=== PATIENT | female | born 1985 | race Caucasian/White ===

== ENCOUNTER 2020-04-28 09:06 | Outpatient (REF) | payer OTHER, SELFPAY | END 2020-04-28 09:07 | disposition home or self-care (01) | LOC: HO.LAB 09:06 | PROVIDERS: PCP Physician Assistant; Visit Provider Obstetrics & Gynecology | DX: N92.1 Excessive and frequent menstruation with irregular cycle (principal); N84.1 Polyp of cervix uteri; R31.29 Other microscopic hematuria | CPT/HCPCS: 36415; 80053; 81001; 81025; 84443; 84702; 85025; 85652; 86140; 86160; 86225; 87491; 87591; 99213 ==

== ENCOUNTER 2020-04-30 12:07 | Outpatient (REF) | payer OTHER, SELFPAY ==
--- NOTE | 2020-04-30 13:02 | XR_ITS ---
EXAMINATION: XR SACRUM AND COCCYX CLINICAL INFORMATION: Dorsalis jet. COMPARISON: None TECHNIQUE: 2 views of the sacrum and 2 views of the coccyx were obtained. FINDINGS: There is normal symmetry of bilateral SI joints with smooth cortical symmetrical defects along the medial ileum adjacent to inferior SI joints. These could be from exiting nerve roots or iliac vessels. The sacrum is unremarkable. The soft tissues are normal. XR/XR sacrum coccyx min 2V IMPRESSION: Unremarkable sacrum and/or coccyx.
[2020-04-30 13:19] LABS: MANUAL DIFF FLAG NO
[2020-04-30 13:23] LABS: Basophils Percent Auto 0.4 % (0-2); Eosinophils Absolute Auto 0.2 X10*3/uL (0.0-0.4); Eosinophils Percent Auto 2.9 % (0-4); Hematocrit 38.6 % (37-47); Hemoglobin 12.4 g/dl (12.0-16.0); Imm Gran Abs Auto 0.01 X10*3/uL (0.00-0.03); Imm Gran Pct Auto 0.2 % (0.0-0.4); Lymphocytes Absolute Auto 0.7 X10*3/uL (1.2-4.9); Lymphocytes Percent Auto 13.6 % (20-40); Mean Corpuscular HGB Conc 32.1 g/dl (31.0-35.0); Mean Corpuscular Hemoglobin 27.9 pg (27.0-33.0); Mean Corpuscular Volume 86.9 fL (80-98); Mean Platelet Volume 10.5 fL (9.4-12.3); Monocytes Absolute Auto 0.5 X10*3/uL (0.1-1.2); Monocytes Percent Auto 8.8 % (2-11); Neutrophils Absolute Auto 3.9 X10*3/uL (2.0-8.3); Neutrophils Percent Auto 74.1 % (45-73); Platelet Count 303 X10*3/uL (160-400); Red Blood Count 4.44 X10*6/uL (4.20-5.50); Red Cell Distribution Width 13.1 % (11.0-16.0); White Blood Count 5.2 X10*3/uL (4.8-10.8)
[2020-04-30 14:15] LABS: Alanine Aminotransferase 32 U/L (0-31); Alkaline Phosphatase 55 U/L (39-117); Anion Gap 11 (12-20); Aspartate Amino Transferase 24 U/L (5-31); Bilirubin Total 0.3 mg/dL (0.0-1.0); Blood Urea Nitrogen 6 mg/dL (9-16); C Reactive Protein 0.55 mg/dL (< or = 0.50); Calcium 8.3 mg/dL (8.4-10.2); Carbon Dioxide 25 mmol/L (22-29); Chloride 105 mmol/L (96-108); Estimated Glomerular Filt Rate > 60; Glucose Random 98 mg/dL (60-115); Potassium 4.2 mmol/l (3.3-5.1); Sodium 137 mmol/L (135-145); Total Protein 7.1 g/dL (6.5-8.0)
[2020-04-30 14:24] LABS: Glucose Urine UA NEG (NEG); Leukocyte Esterase Urine NEG (NEG); Nitrite Urine NEG (NEG); PH 5.5 (5.0-8.0); Specific Gravity - Urine >= 1.030 (1.005-1.025); Urine Blood NEG (NEG); Urine Ketones NEG (NEG); Urine Protein NEG (NEG-TRACE)
[2020-04-30 14:37] LABS: Mucus Urine 1+ /LPF; RBC Urine 0-2 /HPF (0); Squamous Epithelial Cell Urine 1+ /LPF
[2020-04-30 14:54] LABS: Appearance Urine CLEAR; Color Urine YELLOW
[2020-04-30 15:46] LABS: CT PCR NOT DETECTED (Not Detect.); NG PCR NOT DETECTED (Not Detect.)
== END 2020-04-30 12:08 | disposition home or self-care (01) ==
LOC: HO.LAB 12:07
PROVIDERS: Absent Provider Student in an Organized Health Care Education/Training Program; PCP Physician Assistant; Visit Provider Obstetrics & Gynecology
DX: R31.29 Other microscopic hematuria (principal); M35.00 Sjogren syndrome, unspecified; M45.9 Ankylosing spondylitis of unspecified sites in spine
CPT/HCPCS: 36415; 72220; 80053; 81001; 85025; 86140; 87086; 87491; 87591

== ENCOUNTER → 2020-05-14 13:08 | Outpatient (BNVA) | payer OTHER, SELFPAY | PROVIDERS: Visit Provider Obstetrics & Gynecology | DX: Z01.818 Encounter for other preprocedural examination (principal); N84.1 Polyp of cervix uteri; N92.1 Excessive and frequent menstruation with irregular cycle | CPT/HCPCS: 99212 ==

== ENCOUNTER 2020-05-16 06:16 | Day surgery (SDC) | payer OTHER, SELFPAY ==
--- NOTE | 2020-05-14 14:35 | HO.ANESPROP2 ---
Documented by User: Jade Grijalva 05/14/20 14:37 HPI - Anesthesia Eval Consult details Narrative: 35yo F for D&C Diagnostic Hysteroscopy, Poss Polypectomy, Poss Myomectomy s/p tubal PMFSH Past Medical History Medical History Anxiety GERD (gastroesophageal reflux disease) Sjogrens syndrome Family History Family History Father Hypertension Mother No problems noted. Maternal Grandmother Stroke Cancer Paternal Grandfather Stroke Surgical History Surgical History H/O LEEP History of bilateral tubal ligation Social History Social History Alcohol intake: never Smoking Status: Former smoker Years Smoked: 10 Second Hand Smoke Exposure: No Use of substances other than those prescribed or required for medical reasons: No Advance Directives: No Advance Directives Information Provided: No Advance Directives on File: No Sexual orientation: Straight/Heterosexual Gender identity: female Meds Allergies Allergy/AdvReac Type Severity Reaction Status Date / Time Iodinated Contrast Media Allergy Intermediate RASH Verified 05/14/20 13:38 [IV CONTRAST] Penicillins Allergy Intermediate RASH Verified 05/14/20 13:38 amoxicillin Allergy Unknown unknown Verified 05/14/20 13:38 Exam Exam Date and Time: May 14, 2020 1435 Pertinent Lab Results Pertinent Lab Results: Laboratory Tests 04/30/20 04/30/20 12:50 12:50 WBC 5.2 Hgb 12.4 Hct 38.6 Plt Count 303 Sodium 137 Potassium 4.2 Chloride 105 Carbon Dioxide 25 BUN 6 L Creatinine 0.68 Assessment and Plan Assessment Anesthesia Assessment: Chart Reviewed Documented by User: Jania Christine 05/16/20 07:33 PMFSH Past Medical History Medical History Anxiety GERD (gastroesophageal reflux disease) Sjogrens syndrome Family History Family History Father Hypertension Mother No problems noted. Maternal Grandmother Stroke Cancer Paternal Grandfather Stroke Surgical History Surgical History H/O LEEP History of bilateral tubal ligation Social History Social History Alcohol intake: never Smoking Status: Former smoker Years Smoked: 10 Second Hand Smoke Exposure: No Use of substances other than those prescribed or required for medical reasons: No Advance Directives: No Advance Directives Information Provided: No Advance Directives on File: No Sexual orientation: Straight/Heterosexual Gender identity: female Meds Allergies Allergy/AdvReac Type Severity Reaction Status Date / Time Iodinated Contrast Media Allergy Intermediate RASH Verified 05/14/20 13:38 [IV CONTRAST] Penicillins Allergy Intermediate RASH Verified 05/14/20 13:38 amoxicillin Allergy Unknown unknown Verified 05/14/20 13:38 Exam Airway Mallampati Class: I TM Dist: >3cm Neck ROM: Full Loose/Missing/Broken Teeth: No Heart: RRR Lungs: CTA Assessment and Plan Assessment Anesthesia Assessment: Anesthesia Plan Discussed and Chart Reviewed Final Anesthetic Review NPO: Yes ASA Class: II Final Preanesthetic Review: Meds/Allgs Chart Reviewed, Consent Obtained/Reviewed and Anes Risks/Benef Reviewed Patient Risk: Intermediate Procedure Risk: Low Anesthetic Plan Anesthetic Plan: GA Disposition: Standard PACU
[2020-05-15 08:47] VITALS: BMI 36.1
[2020-05-16 06:24] VITALS: BP 138/71; PULSE 74; RESP 20; TEMP 37.1; O2SAT 94; BMI 35.7
[2020-05-16] MEDS: Lactated Ringers 1,000 ML 100 ML IVCONT (06:46)
--- NOTE | 2020-05-16 07:34 | MHC.SHP ---
Pre-Procedural Eval Section A The patient is an INPATIENT: No Changes since office visit: No Cold of Flu in the past 2 weeks, No New Medical Problems, No Changes in Medication and No Patient answered all questions The History & Physical has been completed within 30 days and I have reviewed it.: Yes Section B Chief Complaint: Endocervical Polyp, Metrorrhagia Allergies: Allergies Allergy/AdvReac Type Severity Reaction Status Date / Time Iodinated Contrast Media Allergy Intermediate RASH Verified 05/14/20 13:38 [IV CONTRAST] Penicillins Allergy Intermediate RASH Verified 05/14/20 13:38 amoxicillin Allergy Unknown unknown Verified 05/14/20 13:38 Plan Diagnosis/Plan: Unchanged Patient has been examined and remains a candidate for the planned procedure
--- NOTE | 2020-05-16 07:58 | PM.OP ---
Brief Operative Note Date of Service: 05/16/20 Pre-op diagnosis: Menometrorrhagia , endocervical polyp Post-op diagnosis: other (normal endometrial and enodcervical cavity no evidence of pathology) Procedure: Hysteroscopy D&C Surgeon: Clifton Singer MD Anesthesia: MAC Estimated blood loss (mL): 0 Pathology: other (Endometrial Scrapping. ) Condition: stable Disposition: PACU
--- NOTE | 2020-05-16 08:04 | P.OP_ITS ---
Operative Note Operative Note Date of Service: 05/16/20 Narrative: Preop Diagnosis: Menometrorrhagia, endocervical polyp Operation: Diagnostic Hysteroscopy, Dilataion & Curettage Post Op Diagnosis: normal endometrial and endocervical cavity no evidence of pathology QBL: Minimal Anesthesia: MAC Surgeon: Clifton Singer MD Heating And Ventilation Engineer: None Complication: None Pathology: Endometrial Scrapings Procedure: The patient was put in the dorsal lithotomy position, scrubbed, and draped in the usual manner. A sterile speculum was inserted in the patient's vagina. The anterior lip of the cervix was grasped with a single tooth tenaculum. The cervix was dilated up t o 5 mm, then the scope was inserted in the patient's uterus. Inspection revealed normal endocervical & endometrial cavity with no evidence of pathology. The scope was taken out of the uterine cavity , then sharp curetting was carried on with no complications. At the end of the procedure, all instruments were taken out of the patient uterine and vaginal cavity. The single tooth tenaculum was removed and homeostasis was assured using pressure. The patient tolerated the procedure well and was transferred to the PACU in a stable condition.
[2020-05-16 08:06] VITALS: BP 139/86; PULSE 90; RESP 14; TEMP 36.4; O2SAT 98
[2020-05-16 08:11] VITALS: BP 122/79; PULSE 73; RESP 16; O2SAT 98
[2020-05-16 08:16] VITALS: BP 142/88; PULSE 79; RESP 16; O2SAT 99
[2020-05-16 08:21] VITALS: BP 138/83; PULSE 72; RESP 18; O2SAT 97
[2020-05-16] MEDS: oxyCODONE HCl Immed Release 5 MG TABLET PO (08:22)
[2020-05-16 08:36] VITALS: BP 148/90; PULSE 65; RESP 18; O2SAT 100
== END 2020-05-16 09:20 | disposition home or self-care (01) ==
PROVIDERS: PCP Physician Assistant; Visit Provider Obstetrics & Gynecology
PROC: 0UDB8ZX Extraction of Endometrium, Via Natural or Artificial Opening Endoscopic, Diagnostic (ICD-10-PCS; CPT 58558; principal; 2020-05-16 07:30)
DX: N84.1 Polyp of cervix uteri (principal); N92.1 Excessive and frequent menstruation with irregular cycle; K21.9 Gastro-esophageal reflux disease without esophagitis; M35.00 Sjogren syndrome, unspecified; F41.9 Anxiety disorder, unspecified; Z98.51 Tubal ligation status; Z88.0 Allergy status to penicillin; Z79.899 Other long term (current) drug therapy; Z91.041 Radiographic dye allergy status; Z87.891 Personal history of nicotine dependence
CPT/HCPCS: 58558; 88305; J1100; J1885; J2250; J2405; J3010

== ENCOUNTER → 2020-05-19 14:51 | Outpatient (BNVA) | payer OTHER, SELFPAY | PROVIDERS: PCP Physician Assistant; Visit Provider Obstetrics & Gynecology | DX: M79.603 Pain in arm, unspecified (principal); M06.9 Rheumatoid arthritis, unspecified | CPT/HCPCS: 99212 ==

== ENCOUNTER → 2020-06-03 16:07 | Outpatient (BNVA) | payer OTHER, SELFPAY | PROVIDERS: Visit Provider Obstetrics & Gynecology | DX: Z76.89 Persons encountering health services in other specified circumstances (principal) ==

== ENCOUNTER → 2020-06-17 08:20 | Outpatient (BNVA) | payer OTHER, SELFPAY | PROVIDERS: PCP Internal Medicine; Referring Provider Internal Medicine; Visit Provider Student in an Organized Health Care Education/Training Program | DX: Z76.89 Persons encountering health services in other specified circumstances (principal) ==

== ENCOUNTER 2020-07-01 14:02 | Outpatient (REF) | payer OTHER, SELFPAY ==
--- NOTE | 2020-07-01 15:16 | XR_ITS ---
EXAMINATION: XR KNEE, RIGHT CLINICAL INFORMATION: Pain COMPARISON: None TECHNIQUE: Two views of the right knee. FINDINGS: Bones and soft tissues are normal. No fracture or joint effusion. Alignment is anatomic. Joint spaces are well maintained. No abnormal soft tissue calcification. XR/XR knee RT 2V IMPRESSION: Normal right knee.
[2020-07-01 15:47] LABS: Basophils Percent Auto 0.7 % (0-2); Eosinophils Absolute Auto 0.3 X10*3/uL (0.0-0.4); Hematocrit 41.9 % (37-47); Hemoglobin 13.1 g/dl (12.0-16.0); Imm Gran Abs Auto 0.01 X10*3/uL (0.00-0.03); Imm Gran Pct Auto 0.2 % (0.0-0.4); Lymphocytes Absolute Auto 0.8 X10*3/uL (1.2-4.9); Lymphocytes Percent Auto 13.8 % (20-40); MANUAL DIFF FLAG NO; Mean Corpuscular HGB Conc 31.3 g/dl (31.0-35.0); Mean Corpuscular Hemoglobin 27.4 pg (27.0-33.0); Mean Corpuscular Volume 87.7 fL (80-98); Mean Platelet Volume 10.3 fL (9.4-12.3); Monocytes Absolute Auto 0.6 X10*3/uL (0.1-1.2); Neutrophils Absolute Auto 3.9 X10*3/uL (2.0-8.3); Neutrophils Percent Auto 70.3 % (45-73); Platelet Count 338 X10*3/uL (160-400); Red Blood Count 4.78 X10*6/uL (4.20-5.50); Red Cell Distribution Width 12.4 % (11.0-16.0); White Blood Count 5.6 X10*3/uL (4.8-10.8)
[2020-07-01 15:49] LABS: Glucose Urine UA NEG (NEG); Leukocyte Esterase Urine NEG (NEG); Nitrite Urine NEG (NEG); PH 5.5 (5.0-8.0); Specific Gravity - Urine 1.015 (1.005-1.025); Urine Blood 2+ (NEG); Urine Ketones NEG (NEG); Urine Protein NEG (NEG-TRACE)
[2020-07-01 15:54] LABS: Appearance Urine CLEAR; Color Urine YELLOW
[2020-07-01 16:00] LABS: Bacteria Urine 1+ /LPF; RBC Urine 0-2 /HPF (0); Squamous Epithelial Cell Urine 1+ /LPF; WBC Urine 0 /HPF (0-4)
[2020-07-01 16:12] LABS: Alanine Aminotransferase 26 U/L (0-31); Albumin Level 4.2 g/dL (3.5-5.0); Alkaline Phosphatase 70 U/L (39-117); Anion Gap 10 (12-20); Aspartate Amino Transferase 22 U/L (5-31); Bilirubin Total 0.3 mg/dL (0.0-1.0); Blood Urea Nitrogen 5 mg/dL (9-16); C Reactive Protein 0.72 mg/dL (< or = 0.50); Carbon Dioxide 29 mmol/L (22-29); Chloride 106 mmol/L (96-108); Estimated Glomerular Filt Rate > 60; Glucose Random 94 mg/dL (60-115); Potassium 3.9 mmol/l (3.3-5.1); Sodium 141 mmol/L (135-145); Total Protein 7.7 g/dL (6.5-8.0)
[2020-07-01 16:32] LABS: Erythrocyte Sedimentation Rate 38 MM/HR (0-20)
--- NOTE | 2020-07-01 17:31 | PFT_ITS ---
INDICATION: Asthma. SPIROMETRY: The FEV1 to FVC of 81% with an FEV1 of 2.53 L, which is 92% predicted and an FVC of 3.14 L, which is 96% predicted. No significant response to bronchodilators noted. To note, the patient has a slight amount of small airways disease, likely consistent with asthma. LUNG VOLUMES: Total lung capacity 92% predicted. DIFFUSION CAPACITY: 118% predicted. COMPARISONS: None. INTERPRETATION: No obstructive nor restrictive ventilatory defects identified. No significant response to bronchodilators noted. Mild small airways disease, which may be due to underlying history of asthma. Normal maximum voluntary ventilation. Lung volumes are normal limits, although expiratory reserve volume is decreased likely secondary to an elevated BMI. Diffusion capacity is high-normal. Therefore, exogenous exposure to carbon monoxide need to be considered, especially the secondhand smoking in general. If asthma is in the differential, methacholine challenge may be helpful in assessing for hyper-reactive airways, otherwise clinical correlation warranted. MD SURYA Hawley/MODL / [id number]
[2020-07-02 14:42] LABS: Complement C3 153 mg/dL (83-193)
[2020-07-03 11:17] LABS: Anti DNA DS Antibody <1 IU/mL
== END 2020-07-01 14:03 | disposition home or self-care (01) ==
LOC: HO.RESP 14:02
PROVIDERS: Absent Provider Student in an Organized Health Care Education/Training Program; PCP Physician Assistant; Visit Provider Physician Assistant
DX: J45.909 Unspecified asthma, uncomplicated (principal); M25.561 Pain in right knee; M35.00 Sjogren syndrome, unspecified
CPT/HCPCS: 36415; 73560; 80053; 81001; 85025; 85652; 86140; 86160; 86225; 94060; 94727; 94729

== ENCOUNTER 2020-07-24 09:47 | Outpatient (REF) | payer OTHER, SELFPAY ==
--- NOTE | 2020-07-24 14:29 | XR_ITS ---
EXAMINATION: XR KNEE, RIGHT CLINICAL INFORMATION: Right knee pain. COMPARISON: Right knee radiographs dated 07/01/2020. TECHNIQUE: [place] view of the right knee. FINDINGS: Normal patellofemoral alignment. No joint space narrowing or marginal osteophytes. No osseous erosion. No abnormal soft tissue calcification. XR/XR knee RT 2V IMPRESSION: Normal patellofemoral alignment.
== END 2020-07-24 09:48 | disposition home or self-care (01) ==
LOC: HO.HOSX 09:47
PROVIDERS: Visit Provider Physician Assistant
DX: M22.2X1 Patellofemoral disorders, right knee (principal)
CPT/HCPCS: 73560; 99202

== ENCOUNTER 2020-09-19 15:00 | Outpatient (RCR) | payer OTHER, SELFPAY ==
--- NOTE | 2020-10-21 09:14 | MHC.PT.DC ---
[facility] [place] [facility] [place] Office [place] Office [address] Marialuisa Mcgrath [address] [phone] F: [phone] F: [phone] F: [phone] F: [phone] Physical Therapy Discharge Report Diagnosis: This is a 35 yo female presenting to skilled PT with a script for R knee pain. Date of Surgery: Date of Evaluation: 08/06/20 Date of Discharge: 10/21/20 Treatments to Date: 3 Cancellations to Date: 2 No Shows to Date: 2 Discharge Status: Improved Function Visit Non-compliance Discharge Summary: Pt WAS RESPONDING WELL TO PT TO ADDRESS PAIN, FLEXIBILITY, PELVIC SYMMETRY, AND DEV A HEP FOR STRENGTHENING. Pt DID NOT SHOW FOR HER LAST FEW SCHED APPTS DESPITE PHONE CALL REMINDERS AND IS D/C AT THIS TIME PER DEPT POLICY. Electronically signed by: Angela Mathew, PT Please sign and return to therapist. Thank you for your referral.
== END 2020-10-21 09:17 | disposition other institution (70) ==
LOC: HO.PTCHIC 15:00
PROVIDERS: PCP Physician Assistant; Visit Provider Physician Assistant
DX: M22.2X9 Patellofemoral disorders, unspecified knee (principal)
CPT/HCPCS: 97110; 97140; 97161

== ENCOUNTER 2020-11-03 08:55 | Outpatient (REF) | payer OTHER, SELFPAY ==
[2020-11-03 15:25] LABS: CT PCR NOT DETECTED (Not Detect.); NG PCR NOT DETECTED (Not Detect.)
[2020-11-04 12:34] LABS: BV Int Neg Control Negative (Negative); BV Int Pos Control Positive (Positive)
== END 2020-11-03 08:56 | disposition home or self-care (01) ==
LOC: HO.LAB 08:55
PROVIDERS: PCP Internal Medicine; Visit Provider Advanced Practice Midwife
DX: N89.8 Other specified noninflammatory disorders of vagina (principal); N76.0 Acute vaginitis; D21.9 Benign neoplasm of connective and other soft tissue, unspecified; Z20.2 Contact with and (suspected) exposure to infections with a predominantly sexual mode of transmission
CPT/HCPCS: 81003; 87480; 87491; 87510; 87591; 87660; 99212

== ENCOUNTER 2020-11-07 14:58 | Outpatient (REF) | payer OTHER, SELFPAY ==
[2020-11-07 17:15] LABS: Hematocrit 40.5 % (37-47); Hemoglobin 12.8 g/dl (12.0-16.0)
[2020-11-07 17:33] LABS: Alanine Aminotransferase 21 U/L (0-31); Alkaline Phosphatase 60 U/L (39-117); Anion Gap 15 (12-20); Aspartate Amino Transferase 18 U/L (5-31); Bilirubin Total 0.5 mg/dL (0.0-1.0); Blood Urea Nitrogen 7 mg/dL (9-16); Calcium 9.1 mg/dL (8.4-10.2); Carbon Dioxide 25 mmol/L (22-29); Estimated Glomerular Filt Rate > 60; Glucose Random 110 mg/dL (60-115); Total Protein 7.7 g/dL (6.5-8.0)
[2020-11-07 17:47] LABS: Glucose Urine UA NEG (NEG); Leukocyte Esterase Urine NEG (NEG); Nitrite Urine NEG (NEG); Urine Blood TRACE (NEG); Urine Ketones NEG (NEG); Urine Protein NEG (NEG-TRACE)
[2020-11-07 17:48] LABS: Appearance Urine CLEAR; Color Urine YELLOW
[2020-11-07 17:54] LABS: Ferritin 54 ng/mL (10-122)
[2020-11-07 17:55] LABS: Bacteria Urine TRACE /LPF; RBC Urine 0-2 /HPF (0); Squamous Epithelial Cell Urine TRACE /LPF; WBC Urine 0 /HPF (0-4)
[2020-11-07 18:42] LABS: Albumin Level 4.3 g/dL (3.5-5.0); Chloride 104 mmol/L (96-108); Potassium 4.6 mmol/L (3.3-5.1); Sodium 139 mmol/L (135-145)
== END 2020-11-07 14:59 | disposition home or self-care (01) ==
LOC: HO.HMGCLDS 14:58
PROVIDERS: Student in an Organized Health Care Education/Training Program; PCP Internal Medicine; Visit Provider Internal Medicine
DX: R10.2 Pelvic and perineal pain (principal); K21.9 Gastro-esophageal reflux disease without esophagitis; J45.909 Unspecified asthma, uncomplicated; E66.09 Other obesity due to excess calories; Z68.36 Body mass index [BMI] 36.0-36.9, adult; I10 Essential (primary) hypertension
CPT/HCPCS: 36415; 80053; 81001; 82728; 84443; 85014; 85018

== ENCOUNTER 2021-02-27 11:01 | Outpatient (REF) | payer OTHER, SELFPAY ==
[2021-02-27 11:57] LABS: MANUAL DIFF FLAG NO
[2021-02-27 12:03] LABS: Basophils Percent Auto 0.3 % (0-2); Eosinophils Absolute Auto 0.2 X10*3/uL (0.0-0.4); Eosinophils Percent Auto 2.4 % (0-4); Hematocrit 39.7 % (37-47); Imm Gran Abs Auto 0.02 X10*3/uL (0.00-0.03); Imm Gran Pct Auto 0.3 % (0.0-0.4); Lymphocytes Absolute Auto 1.1 X10*3/uL (1.2-4.9); Lymphocytes Percent Auto 15.4 % (20-40); Mean Corpuscular HGB Conc 32.7 g/dl (31.0-35.0); Mean Corpuscular Volume 85.4 fL (80-98); Mean Platelet Volume 10.6 fL (9.4-12.3); Monocytes Absolute Auto 0.9 X10*3/uL (0.1-1.2); Monocytes Percent Auto 12.8 % (2-11); Neutrophils Absolute Auto 4.8 X10*3/uL (2.0-8.3); Neutrophils Percent Auto 68.8 % (45-73); Platelet Count 360 X10*3/uL (160-400); Red Blood Count 4.65 X10*6/uL (4.20-5.50)
[2021-02-27 12:33] LABS: Alanine Aminotransferase 29 U/L (0-31); Albumin Level 4.1 g/dL (3.5-5.0); Alkaline Phosphatase 63 U/L (39-117); Anion Gap 10 (12-20); Aspartate Amino Transferase 21 U/L (5-31); Bilirubin Total 0.5 mg/dL (0.0-1.0); Blood Urea Nitrogen 5 mg/dL (9-16); C Reactive Protein 1.42 mg/dL (< or = 0.50); Calcium 9.1 mg/dL (8.4-10.2); Carbon Dioxide 24 mmol/L (22-29); Chloride 108 mmol/L (96-108); Estimated Glomerular Filt Rate > 60; Glucose Random 83 mg/dL (60-115); Potassium 4.1 mmol/L (3.3-5.1); Sodium 138 mmol/L (135-145); Total Protein 7.4 g/dL (6.5-8.0)
[2021-02-27 13:09] LABS: Erythrocyte Sedimentation Rate 34 MM/HR (0-20)
[2021-02-27 13:25] LABS: Appearance Urine CLEAR; Color Urine STRAW; Glucose Urine UA NEG (NEG); Leukocyte Esterase Urine TRACE (NEG); Nitrite Urine NEG (NEG); Specific Gravity - Urine <= 1.005 (1.005-1.025); Urine Blood NEG (NEG); Urine Ketones NEG (NEG); Urine Protein NEG (NEG-TRACE)
[2021-02-27 13:39] LABS: Bacteria Urine TRACE /LPF; RBC Urine 0 /HPF (0); Squamous Epithelial Cell Urine 1+ /LPF; WBC Urine 0-2 /HPF (0-4)
[2021-03-02 12:51] LABS: Anti DNA DS Antibody <1 IU/mL; SM/Ribonucleoprotein Ab <1.0 NEG AI (<1.0 NEG); Smith Protein <1.0 NEG AI (<1.0 NEG)
[2021-03-02 13:12] LABS: Complement C3 169 mg/dL (83-193)
== END 2021-02-27 11:02 | disposition home or self-care (01) ==
LOC: HO.LAB 11:01
PROVIDERS: PCP Internal Medicine; Visit Provider Student in an Organized Health Care Education/Training Program
DX: M35.00 Sjogren syndrome, unspecified (principal); R76.8 Other specified abnormal immunological findings in serum; M79.7 Fibromyalgia
CPT/HCPCS: 36415; 80053; 81001; 85025; 85652; 86140; 86160; 86225; 86235; 99212

== ENCOUNTER → 2021-03-11 12:55 | Outpatient (BNVA) | payer OTHER, SELFPAY | PROVIDERS: PCP Internal Medicine; Visit Provider Student in an Organized Health Care Education/Training Program ==

== ENCOUNTER 2021-04-29 09:55 | Outpatient (REF) | payer OTHER, SELFPAY ==
[2021-04-29 11:57] LABS: C Reactive Protein 0.97 mg/dL (< or = 0.50); Iron 49 mcg/dL (30-160); Percent Iron Saturation 11 % (15-50); Thyroid Stimulating Hormone 1.27 uIU/mL (0.32-4.0); Total Iron Binding Capacity 432 mcg/dL (228-428); Unsaturated Iron Binding 383 ug/dL
[2021-04-29 12:07] LABS: Erythrocyte Sedimentation Rate 38 MM/HR (0-20)
[2021-04-29 12:51] LABS: Rheumatoid Factor < 15.0 IU/mL (<15.0)
[2021-04-29 13:14] LABS: T4 Thyroxine 7.5 ug/dL (4.5-12.0)
[2021-05-04 10:25] LABS: ANA Pattern 2 Nuclear, Speckled; Anti Nuclear Antibody Pattern Nuclear, Homogeneous; Anti Nuclear Antibody Screen POSITIVE (NEGATIVE)
== END 2021-04-29 09:56 | disposition home or self-care (01) ==
LOC: HO.LAB 09:55
PROVIDERS: PCP Internal Medicine; Visit Provider Psychiatry & Neurology Neurology
DX: M79.7 Fibromyalgia (principal)
CPT/HCPCS: 36415; 82550; 83540; 84436; 84443; 85652; 86038; 86039; 86140; 86431

== ENCOUNTER 2021-08-03 12:44 | Outpatient (REF) | payer OTHER, SELFPAY ==
[2021-08-03 17:39] LABS: CDiff Gene PCR NEGATIVE (Negative)
[2021-08-03 17:41] LABS: Leukocytes Stool Qualitative MOD: 3-9/OIF (NEGATIVE)
== END 2021-08-03 12:45 | disposition home or self-care (01) ==
LOC: HO.HMGCLNP 12:44
PROVIDERS: Visit Provider Internal Medicine
DX: R19.7 Diarrhea, unspecified (principal)
CPT/HCPCS: 87015; 87046; 87207; 87493; 89055

== ENCOUNTER → 2021-08-04 13:29 | Outpatient (BNVA) | payer OTHER, SELFPAY | PROVIDERS: PCP Internal Medicine; Visit Provider Physician Assistant | DX: R19.7 Diarrhea, unspecified (principal) | CPT/HCPCS: 99202 ==

== ENCOUNTER → 2021-09-08 13:36 | Outpatient (BNVA) | payer OTHER, SELFPAY | PROVIDERS: PCP Internal Medicine; Referring Provider Internal Medicine; Visit Provider Physician Assistant | DX: R19.5 Other fecal abnormalities (principal); K21.9 Gastro-esophageal reflux disease without esophagitis; M35.00 Sjogren syndrome, unspecified; F41.9 Anxiety disorder, unspecified; U07.0 Vaping-related disorder; Z87.891 Personal history of nicotine dependence; Z88.0 Allergy status to penicillin; Z88.6 Allergy status to analgesic agent; Z91.041 Radiographic dye allergy status; Z79.899 Other long term (current) drug therapy | CPT/HCPCS: 99212 ==

== ENCOUNTER 2021-12-01 12:16 | Day surgery (SDC) | payer OTHER, SELFPAY ==
[2021-11-25 15:03] VITALS: BMI 38.5
--- NOTE | 2021-11-27 13:21 | HO.ANESPROP2 ---
Documented by User: Jade Grijalva NP 11/27/21 13:22 HPI - Anesthesia Eval Consult details Narrative: 36yo F for Upper Endoscopy and Colonoscopy PMF Active Problems Active Problems: All Active Problems (Updated 10/05/21 @ 15:49 by Romaine Ortiz MD) Upper respiratory tract infection (Acute) IBS (irritable colon syndrome) (Acute) Diarrhea (Acute) Major depressive disorder, severe (Acute) Fibromyalgia (Acute) Chronic GERD (Acute) Asthma, moderate (Acute) Suprapubic discomfort (Acute) Endocervical polyp (Acute) Vaginal irritation (Acute) Cellulitis (Acute) Patella-femoral syndrome (Acute) Smoker (Acute) Chronic abdominal pain (Acute) Obese (Acute) Right knee pain (Acute) HTN (hypertension) (Acute) Annual physical exam (Acute) Asthma (Acute) JORGE A positive (Acute) Rheumatoid factor positive (Acute) Body aches (Acute) Microscopic hematuria (Acute) Metrorrhagia (Acute) Sjogrens syndrome (Acute) Past Medical History Medical History JORGE A positive Anxiety Endocervical polyp GERD (gastroesophageal reflux disease) IBS (irritable colon syndrome) Rheumatoid factor positive Sjogrens syndrome Family History Family History Father Hypertension Mother No problems noted. Maternal Grandmother Stroke Cancer Paternal Grandfather Stroke Other Mental health disorder Substance use disorder Surgical History Surgical History H/O colonoscopy H/O esophagogastroduodenoscopy H/O LEEP History of bilateral tubal ligation Social History Social History Housing: Apartment Alcohol intake: never Patient Tobacco Use Status: Current everyday Tobacco user Tobacco use type: Cigarette Years Smoked: 10 e-Cigarette/Vaping Use: Currently Using Second Hand Smoke Exposure: No Current occupational status: unemployed Sexual orientation: Straight/Heterosexual Gender identity: Female Meds Allergies Allergy/AdvReac Type Severity Reaction Status Date / Time Iodinated Contrast Media Allergy Intermediate RASH Verified 10/05/21 15:48 [IV CONTRAST] Penicillins Allergy Intermediate RASH Verified 10/05/21 15:48 amoxicillin Allergy Unknown unknown Verified 10/05/21 15:48 Home Medications Medication Instructions Recorded Confirmed Last Taken Type ibuprofen 800 mg tablet 800 mg PO Q8H 05/19/20 10/05/21 Unknown History Exam Exam Date and Time: November 27, 2021 1321 Height,Weight and Vital Signs: Height 5 ft Weight 89.358 kg Assessment and Plan Assessment Anesthesia Assessment: Chart Reviewed Documented by User: Mayur Alvarez MD 12/01/21 16:04 HPI - Anesthesia Eval Consult details Narrative: 36yo F for Upper Endoscopy and Colonoscopy [facility] Past Medical History Medical History JORGE A positive Anxiety Endocervical polyp GERD (gastroesophageal reflux disease) IBS (irritable colon syndrome) Rheumatoid factor positive Sjogrens syndrome Functional capacity: independent ambulation Family History Family History Father Hypertension Mother No problems noted. Maternal Grandmother Stroke Cancer Paternal Grandfather Stroke Other Mental health disorder Substance use disorder Family history of problems with anesthesia: No Surgical History Surgical History H/O colonoscopy H/O esophagogastroduodenoscopy H/O LEEP History of bilateral tubal ligation History of Problems with Anesthesia: No Social History Social History Housing: Apartment Alcohol intake: never Patient Tobacco Use Status: Current everyday Tobacco user Tobacco use type: Cigarette Years Smoked: 10 e-Cigarette/Vaping Use: Currently Using Second Hand Smoke Exposure: No Current occupational status: unemployed Sexual orientation: Straight/Heterosexual Gender identity: Female Meds Allergies Allergy/AdvReac Type Severity Reaction Status Date / Time Iodinated Contrast Media Allergy Intermediate RASH Verified 10/05/21 15:48 [IV CONTRAST] Penicillins Allergy Intermediate RASH Verified 10/05/21 15:48 amoxicillin Allergy Unknown unknown Verified 10/05/21 15:48 Home Medications Medication Instructions Recorded Confirmed Last Taken Type ibuprofen 800 mg tablet 800 mg PO Q8H 05/19/20 10/05/21 Unknown History Exam Airway Mallampati Class: III TM Dist: >3cm Neck ROM: Full Loose/Missing/Broken Teeth: Yes Heart: S1,S2 Lungs: b/l breath sounds Assessment and Plan Assessment Anesthesia Assessment: Anesthesia Plan Discussed Final Anesthetic Review Family History of Problems with Anesthesia: No History of Problems with Anesthesia: No NPO: Yes ASA Class: II Final Preanesthetic Review: Meds/Allgs Chart Reviewed, Consent Obtained/Reviewed and Anes Risks/Benef Reviewed Patient Risk: Intermediate Procedure Risk: Intermediate Anesthetic Plan Anesthetic Plan: MAC: Disposition: Standard PACU
[2021-12-01 12:39] VITALS: BMI 38.3
[2021-12-01 12:48] VITALS: BP 146/82; PULSE 93; RESP 16; TEMP 36.5; O2SAT 99
[2021-12-01] MEDS: Lactated Ringers 1,000 ML 100 ML IVCONT (12:57)
--- NOTE | 2021-12-01 13:00 | PC.NURSE ---
called for a resp treatment
[2021-12-01] MEDS: Albuterol Sulfate (0.083%) 2.5 MG/3 ML VIAL.NEB INHALE (13:05)
--- NOTE | 2021-12-01 13:05 | MHC.SHP ---
Pre-Procedural Eval Section A Date of Service: 12/01/21 Section B Chief Complaint: diarrhea,reflux Relevant Family History (Specify if Yes): No Relevant Social History: None Present Medications: see Short Stay Collaborative assessment Medical History: Significant History (JORGE A positive Anxiety Endocervical polyp GERD (gastroesophageal reflux disease) IBS (irritable colon syndrome) Rheumatoid factor positive Sjogrens syndrome) History of Previous Operations: Relevant previous surgery/procedure and date(s) (H/O colonoscopy H/O esophagogastroduodenoscopy H/O LEEP History of bilateral tubal ligation) Allergies: Allergies Allergy/AdvReac Type Severity Reaction Status Date / Time Iodinated Contrast Media Allergy Intermediate RASH Verified 10/05/21 15:48 [IV CONTRAST] Penicillins Allergy Intermediate RASH Verified 10/05/21 15:48 amoxicillin Allergy Unknown unknown Verified 10/05/21 15:48 Review of Systems Sugical H&P ROS: Negative: Constitution, Cardiovascular, Respiratory, Neurological, Psychiatric, Hem-Onc, Allergic/Immunologic, Gastrointestinal, Genitourinary, Musculoskeletal, Integumentary, Endocrine and Eyes/Ears/Nose/Throat Exam Surgical H&P Exam: Normal: HEENT, Normal: Heart, Normal: Lungs, Normal: Extremities, Normal: Abdomen, Normal: Skin and Normal: Neurological Plan Diagnosis/Plan: Unchanged I have reviewed the history and physical and performed a pertinent physical examination on my patient. No changes have occurred unless specified.
[2021-12-01 13:07] VITALS: PULSE 77; RESP 18; O2SAT 97
--- NOTE | 2021-12-01 13:11 | PC.NURSE ---
RECEIVING RESP TREATMENT
--- NOTE | 2021-12-01 13:35 | P.BOP_ITS ---
Brief Operative Note Date of Service: 12/01/21 Pre-op diagnosis: diarrhea Post-op diagnosis: same Procedure: see op note Surgeon: Walker Lewis MD Anesthesia: MAC Was an Professor Of Biological Sciences used for this Procedure?: No Estimated blood loss (mL): 0 Condition: stable Disposition: PACU
--- NOTE | 2021-12-01 13:36 | W.PM.OPN ---
Operative Note Operative Note Date of Service: 12/01/21 Narrative: Operative Information Procedure Description: EGD, Colonoscopy Indication: [] Anesthesia: MAC FLEXIBLE TRANSORAL UPPER GASTROINTESTINAL ENDOSCOPY AND COLONOSCOPY PROCEDURE NOTE UPPER ENDOSCOPY Consent: Indications for the procedure and potential complications of bleeding, perforation, reaction to medications and missed diagnosis were discussed with the patient and informed consent was obtained. Instrument: Olympus GIF H 190 J mid size upper endoscope Monitoring: Vital signs and clinical assessment, continuous EKG monitoring, Pulse oximetry, Carbon Dioxide monitoring and blood pressure monitoring were done throughout the procedure. Procedure: The patient was placed in the left lateral decubitis position and pre-procedure medications were administered and a bite block was placed. The endoscope was inserted into the mouth and advanced under direct vision to the third part of duodenum. A careful inspection was made as the upper endoscope was withdrawn including a retroflexed examination of the proximal stomach; Findings and interventions are described below. Findings: Larynx:normal Esophagus: GE junction at 38 cm, diaphragm hiatus at 38 cm, normal mucosa Stomach: Patchy erythema. Biopsies were obtained. Grade 3 flap valve on retroflexed examination of the cardia. Duodenum: Normal bulb and descending duodenum, bx taken Intervention: Biopsies as noted above COLONOSCOPY Instrument: Olympus variable stiffness adult scope 190L Colonoscopy Monitoring: Vital signs and clinical assessment, continuous EKG monitoring, Pulse oximetry, Carbon Dioxide monitoring and blood pressure monitoring were done throughout the procedure. Colon withdrawal time was 7 minutes. Procedure: The patient was placed in the left lateral decubitis position and pre-procedure medications were administered. After a digital rectal examination of the ano-rectum, the video colonoscope was inserted into the rectum and advanced through the colon to the cecum/TI. The colonoscope was slowly withdrawn in a retrograde panoramic fashion and the colon mucosa was carefully examined including a retroflexed view of the rectum. Findings and interventions are described below. Procedure easyDifficulty: Findings: Terminal Ileum-normal, bx taken Random colon bx taken incl for mast cells and amyloid Cecum:normal Ascending Colon: normal Transverse Colon -normal Descending Colon:normal Sigmoid Colon: normal Rectum: Retroflexion with small internal hemorrhoids, grade I Anorectum - normal Colon preparation: [place] Bowel Preparation Scale Right colon; 2 Transverse colon: 3 Left colon; 2 (0 = Unprepared colon segment with mucosa not seen due to solid stool that cannot be cleared. 1 = Portion of mucosa of the colon segment seen, but other areas of the colon segment not well seen due to staining, residual stool and/or opaque liquid. 2 = Minor amount of residual staining, small fragments of stool and/or opaque liquid, but mucosa of colon segment seen well. 3 = Entire mucosa of colon segment seen well with no residual staining, small fragments of stool or opaque liquid) Impression and Post Procedure Diagnosis: Endoscopy Findings: gastritis lax LES Colonoscopy Findings: internal hemorrhoids Plan: Await Pathology results Repeat Colonoscopy aged 45 yrs of age or earlier if clinically indicated High fiber diet leaflet avoid straining at stool, epsom salts and sitz bath, anusol supps or cream if diarrhea ongoing and bx neg can consider trials of rifaximin, welchol, FODMAP diet REFLUX precautions Above findings were reviewed with the patient and relevant handouts were provided if indicated.
[2021-12-01 14:10] VITALS: BP 113/77; PULSE 126; RESP 16; TEMP 36.8; O2SAT 100
[2021-12-01 14:24] VITALS: BP 136/83; PULSE 120; RESP 16; O2SAT 99
[2021-12-01 14:36] VITALS: BP 133/73; PULSE 96; RESP 16; TEMP 37.2; O2SAT 100
[2021-12-01 14:48] VITALS: BP 136/72; PULSE 98; RESP 16; O2SAT 100
== END 2021-12-01 15:47 | disposition home or self-care (01) ==
PROVIDERS: PCP Internal Medicine; Visit Provider Internal Medicine Gastroenterology
PROC: (CPT 45380; principal; 2021-12-01 14:30)
DX: R19.7 Diarrhea, unspecified (principal); K64.0 First degree hemorrhoids; K21.9 Gastro-esophageal reflux disease without esophagitis; K29.50 Unspecified chronic gastritis without bleeding; K22.89 Other specified disease of esophagus; K29.80 Duodenitis without bleeding; K20.80 Other esophagitis without bleeding; K44.9 Diaphragmatic hernia without obstruction or gangrene; R76.0 Raised antibody titer; M35.00 Sjogren syndrome, unspecified; F41.1 Generalized anxiety disorder; Z79.899 Other long term (current) drug therapy; Z88.0 Allergy status to penicillin; Z91.040 Latex allergy status; Z87.891 Personal history of nicotine dependence
CPT/HCPCS: 45380; 43239; 88305; 88313; 88341; 88342; 94640; J2250; J2405; J2550

== ENCOUNTER → 2021-12-07 11:21 | Outpatient (BNVA) | payer OTHER, SELFPAY | PROVIDERS: PCP Internal Medicine; Visit Provider Internal Medicine Gastroenterology | DX: Z13.89 Encounter for screening for other disorder (principal) ==

== ENCOUNTER 2022-06-30 13:34 | Outpatient (REF) | payer OTHER, SELFPAY ==
[2022-06-30 15:05] LABS: MANUAL DIFF FLAG NO
[2022-06-30 15:53] LABS: Appearance Urine Cloudy; Color Urine Dark Yellow; Glucose Urine UA Negative (Negative); Leukocyte Esterase Urine Trace (Negative); Nitrite Urine Negative (Negative); Specific Gravity - Urine >= 1.030 (1.005-1.025); UMIC TRIGGER UA YES; Urine Blood Negative (Negative); Urine Ketones Trace mg/dL (Negative); Urine Protein 30 (1+) mg/dL (Neg-Trace)
[2022-06-30 16:01] LABS: Basophils Percent Auto 0.4 % (0-2); Eosinophils Absolute Auto 0.2 X10*3/uL (0.0-0.4); Eosinophils Percent Auto 2.6 % (0-4); Hematocrit 32.2 % (37.0-47.0); Hemoglobin 9.4 g/dl (12.0-16.0); Imm Gran Abs Auto 0.03 X10*3/uL (0.00-0.03); Imm Gran Pct Auto 0.4 % (0.0-0.4); Lymphocytes Absolute Auto 1.3 X10*3/uL (1.2-4.9); Lymphocytes Percent Auto 15.5 % (20-40); Mean Corpuscular HGB Conc 29.2 g/dl (31.0-35.0); Mean Corpuscular Hemoglobin 20.3 pg (27.0-33.0); Mean Corpuscular Volume 69.4 fL (80.0-98.0); Monocytes Absolute Auto 0.6 X10*3/uL (0.1-1.2); Monocytes Percent Auto 6.9 % (2-11); Neutrophils Absolute Auto 6.4 x10*3/uL (2.0-8.3); Neutrophils Percent Auto 74.2 % (45-73); Platelet Count 491 X10*3/uL (160-400); Red Blood Count 4.64 X10*6/uL (4.20-5.50); Red Cell Distribution Width 18.7 % (11.0-16.0); White Blood Count 8.5 X10*3/uL (4.8-10.8)
[2022-06-30 16:05] LABS: Bacteria Urine None Seen (None Seen); Hyaline Casts Urine 0-2 /LPF (0-2); WBC Urine 0-5 /HPF (0-5)
[2022-06-30 16:37] LABS: Creatinine Urine 345.66 mg/dL; Protein/Creatinine Ratio, Ur 0.07 (<0.2); Total Protein Urine Random 25 mg/dL (<12)
[2022-06-30 16:41] LABS: Erythrocyte Sedimentation Rate 37 MM/HR (0-20)
[2022-06-30 16:42] LABS: Alanine Aminotransferase 18 U/L (0-31); Albumin Level 4.1 g/dL (3.5-5.0); Alkaline Phosphatase 68 U/L (39-117); Anion Gap 11 (12-20); Aspartate Amino Transferase 16 U/L (5-31); Bilirubin Total 0.2 mg/dL (0.0-1.0); Blood Urea Nitrogen 9 mg/dL (9-16); C Reactive Protein 0.72 mg/dL (< or = 0.50); Calcium 9.3 mg/dL (8.4-10.2); Carbon Dioxide 25 mmol/L (22-29); Chloride 105 mmol/L (96-108); Estimated Glomerular Filt Rate > 60; Glucose Random 111 mg/dL (60-115); Potassium 4.2 mmol/L (3.3-5.1); Rheumatoid Factor < 13.0 IU/mL (<15.0); Sodium 137 mmol/L (135-145); Total Protein 7.6 g/dL (6.5-8.0)
[2022-07-01 15:33] LABS: Complement C3 160 mg/dL (83-193)
[2022-07-03 13:13] LABS: IgA 309 mg/dL (47-310); IgG 1632 mg/dL (600-1640); IgM 103 mg/dL (50-300)
[2022-07-05 13:54] LABS: Anti DNA DS Antibody <1 IU/mL
[2022-07-06 15:18] LABS: Prot Elec - Albumin 3.7 g/dL (3.8-4.8); Prot Elec - Alpha1 0.4 g/dL (0.2-0.3); Prot Elec - Alpha2 0.9 g/dL (0.5-0.9); Prot Elec - Beta 1 0.7 g/dL (0.4-0.6); Prot Elec - Beta 2 0.4 g/dL (0.2-0.5); Prot Elec - Gamma 1.4 g/dL (0.8-1.7); Prot Elec - Total Protein 7.5 g/dL (6.1-8.1)
[2022-07-09 17:35] LABS: Cryoglobulin, Qual NONE DETECTED ((NDT))
== END 2022-06-30 13:35 | disposition home or self-care (01) ==
LOC: HO.LAB 13:34
PROVIDERS: PCP Internal Medicine; Visit Provider Student in an Organized Health Care Education/Training Program
DX: M35.00 Sjogren syndrome, unspecified (principal); M32.9 Systemic lupus erythematosus, unspecified
CPT/HCPCS: 36415; 80053; 81001; 82550; 82595; 82784; 84156; 84165; 85025; 85652; 86140; 86160; 86225; 86334; 86431; 99212

== ENCOUNTER → 2022-08-25 08:00 | Outpatient (BNVA) | payer OTHER, SELFPAY | PROVIDERS: PCP Internal Medicine; Visit Provider Student in an Organized Health Care Education/Training Program | DX: M32.9 Systemic lupus erythematosus, unspecified (principal); Z79.899 Other long term (current) drug therapy | CPT/HCPCS: 99212 ==

== ENCOUNTER 2022-11-19 12:25 | Outpatient (REF) | payer OTHER, SELFPAY ==
[2022-11-19 13:57] LABS: MANUAL DIFF FLAG NO
[2022-11-19 14:03] LABS: Appearance Urine Cloudy; Color Urine Dark Yellow; Glucose Urine UA Negative (Negative); Leukocyte Esterase Urine Negative (Negative); Nitrite Urine Negative (Negative); Specific Gravity - Urine >= 1.030 (1.005-1.025); UMIC TRIGGER UA YES; Urine Blood Negative (Negative); Urine Ketones Trace mg/dL (Negative); Urine Protein 30 (1+) mg/dL (Neg-Trace)
[2022-11-19 14:04] LABS: Basophils Percent Auto 0.5 % (0-2); Eosinophils Absolute Auto 0.1 X10*3/uL (0.0-0.4); Eosinophils Percent Auto 1.3 % (0-4); Hematocrit 37.8 % (37.0-47.0); Hemoglobin 11.6 g/dl (12.0-16.0); Imm Gran Abs Auto 0.01 X10*3/uL (0.00-0.03); Imm Gran Pct Auto 0.2 % (0.0-0.4); Lymphocytes Absolute Auto 1.1 X10*3/uL (1.2-4.9); Lymphocytes Percent Auto 19.1 % (20-40); Mean Corpuscular HGB Conc 30.7 g/dl (31.0-35.0); Mean Corpuscular Hemoglobin 24.3 pg (27.0-33.0); Mean Corpuscular Volume 79.1 fL (80.0-98.0); Mean Platelet Volume 11.1 fL (9.4-12.3); Monocytes Absolute Auto 0.5 X10*3/uL (0.1-1.2); Monocytes Percent Auto 8.2 % (2-11); Neutrophils Absolute Auto 4.2 x10*3/uL (2.0-8.3); Neutrophils Percent Auto 70.7 % (45-73); Platelet Count 382 X10*3/uL (160-400); Red Blood Count 4.78 X10*6/uL (4.20-5.50); Red Cell Distribution Width 17.4 % (11.0-16.0)
[2022-11-19 14:06] LABS: Bacteria Urine 4+ (None Seen); Hyaline Casts Urine 0-2 /LPF (0-2); WBC Urine 0-5 /HPF (0-5)
[2022-11-19 14:27] LABS: Protein/Creatinine Ratio, Ur 0.06 (<0.2); Total Protein Urine Random 18 mg/dL (<12)
[2022-11-19 14:33] LABS: Alanine Aminotransferase 24 U/L (0-31); Albumin Level 4.2 g/dL (3.5-5.0); Alkaline Phosphatase 62 U/L (39-117); Anion Gap 11 (12-20); Aspartate Amino Transferase 22 U/L (5-31); Bilirubin Total 0.4 mg/dL (0.0-1.0); Blood Urea Nitrogen 7 mg/dL (9-16); C Reactive Protein 0.44 mg/dL (< or = 0.50); Calcium 9.4 mg/dL (8.4-10.2); Carbon Dioxide 26 mmol/L (22-29); Chloride 106 mmol/L (96-108); Estimated Glomerular Filt Rate > 60; Glucose Random 101 mg/dL (60-115); Iron 82 mcg/dL (30-160); Percent Iron Saturation 22 % (15-50); Potassium 4.1 mmol/L (3.3-5.1); Sodium 139 mmol/L (135-145); Total Iron Binding Capacity 376 mcg/dL (228-428); Total Protein 7.4 g/dL (6.5-8.0); Unsaturated Iron Binding 294 ug/dL
[2022-11-19 14:49] LABS: Ferritin 10 ng/mL (10-122)
[2022-11-19 14:51] LABS: Erythrocyte Sedimentation Rate 19 MM/HR (0-20)
[2022-11-22 14:38] LABS: Anti DNA DS Antibody <1 IU/mL
[2022-11-22 20:24] LABS: Transferrin 340 mg/dL (188-341)
[2022-11-23 07:43] LABS: Complement C3 153 mg/dL (83-193)
[2022-11-30 12:53] LABS: TPMT Activity 13
== END 2022-11-19 12:26 | disposition home or self-care (01) ==
LOC: HO.HMGCLDS 12:25
PROVIDERS: Absent Provider Student in an Organized Health Care Education/Training Program; PCP Internal Medicine; Visit Provider Internal Medicine
DX: D50.9 Iron deficiency anemia, unspecified (principal); K21.9 Gastro-esophageal reflux disease without esophagitis; N93.8 Other specified abnormal uterine and vaginal bleeding; M32.9 Systemic lupus erythematosus, unspecified; Z79.624 Long term (current) use of inhibitors of nucleotide synthesis
CPT/HCPCS: 36415; 80053; 81001; 82657; 82728; 83540; 84156; 84466; 85025; 85652; 86140; 86160; 86225

== ENCOUNTER → 2022-11-25 12:46 | Outpatient (BNVA) | payer OTHER, SELFPAY | PROVIDERS: PCP Internal Medicine; Visit Provider Student in an Organized Health Care Education/Training Program | DX: M32.9 Systemic lupus erythematosus, unspecified (principal); Z79.1 Long term (current) use of non-steroidal anti-inflammatories (NSAID) | CPT/HCPCS: 99212 ==

== ENCOUNTER 2023-03-19 11:41 | Outpatient (AMB) | payer OTHER, SELFPAY ==
[2023-03-19 11:58] VITALS: BP 126/76; PULSE 80; TEMP 36.6; O2SAT 98; BMI 38.8
--- NOTE | 2023-03-19 11:58 | AM.OFFWIN_ITS ---
Intake Vital Signs 03/19/23 11:58 Height 4 ft 11 in Weight 192 lb BMI 38.8 BP 126/76 Blood Pressure Location Rt brachial Position Sitting Pulse 80 Pulse Source Pulse Oximeter Temp 97.9 F Temp Source Temporal Artery Scan Pulse Oximetry (%) 98 Intake Visit Reasons: EP Wheezing Intake Note: pt is here for c/o wheezing Patient Tobacco Use Status: Former Tobacco user Allergies Iodinated Contrast Media [IV CONTRAST] Allergy (Intermediate, Verified 03/19/23 11:59) RASH Penicillins Allergy (Intermediate, Verified 03/19/23 11:59) RASH amoxicillin Allergy (Unknown, Verified 03/19/23 11:59) unknown Do you need a note to return to daycare/school/sports/work: Yes HPI HPI Comments History of Present Illness Details This is a 38-year-old female who presents to the office today for sick visit. Patient complaining of cough and wheezing x1 day. Patient states she has a history of asthma and started to have week wheezing and a sometimes dry sometimes productive cough yesterday. She denies any fevers or chills. She denies any significant shortness of breath. She has been using her rescue albuterol inhaler at home without much relief. Patient reports mild nasal congestion and rhinorrhea but no other significant URI symptoms. [facility] Medical History Anxiety Endocervical polyp GERD (gastroesophageal reflux disease) IBS (irritable colon syndrome) Rheumatoid factor positive Surgical History H/O colonoscopy H/O esophagogastroduodenoscopy H/O LEEP History of bilateral tubal ligation Family History Father Hypertension Mother No problems noted. Maternal Grandmother Stroke Cancer Paternal Grandfather Stroke Other Mental health disorder Substance use disorder Social History Household Members: Children Housing: Apartment Alcohol intake: never Patient Tobacco Use Status: Former Tobacco user Years Smoked: 10 e-Cigarette/Vaping Use: Currently Using Second Hand Smoke Exposure: No service: No Current occupational status: unemployed Sexual orientation: Straight/Heterosexual Gender identity: Female Cognitive needs: No Hearing needs: No Vision needs: No Female Reproductive History Menstrual Age of Menarche: 8 Review of Systems Const All systems reviewed & are unremarkable except as noted in HPI and below Reports no additional complaints Eyes Reports no additional complaints ENT Reports no additional complaints Card Reports no additional complaints Resp Reports no additional complaints GI Reports no additional complaints Reports no additional complaints Musc Reports no additional complaints Skin/Breast Reports system reviewed and no additional complaints, except as documented Neuro Reports no additional complaints Psych Reports no additional complaints Endo Reports no additional complaints Cash/Lymph Reports no additional complaints Aller/Immun Reports no additional complaints Physical Exam Vital Signs: Last Vital Signs Temp 97.9 F 03/19/23 11:58 Pulse 80 03/19/23 11:58 BP 126/76 03/19/23 11:58 Pulse Ox 98 03/19/23 11:58 BMI result Body Mass Index 38.8 Const General: cooperative, healthy appearing, no acute distress and well developed Orientation/consciousness: patient oriented x3 HEENT Head: Yes normal to inspection Ears: hearing grossly normal bilaterally General nose exam: Normal external nose present Face and sinus: Yes normal facial exam Mouth: Normal oral and palatal mucosa present Eyes General: appearance normal, both eyes and all related structures Pupils: Equal, round and reactive pupils present EOM: EOMs intact bilaterally Resp Effort & Inspection: normal respiratory effort and no respiratory distress Auscultation: no crackles, no rales, no rhonchi and wheezes expiratory wheezes and inspiratory wheezes Cardio Rate: regular rate Rhythm: regular rhythm Heart sounds: no gallops, no murmurs and no rubs Peripheral pulses: Peripheral pulses 2+ throughout GI Inspection: No distended Palpation (GI): Soft to palpation and nontender Auscultation: normal bowel sounds Skin General skin exam: no rashes or lesions noted Neuro General: patient oriented x3 Cranial nerves: Yes CN's II-XII intact bilaterally and Yes Equal, round and reactive pupils present Gait exam (Neuro): Normal gait present Motor exam (neuro): 5/5 motor strength present throughout Extrem General: Yes normal to inspection, Yes full ROM and Yes no clubbing, cyanosis or edema Psych Appearance: grossly normal Mental Status: mental status grossly normal Assessment & Plan Assessment & Plan (1) Acute asthma exacerbation: Code(s): J45.901 - Unspecified asthma with (acute) exacerbation Plan: This is a 38-year-old female with history of asthma who presents to the office complaining of wheezing and a dry cough. On physical examination, patient has diffuse inspiratory and expiratory wheezing but no respiratory distress. Her vital signs are stable and she is maintaining oxygen saturations on room air. Her physical examination is otherwise benign and she is overall nontoxic appearing. Her history and physical are most consistent with an acute asthmatic bronchitis/exacerbation. Patient was given an albuterol nebulizer in the office with improvement in her symptoms and improvement in her wheezing. She was sent home on p.o. azithromycin 500 mg today followed by 250 mg daily x4 days, p.o. prednisone 40 mg daily x5 days, and PO benzonatate 100 mg 3 times daily as needed for cough. She was also given a refill of her albuterol inhaler as well as her albuterol nebulizer solutions. Patient was offered a chest x-ray but she declined at this time as it likely would not change treatment. Patient was instructed to follow-up here or proceed directly to the emergency room if she were to develop worsening shortness of breath, fever/chills, or grossly purulent sputum production. Patient verbalizes her understanding and she is in agreement with the plan. Orders: Orders AMB Nebulizer Treatment Today J45.901 - Unspecified asthma with (acute) exacerbation Medications: New albuterol sulfate 2.5 mg (3 mL) continuous nebulization ONCE 3 mL 0RF J45.901 - Unspecified asthma with (acute) exacerbation albuterol sulfate 0.63 mg (3 mL) inhalation QID PRN 75 mL 0RF shortness of breath or wheezing azithromycin For 250 mg dose pack: take 500 mg today (day 1), then 250 mg for 4 days (days 2-5) PO 6 tabs 0RF prednisone 40 mg (2 x 20 mg) PO DAILY 10 tabs 0RF benzonatate 100 mg PO TID PRN 14 caps 0RF cough Refilled albuterol sulfate 90 mcg/actuation 2 puffs inhalation Q4-6H PRN 8.5 grams 0RF for wheezing 30 days J45.20 - Mild intermittent asthma, uncomplicated Coding Level of Care Code Est Pt Level 3 (45627) Diagnoses Acute asthma exacerbation J45.901
== END 2023-03-19 13:03 | disposition home or self-care (01) ==
PROVIDERS: PCP Internal Medicine; Visit Provider Physician Assistant Medical
DX: J45.901 Unspecified asthma with (acute) exacerbation (principal)
CPT/HCPCS: 99051; 99213

== ENCOUNTER 2023-06-03 14:55 | Outpatient (AMB) | payer OTHER, SELFPAY ==
--- NOTE | 2023-06-03 14:56 | A.OFFPC_ITS ---
Vital Signs 06/03/23 14:57 Height 4 ft 11 in Weight 136 lb 6 oz BMI 27.5 BP 136/76 Blood Pressure Location Rt brachial Position Sitting Pulse 81 Pulse Source Pulse Oximeter Pulse Oximetry (%) 97 Oxygen Delivery Method Room Air Intake Visit Reasons: elevated bp Allergies Iodinated Contrast Media [IV CONTRAST] Allergy (Intermediate, Verified 06/03/23 14:57) RASH Penicillins Allergy (Intermediate, Verified 06/03/23 14:57) RASH amoxicillin Allergy (Unknown, Verified 06/03/23 14:57) unknown Medication List - Last Reconciled 06/03/23 by Luis Loomis MD albuterol sulfate 0.63 mg (3 mL) inhalation Q6H albuterol sulfate 0.63 mg (3 mL) inhalation QID PRN albuterol sulfate 90 mcg/actuation 2 puffs inhalation Q4-6H PRN 30 days clobetasol 0.05% 1 appl topical BID 2 weeks duloxetine (Cymbalta) 30 mg PO ONCE 90 days duloxetine 90 mg (3 x 30 mg) PO DAILY ferrous sulfate 324 mg PO BID 90 days fluticasone propionate 220 mcg/actuation (Flovent HFA) 1 puff PO BID 30 days hydroxychloroquine 200 mg PO BID ibuprofen 800 mg PO Q8H linaclotide (Linzess) 72 mcg PO QAM omeprazole 40 mg PO ONCE 90 days sennosides-docusate sodium 8.6-50 mg (Senna Plus) 2 tab-caps (2 x 8.6-50 mg) PO BEDTIME PRN 90 days Symbicort 160-4.5 mcg/actuation (budesonide-formoterol) 2 puffs inhalation BID 30 days NS Tobacco use date assessed: 06/03/23 Dental Screening Dental Screen Date: 06/03/23 Did you have a dental visit in the last 12 months?: Yes Did you have a dental problem in the last 6 months where you did not have access to dental care?: No Was dental information given to patient?: Patient has dentist HPI elevated bp HPI Patient came in today to talk about her Bp she went to dentist and was told her Bp is very high today its 136/76 she brought her own monitor along and the reading is 156 systolic going over her previous readings i see that her Bp has been running fine I checked the blood pressure again myself and it is 135 x 80 Letter provided for dental procedure patient is cleared [facility] Medical History IBS (irritable colon syndrome) Rheumatoid factor positive Anxiety GERD (gastroesophageal reflux disease) Endocervical polyp Surgical History H/O colonoscopy H/O esophagogastroduodenoscopy H/O LEEP History of bilateral tubal ligation Family History Father Hypertension Mother No problems noted. Maternal Grandmother Stroke Cancer Paternal Grandfather Stroke Other Mental health disorder Substance use disorder Social History Household Members: Children Housing: Apartment Alcohol intake: never Patient Tobacco Use Status: Former Tobacco user Years Smoked: 10 e-Cigarette/Vaping Use: Currently Using Second Hand Smoke Exposure: No service: No Current occupational status: unemployed Sexual orientation: Straight/Heterosexual Gender identity: Female Cognitive needs: No Hearing needs: No Vision needs: No Female Reproductive History Menstrual Age of Menarche: 8 Questionnaire Thrive Questionnaire Date Thrive assessed: 02/10/22 AUDIT C Alcohol Use Questionnaire (AUDIT-C) 1. How often do you have a drink containing alcohol?: Monthly or less 2. How many drinks containing alcohol do you have on a typical day when you are drinking?: 1 or 2 3. How often do you have six or more drinks on one occasion?: Never Total Score: 1 Score Reviewed/Action Taken: Yes ERICK-7 AMB Questionnaire ERICK-7 Date ERICK - 7 assessed: 02/10/22 Source: Developed by Drs. Thad Hampton, Mine Bravo, Tra Duval and colleagues, with an educational yoli from [employer]. Review of Systems Const Denies chills and Denies fever(s) ENT Denies epistaxis and Denies nasal discharge Card Denies chest pain Resp Denies chest congestion, Denies cough and Denies hemoptysis GI Denies diarrhea and Denies nausea Skin/Breast Denies rash Neuro Reports no additional complaints Psych Reports no additional complaints Endo Reports no additional complaints Physical exam (Primary Care) Vital Signs: Last Vital Signs Pulse 81 06/03/23 14:57 BP 136/76 06/03/23 14:57 Pulse Ox 97 06/03/23 14:57 Oxygen Delivery Method Room Air 06/03/23 14:57 BMI result Body Mass Index 27.5 Tobacco/Smoking Status: Tobacco use Status Tobacco use date assessed 06/03/23 06/03/23 15:02 Patient Tobacco Use Status Former Tobacco user 06/03/23 15:02 Tobacco use type 06/03/23 12:33 e-Cigarette/Vaping Use Currently Using 06/03/23 15:02 Thrive Assessment: Date of Thrive Assessment Date Thrive assessed 02/10/22 06/03/23 15:02 Const General: cooperative, comfortable and no acute distress Orientation/consciousness: patient oriented x3 HENMT Head: Yes normocephalic Eyes General: appearance normal, both eyes and all related structures Neck Neck: Yes supple Resp Effort & Inspection: normal respiratory effort, no cough and no stridor Cardio Rhythm: regular rhythm Heart sounds: S1 normal heart sound present and S2 normal heart sound present Skin General skin exam: turgor normal Neuro General: patient oriented x3, tone normal and moves all extremities Extrem Right lower extremity: no edema Left lower extremity: no edema Assessment and Plan Assessment & Plan (1) Pre-hypertension: Code(s): R03.0 - Elevated blood-pressure reading, without diagnosis of hypertension Plan Patient came in today to talk about her Bp she went to dentist and was told her Bp is very high today its 136/76 she brought her own monitor along and the reading is 156 systolic going over her previous readings i see that her Bp has been running fine I checked the blood pressure again myself and it is 135 x 80 Letter provided for dental procedure patient is cleared Coding Level of Care Code Est Pt Level 3 (50507) Diagnoses Pre-hypertension R03.0
[2023-06-03 14:57] VITALS: BP 136/76; PULSE 81; O2SAT 97; BMI 27.5
== END 2023-06-03 15:44 | disposition home or self-care (01) ==
PROVIDERS: PCP Internal Medicine; Visit Provider Internal Medicine
DX: R03.0 Elevated blood-pressure reading, without diagnosis of hypertension (principal)
CPT/HCPCS: 99213

== ENCOUNTER 2023-08-15 14:35 | Outpatient (AMB) | payer OTHER, SELFPAY ==
[2023-08-15 14:35] VITALS: BP 130/88; PULSE 95; TEMP 36.6; O2SAT 97; BMI 32.3
--- NOTE | 2023-08-15 14:35 | AM.OFFWIN_ITS ---
Intake Vital Signs 08/15/23 14:35 Height 4 ft 11 in Weight 160 lb BMI 32.3 BP 130/88 Blood Pressure Location Lt brachial Position Sitting Pulse 95 Pulse Source Pulse Oximeter Temp 98 F Temp Source Oral Pulse Oximetry (%) 97 Oxygen Delivery Method Room Air Intake Visit Reasons: EST/ trouble breathing(lobby) Intake Note: Pt is here today for difficulty breathing. Pt states daughter has mono. Pt symptoms are nausea and sore throat. Patient Tobacco Use Status: Former Tobacco user Allergies Iodinated Contrast Media [IV CONTRAST] Allergy (Intermediate, Verified 08/15/23 15:23) RASH Penicillins Allergy (Intermediate, Verified 08/15/23 15:23) RASH amoxicillin Allergy (Unknown, Verified 08/15/23 15:23) unknown Medication List - Last Reconciled 08/15/23 by Romaine Ortiz MD albuterol sulfate 0.63 mg (3 mL) inhalation Q6H albuterol sulfate 0.63 mg (3 mL) inhalation QID PRN albuterol sulfate 90 mcg/actuation 2 puffs inhalation Q4-6H PRN 30 days azithromycin take 500 mg today (day 1), then 250 mg for 4 days (days 2-5) PO clobetasol 0.05% 1 appl topical BID 2 weeks duloxetine 90 mg (3 x 30 mg) PO DAILY ferrous sulfate 324 mg PO BID 90 days fluticasone propionate 220 mcg/actuation (Flovent HFA) 1 puff PO BID 30 days hydroxychloroquine 200 mg PO BID ibuprofen 800 mg PO Q8H omeprazole 40 mg PO ONCE 90 days prednisone 60 mg (3 x 20 mg) PO DAILY sennosides-docusate sodium 8.6-50 mg (Senna Plus) 2 tab-caps (2 x 8.6-50 mg) PO BEDTIME PRN 90 days Symbicort 160-4.5 mcg/actuation (budesonide-formoterol) 2 puffs inhalation BID 30 days NS Do you need a note to return to daycare/school/sports/work: No HPI EST/ trouble breathing(lobby) HPI Details Patient presents for a sick visit. Reporting symptoms of sinus congestion, sore throat and difficulty swallowing. Low-grade fever. No family member is sick. No recent travel. Patient reports symptoms of malaise and f atigue. [facility] Medical History IBS (irritable colon syndrome) Rheumatoid factor positive Anxiety GERD (gastroesophageal reflux disease) Endocervical polyp Surgical History H/O colonoscopy H/O esophagogastroduodenoscopy H/O LEEP History of bilateral tubal ligation Family History Father Hypertension Mother No problems noted. Maternal Grandmother Stroke Cancer Paternal Grandfather Stroke Other Mental health disorder Substance use disorder Social History Household Members: Children Housing: Apartment Alcohol intake: never Patient Tobacco Use Status: Former Tobacco user Years Smoked: 10 e-Cigarette/Vaping Use: Currently Using Second Hand Smoke Exposure: No service: No Current occupational status: unemployed Sexual orientation: Straight/Heterosexual Gender identity: Female Cognitive needs: No Hearing needs: No Vision needs: No Female Reproductive History Menstrual Age of Menarche: 8 Physical Exam Vital Signs: Last Vital Signs Temp 98 F 08/15/23 14:35 Pulse 95 08/15/23 14:35 BP 130/88 08/15/23 14:35 Pulse Ox 97 08/15/23 14:35 Oxygen Delivery Method Room Air 08/15/23 14:35 BMI result Body Mass Index 32.3 Const General: cooperative and healthy appearing Nutritional Appearance: well nourished Orientation/consciousness: patient oriented x3 Limitations: no limitations HEENT Head: Yes normal to inspection Eyes General: appearance normal, both eyes and all related structures Neck Neck: Yes normal visual inspection Chest Chest palpation & inspection: normal palpation of entire chest wall Resp Effort & Inspection: normal respiratory effort Neuro General: patient oriented x3 Results AMB [facility] [place] AMB [facility] [place] Negative Last Edit by Bruce Paredes CMA on 08/15/23 15: 05 AMB Rapid Strep AMB Rapid Strep Negative Last Edit by Bruce Paredes CMA on 08/15/23 15 :06 Results Reviewed Results Reviewed: Laboratory Last Values [facility] (Clinic) Negative 08/15/23 15:04 Strep Scn [facility] Negative 08/15/23 15:04 Assessment & Plan Assessment & Plan (1) Upper respiratory tract infection: Code(s): J06.9 - Acute upper respiratory infection, unspecified Plan: Antibiotics ordered. Increase fluid intake. Tylenol for aches and pains. If symptoms worsen, follow-up here for a recheck. Will call with the results of the viral swab. Orders: Orders AMB [place] Screen Today Z13.9 - Encounter for screening, unspecified AMB Rapid Strep Screen Today Z13.9 - Encounter for screening, unspecified SARS-CoV2/FLU/RSV Today R43.9 - Unspecified disturbances of smell and taste Medications: New azithromycin take 500 mg today (day 1), then 250 mg for 4 days (days 2-5) PO 6 tabs 0RF prednisone 60 mg (3 x 20 mg) PO DAILY 9 tabs 0RF Refilled albuterol sulfate 90 mcg/actuation 2 puffs inhalation Q4-6H PRN 8.5 grams 0RF for wheezing 30 days J45.20 - Mild intermittent asthma, uncomplicated Coding Level of Care Code Est Pt Level 3 (64317) Diagnoses Upper respiratory tract infection J06.9
== END 2023-08-15 15:30 | disposition home or self-care (01) ==
PROVIDERS: PCP Internal Medicine; Visit Provider Internal Medicine
DX: J06.9 Acute upper respiratory infection, unspecified (principal); J02.9 Acute pharyngitis, unspecified
CPT/HCPCS: 87880; 99213

== ENCOUNTER 2023-08-15 16:41 | Outpatient (REF) | payer OTHER, SELFPAY ==
[2023-08-16 12:35] LABS: Influenza A PCR POSITIVE (Negative); Influenza B PCR NEGATIVE (Negative); Resp Syncy Virus RNA Qual PCR NEGATIVE (Negative); SARS COV2 PCR INHOUSE NEGATIVE (Negative)
== END 2023-08-15 16:42 | disposition home or self-care (01) ==
LOC: HO.LAB 16:41
PROVIDERS: Visit Provider Internal Medicine
DX: R43.9 Unspecified disturbances of smell and taste (principal)
CPT/HCPCS: 0241U

== ENCOUNTER 2023-08-16 22:44 | Emergency (ER) | payer OTHER, SELFPAY ==
--- NOTE | 2023-08-16 | ECG_ITS ---
Test Reason : CHEST PAIN Blood Pressure : / mmHG Vent. Rate : 075 BPM Atrial Rate : 075 BPM P-R Int : 134 ms QRS Dur : 072 ms QT Int : 382 ms P-R-T Axes : 060 039 044 degrees QTc Int : 426 ms Normal sinus rhythm Normal ECG When compared to the previous EKG of No significant changes seen Referred By: Generic ED Physician Electronically Signed By:Juwan Mallory
--- NOTE | ~2023-08-16 | XR_ITS ---
EXAMINATION: XR CHEST CLINICAL INFORMATION: Cough. Chest pain. COMPARISON: 06/25/2019. TECHNIQUE: Frontal view of the chest was obtained. FINDINGS: No significant abnormality is noted involving the heart, lungs, mediastinum, bony thorax or soft tissues. XR/XR chest 1V IMPRESSION: No active cardiopulmonary disease.
[2023-08-16 22:50] VITALS: BP 98/68; PULSE 82; RESP 18; TEMP 36.8; O2SAT 98; BMI 32.3
[2023-08-16 23:20] LABS: MANUAL DIFF FLAG NO
[2023-08-16 23:21] LABS: Basophils Percent Auto 0.1 % (0-2); Eosinophils Percent Auto 0.3 % (0-4); Hematocrit 39.2 % (37.0-47.0); Hemoglobin 12.9 g/dl (12.0-16.0); Imm Gran Abs Auto 0.02 X10*3/uL (0.00-0.03); Imm Gran Pct Auto 0.2 % (0.0-0.4); Lymphocytes Absolute Auto 0.9 X10*3/uL (1.2-4.9); Lymphocytes Percent Auto 9.9 % (20-40); Mean Corpuscular HGB Conc 32.9 g/dl (31.0-35.0); Monocytes Absolute Auto 1.1 X10*3/uL (0.1-1.2); Monocytes Percent Auto 11.3 % (2-11); Neutrophils Absolute Auto 7.2 x10*3/uL (2.0-8.3); Neutrophils Percent Auto 78.2 % (45-73); Platelet Count 315 X10*3/uL (160-400); Red Blood Count 4.61 X10*6/uL (4.20-5.50); Red Cell Distribution Width 13.8 % (11.0-16.0); White Blood Count 9.3 X10*3/uL (4.8-10.8)
[2023-08-16 23:22] LABS: Appearance Urine Clear; Color Urine Yellow; Glucose Urine UA Negative (Negative); Leukocyte Esterase Urine Negative (Negative); Nitrite Urine Negative (Negative); PH 6.5 (5.0-9.0); Specific Gravity - Urine <= 1.005 (1.005-1.025); Urine Blood Negative (Negative); Urine Ketones Negative (Negative); Urine Protein Negative (Neg-Trace)
[2023-08-16 23:24] LABS: UPreg QC Valid YES; Urine Pregnancy NEGATIVE (NEGATIVE)
[2023-08-16 23:27] LABS: Bacteria Urine None Seen (None Seen); Hyaline Casts Urine 0-2 /LPF (0-2); RBC Urine 0-2 /HPF (0-2); Squamous Epithelial Cell Urine 0-2 /HPF (0-2); WBC Urine 0-5 /HPF (0-5)
[2023-08-16 23:44] LABS: Troponin-I High Sensitivity < 2.7 ng/L (<3.5-17.0)
[2023-08-16 23:50] VITALS: BP 153/92; PULSE 76; RESP 16; TEMP 36.9; O2SAT 97
[2023-08-17 01:05] LABS: Alanine Aminotransferase 22 U/L (0-31); Albumin Level 3.8 g/dL (3.5-5.0); Alkaline Phosphatase 53 U/L (39-117); Anion Gap 13 (12-20); Aspartate Amino Transferase 22 U/L (5-31); Bilirubin Total 0.2 mg/dL (0.0-1.0); Blood Urea Nitrogen 7 mg/dL (9-16); Calcium 8.9 mg/dL (8.4-10.2); Carbon Dioxide 19 mmol/L (22-29); Chloride 109 mmol/L (96-108); Creatinine Clr Calc Pharmacy 88.5; Estimated Glomerular Filt Rate > 60; Glucose Random 112 mg/dL (60-115); Potassium 3.3 mmol/L (3.3-5.1); Sodium 138 mmol/L (135-145); Total Protein 7.6 g/dL (6.5-8.0)
[2023-08-17 01:42] VITALS: BP 140/56; PULSE 77; RESP 16; TEMP 36.7; O2SAT 98
--- NOTE | 2023-08-17 01:48 | ED.GENADULT ---
HPI - General Adult General Chief complaint: General Medical Stated complaint: difficulty breathing Time Seen by Provider: 08/17/23 01:13 Source: patient Mode of arrival: ambulatory History of Present Illness HPI narrative: 38-year-old female who presents with a history of asthma and states that she has been feeling unwell and went to urgent care a couple of days ago and states she does not know what the swab results were that time but states that despite being on a Z-Dilip and steroids she continues to have a cough, chest congestion, chest pain associated with cough Related Data Home Medications Medication Instructions Recorded Confirmed ibuprofen 800 mg tablet 800 mg PO Q8H 05/19/20 06/03/23 Previous Rx's Medication Instructions Recorded fluticasone propionate 220 1 puff PO BID 30 days #12 grams 12/30/21 mcg/actuation HFA aerosol inhaler (Flovent HFA) albuterol sulfate 0.63 mg/3 mL 0.63 mg (3 mL) inhalation Q6H #75 02/03/22 solution for nebulization mL Symbicort 160 mcg-4.5 2 puff inhalation BID 30 days 04/30/22 mcg/actuation HFA aerosol inhaler #10.2 grams (budesonide-formoterol) clobetasol 0.05 % topical cream 1 appl topical BID 2 weeks #60 11/19/22 grams hydroxychloroquine 200 mg tablet 200 mg PO BID #180 tabs 11/26/22 albuterol sulfate 0.63 mg/3 mL 0.63 mg (3 mL) inhalation QID PRN 03/19/23 solution for nebulization shortness of breath or wheezing #75 mL ferrous sulfate 324 mg (65 mg 324 mg PO BID 90 days #180 tabs 06/06/23 iron) tablet,delayed release omeprazole 40 mg capsule,delayed 40 mg PO ONCE 90 days #90 caps 06/06/23 release duloxetine 30 mg capsule,delayed 90 mg (3 x 30 mg) PO DAILY #270 07/18/23 release caps sennosides 8.6 mg-docusate sodium 2 tab-cap (2 x 8.6-50 mg) PO 07/22/23 50 mg capsule (Senna Plus) BEDTIME PRN constipation 90 days #180 caps albuterol sulfate 90 mcg/actuation 2 puff inhalation Q4-6H PRN for 08/15/23 aerosol inhaler wheezing 30 days #8.5 grams azithromycin 250 mg tablet See Rx Instructions PO .COMPLEX #6 08/15/23 tabs prednisone 20 mg tablet 60 mg (3 x 20 mg) PO DAILY #9 tabs 08/15/23 Allergies Allergy/AdvReac Type Severity Reaction Status Date / Time Iodinated Contrast Media Allergy Intermediate RASH Verified 08/16/23 22:55 [IV CONTRAST] Penicillins Allergy Intermediate RASH Verified 08/16/23 22:55 amoxicillin Allergy Unknown unknown Verified 08/16/23 22:55 Review of Systems Review of Systems: Pertinent positives and negatives as stated in [facility] [place] Past Medical History Source: nursing notes reviewed Medical History IBS (irritable colon syndrome) Rheumatoid factor positive Anxiety GERD (gastroesophageal reflux disease) Endocervical polyp Surgical History H/O colonoscopy H/O esophagogastroduodenoscopy H/O LEEP History of bilateral tubal ligation Family History Family History Father Hypertension Mother No problems noted. Maternal Grandmother Stroke Cancer Paternal Grandfather Stroke Other Mental health disorder Substance use disorder Social History Social History Household Members: Children Housing: Apartment Alcohol intake: never Patient Tobacco Use Status: Former Tobacco user Years Smoked: 10 e-Cigarette/Vaping Use: Currently Using Second Hand Smoke Exposure: No Advance Directives: No Advance Directives Information Provided: Yes service: No Current occupational status: unemployed Sexual orientation: Straight/Heterosexual Gender identity: Female Cognitive needs: No Hearing needs: No Vision needs: No Physical Exam ED Vital Signs: Vital Signs - 24 hr 08/16/23 22:50 08/16/23 23:50 08/17/23 01:42 Temperature 98.2 F 98.5 F 98.0 F Pulse Rate 82 76 77 Respiratory Rate 18 16 16 Blood Pressure 98/68 153/92 H 140/56 H Pulse Oximetry 98 97 98 Oxygen Delivery Method Room Air Room Air Room Air 08/17/23 01:59 Temperature Pulse Rate 79 Respiratory Rate 16 Blood Pressure Pulse Oximetry Oxygen Delivery Method BMI result Body Mass Index 32.3 VITAL SIGNS: Reviewed. GENERAL: Well developed, well nourished, in no acute distress. HEAD: Normocephalic/atraumatic EYES: PERRLA, EOMI EARS: Ext canals without abnormality, TMs non-bulging and non-erythematous NOSE: Nares patent bilateral OROPHARYNX: no oral lesions noted, posterior pharynx clear and non-erythematous without noted tonsillar enlargement/erythema/exudates NECK: Supple, no adenopathy LUNGS: Good inspiratory effort, mildly decreased but no expiratory wheeze noted and no tachypnea. SpO2<98> CARDIOVASCULAR: Regular rate and rhythm without noted murmurs ABDOMEN: Soft, non-tender, non-distended with bowel sounds. MUSCULOSKELETAL: No tenderness, deformities, or effusions noted on gross inspection. EXTREMITIES: No cyanosis, clubbing or edema. SKIN: Inspection of the skin reveals no rashes NEUROLOGIC: Alert and oriented x 4. Strength and sensation to light touch were grossly intact x 4. Medications Administered Discontinued Medications Generic Name Dose Route Start Last Admin Trade Name Freq PRN Reason Stop Dose Admin Albuterol Sulfate 10 mg 08/17/23 01:38 08/17/23 01:55 Albuterol Sulfate (0.083%) 2.5 Mg/3 Ml Vial.Neb INHALE 08/17/23 01:39 10 mg ONCE ONE Administration Medical Decision Making Medical Decision Making MDM Narrative: 38-year-old female with history and clinical presentation consistent with mild asthma exacerbation and likely a component of viral infection, nursing did approach me afterwards and states that the patient was able to locate her influenza results on the patient portal and demonstrates positive influenza a. Patient received 10 mg albuterol treatment she is otherwise already on a course of steroids. I reviewed all investigations and hematologic indices are negative for leukocytosis/anemia/thrombocytopenia. Chemistry indices do not demonstrate ANIYA or electrolyte/liver enzyme derangements, high sensitivity troponin is undetectable. Urinalysis negative for UTI and urine is negative. Viral testing positive for influenza A. Chest x-ray not significant for infiltrative venous congestion. Patient received 10 mg albuterol treatment with some improvement overall patient was strongly encouraged to continue with treatment regimen that she has been placed on and reassured that symptoms will gradually improve. There is no evidence of hypoxia and patient otherwise appears well and is discharged My interpretation is patient has influenza a infection with concomitant viral syndrome and underlying asthma. Differential Diagnosis Differential Diagnoses: The differential diagnosis associated with the presentation includes Please see the discussion Admission/Observation Consideration of admission/observation: Escalation of care including admission/observation considered Please see the discussion above Lab Data MDM Lab Attestation statement: I reviewed the patient's lab results. Please see the discussion 08/16/23 23:13 08/16/23 23:13 Labs: Lab Results 08/16/23 08/16/23 08/17/23 Range/Units 23:13 23:14 01:46 WBC 9.3 (4.8-10.8) X10*3/uL RBC 4.61 (4.20-5.50) X10*6/uL Hgb 12.9 (12.0-16.0) g/dl Hct 39.2 (37.0-47.0) % MCV 85.0 (80.0-98.0) fL MCH 28.0 (27.0-33.0) pg MCHC 32.9 (31.0-35.0) g/dl RDW 13.8 (11.0-16.0) % Plt Count 315 (160-400) X10*3/uL MPV 10.0 (9.4-12.3) fL Immature Gran % (Auto) 0.2 (0.0-0.4) % Neut % (Auto) 78.2 H (45-73) % Lymph % (Auto) 9.9 L (20-40) % [place] % (Auto) 11.3 H (2-11) % Eos % (Auto) 0.3 (0-4) % Baso % (Auto) 0.1 (0-2) % Lymph # (Auto) 0.9 L (1.2-4.9) X10*3/uL [place] # (Auto) 1.1 (0.1-1.2) X10*3/uL Eos # (Auto) 0.0 (0.0-0.4) X10*3/uL Baso # (Auto) 0.0 (0.0-0.2) X10*3/uL Abs Immat Gran (auto) 0.02 (0.00-0.03) X10*3/uL Absolute Neuts (auto) 7.2 (2.0-8.3) x10*3/uL Absolute Nucleated RBC 0.000 (0.0-0.012) X10*3/uL Nucleated RBC % (auto) 0.0 (0.0-0.2) /100WBC Sodium 138 (135-145) mmol/L Potassium 3.3 (3.3-5.1) mmol/L Chloride 109 H (96-108) mmol/L Carbon Dioxide 19 L (22-29) mmol/L Anion Gap 13 (12-20) BUN 7 L (9-16) mg/dL Creatinine 0.74 (0.5-1.4) mg/dL Estim Creat Clear Calc 88.5 Estimated GFR > 60 Random Glucose 112 (60-115) mg/dL Calcium 8.9 (8.4-10.2) mg/dL Total Bilirubin 0.2 (0.0-1.0) mg/dL AST 22 (5-31) U/L ALT 22 (0-31) U/L Alkaline Phosphatase 53 (39-117) U/L Troponin I High Sens < 2.7 (<3.5-17.0) ng/L Total Protein 7.6 (6.5-8.0) g/dL Albumin 3.8 (3.5-5.0) g/dL Urine Color Yellow Urine Appearance Clear Urine pH 6.5 (5.0-9.0) Ur Specific [place] <= 1.005 (1.005-1.025) Urine Protein Negative (Neg-Trace) mg/dL Urine Glucose (UA) Negative (Negative) mg/dL Urine Ketones Negative (Negative) mg/dL Urine Blood Negative (Negative) Urine Nitrite Negative (Negative) Ur Leukocyte Esterase Negative (Negative) Urine RBC 0-2 (0-2) /HPF Urine WBC 0-5 (0-5) /HPF Ur Squamous Epith Cells 0-2 (0-2) /HPF Urine Bacteria None Seen (None Seen) Hyaline Casts 0-2 (0-2) /LPF Urine Test NEGATIVE (NEGATIVE) COVID-19 (UDAY) Negative (Negative) COVID-19 Clin Com See Note Radiology Impression Discussion of test interpretation with radiology: I have reviewed the radiologist's reading. Radiologist Impression: Please see the discussion above External Record Review External record reviewed: Outpatient record, Prior outpatient labs and Prior outpatient radiology Chronic Conditions Patient?s care impacted by: Hypertension Critical Care Time Critical Care Time Critical Care Time: Yes Total Critical Care Time: 30 Attestation: I personally attest to this time spent taking care of the patient. Discharge Plan Discharge Clinical Impression: Viral syndrome, Asthma, Influenza A Patient Disposition: Home, Self-Care Instructions: Asthma (ED), Influenza (ED), Viral Syndrome (ED) Additional Instructions: 1. Resume all home medications as prescribed. 2. Follow-up with primary care doctor in the next 1-2 days. Return to the ER for any worsening symptoms. Prescriptions: No Action fluticasone propionate [Flovent HFA] 220 mcg/actuation HFA aerosol inhaler 1 puff PO BID 30 Days Qty: 12 3RF albuterol sulfate 0.63 mg/3 mL solution for nebulization 0.63 mg inhalation Q6H Qty: 75 0RF budesonide-formoterol [Symbicort] 160-4.5 mcg/actuation HFA aerosol inhaler 2 puff inhalation BID 30 Days Qty: 10.2 3RF hydroxychloroquine 200 mg tablet 200 mg PO BID Qty: 180 1RF omeprazole 40 mg capsule,delayed release(DR/EC) 40 mg PO ONCE 90 Days Qty: 90 0RF ferrous sulfate 324 mg (65 mg iron) tablet,delayed release (DR/EC) 324 mg PO BID 90 Days Qty: 180 1RF duloxetine 30 mg capsule,delayed release(DR/EC) 90 mg PO DAILY Qty: 270 1RF Senna Plus 8.6-50 mg capsule 2 tab-cap PO BEDTIME PRN (Reason: constipation) 90 Days Qty: 180 0RF clobetasol 0.05 % cream 1 appl topical BID 14 Days Qty: 60 0RF azithromycin 250 mg tablet See Rx Instructions PO .COMPLEX Qty: 6 0RF Rx Instructions: take 500 mg today (day 1), then 250 mg for 4 days (days 2-5) PO prednisone 20 mg tablet 60 mg PO DAILY Qty: 9 0RF albuterol sulfate 90 mcg/actuation HFA aerosol inhaler 2 puff inhalation Q4-6H PRN (Reason: for wheezing) 30 Days Qty: 8.5 0RF albuterol sulfate 2.5 mg /3 mL (0.083 %) solution for nebulization 2.5 mg continuous nebulization ONCE Qty: 3 0RF albuterol sulfate 0.63 mg/3 mL solution for nebulization 0.63 mg inhalation QID PRN (Reason: shortness of breath or wheezing) Qty: 75 0RF ibuprofen 800 mg tablet 800 mg PO Q8H Referrals: Luis Loomis MD [Primary Care Provider] -
[2023-08-17] MEDS: Albuterol Sulfate (0.083%) 2.5 MG/3 ML VIAL.NEB 10 MG INHALE (01:55)
[2023-08-17 01:59] VITALS: PULSE 79; RESP 16; O2SAT 100
[2023-08-17 02:04] LABS: COVID-19 Test Negative (Negative); IDNOW Serial# 152EDE1D
--- NOTE | 2023-08-17 02:48 | PC.NURSE ---
Pt completed respiratory treatment, pt reports feeling better. up and ambulating with no respiratory distress.
--- NOTE | 2023-08-17 03:02 | PC.NURSE ---
Attempted to reviewed discharge instructions with pt. pt left before receiving discharge paperwork.
== END 2023-08-17 03:03 | disposition home or self-care (01) ==
PROVIDERS: Emergency Provider Student in an Organized Health Care Education/Training Program; PCP Internal Medicine
DX: J10.1 Influenza due to other identified influenza virus with other respiratory manifestations (principal); B34.9 Viral infection, unspecified; J45.909 Unspecified asthma, uncomplicated; Z79.899 Other long term (current) drug therapy; Z11.52 Encounter for screening for COVID-19; I10 Essential (primary) hypertension; F17.200 Nicotine dependence, unspecified, uncomplicated
CPT/HCPCS: 36415; 71045; 80053; 81001; 81025; 84484; 85025; 87635; 93005; 94640; 99284; 99285

== ENCOUNTER → 2023-08-16 23:00 | Outpatient (BNV) | payer OTHER, SELFPAY | PROVIDERS: Emergency Provider Student in an Organized Health Care Education/Training Program; PCP Internal Medicine; Visit Provider Internal Medicine Cardiovascular Disease | DX: R07.9 Chest pain, unspecified (principal) | CPT/HCPCS: 93010 ==

== ENCOUNTER 2023-08-18 08:48 | Outpatient (AMB) | payer OTHER, SELFPAY ==
--- NOTE | 2023-08-18 08:57 | A.OFFPC_ITS ---
Intake Visit Reasons: ER F/u ~ Allergies Iodinated Contrast Media [IV CONTRAST] Allergy (Intermediate, Verified 08/18/23 08:59) RASH Penicillins Allergy (Intermediate, Verified 08/18/23 08:59) RASH amoxicillin Allergy (Unknown, Verified 08/18/23 08:59) unknown Medication List - Last Reconciled 08/18/23 by Luis Loomis MD albuterol sulfate 0.63 mg (3 mL) inhalation Q6H albuterol sulfate 0.63 mg (3 mL) inhalation QID PRN albuterol sulfate 90 mcg/actuation 2 puffs inhalation Q4-6H PRN 30 days azithromycin take 500 mg today (day 1), then 250 mg for 4 days (days 2-5) PO clobetasol 0.05% 1 appl topical BID 2 weeks duloxetine 90 mg (3 x 30 mg) PO DAILY ferrous sulfate 324 mg PO BID 90 days fluticasone propionate 220 mcg/actuation (Flovent HFA) 1 puff PO BID 30 days hydroxychloroquine 200 mg PO BID ibuprofen 800 mg PO Q8H omeprazole 40 mg PO ONCE 90 days prednisone 60 mg (3 x 20 mg) PO DAILY sennosides-docusate sodium 8.6-50 mg (Senna Plus) 2 tab-caps (2 x 8.6-50 mg) PO BEDTIME PRN 90 days Symbicort 160-4.5 mcg/actuation (budesonide-formoterol) 2 puffs inhalation BID 30 days NS Tobacco use date assessed: 08/18/23 Dental Screening Dental Screen Date: 08/18/23 Did you have a dental visit in the last 12 months?: Yes Did you have a dental problem in the last 6 months where you did not have access to dental care?: No Was dental information given to patient?: Patient has dentist HPI ER F/u ~ HPI Details Patient is 38-year-old female this is a telemedicine video conference Patient was seen in walk-in clinic August 15 with respiratory symptoms, COVID, flu, RSV test was taken She was discharged home with prednisone and azithromycin. She ended up in emergency room 2 days later with worsening of symptoms at this point patient checked her patient portal and saw that she was influenza A positive. In emergency room she was treated symptom medically and was discharged home as patient was already on prednisone He did post emergency room visit, patient is feeling shortness of breath she has taken her last dose of prednisone I see that Tamiflu was not sent, I sent that, patient was instructed to start medication as soon as possible I have also prescribed Medrol Dosepak She is complaining of feeling bloated, she is already on omeprazole 40 mg I have added famotidine 40 mg as well. We will do a follow-up visit again in 7 days. [facility] Medical History IBS (irritable colon syndrome) Rheumatoid factor positive Anxiety GERD (gastroesophageal reflux disease) Endocervical polyp Surgical History H/O colonoscopy H/O esophagogastroduodenoscopy H/O LEEP History of bilateral tubal ligation Family History Father Hypertension Mother No problems noted. Maternal Grandmother Stroke Cancer Paternal Grandfather Stroke Other Mental health disorder Substance use disorder Social History Household Members: Children Housing: Apartment Alcohol intake: never Patient Tobacco Use Status: Former Tobacco user Years Smoked: 10 e-Cigarette/Vaping Use: Currently Using Second Hand Smoke Exposure: No service: No Current occupational status: unemployed Sexual orientation: Straight/Heterosexual Gender identity: Female Cognitive needs: No Hearing needs: No Vision needs: No Female Reproductive History Menstrual Age of Menarche: 8 Questionnaire Thrive Questionnaire Date Thrive assessed: 02/10/22 ERICK-7 AMB Questionnaire ERICK-7 Date ERICK - 7 assessed: 02/10/22 Source: Developed by Drs. Thad Hampton, Mine Bravo, Tra Duval and colleagues, with an educational yoli from [email or web address]. Review of Systems Const Denies fever(s) ENT Denies epistaxis and Denies nasal discharge Card Denies chest pain Resp Denies hemoptysis GI Denies diarrhea and Denies nausea Skin/Breast Denies rash Neuro Reports no additional complaints Psych Reports no additional complaints Endo Reports no additional complaints Physical exam (Primary Care) Tobacco/Smoking Status: Tobacco use Status Tobacco use date assessed 08/18/23 08/18/23 09:00 Patient Tobacco Use Status Former Tobacco user 08/18/23 09:00 Tobacco use type 06/03/23 12:33 e-Cigarette/Vaping Use Currently Using 08/18/23 09:00 Thrive Assessment: Date of Thrive Assessment Date Thrive assessed 02/10/22 08/18/23 09:00 Telehealth Telehealth Location of provider rendering services: practice address Location of patient: address on file Patient Identification confirmed using: Name, : Yes Telehealth method: video Patient verbally consented to treatment: Yes Patient verbally consented to billing insurance company: Yes Patient informed of any privacy concerns related to visit: Yes Assessment and Plan Assessment & Plan (1) Influenza A H1N1 infection: Code(s): J10.1 - Influenza due to other identified influenza virus with other respiratory manifestations (2) Cough: Code(s): R05.9 - Cough, unspecified Qualifiers: Cough type: acute Qualified Code(s): R05.1 - Acute cough (3) Shortness of breath: Code(s): R06.02 - Shortness of breath Plan Patient is 38-year-old female this is a telemedicine video conference Patient was seen in walk-in clinic August 15 with respiratory symptoms, COVID, flu, RSV test was taken She was discharged home with prednisone and azithromycin. She ended up in emergency room 2 days later with worsening of symptoms at this point patient checked her patient portal and saw that she was influenza A positive. In emergency room she was treated symptom medically and was discharged home as patient was already on prednisone He did post emergency room visit, patient is feeling shortness of breath she has taken her last dose of prednisone I see that Tamiflu was not sent, I sent that, patient was instructed to start medication as soon as possible I have also prescribed Medrol Dosepak She is complaining of feeling bloated, she is already on omeprazole 40 mg I have added famotidine 40 mg as well. We will do a follow-up visit again in 7 days. Medications: New oseltamivir (Tamiflu) 75 mg PO BID 5 days 10 caps 0RF methylprednisolone (Medrol (Dilip)) PO PER PKG DIR 21 ea 0RF 6 days famotidine 40 mg PO BEDTIME 30 tabs 0RF oseltamivir (Tamiflu) 75 mg PO BID 10 caps 0RF 5 days Coding Level of Care Code Tele Est Pt Level 4 (50257) Diagnoses Influenza A H1N1 infection J10.1 Acute cough R05.1 Cough type: acute Shortness of breath R06.02 Comment 5 min pre, 15 with patient, 5 charting, 5 meds
== END 2023-08-18 11:40 | disposition home or self-care (01) ==
LOC: HO.HMGC 08:48
PROVIDERS: PCP Internal Medicine; Visit Provider Internal Medicine
DX: J10.1 Influenza due to other identified influenza virus with other respiratory manifestations (principal); R05.1 Acute cough; R06.02 Shortness of breath
CPT/HCPCS: 99214

== ENCOUNTER 2023-08-25 11:44 | Outpatient (REF) | payer OTHER, SELFPAY ==
[2023-08-25 13:17] LABS: MANUAL DIFF FLAG NO
[2023-08-25 13:21] LABS: Basophils Percent Auto 0.2 % (0-2); Eosinophils Absolute Auto 0.2 X10*3/uL (0.0-0.4); Eosinophils Percent Auto 2.3 % (0-4); Hematocrit 38.7 % (37.0-47.0); Hemoglobin 12.6 g/dl (12.0-16.0); Imm Gran Abs Auto 0.04 X10*3/uL (0.00-0.03); Imm Gran Pct Auto 0.4 % (0.0-0.4); Lymphocytes Absolute Auto 1.1 X10*3/uL (1.2-4.9); Lymphocytes Percent Auto 10.8 % (20-40); Mean Corpuscular HGB Conc 32.6 g/dl (31.0-35.0); Mean Corpuscular Hemoglobin 27.7 pg (27.0-33.0); Mean Corpuscular Volume 85.1 fL (80.0-98.0); Mean Platelet Volume 10.3 fL (9.4-12.3); Monocytes Absolute Auto 0.9 X10*3/uL (0.1-1.2); Monocytes Percent Auto 8.5 % (2-11); Neutrophils Percent Auto 77.8 % (45-73); Platelet Count 423 X10*3/uL (160-400); Red Blood Count 4.55 X10*6/uL (4.20-5.50); White Blood Count 10.3 X10*3/uL (4.8-10.8)
[2023-08-25 13:34] LABS: Alanine Aminotransferase 12 U/L (0-31); Albumin Level 3.7 g/dL (3.5-5.0); Alkaline Phosphatase 60 U/L (39-117); Anion Gap 11 (12-20); Aspartate Amino Transferase 14 U/L (5-31); Bilirubin Total 0.2 mg/dL (0.0-1.0); Blood Urea Nitrogen 7 mg/dL (9-16); C Reactive Protein 1.92 mg/dL (< or = 0.50); Calcium 9.1 mg/dL (8.4-10.2); Carbon Dioxide 23 mmol/L (22-29); Chloride 109 mmol/L (96-108); Estimated Glomerular Filt Rate > 60; Glucose Random 101 mg/dL (60-115); Potassium 3.4 mmol/L (3.3-5.1); Sodium 140 mmol/L (135-145); Total Protein 7.5 g/dL (6.5-8.0)
[2023-08-25 13:38] LABS: Appearance Urine Clear; Color Urine Yellow; Glucose Urine UA Negative (Negative); Leukocyte Esterase Urine Negative (Negative); Nitrite Urine Negative (Negative); PH 6.5 (5.0-9.0); Specific Gravity - Urine 1.015 (1.005-1.025); Urine Blood Negative (Negative); Urine Ketones Negative (Negative); Urine Protein Trace mg/dL (Neg-Trace)
[2023-08-25 13:55] LABS: Creatinine Urine 104.29 mg/dL; Protein/Creatinine Ratio, Ur 0.09 (<0.2); Total Protein Urine Random 9 mg/dL (<12)
[2023-08-25 13:57] LABS: Bacteria Urine None Seen (None Seen); Hyaline Casts Urine 0-2 /LPF (0-2); RBC Urine 0-2 /HPF (0-2); Squamous Epithelial Cell Urine 0-2 /HPF (0-2); WBC Urine 0-5 /HPF (0-5)
[2023-08-25 14:16] LABS: Erythrocyte Sedimentation Rate 44 MM/HR (0-20)
[2023-08-26 13:49] LABS: Anti DNA DS Antibody <1 IU/mL
[2023-08-26 18:13] LABS: Complement C3 155 mg/dL (83-193)
[2023-08-30 15:19] LABS: DNAds, Crithidia Antibody Negative (Negative)
== END 2023-08-25 11:45 | disposition home or self-care (01) ==
LOC: HO.HMGCLDS 11:44
PROVIDERS: PCP Internal Medicine; Visit Provider Student in an Organized Health Care Education/Training Program
DX: M32.9 Systemic lupus erythematosus, unspecified (principal)
CPT/HCPCS: 36415; 80053; 81001; 82570; 84156; 85025; 85652; 86140; 86160; 86225; 86255

== ENCOUNTER 2023-08-30 14:41 | Outpatient (AMB) | payer OTHER, SELFPAY ==
[2023-08-30 14:49] VITALS: BP 128/86; PULSE 99; O2SAT 97; BMI 32.1
--- NOTE | 2023-08-30 14:49 | MHC.PC.OV ---
Vital Signs 08/30/23 14:49 Height 4 ft 11 in Weight 159 lb 2 oz BMI 32.1 BP 128/86 Blood Pressure Location Lt brachial Position Sitting Pulse 99 Pulse Source Pulse Oximeter Pulse Oximetry (%) 97 Oxygen Delivery Method Room Air Intake Visit Reasons: Follow Up~ Allergies Iodinated Contrast Media [IV CONTRAST] Allergy (Intermediate, Verified 08/30/23 14:51) RASH Penicillins Allergy (Intermediate, Verified 08/30/23 14:51) RASH amoxicillin Allergy (Unknown, Verified 08/30/23 14:51) unknown Medication List - Last Reconciled 08/30/23 by Luis Loomis MD albuterol sulfate 0.63 mg (3 mL) inhalation Q6H albuterol sulfate 90 mcg/actuation 2 puffs inhalation Q4-6H PRN 30 days albuterol sulfate 0.63 mg (3 mL) inhalation QID PRN clobetasol 0.05% 1 appl topical BID 2 weeks duloxetine 90 mg (3 x 30 mg) PO DAILY famotidine 40 mg PO BEDTIME ferrous sulfate 324 mg PO BID 90 days fluticasone propionate 220 mcg/actuation (Flovent HFA) 1 puff PO BID 30 days hydroxychloroquine 200 mg PO BID ibuprofen 800 mg PO Q8H methylprednisolone (Medrol (Dilip)) PO PER PKG DIR 6 days omeprazole 40 mg PO ONCE 90 days oseltamivir (Tamiflu) 75 mg PO BID 5 days prednisone 60 mg (3 x 20 mg) PO DAILY sennosides-docusate sodium 8.6-50 mg (Senna Plus) 2 tab-caps (2 x 8.6-50 mg) PO BEDTIME PRN 90 days Symbicort 160-4.5 mcg/actuation (budesonide-formoterol) 2 puffs inhalation BID 30 days NS Tobacco use date assessed: 08/30/23 Dental Screening Dental Screen Date: 08/30/23 Did you have a dental visit in the last 12 months?: Yes Did you have a dental problem in the last 6 months where you did not have access to dental care?: No Was dental information given to patient?: Patient has dentist HPI Follow Up~ HPI Details Patient is a 38-year-old female with a history of lupus Ended up having influenza bronchitis Patient is currently taking Symbicort but only once a day Continued to feel short of breath and is taking albuterol inhaler frequently I have told her to start taking Symbicort 2 puffs in the morning and 2 at night She is getting better gradually, her phlegm is clear now and clear postnasal drip Still have coughing Her lungs are clear on auscultation today No nausea vomiting PFSH Medical History IBS (irritable colon syndrome) Rheumatoid factor positive Anxiety GERD (gastroesophageal reflux disease) Endocervical polyp Surgical History H/O colonoscopy H/O esophagogastroduodenoscopy H/O LEEP History of bilateral tubal ligation Family History Father Hypertension Mother No problems noted. Maternal Grandmother Stroke Cancer Paternal Grandfather Stroke Other Mental health disorder Substance use disorder Social History Household Members: Children Housing: Apartment Alcohol intake: never Patient Tobacco Use Status: Former Tobacco user Years Smoked: 10 e-Cigarette/Vaping Use: Currently Using Second Hand Smoke Exposure: No service: No Current occupational status: unemployed Sexual orientation: Straight/Heterosexual Gender identity: Female Cognitive needs: No Hearing needs: No Vision needs: No Female Reproductive History Menstrual Age of Menarche: 8 Questionnaire Thrive Questionnaire Date Thrive assessed: 02/10/22 AUDIT C Alcohol Use Questionnaire (AUDIT-C) 1. How often do you have a drink containing alcohol?: Monthly or less 2. How many drinks containing alcohol do you have on a typical day when you are drinking?: 1 or 2 3. How often do you have six or more drinks on one occasion?: Never Total Score: 1 Score Reviewed/Action Taken: Yes ERICK-7 AMB Questionnaire ERICK-7 Date ERICK - 7 assessed: 02/10/22 Source: Developed by Drs. Thad Hampton, Mine Bravo, Tra Duval and colleagues, with an educational yoli from [employer]. Review of Systems Const Denies chills and Denies fever(s) ENT Denies epistaxis and Denies nasal discharge Card Denies chest pain Resp Denies hemoptysis GI Denies diarrhea and Denies nausea Skin/Breast Denies rash Neuro Reports no additional complaints Psych Reports no additional complaints Endo Reports no additional complaints Physical exam (Primary Care) Vital Signs: Last Vital Signs Pulse 99 08/30/23 14:49 BP 128/86 08/30/23 14:49 Pulse Ox 97 08/30/23 14:49 Oxygen Delivery Method Room Air 08/30/23 14:49 BMI result Body Mass Index 32.1 Tobacco/Smoking Status: Tobacco use Status Tobacco use date assessed 08/30/23 08/30/23 14:53 Patient Tobacco Use Status Former Tobacco user 08/30/23 14:53 Tobacco use type 06/03/23 12:33 e-Cigarette/Vaping Use Currently Using 08/30/23 14:53 Thrive Assessment: Date of Thrive Assessment Date Thrive assessed 02/10/22 08/30/23 14:53 Const General: cooperative, comfortable and no acute distress Orientation/consciousness: patient oriented x3 HENMT Head: Yes normocephalic Eyes General: appearance normal, both eyes and all related structures Neck Neck: Yes supple Resp Effort & Inspection: normal respiratory effort, no cough and no stridor Cardio Rhythm: regular rhythm Heart sounds: S1 normal heart sound present and S2 normal heart sound present Skin General skin exam: turgor normal Neuro General: patient oriented x3, tone normal and moves all extremities Extrem Right lower extremity: no edema Left lower extremity: no edema Assessment and Plan Assessment & Plan (1) Influenza A H1N1 infection: Code(s): J10.1 - Influenza due to other identified influenza virus with other respiratory manifestations (2) Cough: Code(s): R05.9 - Cough, unspecified Qualifiers: Cough type: acute Qualified Code(s): R05.1 - Acute cough (3) Shortness of breath: Code(s): R06.02 - Shortness of breath Plan Patient is a 38-year-old female with a history of lupus Ended up having influenza bronchitis Patient is currently taking Symbicort but only once a day Continued to feel short of breath and is taking albuterol inhaler frequently I have told her to start taking Symbicort 2 puffs in the morning and 2 at night She is getting better gradually, her phlegm is clear now and clear postnasal drip Still have coughing Her lungs are clear on auscultation today No nausea vomiting Medications: Refilled Symbicort 160-4.5 mcg/actuation (budesonide-formoterol) 2 puffs inhalation BID 30 days 10.2 grams 3RF NS J45.909 - Unspecified asthma, uncomplicated Discontinued fluticasone propionate 220 mcg/actuation (Flovent HFA) Discontinued Reason: Doctor's Order 1 puff PO BID 30 days 12 grams 3RF J45.909 - Unspecified asthma, uncomplicated albuterol sulfate Discontinued Reason: Doctor's Order 0.63 mg (3 mL) inhalation Q6H 75 mL 0RF albuterol sulfate Discontinued Reason: Doctor's Order 0.63 mg (3 mL) inhalation QID PRN 75 mL 0RF shortness of breath or wheezing Coding Level of Care Code Est Pt Level 3 (01471) Diagnoses Influenza A H1N1 infection J10.1 Acute cough R05.1 Cough type: acute Shortness of breath R06.02
== END 2023-08-30 16:11 | disposition home or self-care (01) ==
PROVIDERS: PCP Internal Medicine; Visit Provider Internal Medicine
DX: J10.1 Influenza due to other identified influenza virus with other respiratory manifestations (principal); R05.1 Acute cough; R06.02 Shortness of breath
CPT/HCPCS: 99213

== ENCOUNTER 2024-03-13 09:53 | Outpatient (REF) | payer OTHER, SELFPAY ==
[2024-03-13 10:57] LABS: MANUAL DIFF FLAG NO
[2024-03-13 11:25] LABS: Basophils Percent Auto 0.8 % (0-2); Eosinophils Absolute Auto 0.5 X10*3/uL (0.0-0.4); Eosinophils Percent Auto 9.8 % (0-4); Hematocrit 42.5 % (37.0-47.0); Hemoglobin 13.9 g/dl (12.0-16.0); Imm Gran Abs Auto 0.02 X10*3/uL (0.00-0.03); Imm Gran Pct Auto 0.4 % (0.0-0.4); Lymphocytes Absolute Auto 0.9 X10*3/uL (1.2-4.9); Lymphocytes Percent Auto 18.1 % (20-40); Mean Corpuscular HGB Conc 32.7 g/dl (31.0-35.0); Mean Corpuscular Hemoglobin 28.4 pg (27.0-33.0); Mean Corpuscular Volume 86.9 fL (80.0-98.0); Mean Platelet Volume 10.3 fL (9.4-12.3); Monocytes Absolute Auto 0.4 X10*3/uL (0.1-1.2); Monocytes Percent Auto 8.6 % (2-11); Neutrophils Absolute Auto 3.2 x10*3/uL (2.0-8.3); Neutrophils Percent Auto 62.3 % (45-73); Platelet Count 333 X10*3/uL (160-400); Red Blood Count 4.89 X10*6/uL (4.20-5.50); Red Cell Distribution Width 12.6 % (11.0-16.0); White Blood Count 5.1 X10*3/uL (4.8-10.8)
[2024-03-13 12:07] LABS: HBS Num1 0.57 mIU/mL (0-7.99); HBc Num1 0.11 S/CO (0.00-0.79); HBsAGNum1 0.28 S/CO (0.00-0.99); Hepatitis A Antibody IgM 0.18 Index (0-0.79); Hepatitis B Core Antibody Nonreactive (Nonreactive); Hepatitis B Surface Antigen Negative (Negative); ~HepC Num1 0.15 S/CO (0.00-0.79); ~Hepatitis A Antibody IgM Nonreactive (Nonreactive); ~Hepatitis B Surface Antibody NONREACTIVE (Nonreactive); ~Hepatitis C Antibody Nonreactive (Nonreactive)
[2024-03-13 12:10] LABS: Erythrocyte Sedimentation Rate 14 MM/HR (0-20)
[2024-03-13 12:33] LABS: Alanine Aminotransferase 13 U/L (0-31); Albumin Level 4.2 g/dL (3.5-5.0); Alkaline Phosphatase 47 U/L (39-117); Anion Gap 9 (12-20); Aspartate Amino Transferase 15 U/L (5-31); Bilirubin Total 0.3 mg/dL (0.0-1.0); Blood Urea Nitrogen 8 mg/dL (9-16); C Reactive Protein < 0.10 mg/dL (< or = 0.50); Calcium 9.3 mg/dL (8.4-10.2); Carbon Dioxide 24 mmol/L (22-29); Chloride 107 mmol/L (96-108); Estimated Glomerular Filt Rate > 60; Glucose Random 97 mg/dL (60-115); Potassium 4.1 mmol/L (3.3-5.1); Sodium 136 mmol/L (135-145); Total Protein 7.9 g/dL (6.5-8.0)
[2024-03-13 12:36] LABS: Appearance Urine Cloudy; Color Urine Yellow; Glucose Urine UA Negative (Negative); Leukocyte Esterase Urine Small (1+) (Negative); Nitrite Urine Negative (Negative); PH 7.5 (5.0-9.0); UMIC TRIGGER UA YES; Urine Blood Negative (Negative); Urine Ketones Negative (Negative); Urine Protein Negative (Neg-Trace)
[2024-03-13 12:50] LABS: Bacteria Urine 2+ (None Seen); Hyaline Casts Urine 0-2 /LPF (0-2); RBC Urine 0-2 /HPF (0-2); WBC Urine 0-5 /HPF (0-5)
[2024-03-13 13:55] LABS: Creatinine Urine 66.57 mg/dL; Total Protein Urine Random < 7 mg/dL (<12)
[2024-03-14 21:03] LABS: Anti DNA DS Antibody <1 IU/mL
[2024-03-14 23:19] LABS: Complement C3 93 mg/dL (83-193)
[2024-03-16 11:08] LABS: TS Negative Control Passed; TS Panel A 0; TS Panel B 0; TS Positive Control Passed; TSpotTB Negative (Negative)
[2024-03-19 06:23] LABS: DNAds, Crithidia Antibody Negative (Negative)
[2024-03-22 19:54] LABS: TPMT Activity 13
== END 2024-03-13 09:54 | disposition home or self-care (01) ==
LOC: HO.LAB 09:53
PROVIDERS: PCP Internal Medicine; Visit Provider Student in an Organized Health Care Education/Training Program
DX: M32.9 Systemic lupus erythematosus, unspecified (principal); Z11.7 Encounter for testing for latent tuberculosis infection; Z11.59 Encounter for screening for other viral diseases; Z51.81 Encounter for therapeutic drug level monitoring; Z79.624 Long term (current) use of inhibitors of nucleotide synthesis; Z79.899 Other long term (current) drug therapy; M79.7 Fibromyalgia
CPT/HCPCS: 36415; 80053; 81001; 82570; 84156; 84433; 85025; 85652; 86140; 86160; 86225; 86255; 86481; 86704; 86706; 86709; 86803; 87340; 99212

== ENCOUNTER 2024-03-13 09:53 | Outpatient (AMB) | payer OTHER, SELFPAY ==
--- NOTE | 2024-03-13 09:53 | A.OFFVIS_ITS ---
Vital Signs 03/13/24 09:59 Height 4 ft 11 in Weight 168 lb 6.931 oz BMI 34.0 BP 126/82 Blood Pressure Location Rt brachial Position Sitting Respiration 16 Pulse 83 Pulse Source Pulse Oximeter Pulse Oximetry (%) 98 Oxygen Delivery Method Room Air Intake Visit Reasons: RA Intake Note: Patient presents for RA. Allergies Iodinated Contrast Media [IV CONTRAST] Allergy (Intermediate, Verified 03/13/24 09:56) RASH Penicillins Allergy (Intermediate, Verified 03/13/24 09:56) RASH amoxicillin Allergy (Unknown, Verified 03/13/24 09:56) unknown Medication List - Last Reconciled 03/13/24 by Lorraine Wang MD albuterol sulfate 90 mcg/actuation 2 puffs inhalation Q4-6H PRN 30 days clobetasol 0.05% 1 appl topical BID 2 weeks duloxetine 90 mg (3 x 30 mg) PO DAILY famotidine 40 mg PO BEDTIME ferrous sulfate 324 mg PO BID 90 days hydroxychloroquine 200 mg PO BID ibuprofen 800 mg PO Q8H omeprazole 40 mg PO ONCE 90 days oseltamivir (Tamiflu) 75 mg PO BID 5 days sennosides-docusate sodium 8.6-50 mg (Senna Plus) 2 tab-caps (2 x 8.6-50 mg) PO BEDTIME PRN 90 days Symbicort 160-4.5 mcg/actuation (budesonide-formoterol) 2 puffs inhalation BID 30 days NS HPI Comments Details: 39-year-old female with SLE returns for follow-up. She was last seen 11/2022. Patient stated that her children were sick and had multiple doctors visits. She has not been able to follow-up with me. She states that continues to have generalized fatigue, generalized body aches, brain fog. Initial history from Dr. Lauri Luevano Patient continues to report diffuse arthralgia that is worse her back and in her hands. Has swelling and stiffness in her hands when she 1st wakes up that improves throughout the morning. Her pain is generally worse with activity better with rest. She was given prednisone for pulmonary issues and states that her joint pain completely resolved while she was taking the prednisone and returned once she was off the prednisone. No rash, no photosensitivity, oral ulcers, painful, she has dry eyes and dry mouth. No seizures, no miscarriages, no serositis, no blood clots. She took plaquenil for about 6 months and it did not help and she stopped it because she could not have eye exam , as she gets anxious. She uses vape, she stopped smoking cigarettes in 2009, she used to smoke 1/2 ppd since 10 years. Aunt has lupus. Radiographs: Normal radiographs of the cervical, thoracic, and lumbosacral spine with no evidence of acute fracture or subluxation. Grossly no evidence of canal or neuroforaminal encroachment. No evidence of spondylolysis. Hands us: no synovitis. PFSH Medical History IBS (irritable colon syndrome) Rheumatoid factor positive Anxiety GERD (gastroesophageal reflux disease) Endocervical polyp Surgical History H/O colonoscopy H/O esophagogastroduodenoscopy H/O LEEP History of bilateral tubal ligation Family History Father Hypertension Mother No problems noted. Maternal Grandmother Stroke Cancer Paternal Grandfather Stroke Son Mast cell activation syndrome Dysautonomia Other Mental health disorder Substance use disorder Social History Household Members: Children Housing: Apartment Alcohol intake: never Patient Tobacco Use Status: Former Tobacco user Years Smoked: 10 e-Cigarette/Vaping Use: Currently Using Second Hand Smoke Exposure: No service: No Current occupational status: unemployed Sexual orientation: Straight/Heterosexual Gender identity: Female Cognitive needs: No Hearing needs: No Vision needs: No Female Reproductive History Menstrual Age of Menarche: 8 Review of Systems Const Reports fatigue and Reports weakness Resp Reports no additional complaints Musc Reports back pain, Reports myalgias and Reports arthralgias Skin/Breast Reports pruritus Neuro Reports weakness Endo Reports fatigue Physical Exam Vital Signs: Last Vital Signs Pulse 83 03/13/24 09:59 Resp 16 03/13/24 09:59 BP 126/82 03/13/24 09:59 Pulse Ox 98 03/13/24 09:59 Oxygen Delivery Method Room Air 03/13/24 09:59 BMI result Body Mass Index 34.0 Const General: cooperative, healthy appearing, comfortable and no acute distress Orientation/consciousness: patient oriented x3 HEENT Head: Yes normal to inspection Mouth: Normal oral and palatal mucosa present Back/Spine/Pelvis Thoracic/Lumbar Spine: lumbar spinal tenderness Neuro General: patient oriented x3 Extrem Other: No synovitis on exam. Intact medical management specialist strength bilaterally. Normal nailfold capillaroscopy General: Yes no pedal edema Psych Speech and movement: Clear speech present Attitude: cooperative Assessment & Plan Assessment & Plan (1) SLE (systemic lupus erythematosus): Comment: (+++SSA+++SSb, intermittently positive rheumatoid factor, fatigue, arthralgias, rash on face and chest, nasal ulcers) Code(s): M32.9 - Systemic lupus erythematosus, unspecified Category: Medical Qualifiers: Systemic lupus erythematosus type: unspecified Systemic lupus erythematosus organ involvement: unspecified Qualified Code(s): M32.9 - Systemic lupus erythematosus, unspecified Plan: 39-year-old female with SLE presents for follow-up (+++SSA+++SSb, intermittently positive rheumatoid factor, fatigue, arthralgias, rash on face and chest, nasal ulcers) She is on hydroxychloroquine 200 mg Twice daily. She continues to have mild symptoms of fatigue, brain fog, body aches. Symptoms may be SLE related versus fibromyalgia related Check SLE activity labs. If CBC with no significant leukopenia, plan to start azathioprine 50 mg daily, check CBC in 2 weeks, if no significant leukopenia, we will increase to 100 mg daily Continue hydroxychloroquine 200 mg Twice daily Labs before next visit in 2 months (2) Long-term use of hydroxychloroquine: Code(s): Z79.899 - Other penitentiary (current) drug therapy Category: Medical Plan: Advised patient to follow-up regularly with personal banking advisor (3) Encounter for monitoring azathioprine therapy: Code(s): Z51.81 - Encounter for therapeutic drug level monitoring; Z79.624 - nursing home (current) use of inhibitors of nucleotide synthesis Category: Medical Plan: Monitor safety labs (4) Fibromyalgia, primary: Code(s): M79.7 - Fibromyalgia Category: Medical Plan: Has been helpful. Continue duloxetine 90 mg daily. Patient gets symptomatic with tingling sensation without it Plan I spent 45 minutes reviewing patient's chart, evaluating patient, ordering diagnostic workup, counseling patient and documenting in the chart Orders: Orders Anti DNA DS Antibody Today M32.9 - Systemic lupus erythematosus, unspecified Complement C3 Today M32.9 - Systemic lupus erythematosus, unspecified C Reactive Protein Today M32.9 - Systemic lupus erythematosus, unspecified DNA Double Stranded-Crithidia Today M32.9 - Systemic lupus erythematosus, unspecified UA w Microscopic Today M32.9 - Systemic lupus erythematosus, unspecified Comprehensive Met. Panel Today M32.9 - Systemic lupus erythematosus, unspecified Hepatitis A,B,C Profile Today Z11.59 - Encounter for screening for other viral diseases Complete Blood Count Auto Diff 1 Month M32.9 - Systemic lupus erythematosus, unspecified Comprehensive Met. Panel 1 Month M32.9 - Systemic lupus erythematosus, unspecified Complete Blood Count Auto Diff 2 Months M32.9 - Systemic lupus erythematosus, unspecified Complement C4 Today M32.9 - Systemic lupus erythematosus, unspecified Erythrocyte Sedimentation Rate Today M32.9 - Systemic lupus erythematosus, unspecified Protein Creatinine Ratio, Ur Today M32.9 - Systemic lupus erythematosus, unspecified Complete Blood Count Auto Diff Today M32.9 - Systemic lupus erythematosus, unspecified T Spot TB Today Z11.7 - Encounter for testing for latent tuberculosis infection Thiopurine Methyltransferase Today Z51.81 - Encounter for therapeutic drug level monitoring, Z79.624 - terminal press operator (current) use of inhibitors of nucleotide synthesis Comprehensive Met. Panel 2 Months M32.9 - Systemic lupus erythematosus, unspecified C Reactive Protein 2 Months M32.9 - Systemic lupus erythematosus, unspecified Erythrocyte Sedimentation Rate 2 Months M32.9 - Systemic lupus erythematosus, unspecified Medications: Refilled hydroxychloroquine 200 mg PO BID 180 tabs 1RF Discontinued prednisone Discontinued Reason: Doctor's Order 60 mg (3 x 20 mg) PO DAILY 9 tabs 0RF methylprednisolone (Medrol (Dilip)) Discontinued Reason: Patient Completed Course PO PER PKG DIR 6 days 21 ea 0RF prednisone Discontinued Reason: Patient Completed Course Take 4 tabs daily for 1 week, 3 tabs daily for 1 week, 2 tabs daily for 1 week, 1 tab daily for 1 week then stop 70 tabs 0RF Coding Level of Care Code Est Pt Level 5 (72457) Complex EM visit Add On G2211 Diagnoses Systemic lupus erythematosus, unspecified SLE type, unspecified organ involvement status M32.9 Systemic lupus erythematosus type: unspecified Systemic lupus erythematosus organ involvement: unspecified Long-term use of hydroxychloroquine Z79.899 Encounter for monitoring azathioprine therapy Z51.81; Z79.624 Fibromyalgia, primary M79.7
[2024-03-13 09:59] VITALS: BP 126/82; PULSE 83; RESP 16; O2SAT 98; BMI 34.0
== END 2024-03-13 10:20 | disposition home or self-care (01) ==
LOC: HO.RHE 09:53
PROVIDERS: PCP Internal Medicine; Visit Provider Student in an Organized Health Care Education/Training Program
DX: M32.9 Systemic lupus erythematosus, unspecified (principal); Z79.899 Other long term (current) drug therapy; Z51.81 Encounter for therapeutic drug level monitoring; Z79.624 Long term (current) use of inhibitors of nucleotide synthesis; M79.7 Fibromyalgia
CPT/HCPCS: 99215; G2211

== ENCOUNTER 2024-07-18 10:11 | Outpatient (AMB) | payer OTHER, SELFPAY ==
[2024-07-18 10:13] VITALS: BP 130/82; PULSE 84; O2SAT 96; BMI 34.9
--- NOTE | 2024-07-18 10:13 | MHC.PC.OV ---
Vital Signs 07/18/24 10:13 Height 4 ft 11 in Weight 173 lb BMI 34.9 BP 130/82 Blood Pressure Location Rt brachial Position Sitting Pulse 84 Pulse Source Pulse Oximeter Pulse Oximetry (%) 96 Oxygen Delivery Method Room Air Intake Visit Reasons: [facility] Concerns Allergies Iodinated Contrast Media [IV CONTRAST] Allergy (Intermediate, Verified 07/18/24 10:14) RASH Penicillins Allergy (Intermediate, Verified 07/18/24 10:14) RASH amoxicillin Allergy (Unknown, Verified 07/18/24 10:14) unknown Medication List - Last Reconciled 07/18/24 by Luis Loomis MD albuterol sulfate 90 mcg/actuation 2 puffs inhalation Q4-6H PRN 30 days duloxetine 90 mg (3 x 30 mg) PO DAILY famotidine 40 mg PO BEDTIME ferrous sulfate 324 mg PO BID 90 days fexofenadine 180 mg PO DAILY hydroxychloroquine 200 mg PO BID ibuprofen 800 mg PO Q8H montelukast 10 mg PO BEDTIME omeprazole 40 mg PO ONCE 90 days propranolol 20 mg PO TID Symbicort 160-4.5 mcg/actuation (budesonide-formoterol) 2 puffs inhalation BID 30 days NS Tobacco use date assessed: 07/18/24 Dental Screening Dental Screen Date: 07/18/24 Did you have a dental visit in the last 12 months?: Yes Did you have a dental problem in the last 6 months where you did not have access to dental care?: No Was dental information given to patient?: Patient has dentist HPI [facility] Concerns HPI Details History - bulleted - The patient is a 39-year-old female presenting with management of Mast Cell Activation Syndrome. 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 - Symptoms began a few months ago following a COVID-19 infection, exacerbating leg muscle weakness and other dysautonomia-associated symptoms. - Extensive blood work and 24-hour urine tests were conducted, revealing high levels of mast cell mediators. - Currently prescribed fexofenadine, propranolol, montelukast, cromolyn sodium; experiencing difficulty obtaining cromolyn sodium due to availability issues, impacting symptom management. - Reports new symptom development of muscle weakness in legs and fluctuating blood pressure; associated worry due to family history of early onset neurological decline. - Appointments with the current specialist have experienced delays, leading to concerns regarding the progression of symptoms, especially in the context of POTS and dysautonomia. Problem List - Mast Cell Activation Syndrome - Postural Orthostatic Tachycardia Syndrome (POTS) - Dysautonomia - Possible Anxiety related to family history of neurological symptoms Patient Instructions - Continue current medications, including fexofenadine, propranolol, montelukast, and attempt to acquire cromolyn sodium nasal spray over the counter. - Seek cromolyn sodium solution for oral use from various pharmacies; inquire about different [facility] locations. - Start prednisone as prescribed for acute symptom management. - Reach out to specialist regarding medication adjustments and discuss symptoms with urgency. - Monitor symptoms and report any significant changes, such as new or worsening muscle weakness or abnormal heart symptoms. - Consider reading up on biologic treatment options such as Xolair and discuss this with the specialist at the next appointment. Review of Systems - Cardiovascular: Reports fluctuating blood pressure, heart irregularities. - Neurological: Reports muscle weakness in legs, especially the left leg. - Respiratory: Reports nasal congestion. - Integumentary: Reports generalized bruising and skin mottling. - Psychological: Reports anxiety about familial pattern of neurological decline. - Constitutional: Reports hot flashes. - Gastrointestinal: Denies any new or worsening symptoms. - Genitourinary: Denies any new or worsening symptoms. - General: No fever no chills Physical Exam General: No acute distress HEENT: No acute findings Neck: Supple Respiratory system: Able to talk in full sentences, no audible wheeze cardiovascular: S1-S2 regular in rate and rhythm Gastrointestinal: No pain Extremities: New symptoms in legs, muscles feel weak, left leg feels heavy and sometimes gives out CORPORATE ATTORNEY: Alert awake oriented x3 motor sensory intact Skin: Normal turgor [facility] Medical History IBS (irritable colon syndrome) Rheumatoid factor positive Anxiety GERD (gastroesophageal reflux disease) Endocervical polyp Surgical History H/O colonoscopy H/O esophagogastroduodenoscopy H/O LEEP History of bilateral tubal ligation Family History Father Hypertension Mother No problems noted. Maternal Grandmother Stroke Cancer Paternal Grandfather Stroke Son Mast cell activation syndrome Dysautonomia Other Mental health disorder Substance use disorder Social History Household Members: Children Housing: Apartment Alcohol intake: never Patient Tobacco Use Status: Former Tobacco user Years Smoked: 10 e-Cigarette/Vaping Use: Currently Using Second Hand Smoke Exposure: No service: No Current occupational status: unemployed Sexual orientation: Straight/Heterosexual Gender identity: Female Cognitive needs: No Hearing needs: No Vision needs: No Female Reproductive History Menstrual Age of Menarche: 8 Questionnaire PHQ-9 Over the last 2 weeks, how often have you been bothered by any of the following problems? 1. Little interest or pleasure in doing things: several days 2. Feeling down, depressed, or hopeless: several days 3. Trouble falling or staying asleep, or sleeping too much: several days 4. Feeling tired or having little energy: several days 5. Poor appetite or overeating: several days 6. Feeling bad about yourself - or that you are a failure or have let yourself or your family down: several days 7. Trouble concentrating on things, such as reading the newspaper or watching television: several days 8. Moving or speaking so slowly that other people could have noticed. Or the opposite - being so fidgety or restless that you have been moving around a lot more than usual: several days 9. Thoughts that you would be better off or of hurting yourself in some way: not at all Total score: 8 Depression Screening Interpretation: Negative Depression Screening Done: Yes 33699 - PHQ-9 Billing: Yes Source: Developed by Drs. Thad Hampton, Mine Bravo, Tra Duval and colleagues, with an educational yoli from [employer]. Thrive Questionnaire Date Thrive assessed: 07/18/24 I am a: Patient What is your living situation today?: I have a steady place to live Within the past 12 months, did the food you bought not last and you didn't have the money to get more?: Sometimes True Within the past 12 months, did you worry whether your food would run out before you got money to buy more?: Sometimes True Do you have trouble paying for medicines?: Yes Do you have trouble getting transportation to medical appointments?: No Do you have trouble paying your heating and electricity bill?: Yes Do you have trouble taking care of your child, family member or friend?: No Do you have trouble with day-to-day activities such as bathing, preparing meals, shopping, managing finances, etc.?: Yes Are you currently unemployed and looking for a job?: No Are you interested in more education?: No Please select the resources that you would like help with: None Currently or been in a relationship where the following occur: No concerns reported THRIVE Score: 3 AUDIT C Alcohol Use Questionnaire (AUDIT-C) 1. How often do you have a drink containing alcohol?: Never 3. How often do you have six or more drinks on one occasion?: Never Total Score: 0 Score Reviewed/Action Taken: Yes ERICK-7 AMB Questionnaire ERICK-7 Date ERICK - 7 assessed: 07/18/24 Feeling nervous, anxious, or on edge: 1 = Several days Not being able to stop or control worryin = Several days Worrying too much about different things: 1 = Several days Trouble relaxin = Several days Being so restless that it is hard to sit still: 1 = Several days Becoming easily annoyed or irritable: 1 = Several days Feeling afraid as if something awful might happen: 1 = Several days Total ERICK-7 score (0-4 normal; 5-9 mild; 10-14 moderate; 15-21 severe): 7 Source: Developed by Drs. Thad Hampton, Mien Bravo, Tra Duval and colleagues, with an educational yoli from [employer]. ERICK-7 Assessment Billing ERICK-7 Assessment Tool: ERICK-7 Assessment 42653 Physical exam (Primary Care) Vital Signs: Last Vital Signs Pulse 84 07/18/24 10:13 BP 130/82 07/18/24 10:13 Pulse Ox 96 07/18/24 10:13 Oxygen Delivery Method Room Air 07/18/24 10:13 BMI result Body Mass Index 34.9 Tobacco/Smoking Status: Tobacco use Status Tobacco use date assessed 07/18/24 07/18/24 10:21 Patient Tobacco Use Status Former Tobacco user 07/18/24 10:21 Tobacco use type 03/13/24 10:22 e-Cigarette/Vaping Use Currently Using 07/18/24 10:21 PHQ-9: PHQ-9 Score PHQ-9: Total score 8 07/18/24 10:55 Depression Screening Interpretation: Negative Thrive Assessment: Date of Thrive Assessment Date Thrive assessed 07/18/24 07/18/24 10:21 Currently or been in a relationship where the following occur: No concerns reported Coding Level of Care Code Est Pt Level 4 (68590) Diagnoses Mast cell activation syndrome D89.40 Additional Codes ERICK-7 Assessment Billing - ERICK-7 Assessment Tool: ERICK-7 Assessment 95787 ([id number]) PHQ-9 - 47490 - PHQ-9 Billing: Yes ([id number]) Assessment & Plan Assessment & Plan (1) Mast cell activation syndrome: Code(s): D89.40 - Mast cell activation, unspecified Category: Medical Plan History - bulleted - The patient is a 39-year-old female presenting with management of Mast Cell Activation Syndrome. 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 - Symptoms began a few months ago following a COVID-19 infection, exacerbating leg muscle weakness and other dysautonomia-associated symptoms. - Extensive blood work and 24-hour urine tests were conducted, revealing high levels of mast cell mediators. - Currently prescribed fexofenadine, propranolol, montelukast, cromolyn sodium; experiencing difficulty obtaining cromolyn sodium due to availability issues, impacting symptom management. - Reports new symptom development of muscle weakness in legs and fluctuating blood pressure; associated worry due to family history of early onset neurological decline. - Appointments with the current specialist have experienced delays, leading to concerns regarding the progression of symptoms, especially in the context of POTS and dysautonomia. Problem List - Mast Cell Activation Syndrome - Postural Orthostatic Tachycardia Syndrome (POTS) - Dysautonomia - Possible Anxiety related to family history of neurological symptoms Patient Instructions - Continue current medications, including fexofenadine, propranolol, montelukast, and attempt to acquire cromolyn sodium nasal spray over the counter. - Seek cromolyn sodium solution for oral use from various pharmacies; inquire [facility]. - Start prednisone as prescribed for acute symptom management. - Reach out to specialist regarding medication adjustments and discuss symptoms with urgency. - Monitor symptoms and report any significant changes, such as new or worsening muscle weakness or abnormal heart symptoms. - Consider reading up on biologic treatment options such as Xolair and discuss this with the specialist at the next appointment. Medications: New cromolyn 200 mg (10 mL) PO QID 480 mL 0RF prednisone 10 mg PO DAILY 7 days 7 tabs 0RF prednisone 10 mg PO DAILY 7 days 7 tabs 0RF
--- OUTSIDE RECORDS SUMMARY | 2024-07-18 11:25 | XMS_ITS ---
Author Name [facility] Organization Unknown History of Medication Use Medication Directions Dispensed Refills Start Date End Date Stat cromolyn (GASTROCROM) 100 mg/5 mL oral solution TAKE 5ML BY MOUTH TWICE DAILY FOR A WEEK, THEN 5ML THREE TIMES DAILY FOR A WEEK, AND FINALLY 5ML FOUR TIMES DAILY THEREAFTER. TAKE THE FIRST THREE DOSES 30MINS BEFORE MEALS. 06/22/2024 9 active cromolyn (GASTROCROM) 100 mg/5 mL oral solution Take 5 mLs (100 mg) by mouth 4 (four) times daily Take 5ml by mouth twice daily for a week, then 5ml three times daily for a week, and finally 5ml four times daily thereafter. Take the first three doses 30mins before meals. 06/21/2024 9 active montelukast (SINGULAIR) 10 mg tablet Take 1 tablet (10 mg) by mouth nightly 06/21/2024 9 active ibuprofen (MOTRIN) 400 MG tablet TAKE 1 TO 2 TABLETS BY MOUTH EVERY 6 TO 8 HOURS NEEDED FOR PAIN 06/21/2024 9 active ferrous sulfate 324 mg (65 mg iron) Tablet, Delayed Release (E.C.) Take 1 tablet by mouth 2 (two) times daily 06/21/2024 9 active SYMBICORT 160-4.5 mcg/actuation inhaler 2 PUFF INHALED 2 TIMES A DAY FOR 30 DAYS 06/21/2024 9 active DULoxetine (CYMBALTA) 30 MG delayed release capsule 90mg 06/21/2024 9 active fexofenadine (GINGER) 180 MG tablet Take 1 tablet (180 mg) by mouth daily 06/21/2024 9 active propranoloL (INDERAL) 20 MG tablet Take 1 tablet (20 mg) by mouth 3 (three) times daily 06/21/2024 9 active VENTOLIN HFA 90 mcg/actuation inhaler INHALE 1 PUFF INTO THE LUNGS 3 TIMES PER DAY 06/21/2024 9 active hydroxychloroquine sulfate (PLAQUENIL) 200 mg tablet Take 200 mg by mouth 2 (two) times daily 06/21/2024 9 active famotidine (PEPCID) 20 MG tablet Take 1 tablet (20 mg) by mouth 2 (two) times daily 06/21/2024 9 active ergocalciferol (VITAMIN D2) 1,250 mcg (50,000 unit) capsule Take 1 capsule (50,000 Units) by mouth once a week 06/21/2024 9 active Problems Problem Status Onset Date Problem Type Date of Resoluti on Source Mast cell activation syndrome active EncounterDiagnosisAct CT_CCM
== END 2024-07-18 11:08 | disposition home or self-care (01) ==
PROVIDERS: PCP Internal Medicine; Visit Provider Internal Medicine
DX: D89.40 Mast cell activation, unspecified (principal)

== ENCOUNTER → 2024-07-18 10:11 | Outpatient (BNVA) | payer OTHER, SELFPAY | PROVIDERS: PCP Internal Medicine; Visit Provider Internal Medicine | DX: D89.40 Mast cell activation, unspecified (principal) | CPT/HCPCS: 96127; 99212 ==

== ENCOUNTER 2024-08-03 10:14 | Emergency (ER) | payer OTHER, SELFPAY ==
--- NOTE | ~2024-08-03 | XR_ITS ---
EXAMINATION: XR CHEST 2 VIEWS HISTORY: Pain COMPARISON: Comparison is made with the prior examination dated 08/16/2023. FINDINGS: PA and lateral views of the chest are submitted. The lungs are expanded and clear. There is no pleural effusion, pneumothorax, or pulmonary vascular congestion. The heart is normal in size. The bones are intact. XR/XR chest 2V IMPRESSION: No acute cardiopulmonary abnormality. Electronically signed by: Thad Elias MD 08/03/2024 12:07 PM LOLA
--- NOTE | 2024-08-03 10:18 | ECG_ITS ---
Test Reason : chest pain Blood Pressure : */* mmHG Vent. Rate : 68 BPM Atrial Rate : 68 BPM P-R Int : 168 ms QRS Dur : 72 ms QT Int : 390 ms P-R-T Axes : 68 37 48 degrees QTcB Int : 414 ms Normal sinus rhythm Normal ECG When compared with ECG of 16-Aug-2023 23:00, No significant change was found Referred By: Generic ED Physician Electronically Signed By: CARLA CAVAZOS
[2024-08-03 11:17] VITALS: BP 153/95; PULSE 74; RESP 18; TEMP 36.8; O2SAT 99; BMI 31.3
--- NOTE | 2024-08-03 11:25 | ED_ITS ---
HPI - General Adult General Chief complaint: General Medical Stated complaint: Chest pain SOB Time Seen by Provider: 08/03/24 13:35 Source: patient and family Mode of arrival: ambulatory Limitations: no limitations History of Present Illness ED Provider: OSEAS Babin HPI narrative: This is a 39-year-old female history of mast cell activation syndrome, pots, dysautonomia, IBS, fibromyalgia, obesity, hypertension, rheumatoid factor positive presenting to the emergency department with fatigue, malaise, myalgia she states I feel like my arteries or being choked . She reports diffuse body aches and pains and slight cough. She reports she started feeling this way on Tuesday. She took a COVID test on Tuesday, 2 days ago which was positive for COVID. Multiple people at home sick with similar symptoms. She was experiencing some chest discomfort in the substernal region which has subsided it did not radiate. She denies shortness of breath, nausea, vomiting, diarrhea, abdominal pain, headache, vision changes, dizziness and weakness. Related Data Home Medications ?Medication ?Instructions ?Recorded ?Confirmed ibuprofen 800 mg tablet 800 mg PO Q8H 05/19/20 07/18/24 fexofenadine 180 mg tablet 180 mg PO DAILY 07/18/24 07/18/24 montelukast 10 mg tablet 10 mg PO BEDTIME 07/18/24 07/18/24 propranolol 20 mg tablet 20 mg PO TID 07/18/24 07/18/24 Previous Rx's ?Medication ?Instructions ?Recorded albuterol sulfate 90 mcg/actuation 2 puff inhalation Q4-6H PRN for 08/15/23 aerosol inhaler wheezing 30 days #8.5 grams famotidine 40 mg tablet 40 mg PO BEDTIME #30 tabs 08/18/23 Symbicort 160 mcg-4.5 2 puff inhalation BID 30 days 08/30/23 mcg/actuation HFA aerosol inhaler #10.2 grams (budesonide-formoterol) omeprazole 40 mg capsule,delayed 40 mg PO ONCE 90 days #90 caps 12/07/23 release hydroxychloroquine 200 mg tablet 200 mg PO BID #180 tabs 03/13/24 duloxetine 30 mg capsule,delayed 90 mg (3 x 30 mg) PO DAILY #270 06/07/24 release caps ferrous sulfate 324 mg (65 mg 324 mg PO BID 90 days #180 tabs 06/15/24 iron) tablet,delayed release cromolyn 100 mg/5 mL oral 200 mg (10 mL) PO QID #480 mL 07/18/24 concentrate prednisone 10 mg tablet 10 mg PO DAILY 7 days #7 tabs 07/18/24 ketorolac 10 mg tablet 10 mg PO TID PRN pain 5 days #15 08/03/24 tabs prednisone 20 mg tablet 40 mg (2 x 20 mg) PO DAILY 5 days 08/03/24 #10 tabs Allergies Allergy/AdvReac Type Severity Reaction Status Date / Time Iodinated Contrast Media Allergy Intermediate RASH Verified 08/03/24 11:17 [IV CONTRAST] Penicillins Allergy Intermediate RASH Verified 08/03/24 11:17 amoxicillin Allergy Unknown unknown Verified 08/03/24 11:17 Review of Systems 2 Review of Systems: Yes all other systems are reviewed and are negative [facility] Past Medical History Attestation statement: The following information was validated with the patient. Source: old records reviewed and nursing notes reviewed Medical History IBS (irritable colon syndrome) Rheumatoid factor positive Anxiety GERD (gastroesophageal reflux disease) Endocervical polyp Surgical History H/O colonoscopy H/O esophagogastroduodenoscopy H/O LEEP History of bilateral tubal ligation Family History Family History Father Hypertension Mother No problems noted. Maternal Grandmother Stroke Cancer Paternal Grandfather Stroke Son Mast cell activation syndrome Dysautonomia Other Mental health disorder Substance use disorder Social History Social History Household Members: Children Housing: Apartment Alcohol intake: never Patient Tobacco Use Status: Former Tobacco user Years Smoked: 10 e-Cigarette/Vaping Use: Currently Using Second Hand Smoke Exposure: No Advance Directives: No Advance Directives Information Provided: Yes service: No Current occupational status: unemployed Sexual orientation: Straight/Heterosexual Gender identity: Female Cognitive needs: No Hearing needs: No Vision needs: No Physical Exam ED Vital Signs: Vital Signs - 24 hr 08/03/24 11:17 08/03/24 13:51 08/03/24 13:57 Temperature 98.3 F 97.4 F 97.4 F Pulse Rate 74 73 73 Respiratory Rate 18 18 18 Blood Pressure 153/95 H 141/82 H 141/82 H Pulse Oximetry 99 97 97 Oxygen Delivery Method Room Air Room Air BMI result Body Mass Index 31.3 vss Appearance: Alert.? Oriented X3.? No acute distress.? Head: Normocephalic, atraumatic, no step-offs or deformities Eyes: Pupils equal, round and reactive to light.? ENT: Pharynx normal.? Neck: Normal inspection.? Neck supple.? CVS: Normal heart rate and rhythm.? Pulses normal.? Respiratory: No respiratory distress.? Breath sounds normal.? Abdomen: Soft and nontender.? Skin: Skin warm and dry.? Normal skin color.? Normal skin turgor.? Extremities: No lower extremity edema.? No calf ttp. 5/5 strength to bilateral upper and lower extremities Neuro: Oriented X 3.? No motor deficit.? No sensory deficit. CN 2-12 intact Course Course Course Narrative: Patient complains of chest pain worsening over past 2 days with now feeling the discomfort with exertion, also complains of some diffuse abdominal pain over past several days Labs EKG and chest x-ray ordered This is rapid medical exam done in triage pending full exam evaluation and disposition by ER provider Reevaluation(s) Reevaluation #1: CBC unremarkable. Chemistry no acute findings needing intervention. Beta hCG negative. UA no infection. Patient positive for COVID-19. Troponin negative with nonischemic EKG. Chest x-ray no acute cardiopulmonary abnormalities. Plan at this time patient to be discharged home with prednisone, Toradol for body aches and pains. Educated patient on diagnosis and treatment plan, answered all question, patient verbalizes understanding. At this time patient will be discharged home, advised to return with new or worsening symptoms. Educated on worrisome signs and symptoms and when to return. At this time I feel comfortable discharge home. Time: 15:03 Medications Administered Discontinued Medications Generic Name Dose Route Start Last Admin Trade Name Freq PRN Reason Stop Dose Admin Ketorolac Tromethamine 30 mg 08/03/24 13:38 08/03/24 13:44 Ketorolac Tromethamine 15 Mg/Ml Vial IM 08/03/24 13:39 30 mg ONCE ONE Administration Medical Decision Making Medical Decision Making [facility] Narrative: 39-year-old female presents with viral symptoms. Ongoing for the past 2 days. Multiple sick contacts. Tested COVID positive at home. Physical exam benign History and physical exam concerning for viral illness. Unlikely ACS, PE, dissection, acute respiratory distress, pneumonia. Plan labs, imaging, EKG, cardiac enzymes Differential Diagnosis Differential Diagnoses: The differential diagnosis associated with the presentation includes (History and physical exam concerning for viral illness. Unlikely ACS, PE, dissection, acute respiratory distress, pneumonia.) Admission/Observation Consideration of admission/observation: Escalation of care including admission/observation considered Lab Data [facility] Lab Attestation statement: I reviewed the patient's lab results. 08/03/24 11:48 08/03/24 11:48 Labs: Lab Results 08/03/24 08/03/24 Range/Units 11:48 12:47 WBC 5.0 (4.8-10.8) X10*3/uL RBC 4.66 (4.20-5.50) X10*6/uL Hgb 13.5 (12.0-16.0) g/dl Hct 41.4 (37.0-47.0) % MCV 88.8 (80.0-98.0) fL MCH 29.0 (27.0-33.0) pg MCHC 32.6 (31.0-35.0) g/dl RDW 12.9 (11.0-16.0) % Plt Count 305 (160-400) X10*3/uL MPV 9.9 (9.4-12.3) fL Immature Gran % (Auto) 0.2 (0.0-0.4) % Neut % (Auto) 59.3 (45-73) % Lymph % (Auto) 12.5 L (20-40) % Bonner % (Auto) 11.5 H (2-11) % Eos % (Auto) 15.9 H (0-4) % Baso % (Auto) 0.6 (0-2) % Lymph # (Auto) 0.6 L (1.2-4.9) X10*3/uL Bonner # (Auto) 0.6 (0.1-1.2) X10*3/uL Eos # (Auto) 0.8 H (0.0-0.4) X10*3/uL Baso # (Auto) 0.0 (0.0-0.2) X10*3/uL Abs Immat Gran (auto) 0.01 (0.00-0.03) X10*3/uL Absolute Neuts (auto) 3.0 (2.0-8.3) x10*3/uL Absolute Nucleated RBC 0.000 (0.0-0.012) X10*3/uL Nucleated RBC % (auto) 0.0 (0.0-0.2) /100WBC Sodium 140 (135-145) mmol/L Potassium 4.1 (3.3-5.1) mmol/L Chloride 108 (96-108) mmol/L Carbon Dioxide 27 (22-29) mmol/L Anion Gap 9 L (12-20) BUN 6 L (9-16) mg/dL Creatinine 0.70 (0.5-1.4) mg/dL Estim Creat Clear Calc 91.0 Estimated GFR > 60 Random Glucose 81 (60-115) mg/dL Calcium 9.2 (8.4-10.2) mg/dL Total Bilirubin 0.3 (0.0-1.0) mg/dL Direct Bilirubin 0.1 (0.0-0.5) mg/dL AST 23 (5-31) U/L ALT 24 (0-31) U/L Alkaline Phosphatase 51 (39-117) U/L Troponin I High Sens < 2.7 (<3.5-17.0) ng/L Total Protein 7.7 (6.5-8.0) g/dL Albumin 3.9 (3.5-5.0) g/dL Lipase 32 (8-78) U/L Beta HCG, Quant < 2 mIU/mL Urine Color Yellow Urine Appearance Clear Urine pH 6.5 (5.0-9.0) Ur Specific Brewster 1.010 (1.005-1.025) Urine Protein Negative (Neg-Trace) mg/dL Urine Glucose (UA) Negative (Negative) mg/dL Urine Ketones Negative (Negative) mg/dL Urine Blood Negative (Negative) Urine Nitrite Negative (Negative) Ur Leukocyte Esterase Negative (Negative) Urine Test NEGATIVE (NEGATIVE) Influenza Type A (PCR) NEGATIVE (Negative) Influenza Type B (PCR) NEGATIVE (Negative) RSV RNA Qual (PCR) NEGATIVE (Negative) SARS-CoV-2 RNA (RT-PCR) POSITIVE A (Negative) Independent Interpretation I performed an independent interpretation of an: Plain X-Ray ( XR/XR chest 2V IMPRESSION: No acute cardiopulmonary abnormality.) Radiology Impression Discussion of test interpretation with radiology: I have reviewed the radiologist's reading. Independent Historian Clinical information obtained from an independent historian. History obtained from or confirmed by: Other (child ) External Record Review External record reviewed: Inpatient record, Office record, Outpatient record, Prior outpatient labs, Prior outpatient radiology, Primary care record and Outside ED record Chronic Conditions Patient?s care impacted by: Other (see hpi ) Discharge Plan Discharge Clinical Impression: Body aches, COVID-19 Patient Disposition: Home, Self-Care Instructions: COVID-19 (Coronavirus Disease 2019) (ED) Additional Instructions: Take your medications as prescribed. If you were prescribed antibiotics today, it is important that you take your medication to their entirety, do not skip any doses, do not finish them early. Follow-up with your primary care provider this week. Return to the emergency department with new or worsening symptoms. Such as fevers, chills, chest pain, shortness of breath, nausea, vomiting, dizziness, headache, vision changes, lethargy In case of emergency call 911 Follow-up with the [facility] Prescriptions: New prednisone 20 mg tablet 40 mg PO DAILY 5 Days Qty: 10 0RF ketorolac 10 mg tablet 10 mg PO TID PRN (Reason: pain) 5 Days Qty: 15 0RF Rx Instructions: Tolerated IM or IV in department No Action omeprazole 40 mg capsule,delayed release(DR/EC) 40 mg PO ONCE 90 Days Qty: 90 0RF duloxetine 30 mg capsule,delayed release(DR/EC) 90 mg PO DAILY Qty: 270 1RF ferrous sulfate 324 mg (65 mg iron) tablet,delayed release (DR/EC) 324 mg PO BID 90 Days Qty: 180 1RF albuterol sulfate 90 mcg/actuation HFA aerosol inhaler 2 puff inhalation Q4-6H PRN (Reason: for wheezing) 30 Days Qty: 8.5 0RF famotidine 40 mg tablet 40 mg PO BEDTIME Qty: 30 0RF albuterol sulfate 2.5 mg /3 mL (0.083 %) solution for nebulization 2.5 mg continuous nebulization ONCE Qty: 3 0RF budesonide-formoterol [Symbicort] 160-4.5 mcg/actuation HFA aerosol inhaler 2 puff inhalation BID 30 Days Qty: 10.2 3RF ibuprofen 800 mg tablet 800 mg PO Q8H hydroxychloroquine 200 mg tablet 200 mg PO BID Qty: 180 1RF fexofenadine 180 mg tablet 180 mg PO DAILY montelukast 10 mg tablet 10 mg PO BEDTIME propranolol 20 mg tablet 20 mg PO TID cromolyn 100 mg/5 mL concentrate 200 mg PO QID Qty: 480 0RF prednisone 10 mg tablet 10 mg PO DAILY 7 Days Qty: 7 0RF Stand Alone Forms: Work/School Release Interventions: ED Discharge Assessment Last Done: 08/03/24 13:57 Discharge Date/Time: 08/03/24 14:04 Print Language: Mauritian
[2024-08-03 11:56] LABS: MANUAL DIFF FLAG NO
[2024-08-03 11:59] LABS: Appearance Urine Clear; Color Urine Yellow; Glucose Urine UA Negative (Negative); Leukocyte Esterase Urine Negative (Negative); Nitrite Urine Negative (Negative); PH 6.5 (5.0-9.0); Urine Blood Negative (Negative); Urine Ketones Negative (Negative); Urine Protein Negative (Neg-Trace)
[2024-08-03 12:00] LABS: Basophils Percent Auto 0.6 % (0-2); Eosinophils Absolute Auto 0.8 X10*3/uL (0.0-0.4); Eosinophils Percent Auto 15.9 % (0-4); Hematocrit 41.4 % (37.0-47.0); Hemoglobin 13.5 g/dl (12.0-16.0); Imm Gran Abs Auto 0.01 X10*3/uL (0.00-0.03); Imm Gran Pct Auto 0.2 % (0.0-0.4); Lymphocytes Absolute Auto 0.6 X10*3/uL (1.2-4.9); Lymphocytes Percent Auto 12.5 % (20-40); Mean Corpuscular HGB Conc 32.6 g/dl (31.0-35.0); Mean Corpuscular Volume 88.8 fL (80.0-98.0); Mean Platelet Volume 9.9 fL (9.4-12.3); Monocytes Absolute Auto 0.6 X10*3/uL (0.1-1.2); Monocytes Percent Auto 11.5 % (2-11); Neutrophils Percent Auto 59.3 % (45-73); Platelet Count 305 X10*3/uL (160-400); Red Blood Count 4.66 X10*6/uL (4.20-5.50); Red Cell Distribution Width 12.9 % (11.0-16.0)
[2024-08-03 12:03] LABS: UPreg QC Valid YES; Urine Pregnancy NEGATIVE (NEGATIVE)
[2024-08-03 12:28] LABS: Alanine Aminotransferase 24 U/L (0-31); Albumin Level 3.9 g/dL (3.5-5.0); Alkaline Phosphatase 51 U/L (39-117); Anion Gap 9 (12-20); Aspartate Amino Transferase 23 U/L (5-31); Bilirubin Direct 0.1 mg/dL (0.0-0.5); Bilirubin Total 0.3 mg/dL (0.0-1.0); Blood Urea Nitrogen 6 mg/dL (9-16); Calcium 9.2 mg/dL (8.4-10.2); Carbon Dioxide 27 mmol/L (22-29); Chloride 108 mmol/L (96-108); Estimated Glomerular Filt Rate > 60; Glucose Random 81 mg/dL (60-115); Lipase 32 U/L (8-78); Potassium 4.1 mmol/L (3.3-5.1); Sodium 140 mmol/L (135-145); Total Protein 7.7 g/dL (6.5-8.0)
[2024-08-03 12:35] LABS: HCG Quantitative < 2 mIU/mL; Troponin-I High Sensitivity < 2.7 ng/L (<3.5-17.0)
[2024-08-03 13:39] LABS: Influenza A PCR NEGATIVE (Negative); Influenza B PCR NEGATIVE (Negative); Resp Syncy Virus RNA Qual PCR NEGATIVE (Negative); SARS COV2 PCR INHOUSE POSITIVE (Negative)
[2024-08-03] MEDS: Ketorolac Tromethamine 15 MG/ML VIAL 30 MG IM (13:44)
--- OUTSIDE RECORDS SUMMARY | 2024-08-03 13:50 | XMS_ITS | Referral Summary ---
Author Organization [facility] Address [address] [place] [id number] Care Team Providers Care Passenger Train Braker Name Role Phone Luis Loomis MD Primary Care Provider [phone] Source Comments Please note that some or all of the patient's information could have additional privacy protections. State laws allow health care providers to render certain types of treatment to minors without parental consent. Please do not assume that this information can be shared solely by obtaining just the consent of the patient's parent/guardian. Please determine if all or part of the patient's care was rendered without parent/guardian involvement. 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 Refill [facility] Department of Cardiology [address] [place] [phone] Jonathan Cardenas MD POTS (postural orthostatic tachycardia syndrome) 06/15/2024 2:28 PM EST - 06/15/2024 11:59 PM EST Hospital Encounter [facility] Department of Cardiology [address] [place] [phone] Jonathan Cardenas MD Discharge Disposition: Home or Self Care 06/15/2024 1:30 PM EST Office Visit [facility] Department of Cardiology [address] [facility] [address] [place] [address] Jonathan Cardenas MD Mast cell activation syndrome (Primary Dx); POTS (postural orthostatic tachycardia syndrome); Hypermobility syndrome; Chronic pain syndrome; Chronic nonintractable headache, unspecified headache type; Palpitations; Orthostatic hypotension; Benign essential hypertension from Last 3 Months Allergies Active Allergy Reactions Criticality Noted Date Comments Amoxicillin Hives 06/15/2024 Other Hives 06/15/2024 Penicillin Hives 06/15/2024 Medications VENTOLIN HFA 90 mcg/actuation inhaler INHALE 1 PUFF INTO THE LUNGS 3 TIMES PER DAY 03/27/2024 Active SYMBICORT 160-4.5 mcg/actuation inhaler 2 PUFF INHALED 2 TIMES A DAY FOR 30 DAYS 06/06/2024 Active ferrous sulfate 324 mg (65 mg iron) Tablet, Delayed Release (E.C.) Take 1 tablet by mouth 2 (two) times daily 02/24/2024 Active ibuprofen (MOTRIN) 400 MG tablet TAKE 1 TO 2 TABLETS BY MOUTH EVERY 6 TO 8 HOURS NEEDED FOR PAIN 03/14/2024 Active hydroxychloroqui ne sulfate (PLAQUENIL) 200 mg tablet Take 200 mg by mouth 2 (two) times daily 06/08/2024 Active DULoxetine (CYMBALTA) 30 MG delayed release capsule 90mg 06/07/2024 Active propranoloL (INDERAL) 20 MG tabletIndication s:POTS (postural orthostatic tachycardia syndrome) Take 1 tablet (20 mg) by mouth 3 (three) times daily 90 tablet 6 06/17/2024 06/17/20 25 Active fexofenadine (GINGER) 180 MG tabletIndication s:Mast cell activation syndrome Take 1 tablet (180 mg) by mouth daily 30 tablet 11 06/17/2024 06/17/20 25 Active famotidine (PEPCID) 20 MG tabletIndication s:Mast cell activation syndrome Take 1 tablet (20 mg) by mouth 2 (two) times daily 60 tablet 11 06/17/2024 06/17/20 25 Active montelukast (SINGULAIR) 10 mg tabletIndication s:Mast cell activation syndrome Take 1 tablet (10 mg) by mouth nightly 30 tablet 5 06/17/2024 06/17/20 25 Active ergocalciferol (VITAMIN D2) 1,250 mcg (50,000 unit) capsuleIndicatio ns:POTS (postural orthostatic tachycardia syndrome) TAKE 1 CAPSULE BY MOUTH ONCE A WEEK 12 capsule 06/20/2024 Active cromolyn (GASTROCROM) 100 mg/5 mL oral solutionIndicati ons:Mast cell activation syndrome TAKE 5ML BY MOUTH TWICE DAILY FOR A WEEK, THEN 5ML THREE TIMES DAILY FOR A WEEK, AND FINALLY 5ML FOUR TIMES DAILY THEREAFTER. TAKE THE FIRST THREE DOSES 30MINS BEFORE MEALS. 600 mL 11 06/20/2024 Active cromolyn (GASTROCROM) 100 mg/5 mL oral solutionIndicati ons:Mast cell activation syndrome Take 5 mLs (100 mg) by mouth 4 (four) times daily Take 5ml by mouth twice daily for a week, then 5ml three times daily for a week, and finally 5ml four times daily thereafter. Take the first three doses 30mins before meals. 600 mL 11 06/20/2024 06/20/20 25 Active Active Problems No known active problems Social History Tobacco Use Types Packs/Day Years Used Date Smoking Tobacco: Never Tobacco Cessation:Counseling Given: Not Answered Comments Unknown Sex and Gender Information Value Date Recorded Sex Assigned at Not on file Legal Sex Female 10:39 AM EDT Gender Identity Not on file Sexual Orientation Not on file Last Filed Vital Signs Vital Sign Reading Time Taken Comments Blood Pressure 149/89 06/15/2024 1:42 PM EST Pulse 84 06/15/2024 1:42 PM EST Temperature - - Respiratory Rate - - Oxygen Saturation 97% 06/15/2024 1:42 PM EST Inhaled Oxygen Concentration - - Weight 77.9 kg (171 lb 11.8 oz) 06/15/2024 1:42 PM EST Height 149.9 cm (4' 11 ) 06/15/2024 1:42 PM EST Body Mass Index 34.69 06/15/2024 1:42 PM EST Plan of Treatment Upcoming Encounters Date Type Department Care Team (Late st Contact Info) Description 11/09/2024 3:00 PM EDT Appointment [facility] Department of Cardiology [address] [place] [phone] 11/09/2024 4:00 PM EDT Office Visit [facility] Department of Cardiology [address] [place] [phone] Jonathan Cardenas MD [address] [place] [address] Procedures Procedure Name Priority Date/Time Associated Diagnosis Comments PROSTAGLANDINS D2, URINE, 24 HOUR Routine 06/20/2024 9:16 AM EST POTS (postural orthostatic tachycardia syndrome) HISTAMINE, URINE, 24 HOUR Routine 06/19/2024 10:00 AM EST POTS (postural orthostatic tachycardia syndrome) ANTINUCLEAR ANTIBODIES TITER AND PATTERN (REFLEX) Routine 06/19/2024 9:31 AM EST VITAMIN B6 Routine 06/19/2024 9:31 AM EST POTS (postural orthostatic tachycardia syndrome) VITAMIN B12 & FOLATE Routine 06/19/2024 9:31 AM EST POTS (postural orthostatic tachycardia syndrome) TSH AND FREE T4 Routine 06/19/2024 9:31 AM EST POTS (postural orthostatic tachycardia syndrome) TRYPTASE Routine 06/19/2024 9:31 AM EST POTS (postural orthostatic tachycardia syndrome) TRANSFERRIN Routine 06/19/2024 9:31 AM EST POTS (postural orthostatic tachycardia syndrome) IRON, TOTAL, TIBC AND IRON SATURATION Routine 06/19/2024 9:31 AM EST POTS (postural orthostatic tachycardia syndrome) TISSUE TRANSGLUTAMINASE, IGA Routine 06/19/2024 9:31 AM EST POTS (postural orthostatic tachycardia syndrome) THYROID PEROXIDASE AND THYROGLOBULIN ANTIBODIES Routine 06/19/2024 9:31 AM EST POTS (postural orthostatic tachycardia syndrome) T3, TOTAL Routine 06/19/2024 9:31 AM EST POTS (postural orthostatic tachycardia syndrome) SJOGREN'S (SS-A, SS-B) ANTIBODIES Routine 06/19/2024 9:31 AM EST POTS (postural orthostatic tachycardia syndrome) RHEUMATOID FACTOR Routine 06/19/2024 9:3 1 AM EST POTS (postural orthostatic tachycardia syndrome) HISTAMINE Routine 06/19/2024 9:31 AM EST POTS (postural orthostatic tachycardia syndrome) HEMOGLOBIN A1C Routine 06/19/2024 9:31 AM EST POTS (postural orthostatic tachycardia syndrome) FERRITIN Routine 06/19/2024 9:31 AM EST POTS (postural orthostatic tachycardia syndrome) COMPREHENSIVE METABOLIC PANEL Routine 06/19/2024 9:31 AM EST POTS (postural orthostatic tachycardia syndrome) CBC Routine 06/19/2024 9:31 AM EST POTS (postural orthostatic tachycardia syndrome) CATECHOLAMINES, FRACTIONATED, PLASMA Routine 06/19/2024 9:31 AM EST POTS (postural orthostatic tachycardia syndrome) LUPUS ANTICOAGULANT SCREEN W/REFLEX Routine 06/19/2024 9:31 AM EST POTS (postural orthostatic tachycardia syndrome) CARDIOLIPIN ANTIBODY, IGM Routine 06/19/2024 9:31 AM EST POTS (postural orthostatic tachycardia syndrome) CARDIOLIPIN ANTIBODY, IGG Routine 06/19/2024 9:31 AM EST POTS (postural orthostatic tachycardia syndrome) CARDIOLIPIN ANTIBODY, IGA Routine 06/19/2024 9:31 AM EST POTS (postural orthostatic tachycardia syndrome) JORGE A SCREEN, IFA, W/REFL TITER/PATTERN Routine 06/19/2024 9:31 AM EST POTS (postural orthostatic tachycardia syndrome) ALDOSTERONE/PLASMA RENIN ACTIVITY RATIO Routine 06/19/2024 9:31 AM EST POTS (postural orthostatic tachycardia syndrome) ACTH Routine 06/19/2024 9:31 AM EST POTS (postural orthostatic tachycardia syndrome) CARDIAC MEDIUM TERM MONITOR OFFICE 3-7 DAYS Routine 06/15/2024 3:05 PM EST POTS (postural orthostatic tachycardia syndrome) EKG 12-LEAD Routine 06/15/2024 1:47 PM EST POTS (postural orthostatic tachycardia syndrome) from Last 3 Months Results * (ABNORMAL) Prostaglandins D2, Urine, 24 hour (06/20/2024 9:16 AM EST) Specimen Type/Container URINE/CU P [facility] Prostaglandin D2 (PG D2), Urine 314(H) <175 ng/g Creatinine [facility] Comment: This test was developed and its performance characteristics determined by [employer]. Values obtained with different methods, laboratories, or kits cannot be used interchangeably with the results on this report. The results cannot be interpreted as absolute evidence of the presence or absence of malignant disease. Urine 06/20/2024 9:16 AM EST 06/20/2024 9:17 AM EST Narrative [facility] - 06/28/2024 8:57 AM EST SPLIT 06/19/2024 FROM [id number] COLLECTION KIT GIVEN TO PATIENT. PATIENT ADVISED TO RETURN. URINE VOLUME: 1000 Resulting Agency Comment Performing Organization Information: ?Site ID: INS ?Name: [facility] ?Address: [address] [place] [phone] ?Director: Mario Gonsales MD,PhD us Jonathan Cardenas MD LAB BLOOD ORDERABLES Final Resul t [place] [address] [place] [address], [facility] * Histamine, Urine, 24 Hour (06/19/2024 10:00 AM EST) Total Volume 550 mL [facility], HISTAMINE, URINE, 24 HOUR 0.007 0.006 - 0.131 mg/24 h [facility], Comment: This test was performed using a kit that has not been cleared or approved by the FDA. The analytical performance characteristics of this test have been determined by [facility]. This test should not be used for diagnosis without confirmation by other medically established means. Urine 06/19/2024 10:0 0 AM EST 06/20/2024 9:20 AM EST Narrative [facility] - 06[facility]26/2024 4:34 PM EST SPLIT 06/20/2024 FROM [id number] URINE VOLUME: 550/24 Resulting Agency Comment Performing Organization Information: ?Site ID: [id number] ?Name: [facility], ?Address: [address] [place] [phone] ?Director: Mayra Martin MD,PhD,YURI Jonathan Cardenas MD LAB BLOOD ORDERABLES Final Resul t [facility] [address] [phone] [facility], [address] [place] [phone] * (ABNORMAL) JORGE A Screen, IFA, Rflx Titer/Pattern (06/19/2024 9:31 AM EST) JORGE A SCREEN, IFA POSITIVE( A) NEGATIVE [facility] Comment: JORGE A IFA is a first line screen for detecting the presence of up to approximately 150 autoantibodies in various autoimmune diseases. A positive JORGE A IFA result is suggestive of autoimmune disease and reflexes to titer and pattern. Further laboratory testing may be considered if clinically indicated. For additional information, please refer to http://education.[employer]/faq/KOR641 (This link is being provided for informational/ educational purposes only.) ?? 06/19/2024 9:31 AM EST 06/19/2024 9:33 AM EST Narrative [facility] - 06/27/2024 6:07 PM EST FASTING:YES COLLECTION KIT GIVEN TO PATIENT. PATIENT ADVISED TO RETURN. FASTING: YES Resulting Agency Comment Performing Organization Information: ?Site ID: [id number] ?Name: [facility] ?Address: [address] [place] [phone] ?Director: Fernie Hitchcock M.D. Jonathan Cardenas MD LAB BLOOD ORDERABLES Final Resul t [facility] [address] [place] [address] [place] [address] [facility] [address] [place] [address] * (ABNORMAL) Antinuclear Antibodies Titer and Pattern (06/19/2024 9:31 AM EST) JORGE A Titer 1:1280(H) titer [facility] Comment: ?Reference Range ?<1:40 ?Negative ?1:40-1:80 ?Low Antibody Level ?>1:80 ?Elevated Antibody Level JORGE A Pattern Nuclear, Speckled( A) [facility] Comment: Speckled pattern is associated with mixed connective tissue disease (MCTD), systemic lupus erythematosus (SLE), Sjogren's syndrome, dermatomyositis, and systemic sclerosis/polymyositis overlap. AC-2,4,5,29: Speckled International Consensus on JORGE A Patterns (https://doi.org/10.1515/kodv-8859-5696) JORGE A Titer 1:160(H) titer [facility] Comment: ?Reference Range ?<1:40 ?Negative ?1:40-1:80 ?Low Antibody Level ?>1:80 ?Elevated Antibody Level JORGE A Patter NuclearKayla(A) [facility] Comment: Homogeneous pattern is associated with systemic lupus erythematosus (SLE), drug-induced lupus and juvenile idiopathic arthritis. AC-1: [employer] International Consensus on JORGE A Patterns (https://doi.org/10.1515/vtjg-8102-8183) 06/19/2024 9:31 AM EST 06/19/2024 9:33 AM EST Narrative [facility] - 06/27/2024 6:07 PM EST FASTING:YES COLLECTION KIT GIVEN TO PATIENT. PATIENT ADVISED TO RETURN. FASTING: YES Resulting Agency Comment Performing Organization Information: ?Site ID: [id number] ?Name: [facility] ?Address: [address] [place] [phone] ?Director: Fernie Hithccock M.D. us Jonathan Cardenas MD LAB BLOOD ORDERABLES Final Resul t [facility] [address] [place] [address] [place] [address] [facility] [address] [place] [address] * THYROID PEROXIDASE AND THYROGLOBULIN ANTIBODIES (06/19/2024 9:31 AM EST) Thyroglobulin Ab <1 < or = 1 IU/mL [facility] Thyroid Peroxidase Ab <1 <9 IU/mL [facility] Blood 06/19/2024 9:31 AM EST 06/19/2024 9:33 AM EST Narrative [facility] - 06/27/2024 6:07 PM EST FASTING:YES COLLECTION KIT GIVEN TO PATIENT. PATIENT ADVISED TO RETURN. FASTING: YES Resulting Agency Comment Performing Organization Information: ?Site ID: [id number] ?Name: [facility] ?Address: [address] [place] [phone] ?Director: Fernie Hitchcock M.D. us Jonathan Cardenas MD LAB BLOOD ORDERABLES Final Resul t [facility] [address] [place] [address] [facility] [address] [place] [address] * TSH and Free T4 (06/19/2024 9:31 AM EST) TSH 0.96 mIU/L [employer] [facility] Comment: ?Reference Range ?> or = 20 Years ??0.40-4.50 ? Ranges ?First trimester ?0.26-2.66 ?Second trimester ?? 0.55-2.73 ?Third trimester ?0.43-2.91 Free T4 1.1 0.8 - 1.8 ng/dL [facility] Blood 06/19/2024 9:31 AM EST 06/19/2024 9:33 AM EST Narrative [facility] - 06/27/2024 6:07 PM EST FASTING:YES COLLECTION KIT GIVEN TO PATIENT. PATIENT ADVISED TO RETURN. FASTING: YES Resulting Agency Comment Performing Organization Information: ?Site ID: [id number] ?Name: [facility] ?Address: [address] [place] [phone] ?Director: Fernie Hitchcock M.D. Jonathan Cardenas MD LAB BLOOD ORDERABLES Final Resul t Performing Organization Address [facility] Co de Phone Number [facility] [address] [place] [phone] [facility] [address] [place] [phone] * (ABNORMAL) Iron, Total, TIBC and Saturation (06/19/2024 9:31 AM EST) [facility] Iron 57 40 - 190 mcg/dL [facility] TIBC 406 250 - 450 mcg/dL (calc) [facility] Iron Saturation 14(L) 16 - 45 % (calc) [facility] Blood 06/19/2024 9:31 AM EST 06/19/2024 9:33 AM EST Narrative [facility] - 06/27/2024 6:07 PM EST FASTING:YES COLLECTION KIT GIVEN TO PATIENT. PATIENT ADVISED TO RETURN. FASTING: YES Resulting Agency Comment Performing Organization Information: ?Site ID: [id number] ?Name: [facility] ?Address: [address] [place] [phone] ?Director: Fernie Hitchcock M.D. Jonathan Cardenas MD LAB BLOOD ORDERABLES Final Resul t Performing Organization Address [facility] Co de Phone Number [facility] [address] [place] [phone] [facility] [address] [place] [phone] * (ABNORMAL) Sjogren's (SS-A, SS-B) Antibodies (06/19/2024 9:31 AM EST) [facility] SJOGREN'S ANTIBODY (SS-A) >8.0 POS(A) <1.0 NEG AI [facility] Sjogren's Antibody (SS-B) >8.0 POS(A) <1.0 NEG [facility] 06/19/2024 9:31 AM EST 06/19/2024 9:33 AM EST [facility] - 06/27/2024 6:07 PM EST FASTING:YES COLLECTION KIT GIVEN TO PATIENT. PATIENT ADVISED TO RETURN. FASTING: YES Resulting Agency Comment Performing Organization Information: ?Site ID: [id number] ?Name: [facility] ?Address: [address] [place] [phone] ?Director: Fernie Hitchcock M.D. Jonathan Cardenas MD LAB BLOOD ORDERABLES Final Resul t [facility] [address] [place] [address] [facility] [address] [place] [address] * Vitamin B12 & Folate (06/19/2024 9:31 AM EST) Pathologist [facility] Vitamin B-12 299 200 - 1,100 pg/mL [facility] Comment: Please Note: Although the reference range for vitamin B12 is 200-1100 pg/mL, it has been reported that between 5 and 10% of patients with values between 200 and 400 pg/mL may experience neuropsychiatric and hematologic abnormalities due to occult B12 deficiency; less than 1% of patients with values above 400 pg/mL will have symptoms. Folate >24.0 ng/mL [facility] Comment: ? Reference Range ? Low: ? <3.4 ? Borderline: ?3.4-5.4 ? Normal: ?>5.4 Blood 06/19/2024 9:31 AM EST 06/19/2024 9:33 AM EST Narrative [facility] - 06/27/2024 6:07 PM EST FASTING:YES COLLECTION KIT GIVEN TO PATIENT. PATIENT ADVISED TO RETURN. FASTING: YES Resulting Agency Comment Performing Organization Information: ?Site ID: [id number] ?Name: [facility] [facility] ?Address: [address] [place] [phone] ?Director: Fernie Hitchcock M.D. us Jonathan Cardenas MD LAB BLOOD ORDERABLES Final Resul t [facility] [address] [place] [address] [place] [address] [employer] [address] [place] [address] * Aldosterone/Plasma Renin Activity Ratio (06/19/2024 9:31 AM EST) Aldosterone 8 see note ng/dL [facility] [place] Comment: Unable to flag abnormal result(s), please refer ?to reference range(s) below: Adult Reference Ranges for Aldosterone, LC/MS/MS: ?Upright ??8:00 - 10:00 am ?< or = 28 ng/dL ?Upright ??4:00 - ??6:00 pm ?< or = 21 ng/dL ?Supine ?? 8:00 - 10:00 am ? 3 - 16 ng/dL Renin 1.93 0.25 - 5.82 ng/mL/h [facility] [facility] [place] ALDOSTERONE/PLAS [place] RENIN ACTIVITY RATIO 4.1 0.9 - 28.9 Ratio [facility] Comment: This test was developed and its analytical performance characteristics have been determined by [facility] [place]. It has not been cleared or approved by the U.S. Food and Drug Administration. This assay has been validated pursuant to the CLIA regulations and is used for clinical purposes. 06/19/2024 9:31 AM EST 06/19/2024 9:33 AM EST Narrative [facility] - 06/27/2024 6:07 PM EST FASTING:YES COLLECTION KIT GIVEN TO PATIENT. PATIENT ADVISED TO RETURN. FASTING: YES Resulting Agency Comment Performing Organization Information: ?Site ID: [facility] ?Name: [facility] ?Address: [address] [place] [address] [place], [place] ?Director: Wilson Shetty M.D.,PhD Jonathan Cardenas MD LAB BLOOD ORDERABLES Final Resul t [facility] [address] [place], [place] * Catecholamines, fractionated, plasma (06/19/2024 9:31 AM EST) Epinephrine 56 pg/mL [facility], Comment: Reference Range: SUPINE: <58 UPRIGHT: <82 Norepinephrine 382 pg/mL [facility], Comment: Reference Range: SUPINE: 149-564 UPRIGHT: 199-937 Dopamine 15 pg/mL [facility], Comment: Reference Range: SUPINE: <16 UPRIGHT: <27 Total Catecholamines (Nor+Epi) 453 pg/mL [facility], Comment: Reference Range: SUPINE: <632 UPRIGHT: <1046 Due to stress, plasma catecholamine levels are generally unreliable in infants and small children. Urinary catecholamine assays are more reliable. This test was developed and its analytical performance characteristics have been determined by [facility]. It has not been cleared or approved by FDA. This assay has been validated pursuant to the CLIA regulations and is used for clinical purposes. Blood 06/19/2024 9:31 AM EST 06/19/2024 9:33 AM EST Narrative [employer] [facility] - 06/27/2024 6:07 PM EST FASTING:YES COLLECTION KIT GIVEN TO PATIENT. PATIENT ADVISED TO RETURN. FASTING: YES Resulting Agency Comment Performing Organization Information: ?Site ID: EZ ?Name: [facility], ?Address: [address] [place] [phone] ?Director: Mayra Maritn MD,PhD,YURI Jonathan Cardenas MD LAB BLOOD ORDERABLES Final Resul t [employer] [facility] [address] [place] [phone] [facility], [address] [place] [phone] * Tryptase (06/19/2024 9:31 AM EST) TRYPTASE 5.4 <11.0 mcg/L [facility] Comment: The Tryptase test, fluorescent enzyme immunoassay (FEIA), measures both the Alpha and Beta forms of Tryptase. Measuring both forms of Tryptase increases sensitivity for the diagnosis of mastocytosis, and mast cell degranulation as a cause of anaphylaxis. Blood 06/19/2024 9:31 AM EST 06/19/2024 9:33 AM EST Narrative [employer] [facility] - 06/27/2024 6:07 PM EST FASTING:YES COLLECTION KIT GIVEN TO PATIENT. PATIENT ADVISED TO RETURN. FASTING: YES Resulting Agency Comment Performing Organization Information: ?Site ID: [id number] ?Name: [facility] ?Address: [address] [place] [phone] ?Director: Fernie Hitchcock M.D. Jonathan Cardenas MD LAB BLOOD ORDERABLES Final Resul t Performing Organization Address [facility] Co de Phone Number [employer] [facility] [facility] [address] [place] [phone] [employer] [address] [place] [phone] * Tissue transglutaminase, IgA (06/19/2024 9:31 AM EST) Transglutaminase IgA 9.9 U/mL [facility] Comment: Value ?Interpretation ----- ? <15.0 ?Antibody not detected > or = 15.0 ?Antibody detected Blood 06/19/2024 9:31 AM EST 06/19/2024 9:33 AM EST Narrative [facility] - 06/27/2024 6:07 PM EST FASTING:YES COLLECTION KIT GIVEN TO PATIENT. PATIENT ADVISED TO RETURN. FASTING: YES Resulting Agency Comment Performing Organization Information: ?Site ID: [id number] ?Name: [facility] ?Address: [address] [place] [phone] ?Director: Fernie Hitchcock M.D. Jonathan Cardenas MD LAB BLOOD ORDERABLES Final Resul t Performing Organization Address [facility]/ZIP Co de Phone Number [facility] [address] [place] [phone] [employer] [address] [place] [phone] * Cardiolipin antibody, IgM (06/19/2024 9:31 AM EST) Anticardiolipin IgM <2.0 MPL-U/mL [facility] Comment: Value ?Interpretation ----- ? < 20.0 ? Antibody not detected > or = 20.0 ?Antibody detected The antiphospholipid antibody syndrome (APS) is a clinical-pathologic correlation that includes a clinical event (e.g. arterial or venous thrombosis, morbidity) and persistent positive antiphospholipid antibodies (IgM, IgG Cardiolipin or b2GPI antibodies greater than the 99th percentile; or a lupus anticoagulant). International consensus guidelines for APS suggest waiting at least 12 weeks before retesting to confirm antibody persistence. The [facility] immunological classification criteria for systemic lupus erythematosus (SLE) include testing for isotype IgA, which has yet to be incorporated into APS criteria. Low level antiphospholipid antibodies may sometimes be detected in the setting of infection, drug therapy or aging. For additional information, please refer to http://education.Language Systems/faq/BLS619 (This link is being provided for informational/ educational purposes only.) Blood 06/19/2024 9:31 AM EST 06/19/2024 9:33 AM EST Narrative [facility] - 06/27/2024 6:07 PM EST FASTING:YES COLLECTION KIT GIVEN TO PATIENT. PATIENT ADVISED TO RETURN. FASTING: YES Resulting Agency Comment Performing Organization Information: ?Site ID: [id number] ?Name: [facility] ?Address: [address] [place] [phone] ?Director: Fernie Hitchcock M.D. us Jonathan Cardenas MD LAB BLOOD ORDERABLES Final Resul t [facility] [address] [place] [address] [place] [address] [facility] [address] [place] [address] * Cardiolipin antibody, IgG (06/19/2024 9:31 AM EST) Anticardiolipin IgG <2.0 GPL-U/mL [employer] Comment: Value ?Interpretation ----- ? < 20.0 ? Antibody not detected > or = 20.0 ?Antibody detected The antiphospholipid antibody syndrome (APS) is a clinical-pathologic correlation that includes a clinical event (e.g. arterial or venous thrombosis, morbidity) and persistent positive antiphospholipid antibodies (IgM, IgG Cardiolipin or b2GPI antibodies greater than the 99th percentile; or a lupus anticoagulant). International consensus guidelines for APS suggest waiting at least 12 weeks before retesting to confirm antibody persistence. The [facility] immunological classification criteria for systemic lupus erythematosus (SLE) include testing for isotype IgA, which has yet to be incorporated into APS criteria. Low level antiphospholipid antibodies may sometimes be detected in the setting of infection, drug therapy or aging. For additional information, please refer to http://education.Language Systems/faq/HGV665 (This link is being provided for informational/ educational purposes only.) Blood 06/19/2024 9:31 AM EST 06/19/2024 9:33 AM EST Narrative [employer] - 06/27/2024 6:07 PM EST FASTING:YES COLLECTION KIT GIVEN TO PATIENT. PATIENT ADVISED TO RETURN. FASTING: YES Resulting Agency Comment Performing Organization Information: ?Site ID: [id number] ?Name: [facility] ?Address: [address] [place] [phone] ?Director: Fernie Hitchcock M.D. Jonathan Cardenas MD LAB BLOOD ORDERABLES Final Resul t [facility] [address] [place] [address] [place] [address] [facility] [address] [place] [address] * Cardiolipin antibody, IgA (06/19/2024 9:31 AM EST) Anticardiolipin IgA <2.0 APL-U/mL [facility] Comment: Value ?Interpretation ----- ? < 20.0 ? Antibody not detected > or = 20.0 ?Antibody detected The antiphospholipid antibody syndrome (APS) is a clinical-pathologic correlation that includes a clinical event (e.g. arterial or venous thrombosis, morbidity) and persistent positive antiphospholipid antibodies (IgM, IgG Cardiolipin or b2GPI antibodies greater than the 99th percentile; or a lupus anticoagulant). International consensus guidelines for APS suggest waiting at least 12 weeks before retesting to confirm antibody persistence. The [facility] immunological classification criteria for systemic lupus erythematosus (SLE) include testing for isotype IgA, which has yet to be incorporated into APS criteria. Low level antiphospholipid antibodies may sometimes be detected in the setting of infection, drug therapy or aging. For additional information, please refer to http://education.Language Systems/faq/PZG092 (This link is being provided for informational/ educational purposes only.) Blood 06/19/2024 9:31 AM EST 06/19/2024 9:33 AM EST Narrative [employer] - 06/27/2024 6:07 PM EST FASTING:YES COLLECTION KIT GIVEN TO PATIENT. PATIENT ADVISED TO RETURN. FASTING: YES Resulting Agency Comment Performing Organization Information: ?Site ID: [id number] ?Name: [facility] ?Address: [address] [place] [phone] ?Director: Fernie Hitchcock M.D. us Jonathan Cardenas MD LAB BLOOD ORDERABLES Final Resul t [facility] [address] [place] [address] [place] [address] [facility] [address] [place] [address] * HISTAMINE (06/19/2024 9:31 AM EST) Pathologist [facility] Histamine, Plasma <1.5 < OR = 1.8 ng/mL [facility], Comment: This test was performed using a kit that has not been cleared or approved by the FDA. The analytical performance characteristics of this test have been determined by [facility]. This test should not be used for diagnosis without confirmation by other medically established means. Blood 06/19/2024 9:31 AM EST 06/19/2024 9:33 AM EST Narrative [employer] - 06/27/2024 6:07 PM EST FASTING:YES COLLECTION KIT GIVEN TO PATIENT. PATIENT ADVISED TO RETURN. FASTING: YES Resulting Agency Comment Performing Organization Information: ?Site ID: ?Name: [facility], ?Address: [address] [place], [place] [phone] ?Director: Mayra Martin MD,PhD,YURI Jonathan Cardenas MD LAB BLOOD ORDERABLES Final Resul t [facility] [address] [address] [facility], [address] [place] [phone] * ACTH (06/19/2024 9:31 AM EST) [facility] ACTH 13 6 - 50 pg/mL [facility]/Teresa [facility] Comment: Reference range applies only to specimens collected between 7am-10am. ? Blood 06/19/2024 9:31 AM EST 06/19/2024 9:33 AM EST Narrative [facility] - 06/27/2024 6:07 PM EST FASTING:YES COLLECTION KIT GIVEN TO PATIENT. PATIENT ADVISED TO RETURN. FASTING: YES Resulting Agency Comment Performing Organization Information: ?Site ID: AMD ?Name: [facility] ?Address: [address] [place] [address] Dr [place] ?Director: Wilson Shetty M.D.,PhD Jonathan Cardenas MD LAB BLOOD ORDERABLES Final Resul t [facility] [employer] [address] [place], [place] [facility] [address] [place], [place] * Lupus anticoagulant (06/19/2024 9:31 AM EST) [facility] LUPUS ANTICOAGULANT EVAL. see note [facility] [employer] [facility] Comment: A Lupus Anticoagulant is not detected. Reference Range: ??Not Detected For additional information, please refer to http://education.Language Systems/faq/AJZ89r7 (This link is being provided for informational/ educational purposes only.) ? This interpretation is based on the following test results. PTT-LA Screen 38 <=40 sec [facility] [employer] [place] dRVVT Screen 39 <=45 sec [facility] [employer] [facility] Blood 06/19/2024 9:31 AM EST 06/19/2024 9:33 AM EST Narrative [facility] - 06/27/2024 6:07 PM EST FASTING:YES COLLECTION KIT GIVEN TO PATIENT. PATIENT ADVISED TO RETURN. FASTING: YES Resulting Agency Comment Performing Organization Information: ?Site ID: AMD ?Name: [facility] ?Address: [address] [place] [address] Dr [place] ?Director: Wilson Shetty M.D.,PhD Jonathan Cardenas MD LAB BLOOD ORDERABLES Final Resul t [facility] [address] [place] [address] [facility] [address] [facility] [place] [address] * CBC (06/19/2024 9:31 AM EST) Pathologist [facility] WBC 5.8 3.8 - 10.8 Thousand/u L [facility] RBC 4.83 3.80 - 5.10 Million/uL [facility] Hemoglobin 13.9 11.7 - 15.5 g/dL [facility] Hematocrit 42.5 35.0 - 45.0 % [facility] MCV 88.0 80.0 - 100.0 fL [facility] MCH 28.8 27.0 - 33.0 pg [facility] MCHC 32.7 32.0 - 36.0 g/dL [facility] Comment: For adults, a slight decrease in the calculated MCHC value (in the range of 30 to 32 g/dL) is most likely not clinically significant; however, it should be interpreted with caution in correlation with other red cell parameters and the patient's clinical condition. RDW 12.5 11.0 - 15.0 % [facility] Platelets 284 140 - 400 Thousand/u L [facility] MPV 10.8 7.5 - 12.5 fL [facility] Blood 06/19/2024 9:31 AM EST 06/19/2024 9:33 AM EST Narrative [facility] - 06/27/2024 6:07 PM EST FASTING:YES COLLECTION KIT GIVEN TO PATIENT. PATIENT ADVISED TO RETURN. FASTING: YES Resulting Agency Comment Performing Organization Information: ?Site ID: [id number] ?Name: [facility] ?Address: [address] [place] [phone] ?Director: Fernie Hitchcock M.D. Jonathan Cardenas MD LAB BLOOD ORDERABLES Final Resul t Performing Organization Address [facility] de Phone Number [facility] [address] [phone] [facility] [address] [place] [phone] * Rheumatoid factor (06/19/2024 9:31 AM EST) Rheumatoid Factor 13 <14 IU/mL [facility] Blood 06/19/2024 9:31 AM EST 06/19/2024 9:33 AM EST Narrative [facility] - 06/27/2024 6:07 PM EST FASTING:YES COLLECTION KIT GIVEN TO PATIENT. PATIENT ADVISED TO RETURN. FASTING: YES Resulting Agency Comment Performing Organization Information: ?Site ID: [id number] ?Name: [employer] ?Address: [address] [place] [address] ?Director: Fernie Hitchcock M.D. Jonathan Cardenas MD LAB BLOOD ORDERABLES Final Resul t Performing Organization Address [facility] de Phone Number [facility] [facility] [address] [place] [phone] [facility] [address] [place] [phone] * T3 (06/19/2024 9:31 AM EST) T3, Total 121 76 - 181 ng/dL [facility] Blood 06/19/2024 9:31 AM EST 06/19/2024 9:33 AM EST Narrative [facility] - 06/27/2024 6:07 PM EST FASTING:YES COLLECTION KIT GIVEN TO PATIENT. PATIENT ADVISED TO RETURN. FASTING: YES Resulting Agency Comment Performing Organization Information: ?Site ID: [id number] ?Name: [facility] ?Address: [address] [place] [phone] ?Director: Fernie Hitchcock M.D. Jonathan Cardenas MD LAB BLOOD ORDERABLES Final Resul t Performing Organization Address [facility] Co de Phone Number [facility] [address] [place] [phone] [facility] [address] [place] [phone] * Transferrin (06/19/2024 9:31 AM EST) Transferrin 322 188 - 341 mg/dL [facility] Blood 06/19/2024 9:31 AM EST 06/19/2024 9:33 AM EST Narrative [facility] - 06/27/2024 6:07 PM EST FASTING:YES COLLECTION KIT GIVEN TO PATIENT. PATIENT ADVISED TO RETURN. FASTING: YES Resulting Agency Comment Performing Organization Information: ?Site ID: [id number] ?Name: [facility] ?Address: [address] [place] [phone] ?Director: Fernie Hitchcock M.D. Jonathan Cardenas MD LAB BLOOD ORDERABLES Final Resul t Performing Organization Address [facility] de Phone Number [facility] [address] [place] [phone] [facility] [address] [place] [phone] * Vitamin B6 (06/19/2024 9:31 AM EST) Vitamin B6 3.2 2.1 - 21.7 ng/mL [facility] Comment: Vitamin supplementation within 24 hours prior to blood draw may affect the accuracy of the results. This test was developed and its analytical performance characteristics have been determined by [facility] [place], [place]. It has not been cleared or approved by the U.S. Food and Drug Administration. This assay has been validated pursuant to the CLIA regulations and is used for clinical purposes. Blood 06/19/2024 9:31 AM EST 06/19/2024 9:33 AM EST Narrative [employer] [facility] - 06/27/2024 6:07 PM EST FASTING:YES COLLECTION KIT GIVEN TO PATIENT. PATIENT ADVISED TO RETURN. FASTING: YES Resulting Agency Comment Performing Organization Information: ?Site ID: AMD ?Name: [facility] ?Address: [address] [place] [address] Dr [place], [place] ?Director: Wilson Shetty M.D.,PhD us Jonathan Cardenas MD LAB BLOOD ORDERABLES Final Resul t [employer] [address] [facility] [address] [place], [place] * Hemoglobin A1c (06/19/2024 9:31 AM EST) Hemoglobin A1C 5.5 <5.7 % of total Hgb [facility] Comment: For the purpose of screening for the presence of diabetes: <5.7% ? Consistent with the absence of diabetes 5.7-6.4% ?Consistent with increased risk for diabetes ?(prediabetes) > or =6.5% ??Consistent with diabetes This assay result is consistent with a decreased risk of diabetes. Currently, no consensus exists regarding use of hemoglobin A1c for diagnosis of diabetes in children. According to [place] Diabetes Association (ADA) guidelines, hemoglobin A1c <7.0% represents optimal control in non- diabetic patients. Different metrics may apply to specific patient populations. Standards of Medical Care in Diabetes(ADA). ?? Blood 06/19/2024 9:31 AM EST 06/19/2024 9:33 AM EST Narrative [facility] - 06/27/2024 6:07 PM EST FASTING:YES COLLECTION KIT GIVEN TO PATIENT. PATIENT ADVISED TO RETURN. FASTING: YES Resulting Agency Comment Performing Organization Information: ?Site ID: [id number] ?Name: [facility] ?Address: [address] [place] [phone] ?Director: Fernie Hitchcock M.D. Jonathan Cardenas MD LAB BLOOD ORDERABLES Final Resul t Performing Organization Address [facility] Phone Number [facility] [address] [place] [phone] [facility] [address] [place] [phone] * (ABNORMAL) Ferritin (06/19/2024 9:31 AM EST) Ferritin 8(L) 16 - 154 ng/mL [facility] Blood 06/19/2024 9:31 AM EST 06/19/2024 9:33 AM EST Narrative [facility] - 06/27/2024 6:07 PM EST FASTING:YES COLLECTION KIT GIVEN TO PATIENT. PATIENT ADVISED TO RETURN. FASTING: YES Resulting Agency Comment Performing Organization Information: ?Site ID: [id number] ?Name: [facility] ?Address: [address] [place] [phone] ?Director: Fernie Hitchcock M.D. Result [facility] Jonathan Cardenas MD LAB BLOOD ORDERABLES Final Resul t Performing Organization Address [facility] Phone Number [facility] [address] [place] [phone] [facility] [address] [place] [phone] * Comprehensive metabolic panel (CMP): Na, K, CL, Co2, Gluc, Ca, BUN, Creat, B/C, T.Prot, Alb, Glb, A/G, AST, ALT, ALKP, T.Bili (06/19/2024 9:31 AM EST) Glucose 92 65 - 99 mg/dL [facility] Comment: ? Fasting reference interval BUN 10 7 - 25 mg/dL [facility] Creatinine 0.72 0.50 - 0.99 mg/dL [facility] EGFR 108 > OR = 60 mL/min/1. 73m2 [facility] BUN/Creatinine Ratio SEE NOTE: 6 - 22 (calc) [facility] Comment: ?? Not Reported: BUN and Creatinine are within ?? reference range. ? Sodium 137 135 - 146 mmol/L [facility] Potassium 4.1 3.5 - 5.3 mmol/L [facility] Chloride 105 98 - 110 mmol/L [facility] CO2 25 20 - 32 mmol/L [facility] Calcium 9.3 8.6 - 10.2 mg/dL [facility] Total Protein 7.2 6.1 - 8.1 g/dL [facility] Albumin 3.8 3.6 - 5.1 g/dL [facility] Globulin, Total 3.4 1.9 - 3.7 g/dL (calc) [facility] A/G Ratio 1.1 1.0 - 2.5 (calc) [facility] Total Bilirubin 0.3 0.2 - 1.2 mg/dL [facility] Alkaline Phosphatase 45 31 - 125 U/L [facility] AST 12 10 - 30 U/L [facility] ALT 12 6 - 29 U/L [facility] Blood 06/19/2024 9:31 AM EST 06/19/2024 9:33 AM EST Narrative [facility] - 06/27/2024 6:07 PM EST FASTING:YES COLLECTION KIT GIVEN TO PATIENT. PATIENT ADVISED TO RETURN. FASTING: YES Resulting Agency Comment Performing Organization Information: ?Site ID: [id number] ?Name: [facility] ?Address: [address] [place] [phone] ?Director: Fernie Hitchcock M.D. us Jonathan Cardenas MD LAB BLOOD ORDERABLES Final Resul t [facility] [address] [place] [address] [place] [address] [place] [address] [facility] [address] [place] [address] * CARDIAC MEDIUM TERM MONITOR OFFICE 3-7 DAYS (06/15/2024 3:05 PM EST) Narrative [facility] - 07/15/2024 5:26 PM EST Prescribed Time 3 days Diagnostic Time 2d 12h 34m The predominant rhythm was Sinus rhythm *The Maximum Heart Rate recorded was 126 bpm, 06/16 18:49:26, the Minimum Heart Rate recorded was 47 bpm, 06/16 05:37:14, and the Average Heart Rate was 85 bpm. *There were 81 VE beats with a burden of <1 %. *There were 20 SVE beats with a burden of <1 %. *There were 40 Patient Triggers. ?? These correlated on occasion with the presence of ventricular ectopy and ventricular couplets representing causality Jonathan Cardenas MD CV CARDIO DIAG ORDERABLES Final Result [facility] [address] [place] [address] * EKG 12 lead (06/15/2024 1:47 PM EST) 06/15/2024 1:47 PM EST Narrative [facility] - 06/17/2024 1:10 PM EST ?[facility] ?[address] [place], [place] ??[address] ? Test Date: ?2024-06-15 Pat Name: ? YUDITH AMALIA ?Department: ?? CARD HTFD ?Room: ? Gender: ? Female ? Medical Historian: ?? CC : ?1985 ? Requested By: JONATHAN CARDENAS Order Number: [id number] ? Reading MD: ?? Jonathan Cardenas ? Measurements Intervals ?Neptune ? Rate: ? 78 ? P: ?71 VA: ? 151 ?QRS: ?51 QRSD: ? 85 ? T: ?60 QT: ? 387 ? QTc: ?441 ? Interpretive Statements Normal Sinus Rhythm Normal axes, intervals, and voltages Electronically Signed On 06-17-2024 13:10:55 EST by Jonathan Cardenas us Jonathan Cardenas MD ECG ORDERABLES Final Result [facility] from Last 3 Months Insurance [facility] [address] [employer] Care Teams Passenger Train Braker Relationship Specialty Start Date End Date Luis Loomis MD [address] [place] [address] PCP - General 02/21/24
--- OUTSIDE RECORDS SUMMARY | 2024-08-03 13:50 | XMS_ITS | Clinical Summary ---
Author Organization [facility] Address [address] [place] [address] Care Team Providers Care Block Hand Name Role Phone Luis Loomis MD Primary Care Provider [phone] Surgical History Surgery Date Site/Laterality Comments CERVICAL BIOPSY W/ LOOP ELECTRODE EXCISION 2003 PROCEDURE: CERVIAL LEEP CONE BIOPSY [facility] PATHOLOGY EX Medical History Medical History Date Comments Headache disorder 06/10/2009 DX:Headache di sorder; COMMENT: hx of high pressure spinal fluids s/p swollen optic nerve, spinal tap completed Constipation DX:Constipation; COMMENT: hx narcotic abuse Family History Medical History Relation Name Comments Arthritis Maternal Grandmother Arthritis Mother ?Rheumatoid Art hritis Arthritis Mother's side 1 4 relatives; ?rheumatoid; cousin with SLE Multiple sclerosis Mother's side 2 ?unsur e which relative Breast cancer Other 1 maternal cousi n/late 30s multiple primarys Melanoma Other 2 maternal cousin /late 30s Blindness Neg Hx Cataracts Neg Hx Colon cancer Neg Hx Glaucoma Neg Hx Macular degeneration Neg Hx Ovarian cancer Neg Hx Strabismus Neg Hx Relation Name Status Comments Brother Alive overweight; HTN Daughter Alive A&W Father (Age 45) alcoholic; ?cirrhosis; CHF Maternal Grandfather Maternal Grandmother Mother Alive Rheumatoid Arth ritis, CTS Mother's side 1 Mother's side 2 Other 1 Other 2 Other 3 Paternal Grandfather Paternal Grandmother Son Alive A&W Social History Tobacco Use Types Packs/Day Years Used Date Smoking Tobacco: Former Cigarettes Q uit: 02/28/2009 Smokeless Tobacco: Never Alcohol Use Standard Drinks/Week Comments No 0 (1 standard drink = 0.6 oz pur e alcohol) Sex and Gender Information Value Date Recorded Sex Assigned at Not on file Gender Identity Not on file Sexual Orientation Not on file Obstetrics History Plan of Treatment Health Maintenance Due Date Last Done Comments Breast Cancer Screening 1984 Cervical Cancer Screening: P ap Smear 02/22/2005 Hepatitis B Vaccines (2 of 3 - 19+ 3-dose series) 09/29/2009 09/01/2009 DTaP,Tdap,and Td Vaccines (2 - Td or Tdap) 02/12/2018 02/13/2008 COVID-19 Vaccine (1 - 2023-2 5 season) 2024 Influenza Vaccine (#1) 2024 HIB Vaccines Aged Out No longer eligi ble based on patient's age to complete this topic HPV Vaccines Aged Out No longer eligi ble based on patient's age to complete this topic Hepatitis A Vaccines Aged Out No long er eligible based on patient's age to complete this topic IPV Vaccines Aged Out No longer eligi ble based on patient's age to complete this topic MMR Vaccines Aged Out No longer eligi ble based on patient's age to complete this topic Meningococcal ACWY Vaccine Aged Out N o longer eligible based on patient's age to complete this topic Pneumococcal Vaccine: Pediat rics (0 to 5 Years) and At-Risk Patients (6 to 64 Years) Aged Out No longer eligi ble based on patient's age to complete this topic RSV Immunization Patients Un tarun 20 months Aged Out No longer eligible b ased on patient's age to complete this topic Varicella Vaccines Aged Out No longer eligible based on patient's age to complete this topic Care Teams Block Hand Relationship Specialty Start Date End Date Luis Loomis MD [address] [place] [phone] PCP - General Internal Medicine 05/17/18
--- OUTSIDE RECORDS SUMMARY | 2024-08-03 13:50 | XMS_ITS | Clinical Summary ---
Author Organization [facility] 's Address [address] [place] [address] Care Team Providers Care Consulting Group Analyst Name Role Phone Luis Loomis MD Primary Care Provider [phone] Source Comments Please note that some or [...] so, obtain the minor's consent prior to disclosure.[facility]'s Allergies Active Allergy Reactions Criticality Noted Date [...] mouth nightly 30 tablet 5 06/17/2024 06/17/20 Active ergocalciferol (VITAMIN D2) 1,250 mcg (50,000 [...] before meals. 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 Refill [facility] Department of Cardiology [address] [place] [phone] Wendy Cardenas MD POTS (postural orthostatic tachycardia syndrome) 06/15/2024 2:28 PM EST - 06/15/2024 11:59 PM EST Hospital Encounter [facility] Department of Cardiology [address] [place] [phone] Wendy Cardenas MD Discharge Disposition: Home or Self Care 06/15/2024 1:30 PM EST Office Visit [facility] Department of Cardiology [address] [place] [phone] 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 (Primary Dx); POTS (postural orthostatic tachycardia syndrome); Hypermobility syndrome; Chronic pain syndrome; Chronic nonintractable headache, unspecified headache type; Palpitations; Orthostatic hypotension; Benign essential hypertension from Last 3 Months Social History Tobacco Use Types Packs/Day Years [...] Info) Description 11/09/2024 3:00 PM EDT Appointment [facility] Department of Cardiology [address] [place] [phone] 11/09/2024 4:00 PM EDT Office Visit [facility] Department of Cardiology [address] [place] [phone] Wendy Cardenas MD [address] [place] [address] Health Maintenance Due Date Last Done Comments DTaP/TDAP/TD VACCINES (1 - Tdap) 02/22/1991 ADOLESCENT HIV SCREENING 02/22/1997 COVID-19 Vaccine (2023-2 5 season) 2024 INFLUENZA (#1) 2024 NIRSEVIMAB VACCINES UNDER 8 MONTHS Aged Out No longer eligible based on patient's age to complete this topic Procedures Procedure Name Priority Date/Time Associated Diagnosis [...] 9:16 AM EST) Specimen Type/Container URINE/CU P [facility] Prostaglandin D2 (PG D2), Urine 314(H) <175 ng/g Creatinine [facility] Comment: This test was developed and its performance characteristics determined by [facility]. Values obtained with different methods, laboratories, or kits cannot be used interchangeably with the results on this report. The results cannot be interpreted as absolute evidence of the presence or absence of malignant disease. Urine 06/20/2024 9:16 AM EST 06/20/2024 9:17 AM EST Narrative [facility] - 06/28/2024 8:57 AM EST SPLIT 06/19/2024 FROM [id number] COLLECTION KIT GIVEN TO PATIENT. PATIENT ADVISED TO RETURN. URINE VOLUME: 1000 Resulting Agency Comment Performing Organization Information: ?Site ID: INS ?Name: [facility] ?Address: [address] [place] [address] ?Director: Mario Gonsales MD,PhD Wendy Cardenas MD LAB BLOOD ORDERABLES Final Resul t Performing Organization Address [facility] de Phone Number [facility] [address] [place] [address], [facility] * Histamine, Urine, 24 Hour (06/19/2024 10:00 AM EST) Total Volume 550 mL [facility], HISTAMINE, URINE, 24 HOUR 0.007 0.006 - 0.131 mg/24 h [facility], Comment: This test was performed using a kit that has not been cleared or approved by the FDA. The analytical performance characteristics of this test have been determined by [employer] [facility]. This test should not be used for diagnosis without confirmation by other medically established means. Urine 06/19/2024 10:0 0 AM EST 06/20/2024 9:20 AM EST Narrative [facility] - 06/26/2024 4:34 PM EST SPLIT 06/20/2024 FROM [id number] URINE VOLUME: 550/24 Resulting Agency Comment Performing Organization Information: ?Site ID: [id number] ?Name: [facility], ?Address: [address] [place] [phone] ?Director: Mayra Martin MD,PhD,YURI Wendy Cardenas MD LAB BLOOD ORDERABLES Final Resul t Performing Organization Address [facility] Co de Phone Number [facility] [address] [place] [phone] [facility], [address] [place] [phone] * (ABNORMAL) JORGE A Screen, IFA, Rflx Titer/Pattern (06/19/2024 9:31 AM EST) JORGE A SCREEN, IFA POSITIVE( A) NEGATIVE [facility] Comment: JORGE A IFA is a first line screen for detecting the presence of up to approximately 150 autoantibodies in various autoimmune diseases. A positive JORGE A IFA result is suggestive of autoimmune disease and reflexes to titer and pattern. Further laboratory testing may be considered if clinically indicated. For additional information, please refer to http://education.Yowza/faq/CYG064 (This link is being provided for informational/ educational purposes only.) ?? 06/19/2024 9:31 AM EST 06/19/2024 9:33 AM EST Narrative [facility] - 06/27/2024 6:07 PM EST FASTING:YES COLLECTION KIT GIVEN TO PATIENT. PATIENT ADVISED TO RETURN. FASTING: YES Resulting Agency Comment Performing Organization Information: ?Site ID: [id number] ?Name: [facility] ?Address: [address] [place] [phone] ?Director: Fernie Hitchcock M.D. Wendy Cardenas MD LAB BLOOD ORDERABLES Final Resul t [facility] [address] [place] [address] [facility] [address] [place] [address] * (ABNORMAL) Antinuclear Antibodies Titer and Pattern (06/19/2024 9:31 AM EST) JORGE A Titer 1:1280(H) titer [facility] Comment: ?Reference Range ?<1:40 ?Negative ?1:40-1:80 ?Low Antibody Level ?>1:80 ?Elevated Antibody Level JORGE A Pattern Nuclear, Speckled( A) [facility] Comment: Speckled pattern is associated with mixed connective tissue disease (MCTD), systemic lupus erythematosus (SLE), Sjogren's syndrome, dermatomyositis, and systemic sclerosis/polymyositis overlap. AC-2,4,5,29: Speckled International Consensus on JORGE A Patterns (https://doi.org/10.1515/vjtt-7847-8420) JORGE A Titer 1:160(H) titer [facility] Comment: ?Reference Range ?<1:40 ?Negative ?1:40-1:80 ?Low Antibody Level ?>1:80 ?Elevated Antibody Level JORGE A Patter Nuclear, Homogeneo us(A) [facility] Comment: Homogeneous pattern is associated with systemic lupus erythematosus (SLE), drug-induced lupus and juvenile idiopathic arthritis. AC-1: Homogeneous International Consensus on JORGE A Patterns (https://doi.org/10.1515/nfca-0424-9816) 06/19/2024 9:31 AM EST 06/19/2024 9:33 AM EST Narrative [facility] [facility] - 06/27/2024 6:07 PM EST FASTING:YES COLLECTION KIT GIVEN TO PATIENT. PATIENT ADVISED TO RETURN. FASTING: YES Resulting Agency Comment Performing Organization Information: ?Site ID: [id number] ?Name: [facility] ?Address: [address] [place] [phone] ?Director: Fernie Hitchcock M.D. us Wendy Cardenas MD LAB BLOOD ORDERABLES Final Resul t [facility] [address] [place] [address] [facility] [address] [place] [address] * THYROID PEROXIDASE AND THYROGLOBULIN ANTIBODIES (06/19/2024 9:31 AM EST) Thyroglobulin Ab <1 < or = 1 IU/mL [facility] Thyroid Peroxidase Ab <1 <9 IU/mL [facility] Blood 06/19/2024 9:31 AM EST 06/19/2024 9:33 AM EST Narrative [facility] - 06/27/2024 6:07 PM EST FASTING:YES COLLECTION KIT GIVEN TO PATIENT. PATIENT ADVISED TO RETURN. FASTING: YES Resulting Agency Comment Performing Organization Information: ?Site ID: [id number] ?Name: [facility] ?Address: [address] [place] [phone] ?Director: Fernie Hitchcock M.D. us Wendy Cardenas MD LAB BLOOD ORDERABLES Final Resul t [facility] [address] [place] [address] [facility] [address] [place] [phone] * TSH and Free T4 (06/19/2024 9:31 AM EST) TSH 0.96 mIU/L [facility] Comment: ?Reference Range ?> or = 20 Years ??0.40-4.50 ? Ranges ?First trimester ?0.26-2.66 ?Second trimester ?? 0.55-2.73 ?Third trimester ?0.43-2.91 Free T4 1.1 0.8 - 1.8 ng/dL [facility] Blood 06/19/2024 9:31 AM EST 06/19/2024 9:33 AM EST Narrative [facility] - 06/27/2024 6:07 PM EST FASTING:YES COLLECTION KIT GIVEN TO PATIENT. PATIENT ADVISED TO RETURN. FASTING: YES Resulting Agency Comment Performing Organization Information: ?Site ID: [id number] ?Name: [facility] ?Address: [address] [place] [phone] ?Director: Fernie Hitchcock M.D. Wendy Cardenas MD LAB BLOOD ORDERABLES Final Resul t Performing Organization Address [facility] de Phone Number [facility] [address] [place] [address] [place] [address] [facility] [address] [place] [phone] * (ABNORMAL) Iron, Total, TIBC and Saturation (06/19/2024 9:31 AM EST) Iron 57 40 - 190 mcg/dL [facility] TIBC 406 250 - 450 mcg/dL (calc) [facility] Iron Saturation 14(L) 16 - 45 % (calc) [facility] Blood 06/19/2024 9:31 AM EST 06/19/2024 9:33 AM EST Narrative [facility] - 06/27/2024 6:07 PM EST FASTING:YES COLLECTION KIT GIVEN TO PATIENT. PATIENT ADVISED TO RETURN. FASTING: YES Resulting Agency Comment Performing Organization Information: ?Site ID: [id number] ?Name: [facility] ?Address: [address] [place] [phone] ?Director: Fernie Hitchcock M.D. Wendy Cardenas MD LAB BLOOD ORDERABLES Final Resul t Performing Organization Address [facility] Co de Phone Number [facility] [address] [phone] [facility] [facility] [address] [phone] * (ABNORMAL) Sjogren's (SS-A, SS-B) Antibodies (06/19/2024 9:31 AM EST) SJOGREN'S ANTIBODY (SS-A) >8.0 POS(A) <1.0 NEG AI [facility] Sjogren's Antibody (SS-B) >8.0 POS(A) <1.0 NEG [facility] 06/19/2024 9:31 AM EST 06/19/2024 9:33 AM EST Narrative [facility] - 06/27/2024 6:07 PM EST FASTING:YES COLLECTION KIT GIVEN TO PATIENT. PATIENT ADVISED TO RETURN. FASTING: YES Resulting Agency Comment Performing Organization Information: ?Site ID: [id number] ?Name: [facility] ?Address: [address] [place] [phone] ?Director: Fernie Hitchcock M.D. Wendy Cardenas MD LAB BLOOD ORDERABLES Final Resul t [facility] [address] [place] [phone] [facility] [address] [place] [phone] * Vitamin B12 & Folate (06/19/2024 9:31 AM EST) Vitamin B-12 299 200 - 1,100 pg/mL [facility] Comment: Please Note: Although the reference range for vitamin B12 is 200-1100 pg/mL, it has been reported that between 5 and 10% of patients with values between 200 and 400 pg/mL may experience neuropsychiatric and hematologic abnormalities due to occult B12 deficiency; less than 1% of patients with values above 400 pg/mL will have symptoms. Folate >24.0 ng/mL [facility] Comment: ? Reference Range ? Low: ? <3.4 ? Borderline: ?3.4-5.4 ? Normal: ?>5.4 Blood 06/19/2024 9:31 AM EST 06/19/2024 9:33 AM EST Narrative [facility] - 06/27/2024 6:07 PM EST FASTING:YES COLLECTION KIT GIVEN TO PATIENT. PATIENT ADVISED TO RETURN. FASTING: YES Resulting Agency Comment Performing Organization Information: ?Site ID: [id number] ?Name: [facility] ?Address: [address] [place] [phone] ?Director: Fernie Hitchcock M.D. us Wendy Cardenas MD LAB BLOOD ORDERABLES Final Resul t [facility] [address] [place] [address] [facility] [address] [place] [address] * Aldosterone/Plasma Renin Activity Ratio (06/19/2024 9:31 AM EST) Aldosterone 8 see note ng/dL [employer]Teresa [facility]ER Comment: Unable to flag abnormal result(s), please refer ?to reference range(s) below: Adult Reference Ranges for Aldosterone, LC/MS/MS: ?Upright ??8:00 - 10:00 am ?< or = 28 ng/dL ?Upright ??4:00 - ??6:00 pm ?< or = 21 ng/dL ?Supine ?? 8:00 - 10:00 am ? 3 - 16 ng/dL Renin 1.93 0.25 - 5.82 ng/mL/h [facility] ALDOSTERONE/PLAS MA RENIN ACTIVITY RATIO 4.1 0.9 - 28.9 Ratio [facility] Comment: This test was developed and its analytical performance characteristics have been determined by [employer] [place], [place]. It has not been cleared or approved by the U.S. Food and Drug Administration. This assay has been validated pursuant to the CLIA regulations and is used for clinical purposes. 06/19/2024 9:31 AM EST 06/19/2024 9:33 AM EST Narrative [facility] [employer] [facility] - 06/27/2024 6:07 PM EST FASTING:YES COLLECTION KIT GIVEN TO PATIENT. PATIENT ADVISED TO RETURN. FASTING: YES Resulting Agency Comment Performing Organization Information: ?Site ID: AMD ?Name: [employer]/[facility] ?Address: [address] [place] [address] [place] ?Director: Wilson Shetty M.D.,PhD Wendy Cardenas MD LAB BLOOD ORDERABLES Final Resul t [employer] [address] [employer]/[address] [place], [place] * Catecholamines, fractionated, plasma (06/19/2024 9:31 AM EST) Epinephrine 56 pg/mL [employer], Comment: Reference Range: SUPINE: <58 UPRIGHT: <82 Norepinephrine 382 pg/mL [facility], Comment: Reference Range: SUPINE: 149-564 UPRIGHT: 199-937 Dopamine 15 pg/mL [employer]/[facility], Comment: Reference Range: SUPINE: <16 UPRIGHT: <27 Total Catecholamines (Nor+Epi) 453 pg/mL [facility], Comment: Reference Range: SUPINE: <632 UPRIGHT: <1046 Due to stress, plasma catecholamine levels are generally unreliable in infants and small children. Urinary catecholamine assays are more reliable. This test was developed and its analytical performance characteristics have been determined by [employer]. It has not been cleared or approved by FDA. This assay has been validated pursuant to the CLIA regulations and is used for clinical purposes. Blood 06/19/2024 9:31 AM EST 06/19/2024 9:33 AM EST Narrative [facility] - 06/27/2024 6:07 PM EST FASTING:YES COLLECTION KIT GIVEN TO PATIENT. PATIENT ADVISED TO RETURN. FASTING: YES Resulting Agency Comment Performing Organization Information: ?Site ID: [id number] ?Name: [facility], ?Address: [address] [place] [phone] ?Director: Mayra [place] MD,PhD,YURI Wendy Cardenas MD LAB BLOOD ORDERABLES Final Resul t [facility] [address] [place] [phone] [facility], [address] [place] [address] * Tryptase (06/19/2024 9:31 AM EST) TRYPTASE 5.4 <11.0 mcg/L [facility] Comment: The Tryptase test, fluorescent enzyme immunoassay (FEIA), measures both the Alpha and Beta forms of Tryptase. Measuring both forms of Tryptase increases sensitivity for the diagnosis of mastocytosis, and mast cell degranulation as a cause of anaphylaxis. Blood 06/19/2024 9:31 AM EST 06/19/2024 9:33 AM EST Narrative [employer] [facility] - 06/27/2024 6:07 PM EST FASTING:YES COLLECTION KIT GIVEN TO PATIENT. PATIENT ADVISED TO RETURN. FASTING: YES Resulting Agency Comment Performing Organization Information: ?Site ID: [id number] ?Name: [facility] ?Address: [address] [place] [phone] ?Director: Fernie Hitchcock M.D. Wendy Cardenas MD LAB BLOOD ORDERABLES Final Resul t Performing Organization Address [facility] de Phone Number [facility] [address] [place] [phone] [facility] [address] [place] [phone] * Tissue transglutaminase, IgA (06/19/2024 9:31 AM EST) Transglutaminase IgA 9.9 U/mL [facility] Comment: Value ?Interpretation ----- ? <15.0 ?Antibody not detected > or = 15.0 ?Antibody detected Blood 06/19/2024 9:31 AM EST 06/19/2024 9:33 AM EST Narrative [facility] - 06/27/2024 6:07 PM EST FASTING:YES COLLECTION KIT GIVEN TO PATIENT. PATIENT ADVISED TO RETURN. FASTING: YES Resulting Agency Comment Performing Organization Information: ?Site ID: [id number] ?Name: [facility] ?Address: [address] [place] [address] ?Director: Fernie Hitchcock M.D. Wendy Cardenas MD LAB BLOOD ORDERABLES Final Resul t Performing Organization Address [facility] de Phone Number [facility] [address] [place] [address] [place] [address] [facility] [address] [place] [address] * Cardiolipin antibody, IgM (06/19/2024 9:31 AM EST) Anticardiolipin IgM <2.0 MPL-U/mL [facility] Comment: Value ?Interpretation ----- ? < 20.0 [...] aging. For additional information, please refer to http://education.Kanshu/faq/JZB733 (This link is being provided for informational/ educational purposes only.) Blood 06/19/2024 9:31 AM EST 06/19/2024 9:33 AM EST Narrative [facility] [facility] - 06/27/2024 6:07 PM EST FASTING:YES COLLECTION KIT GIVEN TO PATIENT. PATIENT ADVISED TO RETURN. FASTING: YES Resulting Agency Comment Performing Organization Information: ?Site ID: [id number] ?Name: [facility] ?Address: [address] [place] [phone] ?Director: Fernie Hitchcock M.D. Wendy Cardenas MD LAB BLOOD ORDERABLES Final Resul t [facility] [address] [place] [address] [facility] [address] [place] [address] * Cardiolipin antibody, IgG (06/19/2024 9:31 AM EST) Anticardiolipin IgG <2.0 GPL-U/mL [facility] Comment: Value ?Interpretation ----- ? < 20.0 [...] aging. For additional information, please refer to http://education.Kanshu/faq/QQC263 (This link is being provided for informational/ educational purposes only.) Blood 06/19/2024 9:31 AM EST 06/19/2024 9:33 AM EST Narrative [facility] - 06/27/2024 6:07 PM EST FASTING:YES COLLECTION KIT GIVEN TO PATIENT. PATIENT ADVISED TO RETURN. FASTING: YES Resulting Agency Comment Performing Organization Information: ?Site ID: [id number] ?Name: [facility] ?Address: [address] [place] [phone] ?Director: Fernie Hitchcock M.D. Wendy Cardenas MD LAB BLOOD ORDERABLES Final Resul t [facility] [address] [place] [address] [facility] [address] [place] [address] * Cardiolipin antibody, IgA (06/19/2024 9:31 AM EST) Anticardiolipin IgA <2.0 APL-U/mL [facility] Comment: Value ?Interpretation ----- ? < 20.0 [...] aging. For additional information, please refer to http://education.Kanshu/faq/MPZ125 (This link is being provided for informational/ educational purposes only.) Blood 06/19/2024 9:31 AM EST 06/19/2024 9:33 AM EST Narrative [facility] - 06/27/2024 6:07 PM EST FASTING:YES COLLECTION KIT GIVEN TO PATIENT. PATIENT ADVISED TO RETURN. FASTING: YES Resulting Agency Comment Performing Organization Information: ?Site ID: [id number] ?Name: [facility] ?Address: [address] [place] [phone] ?Director: Fernie Hitchcock M.D. Wendy Cardenas MD LAB BLOOD ORDERABLES Final Resul t Performing Organization Address City/[facility]/ZIP Co de Phone Number [facility] [address] [place] [address] [facility] [address] [place] [address] * HISTAMINE (06/19/2024 9:31 AM EST) Histamine, Plasma <1.5 < OR = 1.8 ng/mL [facility], Comment: This test was performed using a kit that has not been cleared or approved by the FDA. The analytical performance characteristics of this test have been determined by [employer] [facility]. This test should not be used for diagnosis without confirmation by other medically established means. Blood 06/19/2024 9:31 AM EST 06/19/2024 9:33 AM EST Narrative [employer] - 06/27/2024 6:07 PM EST FASTING:YES COLLECTION KIT GIVEN TO PATIENT. PATIENT ADVISED TO RETURN. FASTING: YES Resulting Agency Comment Performing Organization Information: ?Site ID: EZ ?Name: [employer]/[facility], ?Address: [address] [place] [phone] ?Director: Mayra [place] MD,PhD,YURI Wendy Cardenas MD LAB BLOOD ORDERABLES Final Resul t Performing Organization Address City/[facility]/ZIP Co de Phone Number [employer] [id number] [place] [phone] [employer]/[facility], [address] [place] [phone] * ACTH (06/19/2024 9:31 AM EST) ACTH 13 6 - 50 pg/mL [facility] Comment: Reference range applies only to specimens collected between 7am-10am. ? Blood 06/19/2024 9:31 AM EST 06/19/2024 9:33 AM EST Narrative [facility] - 06/27/2024 6:07 PM EST FASTING:YES COLLECTION KIT GIVEN TO PATIENT. PATIENT ADVISED TO RETURN. FASTING: YES Resulting Agency Comment Performing Organization Information: ?Site ID: AMD ?Name: [facility] ?Address: [address] [place] [address] [place] ?Director: Wilson Shetty M.D.,PhD us Wendy Cardenas MD LAB BLOOD ORDERABLES Final Resul t [facility] [employer] [address] [place], [place] [facility]/[address] [place], [place] * Lupus anticoagulant (06/19/2024 9:31 AM EST) LUPUS ANTICOAGULANT EVAL. see note [facility] Comment: A Lupus Anticoagulant is not detected. Reference Range: ??Not Detected For additional information, please refer to http://education.Kanshu/faq/FHT48z6 (This link is being provided for informational/ educational purposes only.) ? This interpretation is based on the following test results. PTT-LA Screen 38 <=40 sec [facility] dRVVT Screen 39 <=45 sec [facility] Blood 06/19/2024 9:31 AM EST 06/19/2024 9:33 AM EST Narrative [facility] - 06/27/2024 6:07 PM EST FASTING:YES COLLECTION KIT GIVEN TO PATIENT. PATIENT ADVISED TO RETURN. FASTING: YES Resulting Agency Comment Performing Organization Information: ?Site ID: AMD ?Name: [employer] ?Address: [address] [place] [address] Dr [place], [place] ?Director: Wilson Shetty M.D.,PhD us Wendy Cardenas MD LAB BLOOD ORDERABLES Final Resul t [employer] [address] [employer] 74 [address] [place], [place] * CBC (06/19/2024 9:31 AM EST) Pathologist [facility] WBC 5.8 3.8 - 10.8 Thousand/u L [facility] RBC 4.83 3.80 - 5.10 Million/uL [facility] [facility] Hemoglobin 13.9 11.7 - 15.5 g/dL [facility] Hematocrit 42.5 35.0 - 45.0 % [facility] MCV 88.0 80.0 - 100.0 fL [facility] MCH 28.8 27.0 - 33.0 pg [facility] MCHC 32.7 32.0 - 36.0 g/dL [facility] Comment: For adults, a slight decrease in the calculated MCHC value (in the range of 30 to 32 g/dL) is most likely not clinically significant; however, it should be interpreted with caution in correlation with other red cell parameters and the patient's clinical condition. RDW 12.5 11.0 - 15.0 % [facility] Platelets 284 140 - 400 Thousand/u L [facility] MPV 10.8 7.5 - 12.5 fL [facility] Blood 06/19/2024 9:31 AM EST 06/19/2024 9:33 AM EST Narrative [facility] - 06/27/2024 6:07 PM EST FASTING:YES COLLECTION KIT GIVEN TO PATIENT. PATIENT ADVISED TO RETURN. FASTING: YES Resulting Agency Comment Performing Organization Information: ?Site ID: [id number] ?Name: [facility] ?Address: [address] [place] [phone] ?Director: Fernie Hitchcock M.D. Wendy Cardenas MD LAB BLOOD ORDERABLES Final Resul t Performing Organization Address [facility] Phone Number [facility] [address] [place] [phone] [facility] [address] [place] [phone] * Rheumatoid factor (06/19/2024 9:31 AM EST) [facility] Rheumatoid Factor 13 <14 IU/mL [facility] [facility] [facility] Blood 06/19/2024 9:31 AM EST 06/19/2024 9:33 AM EST Narrative [facility] - 06/27/2024 6:07 PM EST FASTING:YES COLLECTION KIT GIVEN TO PATIENT. PATIENT ADVISED TO RETURN. FASTING: YES Resulting Agency Comment Performing Organization Information: ?Site ID: [id number] ?Name: [facility] ?Address: [address] [place] [phone] ?Director: Fernie Hitchcock M.D. Wendy Cardenas MD LAB BLOOD ORDERABLES Final Resul t Performing Organization Address [facility] Phone Number [facility] [address] [place] [phone] [facility] [address] [place] [phone] * T3 (06/19/2024 9:31 AM EST) [facility] T3, Total 121 76 - 181 ng/dL [facility] Blood 06/19/2024 9:31 AM EST 06/19/2024 9:33 AM EST Narrative [facility] - 06/27/2024 6:07 PM EST FASTING:YES COLLECTION KIT GIVEN TO PATIENT. PATIENT ADVISED TO RETURN. FASTING: YES Resulting Agency Comment Performing Organization Information: ?Site ID: [id number] ?Name: [facility] ?Address: [address] [place] [phone] ?Director: Fernie Hitchcock M.D. Wendy Cardenas MD LAB BLOOD ORDERABLES Final Resul t Performing Organization Address [facility] Phone Number [facility] [address] [place] [phone] [facility] [address] [place] [phone] * Transferrin (06/19/2024 9:31 AM EST) Pathologist [facility] Transferrin 322 188 - 341 mg/dL [facility] Blood 06/19/2024 9:31 AM EST 06/19/2024 9:33 AM EST Narrative [facility] [facility] - 06/27/2024 6:07 PM EST FASTING:YES COLLECTION KIT GIVEN TO PATIENT. PATIENT ADVISED TO RETURN. FASTING: YES Resulting Agency Comment Performing Organization Information: ?Site ID: [id number] ?Name: [facility] ?Address: [address] [place] [phone] ?Director: Fernie Hitchcock M.D. Wendy Cardenas MD LAB BLOOD ORDERABLES Final Resul t Performing Organization Address [facility] Phone Number [facility] [address] [place] [phone] [facility] [address] [place] [phone] * Vitamin B6 (06/19/2024 9:31 AM EST) Pathologist [facility] Vitamin B6 3.2 2.1 - 21.7 ng/mL [facility] Comment: Vitamin supplementation within 24 hours prior to blood draw may affect the accuracy of the results. This test was developed and its analytical performance characteristics have been determined by [facility] [place]. It has not been cleared or approved by the U.S. Food and Drug Administration. This assay has been validated pursuant to the CLIA regulations and is used for clinical purposes. Blood 06/19/2024 9:31 AM EST 06/19/2024 9:33 AM EST Narrative [employer] [facility] - 06/27/2024 6:07 PM EST FASTING:YES COLLECTION KIT GIVEN TO PATIENT. PATIENT ADVISED TO RETURN. FASTING: YES Resulting Agency Comment Performing Organization Information: ?Site ID: [facility] ?Name: [employer] ?Address: [address] [place] [address] [place], [place] ?Director: Wilson Shetty M.D.,PhD Wendy Cardenas MD LAB BLOOD ORDERABLES Final Resul t [employer] [address] [employer] [place], [place] * Hemoglobin A1c (06/19/2024 9:31 AM EST) Hemoglobin A1C 5.5 <5.7 % of total Hgb [facility] Comment: For the purpose of screening for the presence of diabetes: <5.7% ? Consistent with the absence of diabetes 5.7-6.4% ?Consistent with increased risk for diabetes ?(prediabetes) > or =6.5% ??Consistent with diabetes This assay result is consistent with a decreased risk of diabetes. Currently, no consensus exists regarding use of hemoglobin A1c for diagnosis of diabetes in children. According to [place] Diabetes Association (ADA) guidelines, hemoglobin A1c <7.0% represents optimal control in non- diabetic patients. Different metrics may apply to specific patient populations. Standards of Medical Care in Diabetes(ADA). ?? Blood 06/19/2024 9:31 AM EST 06/19/2024 9:33 AM EST Narrative [facility] [facility] - 06/27/2024 6:07 PM EST FASTING:YES COLLECTION KIT GIVEN TO PATIENT. PATIENT ADVISED TO RETURN. FASTING: YES Resulting Agency Comment Performing Organization Information: ?Site ID: [id number] ?Name: [facility] ?Address: [address] [place] [phone] ?Director: Fernie Hitchcock M.D. Wendy Cardenas MD LAB BLOOD ORDERABLES Final Resul t Performing Organization Address [facility] de Phone Number [facility] [address] [place] [phone] [facility] [address] [place] [phone] * (ABNORMAL) Ferritin (06/19/2024 9:31 AM EST) Ferritin 8(L) 16 - 154 ng/mL [facility] Blood 06/19/2024 9:31 AM EST 06/19/2024 9:33 AM EST Narrative [facility] - 06/27/2024 6:07 PM EST FASTING:YES COLLECTION KIT GIVEN TO PATIENT. PATIENT ADVISED TO RETURN. FASTING: YES Resulting Agency Comment Performing Organization Information: ?Site ID: [id number] ?Name: [facility] ?Address: [address] [place] [phone] ?Director: Fernie Hitchcock M.D. Wendy Cardenas MD LAB BLOOD ORDERABLES Final Resul t Performing Organization Address [facility] de Phone Number [facility] [address] [place] [phone] [facility] [address] [place] [phone] * Comprehensive metabolic panel (CMP): Na, K, CL, Co2, Gluc, Ca, BUN, Creat, B/C, T.Prot, Alb, Glb, A/G, AST, ALT, ALKP, T.Bili (06/19/2024 9:31 AM EST) Glucose 92 65 - 99 mg/dL [facility] Comment: ? Fasting reference interval BUN 10 7 - 25 mg/dL [facility] Creatinine 0.72 0.50 - 0.99 mg/dL [facility] EGFR 108 > OR = 60 mL/min/1. 73m2 [facility] BUN/Creatinine Ratio SEE NOTE: (calc) [facility] Comment: ?? Not Reported: BUN and Creatinine are within ?? reference range. ? Sodium 137 135 - 146 mmol/L [facility] Potassium 4.1 3.5 - 5.3 mmol/L [facility] Chloride 105 98 - 110 mmol/L [facility] CO2 25 20 - 32 mmol/L [facility] Calcium 9.3 8.6 - 10.2 mg/dL [facility] Total Protein 7.2 6.1 - 8.1 g/dL [facility] Albumin 3.8 3.6 - 5.1 g/dL [facility] Globulin, Total 3.4 1.9 - 3.7 g/dL (calc) [facility] A/G Ratio 1.1 1.0 - 2.5 (calc) [facility] Total Bilirubin 0.3 0.2 - 1.2 mg/dL [facility] Alkaline Phosphatase 45 31 - 125 U/L [facility] AST 12 10 - 30 U/L [facility] ALT 12 6 - 29 U/L [facility] Blood 06/19/2024 9:31 AM EST 06/19/2024 9:33 AM EST Narrative [facility] [facility] - 06/27/2024 6:07 PM EST FASTING:YES COLLECTION KIT GIVEN TO PATIENT. PATIENT ADVISED TO RETURN. FASTING: YES Resulting Agency Comment Performing Organization Information: ?Site ID: [id number] ?Name: [facility] ?Address: [address] [place] [phone] ?Director: Fernie Hitchcock M.D. Wendy Cardenas MD LAB BLOOD ORDERABLES Final Resul t Performing Organization Address [facility] de Phone Number [facility] [facility] [address] [place] [phone] [facility] [address] [place] [phone] * CARDIAC MEDIUM TERM MONITOR OFFICE 3-7 DAYS (06/15/2024 3:05 PM EST) Narrative [facility] - 07/15/2024 5:26 PM EST Prescribed [...] ventricular ectopy and ventricular couplets representing causality Wendy Cardenas MD CV CARDIO DIAG ORDERABLES Final Result Performing Organization Address [facility] de Phone Number [facility] [address] [place] [address] * EKG 12 lead (06/15/2024 1:47 PM EST) 06/15/2024 1:47 PM EST Narrative [facility] - 06/17/2024 1:10 PM EST ?[facility] ?[address] [place], [place] ??[address] ? Test Date: ?2024-06-15 Pat Name: ? YUDITHKEKE HOLLAND ?Department: ?? CARD [facility] ?Room: ? Gender: ? Female ? Advertising Consultant: ?? CC : ?[id number] ? Requested By: IRFAN WARSY Order Number: [id number] ? Reading MD: ?? Irfan Warsy ? Measurements Intervals ?[place] ? Rate: ? 78 ? P: ?71 NH: ? 151 ?QRS: ?51 QRSD: ? 85 ? T: ?60 QT: ? 387 ? QTc: ?441 ? Interpretive Statements Normal Sinus Rhythm Normal axes, intervals, and voltages Electronically Signed On 06-17-2024 13:10:55 EST by Wendy Cardenas Wendy Cardenas MD ECG ORDERABLES Final Result [facility] from Last 3 Months Insurance [facility] [employer] Analyst Relationship Specialty Start Date End Date Luis Loomis MD [address] [place] [address] PCP - General 02/21/24
[2024-08-03 13:51] VITALS: BP 141/82; PULSE 73; RESP 18; TEMP 36.3; O2SAT 97
[2024-08-03 13:57] VITALS: BP 141/82; PULSE 73; RESP 18; TEMP 36.3; O2SAT 97
== END 2024-08-03 14:04 | disposition home or self-care (01) ==
PROVIDERS: Physician Assistant Medical; Emergency Provider Emergency Medicine; PCP Internal Medicine
DX: U07.1 COVID-19 (principal); R07.89 Other chest pain; R06.02 Shortness of breath; M79.10 Myalgia, unspecified site; R05.9 Cough, unspecified; Z79.899 Other long term (current) drug therapy
CPT/HCPCS: 0241U; 36415; 71046; 80048; 80076; 81003; 81025; 83690; 84484; 84702; 85025; 93005; 96372; 99284; J1885

== ENCOUNTER → 2024-08-03 10:18 | Outpatient (BNV) | payer OTHER, SELFPAY | PROVIDERS: Emergency Provider Emergency Medicine; PCP Internal Medicine; Visit Provider Internal Medicine | DX: R07.9 Chest pain, unspecified (principal) | CPT/HCPCS: 93010 ==

== ENCOUNTER → 2024-08-03 11:23 | Outpatient (BNV) | payer OTHER, SELFPAY | PROVIDERS: PCP Internal Medicine; Visit Provider Radiology Diagnostic Radiology | DX: R52 Pain, unspecified (principal) | CPT/HCPCS: 71046 ==

== ENCOUNTER → 2024-08-08 12:31 | Outpatient (BNVA) | payer OTHER, SELFPAY | PROVIDERS: PCP Internal Medicine; Visit Provider Internal Medicine Cardiovascular Disease | DX: G90.1 Familial dysautonomia [Riley-Day] (principal); R09.89 Other specified symptoms and signs involving the circulatory and respiratory systems; R06.02 Shortness of breath | CPT/HCPCS: 99202 ==

== ENCOUNTER 2024-08-16 07:54 | Outpatient (AMB) | payer OTHER, SELFPAY ==
--- OUTSIDE RECORDS SUMMARY | 2024-08-16 07:57 | XMS_ITS | Clinical Summary ---
Author Organization [facility] 's Address [address] [place] [address] Care Team Providers Care Drafter Refrigeration Name Role Phone Luis Loomis MD Primary Care Provider [phone] Source Comments Please note that some or [...] so, obtain the minor's consent prior to disclosure.[facility]'s Allergies Active Allergy Reactions Criticality Noted Date [...] Type Department Care Team Description 06/26/2024 Refill [facility] Department of Cardiology [address] [place] [phone] 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 Refill [facility] Department of Cardiology [address] [place] [phone] 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 Refill [facility] Department of Cardiology [address] [place] [phone] Wendy Cardenas MD POTS (postural orthostatic tachycardia syndrome) 06/15/2024 2:28 PM EST - 06/15/2024 11:59 PM EST Hospital Encounter [facility] Department of Cardiology [address] [place] [phone] Wendy Cardenas MD Discharge Disposition: Home or Self Care 06/15/2024 1:30 PM EST Office Visit [facility] Department of Cardiology [address] [place] [phone] 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 [...] Info) Description 11/09/2024 3:00 PM EDT Appointment [facility] Department of Cardiology [address] [place] [phone] 11/09/2024 4:00 PM EDT Office Visit [facility] Department of Cardiology [address] [place] [phone] Wendy Cardenas MD [address] [place] [address] Health Maintenance Due Date Last Done Comments [...] AM EST POTS (postural orthostatic tachycardia syndrome) OJRGE A SCREEN, IFA, W/REFL TITER/PATTERN Routine 06/19/2024 [...] 9:16 AM EST) Specimen Type/Container URINE/CU P [facility] Prostaglandin D2 (PG D2), Urine 314(H) <175 ng/g Creatinine [facility] Comment: This test was developed and its performance characteristics determined by [employer]. Values obtained with different methods, laboratories, or kits cannot be used interchangeably with the results on this report. The results cannot be interpreted as absolute evidence of the presence or absence of malignant disease. Urine 06/20/2024 9:16 AM EST 06/20/2024 9:17 AM EST Narrative [facility] - 06/28/2024 8:57 AM EST SPLIT 06/19/2024 FROM [id number] COLLECTION KIT GIVEN TO PATIENT. PATIENT ADVISED TO RETURN. URINE VOLUME: 1000 Resulting Agency Comment Performing Organization Information: ?Site ID: INS ?Name: [facility] ?Address: [address] [place] [address] ?Director: Mario Gonsales MD,PhD Wendy Cardenas MD LAB BLOOD ORDERABLES Final Resul t Performing Organization Address [facility] de Phone Number [facility] [address] [place] [address], [facility] * Histamine, Urine, 24 Hour (06/19/2024 10:00 AM EST) Total Volume 550 mL [facility], HISTAMINE, URINE, 24 HOUR 0.007 0.006 - 0.131 mg/24 h [facility], Comment: This test was performed using a kit that has not been cleared or approved by the FDA. The analytical performance characteristics of this test have been determined by [facility]. This test should not be used for diagnosis without confirmation by other medically established means. Urine 06/19/2024 10:0 0 AM EST 06/20/2024 9:20 AM EST Narrative [facility] - 06/26/2024 4:34 PM EST SPLIT 06/20/2024 FROM [id number] URINE VOLUME: 550/24 Resulting Agency Comment Performing Organization Information: ?Site ID: EZ ?Name: [facility], ?Address: [address] [place] [phone] ?Director: Mayra Martin MD,PhD,YURI Wendy Carednas MD LAB BLOOD ORDERABLES Final Resul t Performing Organization Address [facility] Co de Phone Number [facility] [id number] [place] [phone] [facility], [address] [place] [phone] * (ABNORMAL) JORGE A Screen, IFA, Rflx Titer/Pattern (06/19/2024 9:31 AM EST) JORGE A SCREEN, IFA POSITIVE( A) NEGATIVE [facility] Comment: JORGE A IFA is a first line screen for detecting the presence of up to approximately 150 autoantibodies in various autoimmune diseases. A positive JORGE A IFA result is suggestive of autoimmune disease and reflexes to titer and pattern. Further laboratory testing may be considered if clinically indicated. For additional information, please refer to http://education.Notonthehighstreet/faq/NKG952 (This link is being provided for informational/ educational purposes only.) ?? 06/19/2024 9:31 AM EST 06/19/2024 9:33 AM EST Narrative [facility] - 06/27/2024 6:07 PM EST FASTING:YES COLLECTION KIT GIVEN TO PATIENT. PATIENT ADVISED TO RETURN. FASTING: YES Resulting Agency Comment Performing Organization Information: ?Site ID: [id number] ?Name: [facility] ?Address: [address] [place] [phone] ?Director: Fernie Hitchcock M.D. Wendy Cardenas MD LAB BLOOD ORDERABLES Final Resul t [facility] [address] [place] [address] [facility] [address] [place] [address] * (ABNORMAL) Antinuclear Antibodies Titer and Pattern (06/19/2024 9:31 AM EST) JORGE A Titer 1:1280(H) titer [facility] Comment: ?Reference Range ?<1:40 ?Negative ?1:40-1:80 ?Low Antibody Level ?>1:80 ?Elevated Antibody Level JORGE A Pattern Nuclear, Speckled( A) [facility] Comment: Speckled pattern is associated with mixed connective tissue disease (MCTD), systemic lupus erythematosus (SLE), Sjogren's syndrome, dermatomyositis, and systemic sclerosis/polymyositis overlap. AC-2,4,5,29: Speckled International Consensus on JORGE A Patterns (https://doi.org/10.1515/wcvl-5288-5059) JORGE A Titer 1:160(H) titer [facility] Comment: ?Reference Range ?<1:40 ?Negative ?1:40-1:80 ?Low Antibody Level ?>1:80 ?Elevated Antibody Level JORGE A Patter Nuclear, Homogeneo us(A) [facility] Comment: Homogeneous pattern is associated with systemic lupus erythematosus (SLE), drug-induced lupus and juvenile idiopathic arthritis. AC-1: Homogeneous International Consensus on JORGE A Patterns (https://doi.org/10.1515/nhmo-6062-7645) 06/19/2024 9:31 AM EST 06/19/2024 9:33 AM EST Narrative [facility] - 06/27/2024 6:07 PM EST FASTING:YES COLLECTION KIT GIVEN TO PATIENT. PATIENT ADVISED TO RETURN. FASTING: YES Resulting Agency Comment Performing Organization Information: ?Site ID: [id number] ?Name: [facility] ?Address: [address] [place] [phone] ?Director: Fernie Hitchcock M.D. us Wendy Cardenas MD LAB BLOOD ORDERABLES Final Resul t [facility] [address] [place] [address] [facility] [address] [place] [address] * THYROID PEROXIDASE AND THYROGLOBULIN ANTIBODIES (06/19/2024 9:31 AM EST) Thyroglobulin Ab <1 < or = 1 IU/mL [facility] Thyroid Peroxidase Ab <1 <9 IU/mL [facility] Blood 06/19/2024 9:31 AM EST 06/19/2024 9:33 AM EST [facility] - 06/27/2024 6:07 PM EST FASTING:YES COLLECTION KIT GIVEN TO PATIENT. PATIENT ADVISED TO RETURN. FASTING: YES Resulting Agency Comment Performing Organization Information: ?Site ID: [id number] ?Name: [facility] ?Address: [address] [place] [phone] ?Director: Fernie Hitchcock M.D. us Wendy Cardenas MD LAB BLOOD ORDERABLES Final Resul t [facility] [address] [place] [address] [facility] [address] [place] [phone] * TSH and Free T4 (06/19/2024 9:31 AM EST) TSH 0.96 mIU/L [facility] Comment: ?Reference Range ?> or = 20 Years ??0.40-4.50 ? Ranges ?First trimester ?0.26-2.66 ?Second trimester ?? 0.55-2.73 ?Third trimester ?0.43-2.91 Free T4 1.1 0.8 - 1.8 ng/dL [facility] Blood 06/19/2024 9:31 AM EST 06/19/2024 9:33 AM EST Narrative [facility] - 06/27/2024 6:07 PM EST FASTING:YES COLLECTION KIT GIVEN TO PATIENT. PATIENT ADVISED TO RETURN. FASTING: YES Resulting Agency Comment Performing Organization Information: ?Site ID: [id number] ?Name: [facility] ?Address: [address] [place] [phone] ?Director: Fernie Hitchcock M.D. Wendy Cardenas MD LAB BLOOD ORDERABLES Final Resul t Performing Organization Address [facility] de Phone Number [facility] [address] [place] [address] [place] [address] [facility] [address] [place] [phone] * (ABNORMAL) Iron, Total, TIBC and Saturation (06/19/2024 9:31 AM EST) Iron 57 40 - 190 mcg/dL [facility] TIBC 406 250 - 450 mcg/dL (calc) [facility] Iron Saturation 14(L) 16 - 45 % (calc) [facility] Blood 06/19/2024 9:31 AM EST 06/19/2024 9:33 AM EST Narrative [facility] - 06/27/2024 6:07 PM EST FASTING:YES COLLECTION KIT GIVEN TO PATIENT. PATIENT ADVISED TO RETURN. FASTING: YES Resulting Agency Comment Performing Organization Information: ?Site ID: [id number] ?Name: [facility] ?Address: [address] [place] [phone] ?Director: Fernie Hitchcock M.D. Wendy Cardenas MD LAB BLOOD ORDERABLES Final Resul t Performing Organization Address [facility] Co de Phone Number [facility] [address] [phone] [facility] [address] [phone] * (ABNORMAL) Sjogren's (SS-A, SS-B) Antibodies (06/19/2024 9:31 AM EST) SJOGREN'S ANTIBODY (SS-A) >8.0 POS(A) <1.0 NEG AI [facility] Sjogren's Antibody (SS-B) >8.0 POS(A) <1.0 NEG [facility] 06/19/2024 9:31 AM EST 06/19/2024 9:33 AM EST [facility] - 06/27/2024 6:07 PM EST FASTING:YES COLLECTION KIT GIVEN TO PATIENT. PATIENT ADVISED TO RETURN. FASTING: YES Resulting Agency Comment Performing Organization Information: ?Site ID: [id number] ?Name: [facility] ?Address: [address] [place] [phone] ?Director: Fernie Hitchcock M.D. Wendy Cardenas MD LAB BLOOD ORDERABLES Final Resul t [facility] [address] [place] [phone] [facility] [address] [place] [phone] * Vitamin B12 & Folate (06/19/2024 9:31 AM EST) Vitamin B-12 299 200 - 1,100 pg/mL [facility] Comment: Please Note: Although the reference range for vitamin B12 is 200-1100 pg/mL, it has been reported that between 5 and 10% of patients with values between 200 and 400 pg/mL may experience neuropsychiatric and hematologic abnormalities due to occult B12 deficiency; less than 1% of patients with values above 400 pg/mL will have symptoms. Folate >24.0 ng/mL [facility] Comment: ? Reference Range ? Low: ? <3.4 ? Borderline: ?3.4-5.4 ? Normal: ?>5.4 Blood 06/19/2024 9:31 AM EST 06/19/2024 9:33 AM EST [facility] - 06/27/2024 6:07 PM EST FASTING:YES COLLECTION KIT GIVEN TO PATIENT. PATIENT ADVISED TO RETURN. FASTING: YES Resulting Agency Comment Performing Organization Information: ?Site ID: [id number] ?Name: [facility] ?Address: [address] [place] [phone] ?Director: Fernie Hitchcock M.D. us Wendy Cardenas MD LAB BLOOD ORDERABLES Final Resul t [facility] [address] [place] [address] [facility] [address] [place] [address] * Aldosterone/Plasma Renin Activity Ratio (06/19/2024 9:31 AM EST) Aldosterone 8 see note ng/dL [facility]/Teresa [facility]ASER Comment: Unable to flag abnormal result(s), please refer ?to reference range(s) below: Adult Reference Ranges for Aldosterone, LC/MS/MS: ?Upright ??8:00 - 10:00 am ?< or = 28 ng/dL ?Upright ??4:00 - ??6:00 pm ?< or = 21 ng/dL ?Supine ?? 8:00 - 10:00 am ? 3 - 16 ng/dL Renin 1.93 0.25 - 5.82 ng/mL/h [facility] ALDOSTERONE/PLAS MA RENIN ACTIVITY RATIO 4.1 0.9 - 28.9 Ratio [facility] Comment: This test was developed and its analytical performance characteristics have been determined by [facility] [place], [place]. It has not been cleared or approved by the U.S. Food and Drug Administration. This assay has been validated pursuant to the CLIA regulations and is used for clinical purposes. 06/19/2024 9:31 AM EST 06/19/2024 9:33 AM EST Narrative [facility] - 06/27/2024 6:07 PM EST FASTING:YES COLLECTION KIT GIVEN TO PATIENT. PATIENT ADVISED TO RETURN. FASTING: YES Resulting Agency Comment Performing Organization Information: ?Site ID: AMD ?Name: [facility] ?Address: [address] [place] [address] Dr [place] ?Director: Wilson Shetty M.D.,PhD Wendy Cardenas MD LAB BLOOD ORDERABLES Final Resul t [facility] [address] [facility]/[address] [place], [place] * Catecholamines, fractionated, plasma (06/19/2024 9:31 AM EST) Epinephrine 56 pg/mL [facility]/ [facility], Comment: Reference Range: SUPINE: <58 UPRIGHT: <82 Norepinephrine 382 pg/mL [facility], Comment: Reference Range: SUPINE: 149-564 UPRIGHT: 199-937 Dopamine 15 pg/mL [facility], Comment: Reference Range: SUPINE: <16 UPRIGHT: <27 Total Catecholamines (Nor+Epi) 453 pg/mL [facility], Comment: Reference Range: SUPINE: <632 UPRIGHT: <1046 Due to stress, plasma catecholamine levels are generally unreliable in infants and small children. Urinary catecholamine assays are more reliable. This test was developed and its analytical performance characteristics have been determined by [facility]. It has not been cleared or approved by FDA. This assay has been validated pursuant to the CLIA regulations and is used for clinical purposes. Blood 06/19/2024 9:31 AM EST 06/19/2024 9:33 AM EST Narrative [facility] - 06/27/2024 6:07 PM EST FASTING:YES COLLECTION KIT GIVEN TO PATIENT. PATIENT ADVISED TO RETURN. FASTING: YES Resulting Agency Comment Performing Organization Information: ?Site ID: EZ ?Name: [facility], ?Address: [address] [place] [phone] ?Director: Mayra Martin MD,PhD,YURI Wendy Cardenas MD LAB BLOOD ORDERABLES Final Resul t [facility] [address] [place] [phone] [facility], [address] [place] [address] * Tryptase (06/19/2024 9:31 AM EST) TRYPTASE 5.4 <11.0 mcg/L [facility] Comment: The Tryptase test, fluorescent enzyme immunoassay (FEIA), measures both the Alpha and Beta forms of Tryptase. Measuring both forms of Tryptase increases sensitivity for the diagnosis of mastocytosis, and mast cell degranulation as a cause of anaphylaxis. Blood 06/19/2024 9:31 AM EST 06/19/2024 9:33 AM EST Narrative [facility] - 06/27/2024 6:07 PM EST FASTING:YES COLLECTION KIT GIVEN TO PATIENT. PATIENT ADVISED TO RETURN. FASTING: YES Resulting Agency Comment Performing Organization Information: ?Site ID: [id number] ?Name: [facility] ?Address: [address] [place] [phone] ?Director: Fernie Hitchcock M.D. Wendy Cardenas MD LAB BLOOD ORDERABLES Final Resul t Performing Organization Address [facility] de Phone Number [facility] [address] [place] [phone] [facility] [address] [place] [phone] * Tissue transglutaminase, IgA (06/19/2024 9:31 AM EST) Transglutaminase IgA 9.9 U/mL [facility] Comment: Value ?Interpretation ----- ? <15.0 ?Antibody not detected > or = 15.0 ?Antibody detected Blood 06/19/2024 9:31 AM EST 06/19/2024 9:33 AM EST [facility] - 06/27/2024 6:07 PM EST FASTING:YES COLLECTION KIT GIVEN TO PATIENT. PATIENT ADVISED TO RETURN. FASTING: YES Resulting Agency Comment Performing Organization Information: ?Site ID: [id number] ?Name: [facility] ?Address: [address] [place] [address] ?Director: Fernie Hitchcock M.D. Wendy Cardenas MD LAB BLOOD ORDERABLES Final Resul t Performing Organization Address [facility] de Phone Number [facility] [address] [place] [address] [place] [address] [facility] [address] [place] [address] * Cardiolipin antibody, IgM (06/19/2024 9:31 AM EST) Anticardiolipin IgM <2.0 MPL-U/mL [facility] Comment: Value ?Interpretation ----- ? < 20.0 [...] aging. For additional information, please refer to http://education.KongZhong/faq/LYA907 (This link is being provided for informational/ educational purposes only.) Blood 06/19/2024 9:31 AM EST 06/19/2024 9:33 AM EST Narrative [facility] - 06/27/2024 6:07 PM EST FASTING:YES COLLECTION KIT GIVEN TO PATIENT. PATIENT ADVISED TO RETURN. FASTING: YES Resulting Agency Comment Performing Organization Information: ?Site ID: [id number] ?Name: [facility] ?Address: [address] [place] [phone] ?Director: Fernie Hitchcock M.D. Wendy Cardenas MD LAB BLOOD ORDERABLES Final Resul t [facility] [address] [place] [address] [facility] [address] [place] [address] * Cardiolipin antibody, IgG (06/19/2024 9:31 AM EST) Anticardiolipin IgG <2.0 GPL-U/mL [facility] Comment: Value ?Interpretation ----- ? < 20.0 [...] aging. For additional information, please refer to http://education.KongZhong/faq/NZS747 (This link is being provided for informational/ educational purposes only.) Blood 06/19/2024 9:31 AM EST 06/19/2024 9:33 AM EST [facility] - 06/27/2024 6:07 PM EST FASTING:YES COLLECTION KIT GIVEN TO PATIENT. PATIENT ADVISED TO RETURN. FASTING: YES Resulting Agency Comment Performing Organization Information: ?Site ID: [id number] ?Name: [facility] ?Address: [address] [place] [phone] ?Director: Fernie Hitchcock M.D. Wendy Cardenas MD LAB BLOOD ORDERABLES Final Resul t [facility] [address] [place] [address] [facility] [address] [place] [address] * Cardiolipin antibody, IgA (06/19/2024 9:31 AM EST) Anticardiolipin IgA <2.0 APL-U/mL [facility] Comment: Value ?Interpretation ----- ? < 20.0 [...] aging. For additional information, please refer to http://education.KongZhong/faq/YIV780 (This link is being provided for informational/ educational purposes only.) Blood 06/19/2024 9:31 AM EST 06/19/2024 9:33 AM EST [facility] - 06/27/2024 6:07 PM EST FASTING:YES COLLECTION KIT GIVEN TO PATIENT. PATIENT ADVISED TO RETURN. FASTING: YES Resulting Agency Comment Performing Organization Information: ?Site ID: [id number] ?Name: [facility] ?Address: [address] [place] [phone] ?Director: Fernie Hitchcock M.D. Wendy Cardenas MD LAB BLOOD ORDERABLES Final Resul t Performing Organization Address City/[facility]/ZIP Co de Phone Number [facility] [address] [place] [address] [facility] [address] [place] [address] * HISTAMINE (06/19/2024 9:31 AM EST) Histamine, Plasma <1.5 < OR = 1.8 ng/mL [facility], Comment: This test was performed using a kit that has not been cleared or approved by the FDA. The analytical performance characteristics of this test have been determined by [facility]. This test should not be used for diagnosis without confirmation by other medically established means. Blood 06/19/2024 9:31 AM EST 06/19/2024 9:33 AM EST Narrative [facility] - 06/27/2024 6:07 PM EST FASTING:YES COLLECTION KIT GIVEN TO PATIENT. PATIENT ADVISED TO RETURN. FASTING: YES Resulting Agency Comment Performing Organization Information: ?Site ID: EZ ?Name: [facility], ?Address: [address] [place] [phone] ?Director: Mayra Martin MD,PhD,YURI Wendy Cardenas MD LAB BLOOD ORDERABLES Final Resul t Performing Organization Address City/[facility]/ZIP Co de Phone Number [facility] [id number] [place] [phone] [facility], [address] [place] [phone] * ACTH (06/19/2024 9:31 AM EST) ACTH 13 6 - 50 pg/mL [facility] Comment: Reference range applies only to specimens collected between 7am-10am. ? Blood 06/19/2024 9:31 AM EST 06/19/2024 9:33 AM EST Narrative [facility] - 06/27/2024 6:07 PM EST FASTING:YES COLLECTION KIT GIVEN TO PATIENT. PATIENT ADVISED TO RETURN. FASTING: YES Resulting Agency Comment Performing Organization Information: ?Site ID: AMD ?Name: [facility] ?Address: [address] [place] [address] Dr [place] ?Director: Wilson Shetty M.D.,PhD us Wendy Cardenas MD LAB BLOOD ORDERABLES Final Resul t [facility] [address] [place], [place] [facility]/[address] [place], [place] * Lupus anticoagulant (06/19/2024 9:31 AM EST) LUPUS ANTICOAGULANT EVAL. see note [facility] Comment: A Lupus Anticoagulant is not detected. Reference Range: ??Not Detected For additional information, please refer to http://education.KongZhong/faq/KHO79f5 (This link is being provided for informational/ educational purposes only.) ? This interpretation is based on the following test results. PTT-LA Screen 38 <=40 sec [facility] dRVVT Screen 39 <=45 sec [facility] Blood 06/19/2024 9:31 AM EST 06/19/2024 9:33 AM EST [facility] - 06/27/2024 6:07 PM EST FASTING:YES COLLECTION KIT GIVEN TO PATIENT. PATIENT ADVISED TO RETURN. FASTING: YES Resulting Agency Comment Performing Organization Information: ?Site ID: AMD ?Name: [facility] ?Address: [address] [place] [address] Dr [place], [place] ?Director: Wilson Shetty M.D.,PhD us Wendy Cardenas MD LAB BLOOD ORDERABLES Final Resul t [employer] [address] [facility] [address] [place], [place] * CBC (06/19/2024 9:31 AM EST) Pathologist [facility] WBC 5.8 3.8 - 10.8 Thousand/u L [facility] [employer] RBC 4.83 3.80 - 5.10 Million/uL [facility] [employer] Hemoglobin 13.9 11.7 - 15.5 g/dL [facility] [facility] Hematocrit 42.5 35.0 - 45.0 % [facility] [employer] MCV 88.0 80.0 - 100.0 fL [facility] [employer] MCH 28.8 27.0 - 33.0 pg [facility] MCHC 32.7 32.0 - 36.0 g/dL [facility] [employer] Comment: For adults, a slight decrease in the calculated MCHC value (in the range of 30 to 32 g/dL) is most likely not clinically significant; however, it should be interpreted with caution in correlation with other red cell parameters and the patient's clinical condition. RDW 12.5 11.0 - 15.0 % [facility] [employer] [facility] [employer] Platelets 284 140 - 400 Thousand/u L [facility] [employer] MPV 10.8 7.5 - 12.5 fL [facility] Blood 06/19/2024 9:31 AM EST 06/19/2024 9:33 AM EST [facility] - 06/27/2024 6:07 PM EST FASTING:YES COLLECTION KIT GIVEN TO PATIENT. PATIENT ADVISED TO RETURN. FASTING: YES Resulting Agency Comment Performing Organization Information: ?Site ID: [id number] ?Name: [facility] ?Address: [address] [place] [phone] ?Director: Fernie Hitchcock M.D. Wendy Cardenas MD LAB BLOOD ORDERABLES Final Resul t Performing Organization Address [facility] Phone Number [facility] [address] [place] [phone] [facility] [address] [place] [phone] * Rheumatoid factor (06/19/2024 9:31 AM EST) [facility] Rheumatoid Factor 13 <14 IU/mL [facility] [employer] Blood 06/19/2024 9:31 AM EST 06/19/2024 9:33 AM EST [facility] - 06/27/2024 6:07 PM EST FASTING:YES COLLECTION KIT GIVEN TO PATIENT. PATIENT ADVISED TO RETURN. FASTING: YES Resulting Agency Comment Performing Organization Information: ?Site ID: [id number] ?Name: [facility] ?Address: [address] [place] [phone] ?Director: Fernie Hitchcock M.D. Wendy Cardenas MD LAB BLOOD ORDERABLES Final Resul t Performing Organization Address [facility] Phone Number [facility] [address] [place] [phone] [facility] [address] [place] [phone] * T3 (06/19/2024 9:31 AM EST) [facility] T3, Total 121 76 - 181 ng/dL [facility] Blood 06/19/2024 9:31 AM EST 06/19/2024 9:33 AM EST Narrative [facility] - 06/27/2024 6:07 PM EST FASTING:YES COLLECTION KIT GIVEN TO PATIENT. PATIENT ADVISED TO RETURN. FASTING: YES Resulting Agency Comment Performing Organization Information: ?Site ID: [id number] ?Name: [facility] ?Address: [address] [place] [phone] ?Director: Fernie Hitchcock M.D. Wendy Cardenas MD LAB BLOOD ORDERABLES Final Resul t Performing Organization Address [facility] Phone Number [facility] [address] [place] [phone] [facility] [address] [place] [phone] * Transferrin (06/19/2024 9:31 AM EST) Pathologist [facility] Transferrin 322 188 - 341 mg/dL [facility] Blood 06/19/2024 9:31 AM EST 06/19/2024 9:33 AM EST Narrative [facility] - 06/27/2024 6:07 PM EST FASTING:YES COLLECTION KIT GIVEN TO PATIENT. PATIENT ADVISED TO RETURN. FASTING: YES Resulting Agency Comment Performing Organization Information: ?Site ID: [id number] ?Name: [facility] ?Address: [address] [place] [phone] ?Director: Fernie Hitchcock M.D. Wendy Cardenas MD LAB BLOOD ORDERABLES Final Resul t Performing Organization Address [facility] Phone Number [facility] [address] [place] [phone] [facility] [address] [place] [phone] * Vitamin B6 (06/19/2024 9:31 AM EST) Pathologist [facility] Vitamin B6 3.2 2.1 - 21.7 ng/mL [facility] Comment: Vitamin supplementation within 24 hours prior to blood draw may affect the accuracy of the results. This test was developed and its analytical performance characteristics have been determined by [employer]. It has not been cleared or approved by the U.S. Food and Drug Administration. This assay has been validated pursuant to the CLIA regulations and is used for clinical purposes. Blood 06/19/2024 9:31 AM EST 06/19/2024 9:33 AM EST Narrative [facility] - 06/27/2024 6:07 PM EST FASTING:YES COLLECTION KIT GIVEN TO PATIENT. PATIENT ADVISED TO RETURN. FASTING: YES Resulting Agency Comment Performing Organization Information: ?Site ID: [id number] ?Name: [facility] ?Address: [address] [place] [address] [place] ?Director: Wilson Shetty M.D.,PhD Wendy Cardenas MD LAB BLOOD ORDERABLES Final Resul t [facility] [address] [facility] [place], [place] * Hemoglobin A1c (06/19/2024 9:31 AM EST) Hemoglobin A1C 5.5 <5.7 % of total Hgb [facility] Comment: For the purpose of screening for the presence of diabetes: <5.7% ? Consistent with the absence of diabetes 5.7-6.4% ?Consistent with increased risk for diabetes ?(prediabetes) > or =6.5% ??Consistent with diabetes This assay result is consistent with a decreased risk of diabetes. Currently, no consensus exists regarding use of hemoglobin A1c for diagnosis of diabetes in children. According to [place] Diabetes [employer] (ADA) guidelines, hemoglobin A1c <7.0% represents optimal control in non- diabetic patients. Different metrics may apply to specific patient populations. Standards of Medical Care in Diabetes(ADA). ?? Blood 06/19/2024 9:31 AM EST 06/19/2024 9:33 AM EST Narrative [facility] - 06/27/2024 6:07 PM EST FASTING:YES COLLECTION KIT GIVEN TO PATIENT. PATIENT ADVISED TO RETURN. FASTING: YES Resulting Agency Comment Performing Organization Information: ?Site ID: [id number] ?Name: [facility] ?Address: [address] [place] [phone] ?Director: Fernie Hitchcock M.D. Wendy Cardenas MD LAB BLOOD ORDERABLES Final Resul t Performing Organization Address [facility] de Phone Number [facility] [address] [place] [phone] [facility] [address] [place] [phone] * (ABNORMAL) Ferritin (06/19/2024 9:31 AM EST) Ferritin 8(L) 16 - 154 ng/mL [facility] Blood 06/19/2024 9:31 AM EST 06/19/2024 9:33 AM EST Narrative [facility] - 06/27/2024 6:07 PM EST FASTING:YES COLLECTION KIT GIVEN TO PATIENT. PATIENT ADVISED TO RETURN. FASTING: YES Resulting Agency Comment Performing Organization Information: ?Site ID: [id number] ?Name: [facility] ?Address: [address] [place] [phone] ?Director: Fernie Hitchcock M.D. Wendy Cardenas MD LAB BLOOD ORDERABLES Final Resul t Performing Organization Address [facility] de Phone Number [facility] [address] [place] [phone] [facility] [address] [place] [phone] * Comprehensive metabolic panel (CMP): Na, K, CL, Co2, Gluc, Ca, BUN, Creat, B/C, T.Prot, Alb, Glb, A/G, AST, ALT, ALKP, T.Bili (06/19/2024 9:31 AM EST) Glucose 92 65 - 99 mg/dL [facility] Comment: ? Fasting reference interval BUN 10 7 - 25 mg/dL [facility] Creatinine 0.72 0.50 - 0.99 mg/dL [facility] EGFR 108 > OR = 60 mL/min/1. 73m2 [facility] BUN/Creatinine Ratio SEE NOTE: (calc) [facility] Comment: ?? Not Reported: BUN and Creatinine are within ?? reference range. ? Sodium 137 135 - 146 mmol/L [facility] Potassium 4.1 3.5 - 5.3 mmol/L [facility] Chloride 105 98 - 110 mmol/L [facility] CO2 25 20 - 32 mmol/L [facility] Calcium 9.3 8.6 - 10.2 mg/dL [facility] Total Protein 7.2 6.1 - 8.1 g/dL [facility] Albumin 3.8 3.6 - 5.1 g/dL [facility] Globulin, Total 3.4 1.9 - 3.7 g/dL (calc) [facility] A/G Ratio 1.1 1.0 - 2.5 (calc) [facility] Total Bilirubin 0.3 0.2 - 1.2 mg/dL [facility] Alkaline Phosphatase 45 31 - 125 U/L [facility] AST 12 10 - 30 U/L [facility] ALT 12 6 - 29 U/L [facility] Blood 06/19/2024 9:31 AM EST 06/19/2024 9:33 AM EST Narrative [facility] - 06/27/2024 6:07 PM EST FASTING:YES COLLECTION KIT GIVEN TO PATIENT. PATIENT ADVISED TO RETURN. FASTING: YES Resulting Agency Comment Performing Organization Information: ?Site ID: [id number] ?Name: [facility] ?Address: [address] [place] [phone] ?Director: Fernie Hitchcock M.D. Wendy Cardenas MD LAB BLOOD ORDERABLES Final Resul t Performing Organization Address [facility] de Phone Number [facility] [address] [place] [phone] [facility] [address] [place] [phone] * CARDIAC MEDIUM TERM MONITOR OFFICE 3-7 DAYS (06/15/2024 3:05 PM EST) Narrative [facility] - 07/15/2024 5:26 PM EST Prescribed [...] DIAG ORDERABLES Final Result Performing Organization Address [facility] de Phone Number [facility] [address] [place] [address] * EKG 12 lead (06/15/2024 1:47 PM EST) 06/15/2024 1:47 PM EST Narrative [facility] - 06/17/2024 1:10 PM EST ?[facility] ?[address] [place], [place] ??[address] ? Test Date: ?2024-06-15 Pat Name: ? YUDITHKEKE HOLLAND ?Department: ?? CARD HTFD ?Room: ? Gender: ? Female ? Personal Lines Advisor: ?? CC : ?1985 ? Requested By: IRFAN WARSY Order Number: [id number] ? Reading MD: ?? Irfan Warsy ? Measurements Intervals ?[place] ? Rate: ? 78 ? P: ?71 AL: ? 151 ?QRS: ?51 QRSD: ? 85 ? T: ?60 QT: ? 387 ? QTc: ?441 ? Interpretive Statements Normal Sinus Rhythm Normal axes, intervals, and voltages Electronically Signed On 06-17-2024 13:10:55 EST by Wendy Cardenas Wendy Cardenas MD ECG ORDERABLES Final Result [facility] from Last 3 Months Insurance [facility] [employer] Care Teams Drafter [employer] Relationship Specialty Start Date End Date Luis Loomis MD [address] [place] [address] PCP - General 02/21/24
--- OUTSIDE RECORDS SUMMARY | 2024-08-16 07:57 | XMS_ITS | Clinical Summary ---
[facility] Organization [facility] Address [address] [place] [address] Care Team Providers Care Terrazzo Supervisor Name Role Phone Luis Loomis MD Primary Care Provider [phone] Surgical History Surgery Date Site/Laterality Comments CERVICAL [...] drink = 0.6 oz pur e alcohol) Comments Unknown Sex and Gender Information Value Date Recorded Sex Assigned at Not on file Legal Sex Female 10:17 AM EST Gender Identity Not on file Sexual Orientation Not on file Obstetrics History Plan of Treatment Upcoming Encounters Date Type Department Care Team (Late st Contact Info) Description 10/02/2024 1:00 PM EDT Appointment [facility] Xray [address] [place] [phone] Health Maintenance Due Date Last Done Comments Breast Cancer Screening 1985 Cervical Cancer Screening: P ap Smear 02/22/2005 Hepatitis B Vaccines (2 of 3 - 19+ 3-dose series) 09/29/2009 09/01/2009 DTaP,Tdap,and Td Vaccines (2 - Td or Tdap) 02/12/2018 02/13/2008 COVID-19 Vaccine (2023-2 5 season) 2024 Influenza Vaccine (#1) 2024 Depression Screening 08/09/2024 HIV Screening 08/09/2024 Hepatitis C Screening 08/09/2024 Social Influencers of Health Screening 08/09/2024 HIB Vaccines Aged Out No longer eligi [...] patient's age to complete this topic Meningococcal B Vacine Aged Out No lo nger eligible based on patient's age to complete this topic Pneumococcal Vaccine: Pediat rics (0 to 5 Years) and At-Risk Patients (6 to 64 Years) Aged Out No longer eligi ble based on patient's age to complete this topic RSV Immunization Patients Un traun 20 months Aged Out No longer eligible b ased on patient's age to complete this topic Varicella Vaccines Aged Out No longer eligible based on patient's age to complete this topic Insurance MEDICAID - [place] [facility] Care Teams Terrazzo Supervisor Relationship Specialty Start Date End Date Luis Loomis MD [address] [place] [phone] PCP - General Internal Medicine 05/17/18
--- OUTSIDE RECORDS SUMMARY | 2024-08-16 07:57 | XMS_ITS | Referral Summary ---
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 Refill [facility] Department of Cardiology [address] [place] [phone] Jonathan Cardenas 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 Refill [facility] Department of Cardiology [address] [place] [phone] Jonathan Cardenas MD POTS (postural orthostatic tachycardia syndrome) 06/15/2024 2:28 PM EST - 06/15/2024 11:59 PM EST Hospital Encounter [facility] Department of Cardiology [address] [place] [phone] Jonathan Cardenas MD Discharge Disposition: Home or Self Care 06/15/2024 1:30 PM EST Office Visit [facility] Department of Cardiology [address] [facility] [address] [place] [address] Jonathan Cardenas MD Mast cell [...] [facility] Department of Cardiology [address] [place] [phone] 11/09/2024 4:00 PM EDT Office Visit [facility] Department of Cardiology [address] [place] [phone] Jonathan Cardenas MD [address] [place] [address] Procedures Procedure Name Priority Date/Time Associated Diagnosis [...] 9:16 AM EST) Specimen Type/Container URINE/CU P [facility] Prostaglandin D2 (PG D2), Urine 314(H) <175 ng/g Creatinine [facility] Comment: This test was developed and its performance characteristics determined by [employer]. Values obtained with different methods, laboratories, or kits cannot be used interchangeably with the results on this report. The results cannot be interpreted as absolute evidence of the presence or absence of malignant disease. Urine 06/20/2024 9:16 AM EST 06/20/2024 9:17 AM EST Narrative [facility] - 06/28/2024 8:57 AM EST SPLIT 06/19/2024 FROM [id number] COLLECTION KIT GIVEN TO PATIENT. PATIENT ADVISED TO RETURN. URINE VOLUME: 1000 Resulting Agency Comment Performing Organization Information: ?Site ID: INS ?Name: [facility] ?Address: [address] [place] [phone] ?Director: Mario Gonsales MD,PhD us Jonathan Cardenas MD LAB BLOOD ORDERABLES Final Resul t [place] [address] [place] [address], [facility] * Histamine, Urine, 24 Hour (06/19/2024 10:00 AM EST) Total Volume 550 mL [facility], HISTAMINE, URINE, 24 HOUR 0.007 0.006 - 0.131 mg/24 h [facility], Comment: This test was performed using a kit that has not been cleared or approved by the FDA. The analytical performance characteristics of this test have been determined by [facility]. This test should not be used for diagnosis without confirmation by other medically established means. Urine 06/19/2024 10:0 0 AM EST 06/20/2024 9:20 AM EST Narrative [facility] - 06/26/2024 4:34 PM EST SPLIT 06/20/2024 FROM [id number] URINE VOLUME: 550/24 Resulting Agency Comment Performing Organization Information: ?Site ID: EZ ?Name: [facility], ?Address: [address] [place] [phone] ?Director: Mayra Martin MD,PhD,YURI Jonathan Cardenas MD LAB BLOOD ORDERABLES Final Resul t [facility]/M[facility]ER [address] [phone] [facility], [address] [place] [phone] * (ABNORMAL) JORGE A Screen, IFA, Rflx Titer/Pattern (06/19/2024 9:31 AM EST) JORGE A SCREEN, IFA POSITIVE( A) NEGATIVE [place]. com. cn-[place]. com. cn Comment: JORGE A IFA is a first line screen for detecting the presence of up to approximately 150 autoantibodies in various autoimmune diseases. A positive JORGE A IFA result is suggestive of autoimmune disease and reflexes to titer and pattern. Further laboratory testing may be considered if clinically indicated. For additional information, please refer to http://education.Jigsaw/faq/ZPZ319 (This link is being provided for informational/ educational purposes only.) ?? 06/19/2024 9:31 AM EST 06/19/2024 9:33 AM EST Narrative [facility] - 06/27/2024 6:07 PM EST FASTING:YES COLLECTION KIT GIVEN TO PATIENT. PATIENT ADVISED TO RETURN. FASTING: YES Resulting Agency Comment Performing Organization Information: ?Site ID: [id number] ?Name: [facility] [facility] ?Address: [address] [place] [phone] ?Director: Fernie Hitchcock M.D. Jonathan Cardenas MD LAB BLOOD ORDERABLES Final Resul t [facility] [address] [place] [address] [place]. com. cnTX. com. cn 200 [place] [address] * (ABNORMAL) Antinuclear Antibodies Titer and Pattern (06/19/2024 9:31 AM EST) JORGE A Titer 1:1280(H) titer [facility] Comment: ?Reference Range ?<1:40 ?Negative ?1:40-1:80 ?Low Antibody Level ?>1:80 ?Elevated Antibody Level JORGE A Pattern Nuclear, Speckled( A) [facility] Comment: Speckled pattern is associated with mixed connective tissue disease (MCTD), systemic lupus erythematosus (SLE), Sjogren's syndrome, dermatomyositis, and systemic sclerosis/polymyositis overlap. AC-2,4,5,29: Speckled International Consensus on JORGE A Patterns (https://doi.org/10.1515/ukbq-0827-9471) JORGE A Titer 1:160(H) titer [facility] Comment: ?Reference Range ?<1:40 ?Negative ?1:40-1:80 ?Low Antibody Level ?>1:80 ?Elevated Antibody Level JORGE A Patter NuclearKayla(A) [facility] Comment: Homogeneous pattern is associated with systemic lupus erythematosus (SLE), drug-induced lupus and juvenile idiopathic arthritis. AC-1: Homogeneous International Consensus on JORGE A Patterns (https://doi.org/10.1515/jsmj-6919-0967) 06/19/2024 9:31 AM EST 06/19/2024 9:33 AM EST Narrative [facility] - 06/27/2024 6:07 PM EST FASTING:YES COLLECTION KIT GIVEN TO PATIENT. PATIENT ADVISED TO RETURN. FASTING: YES Resulting Agency Comment Performing Organization Information: ?Site ID: [id number] ?Name: [employer] ?Address: [address] [place] [phone] ?Director: Fernie Hitchcock M.D. us Jonathan Cardenas MD LAB BLOOD ORDERABLES Final Resul t [facility] [address] [place] [address] [employer] [address] [place] [address] * THYROID PEROXIDASE AND THYROGLOBULIN ANTIBODIES (06/19/2024 9:31 AM EST) Thyroglobulin Ab <1 < or = 1 IU/mL [facility] Thyroid Peroxidase Ab <1 <9 IU/mL [place]. com. cn-[facility]dm Blood 06/19/2024 9:31 AM EST 06/19/2024 9:33 AM EST Narrative [facility] - 06/27/2024 6:07 PM EST FASTING:YES COLLECTION KIT GIVEN TO PATIENT. PATIENT ADVISED TO RETURN. FASTING: YES Resulting Agency Comment Performing Organization Information: ?Site ID: [id number] ?Name: [employer] ?Address: [address] [place] [phone] ?Director: Fernie Hitchcock M.D. us Jonathan Cardenas MD LAB BLOOD ORDERABLES Final Resul t [facility] [address] [place] [address] [employer] [address] [place] [address] * TSH and Free T4 (06/19/2024 9:31 AM EST) TSH 0.96 mIU/L [place]. com. cn-TX. com. cn Comment: ?Reference Range ?> or = 20 Years ??0.40-4.50 ? Ranges ?First trimester ?0.26-2.66 ?Second trimester ?? 0.55-2.73 ?Third trimester ?0.43-2.91 Free T4 1.1 0.8 - 1.8 ng/dL [facility]dm Blood 06/19/2024 9:31 AM EST 06/19/2024 9:33 AM EST Narrative [facility] - 06/27/2024 6:07 PM EST FASTING:YES COLLECTION KIT GIVEN TO PATIENT. PATIENT ADVISED TO RETURN. FASTING: YES Resulting Agency Comment Performing Organization Information: ?Site ID: [id number] ?Name: [employer] ?Address: [address] [place] [phone] ?Director: Fernie Hitchcock M.D. Jonathan Cardenas MD LAB BLOOD ORDERABLES Final Resul t Performing Organization Address [facility] Co de Phone Number [facility] [address] [place] [phone] [employer] [address] [place] [phone] * (ABNORMAL) Iron, Total, TIBC and Saturation (06/19/2024 9:31 AM EST) [facility] Iron 57 40 - 190 mcg/dL [facility] TIBC 406 250 - 450 mcg/dL (calc) [facility] Iron Saturation 14(L) 16 - 45 % (calc) [facility] [facility] Blood 06/19/2024 9:31 AM EST 06/19/2024 9:33 AM EST Narrative [facility] - 06/27/2024 6:07 PM EST FASTING:YES COLLECTION KIT GIVEN TO PATIENT. PATIENT ADVISED TO RETURN. FASTING: YES Resulting Agency Comment Performing Organization Information: ?Site ID: [id number] ?Name: [employer] ?Address: [address] [place] [phone] ?Director: Fernie Hitchcock M.D. Jonathan Cardenas MD LAB BLOOD ORDERABLES Final Resul t Performing Organization Address [facility] Co de Phone Number [facility] [address] [place] [phone] [employer] [address] [place] [phone] * (ABNORMAL) Sjogren's (SS-A, SS-B) Antibodies (06/19/2024 9:31 AM EST) [facility] SJOGREN'S ANTIBODY (SS-A) >8.0 POS(A) <1.0 NEG AI [facility] Sjogren's Antibody (SS-B) >8.0 POS(A) <1.0 NEG [facility] [facility] 06/19/2024 9:31 AM EST 06/19/2024 9:33 AM EST [facility] - 06/27/2024 6:07 PM EST FASTING:YES COLLECTION KIT GIVEN TO PATIENT. PATIENT ADVISED TO RETURN. FASTING: YES Resulting Agency Comment Performing Organization Information: ?Site ID: [id number] ?Name: [employer] ?Address: [address] [place] [phone] ?Director: Fernie Hitchcock M.D. Jonathan Cardenas MD LAB BLOOD ORDERABLES Final Resul t [facility] [address] [place] [address] [employer] [address] [place] [address] * Vitamin B12 & Folate (06/19/2024 9:31 AM EST) Pathologist [facility] Vitamin B-12 299 200 - 1,100 pg/mL [employer] Comment: Please Note: Although the reference range for vitamin B12 is 200-1100 pg/mL, it has been reported that between 5 and 10% of patients with values between 200 and 400 pg/mL may experience neuropsychiatric and hematologic abnormalities due to occult B12 deficiency; less than 1% of patients with values above 400 pg/mL will have symptoms. Folate >24.0 ng/mL [employer] Comment: ? Reference Range ? Low: ? <3.4 ? Borderline: ?3.4-5.4 ? Normal: ?>5.4 Blood 06/19/2024 9:31 AM EST 06/19/2024 9:33 AM EST Narrative [facility] - 06/27/2024 6:07 PM EST FASTING:YES COLLECTION KIT GIVEN TO PATIENT. PATIENT ADVISED TO RETURN. FASTING: YES Resulting Agency Comment Performing Organization Information: ?Site ID: [id number] ?Name: [place]. com. cn-[place]. com. cn ?Address: [address] [place] [phone] ?Director: Fernie Hitchcock M.D. us Jonathan Cardenas MD LAB BLOOD ORDERABLES Final Resul t [employer] [address] [place] [address] [place]. com. cn-[place]. com. cn 200 [place] [address] * Aldosterone/Plasma Renin Activity Ratio (06/19/2024 9:31 AM EST) Aldosterone 8 see note ng/dL [facility] [place] on Request aneudy [place] Comment: Unable to flag abnormal result(s), please refer ?to reference range(s) below: Adult Reference Ranges for Aldosterone, LC/MS/MS: ?Upright ??8:00 - 10:00 am ?< or = 28 ng/dL ?Upright ??4:00 - ??6:00 pm ?< or = 21 ng/dL ?Supine ?? 8:00 - 10:00 am ? 3 - 16 ng/dL Renin 1.93 0.25 - 5.82 ng/mL/h [facility] [employer] [place] [facility]play aneudy [place] ALDOSTERONE/PLAS [place] RENIN ACTIVITY RATIO 4.1 0.9 - 28.9 Ratio [facility] [facility] Comment: This test was developed and its analytical performance characteristics have been determined by [facility] [place]. It has not been cleared or approved by the U.S. Food and Drug Administration. This assay has been validated pursuant to the CLIA regulations and is used for clinical purposes. 06/19/2024 9:31 AM EST 06/19/2024 9:33 AM EST Narrative [facility] - 06/27/2024 6:07 PM EST FASTING:YES COLLECTION KIT GIVEN TO PATIENT. PATIENT ADVISED TO RETURN. FASTING: YES Resulting Agency Comment Performing Organization Information: ?Site ID: [facility] ?Name: [facility] [employer]/[facility] ?Address: [address] [place] [address] [place], [place] ?Director: Wilson Shetty M.D.,PhD Jonathan Cardenas MD LAB BLOOD ORDERABLES Final Resul t [facility] [employer] [address] [place], [place] * Catecholamines, fractionated, plasma (06/19/2024 9:31 AM EST) Epinephrine 56 pg/mL [facility], Comment: Reference Range: SUPINE: <58 UPRIGHT: <82 Norepinephrine 382 pg/mL [facility], Comment: Reference Range: SUPINE: 149-564 UPRIGHT: 199-937 Dopamine 15 pg/mL [facility], Comment: Reference Range: SUPINE: <16 UPRIGHT: <27 Total Catecholamines (Nor+Epi) 453 pg/mL [facility], Comment: Reference Range: SUPINE: <632 UPRIGHT: <1046 Due to stress, plasma catecholamine levels are generally unreliable in infants and small children. Urinary catecholamine assays are more reliable. This test was developed and its analytical performance characteristics have been determined by [facility]. It has not been cleared or approved by FDA. This assay has been validated pursuant to the CLIA regulations and is used for clinical purposes. Blood 06/19/2024 9:31 AM EST 06/19/2024 9:33 AM EST Narrative [facility] - 06/27/2024 6:07 PM EST FASTING:YES COLLECTION KIT GIVEN TO PATIENT. PATIENT ADVISED TO RETURN. FASTING: YES Resulting Agency Comment Performing Organization Information: ?Site ID: EZ ?Name: [facility] [facility], ?Address: [address] [place] [phone] ?Director: Mayra Martin MD,PhD,YURI Jonathan Cardenas MD LAB BLOOD ORDERABLES Final Resul t [facility] [facility] [address] [place] [phone] [facility] [employer] [facility], [address] [place] [phone] * Tryptase (06/19/2024 9:31 AM EST) TRYPTASE 5.4 <11.0 mcg/L [employer] Comment: The Tryptase test, fluorescent enzyme immunoassay (FEIA), measures both the Alpha and Beta forms of Tryptase. Measuring both forms of Tryptase increases sensitivity for the diagnosis of mastocytosis, and mast cell degranulation as a cause of anaphylaxis. Blood 06/19/2024 9:31 AM EST 06/19/2024 9:33 AM EST Narrative [facility] - 06/27/2024 6:07 PM EST FASTING:YES COLLECTION KIT GIVEN TO PATIENT. PATIENT ADVISED TO RETURN. FASTING: YES Resulting Agency Comment Performing Organization Information: ?Site ID: NL1 ?Name: [facility] ?Address: [address] [place] [phone] ?Director: Fernie Hitchcock M.D. Jonathan Cardenas MD LAB BLOOD ORDERABLES Final Resul t Performing Organization Address [facility] Co de Phone Number [facility] [address] [place] [phone] [place]. com. cn-[place]. com. cn [address] [place] [phone] * Tissue transglutaminase, IgA (06/19/2024 9:31 AM EST) Transglutaminase IgA 9.9 U/mL [employer] Comment: Value ?Interpretation ----- ? <15.0 ?Antibody not detected > or = 15.0 ?Antibody detected Blood 06/19/2024 9:31 AM EST 06/19/2024 9:33 AM EST Narrative [facility] - 06/27/2024 6:07 PM EST FASTING:YES COLLECTION KIT GIVEN TO PATIENT. PATIENT ADVISED TO RETURN. FASTING: YES Resulting Agency Comment Performing Organization Information: ?Site ID: [id number] ?Name: [employer] ?Address: [address] [place] [phone] ?Director: Fernie Hitchcock M.D. Jonathan Cardenas MD LAB BLOOD ORDERABLES Final Resul t Performing Organization Address [facility]/ZIP Co de Phone Number [employer] [address] [place] [phone] [place]. com. cn-TX. com. cn [address] [place] [phone] * Cardiolipin antibody, IgM (06/19/2024 9:31 AM EST) Anticardiolipin IgM <2.0 MPL-U/mL [facility]dm Comment: Value ?Interpretation ----- ? < 20.0 [...] aging. For additional information, please refer to http://education.Fare Motion/faq/NYN372 (This link is being provided for informational/ educational purposes only.) Blood 06/19/2024 9:31 AM EST 06/19/2024 9:33 AM EST Narrative [facility] - 06/27/2024 6:07 PM EST FASTING:YES COLLECTION KIT GIVEN TO PATIENT. PATIENT ADVISED TO RETURN. FASTING: YES Resulting Agency Comment Performing Organization Information: ?Site ID: [id number] ?Name: [employer] ?Address: [address] [place] [phone] ?Director: Fernie Hitchcock M.D. us Jonathan Cardenas MD LAB BLOOD ORDERABLES Final Resul t [employer] [address] [place] [address] [employer] [address] [place] [address] * Cardiolipin antibody, IgG (06/19/2024 9:31 AM EST) Anticardiolipin IgG <2.0 GPL-U/mL [place]. com. cn-TX. com. cn Comment: Value ?Interpretation ----- ? < 20.0 [...] aging. For additional information, please refer to http://education.Fare Motion/faq/WVW525 (This link is being provided for informational/ educational purposes only.) Blood 06/19/2024 9:31 AM EST 06/19/2024 9:33 AM EST Narrative [facility] - 06/27/2024 6:07 PM EST FASTING:YES COLLECTION KIT GIVEN TO PATIENT. PATIENT ADVISED TO RETURN. FASTING: YES Resulting Agency Comment Performing Organization Information: ?Site ID: [id number] ?Name: [employer] ?Address: [address] [place] [phone] ?Director: Fernie Hitchcock M.D. Jonathan Cardenas MD LAB BLOOD ORDERABLES Final Resul t [employer] [address] [place] [address] [employer] [address] [place] [address] * Cardiolipin antibody, IgA (06/19/2024 9:31 AM EST) Anticardiolipin IgA <2.0 APL-U/mL [employer] Comment: Value ?Interpretation ----- ? < 20.0 [...] aging. For additional information, please refer to http://education.Fare Motion/faq/MNU980 (This link is being provided for informational/ educational purposes only.) Blood 06/19/2024 9:31 AM EST 06/19/2024 9:33 AM EST Narrative [facility] - 06/27/2024 6:07 PM EST FASTING:YES COLLECTION KIT GIVEN TO PATIENT. PATIENT ADVISED TO RETURN. FASTING: YES Resulting Agency Comment Performing Organization Information: ?Site ID: [id number] ?Name: [employer] ?Address: [address] [place] [phone] ?Director: Fernie Hitchcock M.D. us Jonathan Cardenas MD LAB BLOOD ORDERABLES Final Resul t [employer] [address] [place] [address] [employer] [address] [place] [address] * HISTAMINE (06/19/2024 9:31 AM EST) Pathologist [facility] Histamine, Plasma <1.5 < OR = 1.8 ng/mL [facility], Comment: This test was performed using a kit that has not been cleared or approved by the FDA. The analytical performance characteristics of this test have been determined by [facility]. This test should not be used for diagnosis without confirmation by other medically established means. Blood 06/19/2024 9:31 AM EST 06/19/2024 9:33 AM EST Narrative [facility] - 06/27/2024 6:07 PM EST FASTING:YES COLLECTION KIT GIVEN TO PATIENT. PATIENT ADVISED TO RETURN. FASTING: YES Resulting Agency Comment Performing Organization Information: ?Site ID: ?Name: [facility], ?Address: [address] [place], [place] [phone] ?Director: Mayra Martin MD,PhD,YURI Jonathan Cardenas MD LAB BLOOD ORDERABLES Final Resul t [facility] [address] [address] [employer] [facility], [address] [place] [phone] * ACTH (06/19/2024 9:31 AM EST) [facility] ACTH 13 6 - 50 pg/mL [facility]/Teresa [facility]ER Comment: Reference range applies only to specimens collected between 7am-10am. ? Blood 06/19/2024 9:31 AM EST 06/19/2024 9:33 AM EST Narrative [facility] - 06/27/2024 6:07 PM EST FASTING:YES COLLECTION KIT GIVEN TO PATIENT. PATIENT ADVISED TO RETURN. FASTING: YES Resulting Agency Comment Performing Organization Information: ?Site ID: AMD ?Name: [facility] [facility] ?Address: [address] [place] [address] [place] ?Director: Wilson Shetty M.D.,PhD Jonathan Cardenas MD LAB BLOOD ORDERABLES Final Resul t [facility] [facility] [address] [place] [employer] [facility]/[employer] [address] [place], [place] * Lupus anticoagulant (06/19/2024 9:31 AM EST) [facility] LUPUS ANTICOAGULANT EVAL. see note [facility] [employer] [facility] Comment: A Lupus Anticoagulant is not detected. Reference Range: ??Not Detected For additional information, please refer to http://education.Fare Motion/faq/NTG02i9 (This link is being provided for informational/ educational purposes only.) ? This interpretation is based on the following test results. PTT-LA Screen 38 <=40 sec [facility] [place] dRVVT Screen 39 <=45 sec [facility] [employer] [facility] Blood 06/19/2024 9:31 AM EST 06/19/2024 9:33 AM EST Narrative [facility] - 06/27/2024 6:07 PM EST FASTING:YES COLLECTION KIT GIVEN TO PATIENT. PATIENT ADVISED TO RETURN. FASTING: YES Resulting Agency Comment Performing Organization Information: ?Site ID: AMD ?Name: [employer] [facility] [facility] ?Address: [address] [place] [address] Dr [place] ?Director: Wilson Shetty M.D.,PhD Jonathan Cardenas MD LAB BLOOD ORDERABLES Final Resul t [facility] [address] [place] [address] [facility] [employer]/[facility] [address] [facility] [place] [address] * CBC (06/19/2024 9:31 AM EST) Pathologist [facility] WBC 5.8 3.8 - 10.8 Thousand/u L [facility] RBC 4.83 3.80 - 5.10 Million/uL [facility] Hemoglobin 13.9 11.7 - 15.5 g/dL [facility] Hematocrit 42.5 35.0 - 45.0 % [facility] MCV 88.0 80.0 - 100.0 fL [facility] MCH 28.8 27.0 - 33.0 pg [facility] MCHC 32.7 32.0 - 36.0 g/dL [facility] Comment: For adults, a slight [...] Platelets 284 140 - 400 Thousand/u L [facility] MPV 10.8 7.5 - 12.5 fL [employer] [facility] Blood 06/19/2024 9:31 AM EST 06/19/2024 9:33 AM EST Narrative [facility] - 06/27/2024 6:07 PM EST FASTING:YES COLLECTION KIT GIVEN TO PATIENT. PATIENT ADVISED TO RETURN. FASTING: YES Resulting Agency Comment Performing Organization Information: ?Site ID: [id number] ?Name: [facility] ?Address: [address] [place] [phone] ?Director: Fernie Hitchcock M.D. Jonathan Cardenas MD LAB BLOOD ORDERABLES Final Resul t Performing Organization Address [facility] de Phone Number [facility] [address] [phone] [facility] [address] [place] [phone] * Rheumatoid factor (06/19/2024 9:31 AM EST) Rheumatoid Factor 13 <14 IU/mL [facility] Blood 06/19/2024 9:31 AM EST 06/19/2024 9:33 AM EST Narrative [facility] - 06/27/2024 6:07 PM EST FASTING:YES COLLECTION KIT GIVEN TO PATIENT. PATIENT ADVISED TO RETURN. FASTING: YES Resulting Agency Comment Performing Organization Information: ?Site ID: [id number] ?Name: [place] ?Address: [address] [place] [address] ?Director: Fernie Hitchcock M.D. Jonathan Cardenas MD LAB BLOOD ORDERABLES Final Resul t Performing Organization Address [facility] de Phone Number [facility] [address] [place] [phone] [place] [address] [place] [phone] * T3 (06/19/2024 9:31 AM EST) T3, Total 121 76 - 181 ng/dL [facility] Blood 06/19/2024 9:31 AM EST 06/19/2024 9:33 AM EST Narrative [facility] - 06/27/2024 6:07 PM EST FASTING:YES COLLECTION KIT GIVEN TO PATIENT. PATIENT ADVISED TO RETURN. FASTING: YES Resulting Agency Comment Performing Organization Information: ?Site ID: [id number] ?Name: [place] ?Address: [address] [place] [phone] ?Director: Fernie Hitchcock M.D. Jonathan Cardenas MD LAB BLOOD ORDERABLES Final Resul t Performing Organization Address [facility] Co de Phone Number [facility] [address] [place] [phone] [place]. [place]. [facility] [place] [address] [place] [phone] * Transferrin (06/19/2024 9:31 AM EST) Transferrin 322 188 - 341 mg/dL [facility] [facility] Blood 06/19/2024 9:31 AM EST 06/19/2024 9:33 AM EST Narrative [facility] - 06/27/2024 6:07 PM EST FASTING:YES COLLECTION KIT GIVEN TO PATIENT. PATIENT ADVISED TO RETURN. FASTING: YES Resulting Agency Comment Performing Organization Information: ?Site ID: [id number] ?Name: [employer] ?Address: [address] [place] [phone] ?Director: Fernie Hitchcock M.D. Jonathan Cardenas MD LAB BLOOD ORDERABLES Final Resul t Performing Organization Address [facility] de Phone Number [facility] [address] [place] [phone] [employer] [address] [place] [phone] * Vitamin B6 (06/19/2024 9:31 AM EST) Vitamin B6 3.2 2.1 - 21.7 ng/mL [facility] Comment: Vitamin supplementation within 24 hours prior to blood draw may affect the accuracy of the results. This test was developed and its analytical performance characteristics have been determined by [facility] [place], [place]. It has not been cleared or approved by the U.S. Food and Drug Administration. This assay has been validated pursuant to the CLIA regulations and is used for clinical purposes. Blood 06/19/2024 9:31 AM EST 06/19/2024 9:33 AM EST Narrative [facility] - 06/27/2024 6:07 PM EST FASTING:YES COLLECTION KIT GIVEN TO PATIENT. PATIENT ADVISED TO RETURN. FASTING: YES Resulting Agency Comment Performing Organization Information: ?Site ID: [id number] ?Name: [facility] ?Address: [address] [place] [address] [place], [place] ?Director: Wilson Shetty M.D.,PhD us Jonathan Cardenas MD LAB BLOOD ORDERABLES Final Resul t [facility] [address] [employer] [address] [place], [place] * Hemoglobin A1c (06/19/2024 9:31 AM EST) Hemoglobin A1C 5.5 <5.7 % of total Hgb [employer] Comment: For the purpose of screening for the presence of diabetes: <5.7% ? Consistent with the absence of diabetes 5.7-6.4% ?Consistent with increased risk for diabetes ?(prediabetes) > or =6.5% ??Consistent with diabetes This assay result is consistent with a decreased risk of diabetes. Currently, no consensus exists regarding use of hemoglobin A1c for diagnosis of diabetes in children. According to [place] Diabetes Association (ADA) guidelines, hemoglobin A1c <7.0% represents optimal control in non- diabetic patients. Different metrics may apply to specific patient populations. Standards of Medical Care in Diabetes(ADA). ?? Blood 06/19/2024 9:31 AM EST 06/19/2024 9:33 AM EST Narrative [facility] - 06/27/2024 6:07 PM EST FASTING:YES COLLECTION KIT GIVEN TO PATIENT. PATIENT ADVISED TO RETURN. FASTING: YES Resulting Agency Comment Performing Organization Information: ?Site ID: [id number] ?Name: [employer] ?Address: [address] [place] [phone] ?Director: Fernie Hitchcock M.D. Jonathan Cardenas MD LAB BLOOD ORDERABLES Final Resul t Performing Organization Address [facility] Phone Number [employer] [address] [place] [phone] [employer] [address] [place] [phone] * (ABNORMAL) Ferritin (06/19/2024 9:31 AM EST) Ferritin 8(L) 16 - 154 ng/mL [employer] Blood 06/19/2024 9:31 AM EST 06/19/2024 9:33 AM EST Narrative [facility] - 06/27/2024 6:07 PM EST FASTING:YES COLLECTION KIT GIVEN TO PATIENT. PATIENT ADVISED TO RETURN. FASTING: YES Resulting Agency Comment Performing Organization Information: ?Site ID: [id number] ?Name: [employer] ?Address: [address] [place] [phone] ?Director: Fernie Hitchcock M.D. Result [facility] Jonathan Cardenas MD LAB BLOOD ORDERABLES Final Resul t Performing Organization Address [facility] Phone Number [employer] [address] [place] [phone] [employer] [address] [place] [phone] * Comprehensive metabolic panel (CMP): Na, K, CL, Co2, Gluc, Ca, BUN, Creat, B/C, T.Prot, Alb, Glb, A/G, AST, ALT, ALKP, T.Bili (06/19/2024 9:31 AM EST) Glucose 92 65 - 99 mg/dL [employer] Comment: ? Fasting reference interval BUN 10 7 - 25 mg/dL [facility] Creatinine 0.72 0.50 - 0.99 mg/dL [facility] EGFR 108 > OR = 60 mL/min/1. 73m2 [facility] BUN/Creatinine Ratio SEE NOTE: 6 - 22 (calc) [employer] Comment: ?? Not Reported: BUN and Creatinine are within ?? reference range. ? Sodium 137 135 - 146 mmol/L [employer] Potassium 4.1 3.5 - 5.3 mmol/L [employer] Chloride 105 98 - 110 mmol/L [facility] CO2 25 20 - 32 mmol/L [facility] [facility] Calcium 9.3 8.6 - 10.2 mg/dL [facility] [facility] Total Protein 7.2 6.1 - 8.1 g/dL [facility] [facility] Albumin 3.8 3.6 - 5.1 g/dL [facility] [facility] Globulin, Total 3.4 1.9 - 3.7 g/dL (calc) [facility] A/G Ratio 1.1 1.0 - 2.5 (calc) [facility] [facility] Total Bilirubin 0.3 0.2 - 1.2 mg/dL [facility] Alkaline Phosphatase 45 31 - 125 U/L [facility] [facility] AST 12 10 - 30 U/L [facility] ALT 12 6 - 29 U/L [facility] [facility] Blood 06/19/2024 9:31 AM EST 06/19/2024 9:33 AM EST Narrative [facility] - 06/27/2024 6:07 PM EST FASTING:YES COLLECTION KIT GIVEN TO PATIENT. PATIENT ADVISED TO RETURN. FASTING: YES Resulting Agency Comment Performing Organization Information: ?Site ID: [id number] ?Name: [employer] ?Address: [address] [place] [phone] ?Director: Fernie Hitchcock M.D. us Jonathan Cardenas MD LAB BLOOD ORDERABLES Final Resul t [employer] [address] [place] [address] [place] [phone] [facility] [address] [place] [address] * CARDIAC MEDIUM TERM MONITOR OFFICE 3-7 DAYS (06/15/2024 3:05 PM EST) Narrative [facility] - 07/15/2024 5:26 PM EST Prescribed [...] MD CV CARDIO DIAG ORDERABLES Final Result [facility] [address] [place] [address] * EKG 12 lead (06/15/2024 1:47 PM EST) 06/15/2024 1:47 PM EST Narrative [facility] - 06/17/2024 1:10 PM EST ?[facility] ?[address] [place], [place] ??[address] ? Test Date: ?2024-06-15 Pat Name: ? YUDITH AMALIA ?Department: ?? CARD [facility] ?Room: ? Gender: ? Female ? Police Records Clerk: ?? CC : ?[id number] ? Requested By: JONATHAN CARDENAS Order Number: [id number] ? Reading MD: ?? Jonathan Cardenas ? Measurements Intervals ?[place] ? Rate: ? 78 ? P: ?71 UT: ? 151 ?QRS: ?51 QRSD: ? 85 ? T: ?60 QT: ? 387 ? QTc: ?441 ? Interpretive Statements Normal Sinus Rhythm Normal axes, intervals, and voltages Electronically Signed On 06-17-2024 13:10:55 EST by Jonathan Cardenas us Jonathan Cardenas MD ECG ORDERABLES Final Result [facility] from Last 3 Months Insurance [facility] [employer] Care Teams Roofer Apprentice Relationship Specialty Start Date End Date Luis Loomis MD [address] [place] [address] PCP - General 02/21/24
--- NOTE | 2024-08-16 09:11 | A.OFFPC_ITS ---
Intake Visit Reasons: General Health Allergies Iodinated Contrast Media [IV CONTRAST] Allergy (Intermediate, Verified 08/16/24 09:11) RASH Penicillins Allergy (Intermediate, Verified 08/16/24 09:11) RASH amoxicillin Allergy (Unknown, Verified 08/16/24 09:11) unknown Medication List - Last Reconciled 08/16/24 by Luis Loomis MD albuterol sulfate 90 mcg/actuation 2 puffs inhalation Q4-6H PRN 30 days diclofenac sodium 50 mg PO BID PRN duloxetine 90 mg (3 x 30 mg) PO DAILY famotidine 40 mg PO BEDTIME ferrous sulfate 324 mg PO BID 90 days fexofenadine 180 mg PO DAILY hydroxychloroquine 200 mg PO BID montelukast 10 mg PO BEDTIME omeprazole 40 mg PO ONCE 90 days propranolol 20 mg PO TID Symbicort 160-4.5 mcg/actuation (budesonide-formoterol) 2 puffs inhalation BID 30 days NS Tobacco use date assessed: 08/16/24 Dental Screening Dental Screen Date: 08/16/24 Did you have a dental visit in the last 12 months?: Yes Did you have a dental problem in the last 6 months where you did not have access to dental care?: No Was dental information given to patient?: Patient has dentist HPI General Health HPI Details History - bulleted - The patient is a 39-year-old female pr esenting with management of Mast Cell Activation Syndrome. 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 - Symptoms began a few months ago follow ing a COVID-19 infection, exacerbating leg muscle weakness and other dysautonomia-associated symptoms. - Extensive blood work and 24-hour urine tests were conducted, revealing high levels of mast cell mediators. - Currently prescribed fexofenadine, pro pranolol, montelukast, cromolyn sodium - Reports new symptom development of mus garry weakness in legs and fluctuating blood pressure; associated worry due to family history of early onset neurological decline. - already been evaluated by Cardio, work up is in progress due to balance problem and mucle weakness it will be reasonable to see Neuro as well , ref placed Problem List - Mast Cell Activation Syndrome - Postural Orthostatic Tachycardia Syndr ome (POTS) - Dysautonomia - Possible Anxiety related to family his tory of neurological symptoms - Balance problem - muscle weakness Patient Instructions - diclofenic sent, as she was given Keto lac in ER which helped her a lot ,patient is aware not to mix these meds with other Nsaids - see Neuro - Continue current medications, includin g fexofenadine, propranolol, montelukast, and cromolyn sodium nasal spray - Reach out to specialist regarding medi cation adjustments - Monitor symptoms and report any signif icant changes, such as new or worsening muscle weakness or abnormal heart symptoms. - Review of Systems - Cardiovascular: Reports fluctuating bl ood pressure, heart irregularities. - Neurological: Reports muscle weakness in legs, especially the left leg. - Respiratory: Reports nasal congestion. - Integumentary: Reports generalized bru ising and skin mottling. - Psychological: Reports anxiety about f amilial pattern of neurological decline. - Constitutional: Reports hot flashes. - Gastrointestinal: Denies any new or wo rsening symptoms. - Genitourinary: Denies any new or worse maryan symptoms. - General: No fever no chills PFSH Medical History IBS (irritable colon syndrome) Rheumatoid factor positive Anxiety GERD (gastroesophageal reflux disease) Endocervical polyp Surgical History H/O colonoscopy H/O esophagogastroduodenoscopy H/O LEEP History of bilateral tubal ligation Family History Father Hypertension CAD (coronary artery disease) Mother No problems noted. Maternal Grandmother Stroke Cancer Paternal Grandfather Stroke Son Mast cell activation syndrome Dysautonomia Other Mental health disorder Substance use disorder Social History Household Members: Children Housing: Apartment Alcohol intake: never Patient Tobacco Use Status: Former Tobacco user Years Smoked: 10 e-Cigarette/Vaping Use: Currently Using Second Hand Smoke Exposure: No service: No Current occupational status: unemployed Sexual orientation: Straight/Heterosexual Gender identity: Female Cognitive needs: No Hearing needs: No Vision needs: No Female Reproductive History Menstrual Age of Menarche: 8 Questionnaire Thrive Questionnaire Date Thrive assessed: 07/18/24 AUDIT C Alcohol Use Questionnaire (AUDIT-C) 1. How often do you have a drink containing alcohol?: Never 3. How often do you have six or more drinks on one occasion?: Never Total Score: 0 Score Reviewed/Action Taken: Yes ERICK-7 AMB Questionnaire ERICK-7 Date ERICK - 7 assessed: 07/18/24 Source: Developed by Drs. Thad Hampton, Mine Bravo, Tra Duval and colleagues, with an educational yoli from [employer]. Physical exam (Primary Care) Tobacco/Smoking Status: Tobacco use Status Tobacco use date assessed 08/16/24 08/16/24 09:13 Patient Tobacco Use Status Former Tobacco user 08/16/24 09:13 Tobacco use type 03/13/24 10:22 e-Cigarette/Vaping Use Currently Using 08/16/24 09:13 Thrive Assessment: Date of Thrive Assessment Date Thrive assessed 07/18/24 08/16/24 09:13 Telehealth Telehealth Telehealth Platform: [employer] System Location of provider rendering services: practice address Location of patient: address on file Patient Identification confirmed using: Name, : Yes Telehealth method: voice only Patient verbally consented to treatment: Yes Patient verbally consented to billing insurance company: Yes Patient informed of any privacy concerns related to visit: Yes Minutes spent on Phone/Video with Pt.: 16 Coding Level of Care Code Tele Est Pt Level 3 (64977) Diagnoses Balance problem R26.89 Muscle weakness M62.81 Mast cell activation syndrome D89.40 Assessment & Plan Assessment & Plan (1) Balance problem: Code(s): R26.89 - Other abnormalities of gait and mobility Category: Medical (2) Muscle weakness: Code(s): M62.81 - Muscle weakness (generalized) Category: Medical (3) Mast cell activation syndrome: Code(s): D89.40 - Mast cell activation, unspecified Category: Medical Plan History - bulleted - The patient is a 39-year-old female presenting with management of Mast Cell Activation Syndrome. 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 - Symptoms began a few months ago following a COVID-19 infection, exacerbating leg muscle weakness and other dysautonomia-associated symptoms. - Extensive blood work and 24-hour urine tests were conducted, revealing high levels of mast cell mediators. - Currently prescribed fexofenadine, propranolol, montelukast, cromolyn sodium - Reports new symptom development of muscle weakness in legs and fluctuating blood pressure; associated worry due to family history of early onset neurological decline. - already been evaluated by Cardio, workup is in progress due to balance problem and mucle weakness it will be reasonable to see Neuro as well , ref placed Problem List - Mast Cell Activation Syndrome - Postural Orthostatic Tachycardia Syndrome (POTS) - Dysautonomia - Possible Anxiety related to family history of neurological symptoms - Balance problem - muscle weakness Patient Instructions - diclofenic sent, as she was given Ketolac in ER which helped her a lot ,patient is aware not to mix these meds with other Nsaids - see Neuro - Continue current medications, including fexofenadine, propranolol, montelukast, and cromolyn sodium nasal spray - Reach out to specialist regarding medication adjustments - Monitor symptoms and report any significant changes, such as new or worsening muscle weakness or abnormal heart symptoms. - Review of Systems - Cardiovascular: Reports fluctuating blood pressure, heart irregularities. - Neurological: Reports muscle weakness in legs, especially the left leg. - Respiratory: Reports nasal congestion. - Integumentary: Reports generalized bruising and skin mottling. - Psychological: Reports anxiety about familial pattern of neurological decline. - Constitutional: Reports hot flashes. - Gastrointestinal: Denies any new or worsening symptoms. - Genitourinary: Denies any new or worsening symptoms. - General: No fever no chills Orders: Referrals Neurology Referral M62.81 - Muscle weakness (generalized), R26.89 - Other abnormalities of gait and mobility Medications: New diclofenac sodium 50 mg PO BID PRN 60 tabs 0RF pain Discontinued ketorolac Tolerated IM or IV in department Discontinued Reason: Doctor's Order 10 mg PO TID 5 days PRN 15 tabs 0RF pain
== END 2024-08-16 09:48 | disposition home or self-care (01) ==
LOC: HO.HMCC 07:54
PROVIDERS: PCP Internal Medicine; Visit Provider Internal Medicine
DX: R26.89 Other abnormalities of gait and mobility (principal); M62.81 Muscle weakness (generalized); D89.40 Mast cell activation, unspecified

== ENCOUNTER 2024-08-24 13:56 | Outpatient (REF) | payer OTHER, SELFPAY ==
[2024-08-24 14:16] LABS: MANUAL DIFF FLAG NO
--- OUTSIDE RECORDS SUMMARY | 2024-08-24 14:27 | XMS_ITS | Clinical Summary ---
Author Organization [facility] Address [address] [place] [address] Care Team Providers Care Manager Support Services Name Role Phone Luis Loomis MD Primary Care Provider [phone] Surgical History Surgery Date Site/Laterality Comments CERVICAL [...] Info) Description 10/02/2024 1:00 PM EDT Appointment [facility] [address] [place] [address] Health Maintenance Due Date Last [...] complete this topic Insurance MEDICAID - [place] [employer] Care Teams Manager Support Services Relationship Specialty Start Date End Date Luis Loomis MD [address] [place] [phone] PCP - General Internal Medicine 05/17/18
--- OUTSIDE RECORDS SUMMARY | 2024-08-24 14:27 | XMS_ITS | Clinical Summary ---
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 Department of Cardiology [address] [place] [phone] Wendy Cardenas MD POTS (postural orthostatic tachycardia syndrome) 06/15/2024 2:28 PM EST - 06/15/2024 11:59 PM EST Hospital Encounter [facility] Department of Cardiology [address] [place] [phone] Wendy Cardenas MD Discharge Disposition: Home or Self Care 06/15/2024 1:30 PM EST Office Visit 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 Department of Cardiology [address] [place] [phone] 11/09/2024 4:00 PM EDT Office Visit [facility] Department of Cardiology [address] [place] [phone] Wendy Cardenas MD [address] [place] [address] Health Maintenance Due Date Last Done Comments [...] 9:16 AM EST) Specimen Type/Container URINE/CU P [facility] Prostaglandin D2 (PG D2), Urine 314(H) <175 ng/g Creatinine [facility] Comment: This test was developed and its performance characteristics determined by [employer]. Values obtained with different methods, laboratories, or kits cannot be used interchangeably with the results on this report. The results cannot be interpreted as absolute evidence of the presence or absence of malignant disease. Urine 06/20/2024 9:16 AM EST 06/20/2024 9:17 AM EST Narrative [facility] - 06/28/2024 8:57 AM EST SPLIT 06/19/2024 FROM [id number] COLLECTION KIT GIVEN TO PATIENT. PATIENT ADVISED TO RETURN. URINE VOLUME: 1000 Resulting Agency Comment Performing Organization Information: ?Site ID: INS ?Name: [facility] ?Address: [address] [place] [address] ?Director: Mario Gonsales MD,PhD Wendy Cardenas MD LAB BLOOD ORDERABLES Final Resul t Performing Organization Address [facility] de Phone Number [facility] [address] [place] [address], [facility] * Histamine, Urine, 24 Hour (06/19/2024 10:00 AM EST) Total Volume 550 mL [facility], HISTAMINE, URINE, 24 HOUR 0.007 0.006 - 0.131 mg/24 h [facility], Comment: This test was performed using a kit that has not been cleared or approved by the FDA. The analytical performance characteristics of this test have been determined by [employer] [facility]. This test should not be used for diagnosis without confirmation by other medically established means. Urine 06/19/2024 10:0 0 AM EST 06/20/2024 9:20 AM EST Narrative [facility] - 06/26/2024 4:34 PM EST SPLIT 06/20/2024 FROM [id number] URINE VOLUME: 550/24 Resulting Agency Comment Performing Organization Information: ?Site ID: [id number] ?Name: [facility], ?Address: [address] [place] [phone] ?Director: Mayra Martin MD,PhD,YURI Wendy Cardenas MD LAB BLOOD ORDERABLES Final Resul t Performing Organization Address [facility] Co de Phone Number [facility] [id number] [place] [phone] [facility], [address] [place] [phone] * (ABNORMAL) JORGE A Screen, IFA, Rflx Titer/Pattern (06/19/2024 9:31 AM EST) JORGE A SCREEN, IFA POSITIVE( A) NEGATIVE [facility] Comment: JORGE A IFA is a first line screen for detecting the presence of up to approximately 150 autoantibodies in various autoimmune diseases. A positive JORGE A IFA result is suggestive of autoimmune disease and reflexes to titer and pattern. Further laboratory testing may be considered if clinically indicated. For additional information, please refer to http://education.Shake/faq/USS788 (This link is being provided for informational/ educational purposes only.) ?? 06/19/2024 9:31 AM EST 06/19/2024 9:33 AM EST Narrative [facility] - 06/27/2024 6:07 PM EST FASTING:YES COLLECTION KIT GIVEN TO PATIENT. PATIENT ADVISED TO RETURN. FASTING: YES Resulting Agency Comment Performing Organization Information: ?Site ID: [id number] ?Name: [facility] ?Address: [address] [place] [phone] ?Director: Fernie Hitchcock M.D. Wendy Cardenas MD LAB BLOOD ORDERABLES Final Resul t [facility] [address] [place] [address] [facility] [address] [place] [address] * (ABNORMAL) Antinuclear Antibodies Titer and Pattern (06/19/2024 9:31 AM EST) JORGE A Titer 1:1280(H) titer [facility] Comment: ?Reference Range ?<1:40 ?Negative ?1:40-1:80 ?Low Antibody Level ?>1:80 ?Elevated Antibody Level JORGE A Pattern Nuclear, Speckled( A) [facility] Comment: Speckled pattern is associated with mixed connective tissue disease (MCTD), systemic lupus erythematosus (SLE), Sjogren's syndrome, dermatomyositis, and systemic sclerosis/polymyositis overlap. AC-2,4,5,29: Speckled International Consensus on JORGE A Patterns (https://doi.org/10.1515/viev-4286-2842) JORGE A Titer 1:160(H) titer [facility] Comment: ?Reference Range ?<1:40 ?Negative ?1:40-1:80 ?Low Antibody Level ?>1:80 ?Elevated Antibody Level JORGE A Patter Nuclear, Homogeneo us(A) [facility] Comment: Homogeneous pattern is associated with systemic lupus erythematosus (SLE), drug-induced lupus and juvenile idiopathic arthritis. AC-1: Homogeneous International Consensus on JORGE A Patterns (https://doi.org/10.1515/hlqv-4160-7253) 06/19/2024 9:31 AM EST 06/19/2024 9:33 AM EST Narrative [facility] - 06/27/2024 6:07 PM EST FASTING:YES COLLECTION KIT GIVEN TO PATIENT. PATIENT ADVISED TO RETURN. FASTING: YES Resulting Agency Comment Performing Organization Information: ?Site ID: [id number] ?Name: [facility] ?Address: [address] [place] [phone] ?Director: Fernie Hitchcock M.D. us Wendy Cardenas MD LAB BLOOD ORDERABLES Final Resul t [facility] [address] [place] [address] [facility] [address] [place] [address] * THYROID PEROXIDASE AND THYROGLOBULIN ANTIBODIES (06/19/2024 9:31 AM EST) Thyroglobulin Ab <1 < or = 1 IU/mL [facility] Thyroid Peroxidase Ab <1 <9 IU/mL [facility] Blood 06/19/2024 9:31 AM EST 06/19/2024 9:33 AM EST Narrative [facility] - 06/27/2024 6:07 PM EST FASTING:YES COLLECTION KIT GIVEN TO PATIENT. PATIENT ADVISED TO RETURN. FASTING: YES Resulting Agency Comment Performing Organization Information: ?Site ID: [id number] ?Name: [facility] ?Address: [address] [place] [phone] ?Director: Fernie Hitchcock M.D. us Wendy Cardenas MD LAB BLOOD ORDERABLES Final Resul t [facility] [address] [place] [address] [facility] [address] [place] [phone] * TSH and Free T4 (06/19/2024 9:31 AM EST) TSH 0.96 mIU/L [facility] Comment: ?Reference Range ?> or = 20 Years ??0.40-4.50 ? Ranges ?First trimester ?0.26-2.66 ?Second trimester ?? 0.55-2.73 ?Third trimester ?0.43-2.91 Free T4 1.1 0.8 - 1.8 ng/dL [facility] Blood 06/19/2024 9:31 AM EST 06/19/2024 9:33 AM EST Narrative [facility] - 06/27/2024 6:07 PM EST FASTING:YES COLLECTION KIT GIVEN TO PATIENT. PATIENT ADVISED TO RETURN. FASTING: YES Resulting Agency Comment Performing Organization Information: ?Site ID: [id number] ?Name: [facility] ?Address: [address] [place] [phone] ?Director: Fernie Hitchcock M.D. Wendy Cardenas MD LAB BLOOD ORDERABLES Final Resul t Performing Organization Address [facility] de Phone Number [facility] [address] [place] [address] [place] [address] [facility] [address] [place] [phone] * (ABNORMAL) Iron, Total, TIBC and Saturation (06/19/2024 9:31 AM EST) Iron 57 40 - 190 mcg/dL [facility] TIBC 406 250 - 450 mcg/dL (calc) [facility]on [facility] Iron Saturation 14(L) 16 - 45 % (calc) [facility] Blood 06/19/2024 9:31 AM EST 06/19/2024 9:33 AM EST Narrative [facility] - 06/27/2024 6:07 PM EST FASTING:YES COLLECTION KIT GIVEN TO PATIENT. PATIENT ADVISED TO RETURN. FASTING: YES Resulting Agency Comment Performing Organization Information: ?Site ID: [id number] ?Name: [facility] ?Address: [address] [place] [phone] ?Director: Fernie Hitchcock M.D. Wendy Cardenas MD LAB BLOOD ORDERABLES Final Resul t Performing Organization Address [facility] Co de Phone Number [facility] [address] [phone] [employer] [facility] [address] [address] * (ABNORMAL) Sjogren's (SS-A, SS-B) Antibodies (06/19/2024 9:31 AM EST) SJOGREN'S ANTIBODY (SS-A) >8.0 POS(A) <1.0 NEG AI [facility] Sjogren's Antibody (SS-B) >8.0 POS(A) <1.0 NEG [facility] 06/19/2024 9:31 AM EST 06/19/2024 9:33 AM EST Narrative [facility] - 06/27/2024 6:07 PM EST FASTING:YES COLLECTION KIT GIVEN TO PATIENT. PATIENT ADVISED TO RETURN. FASTING: YES Resulting Agency Comment Performing Organization Information: ?Site ID: [id number] ?Name: [facility] ?Address: [address] [place] [phone] ?Director: Fernie Hitchcock M.D. Wendy Cardenas MD LAB BLOOD ORDERABLES Final Resul t [facility] [address] [place] [phone] [facility] [address] [place] [phone] * Vitamin B12 & Folate (06/19/2024 9:31 AM EST) Vitamin B-12 299 200 - 1,100 pg/mL [facility] Comment: Please Note: Although the reference range for vitamin B12 is 200-1100 pg/mL, it has been reported that between 5 and 10% of patients with values between 200 and 400 pg/mL may experience neuropsychiatric and hematologic abnormalities due to occult B12 deficiency; less than 1% of patients with values above 400 pg/mL will have symptoms. Folate >24.0 ng/mL [facility] Comment: ? Reference Range ? Low: ? <3.4 ? Borderline: ?3.4-5.4 ? Normal: ?>5.4 Blood 06/19/2024 9:31 AM EST 06/19/2024 9:33 AM EST Narrative [facility] - 06/27/2024 6:07 PM EST FASTING:YES COLLECTION KIT GIVEN TO PATIENT. PATIENT ADVISED TO RETURN. FASTING: YES Resulting Agency Comment Performing Organization Information: ?Site ID: [id number] ?Name: [facility] ?Address: [address] [place] [phone] ?Director: Fernie Hitcchock M.D. us Wendy Cardenas MD LAB BLOOD ORDERABLES Final Resul t [facility] [address] [place] [address] [facility] [employer]em[employer]-[facility] [address] [place] [address] * Aldosterone/Plasma Renin Activity Ratio (06/19/2024 9:31 AM EST) Aldosterone 8 see note ng/dL [employer]Teresa [facility] Comment: Unable to flag abnormal result(s), please refer ?to reference range(s) below: Adult Reference Ranges for Aldosterone, LC/MS/MS: ?Upright ??8:00 - 10:00 am ?< or = 28 ng/dL ?Upright ??4:00 - ??6:00 pm ?< or = 21 ng/dL ?Supine ?? 8:00 - 10:00 am ? 3 - 16 ng/dL Renin 1.93 0.25 - 5.82 ng/mL/h [facility] ALDOSTERONE/PLAS MA RENIN ACTIVITY RATIO 4.1 0.9 - 28.[address] [facility] Comment: This test was developed and its analytical performance characteristics have been determined by [employer] [place], [place]. It has not been cleared or approved by the U.S. Food and Drug Administration. This assay has been validated pursuant to the CLIA regulations and is used for clinical purposes. 06/19/2024 9:31 AM EST 06/19/2024 9:33 AM EST Narrative [facility] [employer] [facility] - 06/27/2024 6:07 PM EST FASTING:YES COLLECTION KIT GIVEN TO PATIENT. PATIENT ADVISED TO RETURN. FASTING: YES Resulting Agency Comment Performing Organization Information: ?Site ID: AMD ?Name: [employer]/[facility] ?Address: [address] [place] [address] Dr [place], [place] ?Director: Wilson Shetty M.D.,PhD Wendy Cardenas MD LAB BLOOD ORDERABLES Final Resul t [facility] [address] [employer]/[address] [place], [place] * Catecholamines, fractionated, plasma (06/19/2024 9:31 AM EST) Epinephrine 56 pg/mL [employer], Comment: Reference Range: SUPINE: <58 UPRIGHT: <82 Norepinephrine 382 pg/mL [facility], Comment: Reference Range: SUPINE: 149-564 UPRIGHT: 199-937 Dopamine 15 pg/mL [employer]/[facility], Comment: Reference Range: SUPINE: <16 UPRIGHT: <27 Total Catecholamines (Nor+Epi) 453 pg/mL [facility], Comment: Reference Range: SUPINE: <632 UPRIGHT: <1046 Due to stress, plasma catecholamine levels are generally unreliable in infants and small children. Urinary catecholamine assays are more reliable. This test was developed and its analytical performance characteristics have been determined by [employer]. It has not been cleared or approved by FDA. This assay has been validated pursuant to the CLIA regulations and is used for clinical purposes. Blood 06/19/2024 9:31 AM EST 06/19/2024 9:33 AM EST Narrative [facility] - 06/27/2024 6:07 PM EST FASTING:YES COLLECTION KIT GIVEN TO PATIENT. PATIENT ADVISED TO RETURN. FASTING: YES Resulting Agency Comment Performing Organization Information: ?Site ID: EZ ?Name: [facility], ?Address: [address] [place] [phone] ?Director: Mayra Martin MD,PhD,YURI Wendy Cardenas MD LAB BLOOD ORDERABLES Final Resul t [facility] [address] [place] [phone] [facility], [address] [place] [address] * Tryptase (06/19/2024 9:31 AM EST) TRYPTASE 5.4 <11.0 mcg/L [facility] Comment: The Tryptase test, fluorescent enzyme immunoassay (FEIA), measures both the Alpha and Beta forms of Tryptase. Measuring both forms of Tryptase increases sensitivity for the diagnosis of mastocytosis, and mast cell degranulation as a cause of anaphylaxis. Blood 06/19/2024 9:31 AM EST 06/19/2024 9:33 AM EST Narrative [facility] - 06/27/2024 6:07 PM EST FASTING:YES COLLECTION KIT GIVEN TO PATIENT. PATIENT ADVISED TO RETURN. FASTING: YES Resulting Agency Comment Performing Organization Information: ?Site ID: [id number] ?Name: [facility] ?Address: [address] [place] [phone] ?Director: Fernie Hitchcock M.D. Wendy Cardenas MD LAB BLOOD ORDERABLES Final Resul t Performing Organization Address [facility] de Phone Number [facility] [address] [place] [phone] [facility] [address] [place] [phone] * Tissue transglutaminase, IgA (06/19/2024 9:31 AM EST) Transglutaminase IgA 9.9 U/mL [facility] Comment: Value ?Interpretation ----- ? <15.0 ?Antibody not detected > or = 15.0 ?Antibody detected Blood 06/19/2024 9:31 AM EST 06/19/2024 9:33 AM EST Narrative [facility] - 06/27/2024 6:07 PM EST FASTING:YES COLLECTION KIT GIVEN TO PATIENT. PATIENT ADVISED TO RETURN. FASTING: YES Resulting Agency Comment Performing Organization Information: ?Site ID: [id number] ?Name: [facility] ?Address: [address] [place] [address] ?Director: Fernie Hitchcock M.D. Wendy Cardenas MD LAB BLOOD ORDERABLES Final Resul t Performing Organization Address [facility] de Phone Number [facility] [address] [place] [address] [place] [address] [facility] [address] [place] [address] * Cardiolipin antibody, IgM (06/19/2024 9:31 AM EST) Anticardiolipin IgM <2.0 MPL-U/mL [facility] Comment: Value ?Interpretation ----- ? < 20.0 [...] aging. For additional information, please refer to http://education.IntoOutdoors/faq/TFW912 (This link is being provided for informational/ educational purposes only.) Blood 06/19/2024 9:31 AM EST 06/19/2024 9:33 AM EST Narrative [facility] - 06/27/2024 6:07 PM EST FASTING:YES COLLECTION KIT GIVEN TO PATIENT. PATIENT ADVISED TO RETURN. FASTING: YES Resulting Agency Comment Performing Organization Information: ?Site ID: [id number] ?Name: [facility] ?Address: [address] [place] [phone] ?Director: Fernie Hitchcock M.D. Wendy Cardenas MD LAB BLOOD ORDERABLES Final Resul t [facility] [address] [place] [address] [facility] [address] [place] [address] * Cardiolipin antibody, IgG (06/19/2024 9:31 AM EST) Anticardiolipin IgG <2.0 GPL-U/mL [facility] Comment: Value ?Interpretation ----- ? < 20.0 [...] aging. For additional information, please refer to http://education.IntoOutdoors/faq/PCX761 (This link is being provided for informational/ educational purposes only.) Blood 06/19/2024 9:31 AM EST 06/19/2024 9:33 AM EST Narrative [facility] - 06/27/2024 6:07 PM EST FASTING:YES COLLECTION KIT GIVEN TO PATIENT. PATIENT ADVISED TO RETURN. FASTING: YES Resulting Agency Comment Performing Organization Information: ?Site ID: [id number] ?Name: [facility] ?Address: [address] [place] [phone] ?Director: Fernie Hitchcock M.D. Wendy Cardenas MD LAB BLOOD ORDERABLES Final Resul t [facility] [address] [place] [address] [facility] [address] [place] [address] * Cardiolipin antibody, IgA (06/19/2024 9:31 AM EST) Anticardiolipin IgA <2.0 APL-U/mL [facility] Comment: Value ?Interpretation ----- ? < 20.0 [...] aging. For additional information, please refer to http://education.IntoOutdoors/faq/ITX050 (This link is being provided for informational/ educational purposes only.) Blood 06/19/2024 9:31 AM EST 06/19/2024 9:33 AM EST Narrative [facility] - 06/27/2024 6:07 PM EST FASTING:YES COLLECTION KIT GIVEN TO PATIENT. PATIENT ADVISED TO RETURN. FASTING: YES Resulting Agency Comment Performing Organization Information: ?Site ID: [id number] ?Name: [facility] ?Address: [address] [place] [phone] ?Director: Fernie Hitchcock M.D. Wendy Cardenas MD LAB BLOOD ORDERABLES Final Resul t Performing Organization Address City/[facility]/ZIP Co de Phone Number [facility] [address] [place] [address] [facility] [address] [place] [address] * HISTAMINE (06/19/2024 9:31 AM EST) Histamine, Plasma <1.5 < OR = 1.8 ng/mL [facility], Comment: This test was performed using a kit that has not been cleared or approved by the FDA. The analytical performance characteristics of this test have been determined by [employer] [facility]. This test should not be used for diagnosis without confirmation by other medically established means. Blood 06/19/2024 9:31 AM EST 06/19/2024 9:33 AM EST Narrative [facility] - 06/27/2024 6:07 PM EST FASTING:YES COLLECTION KIT GIVEN TO PATIENT. PATIENT ADVISED TO RETURN. FASTING: YES Resulting Agency Comment Performing Organization Information: ?Site ID: EZ ?Name: [employer]/[facility], ?Address: [address] [place] [phone] ?Director: Mayra Martin MD,PhD,YURI Wendy Cardenas MD LAB BLOOD ORDERABLES Final Resul t Performing Organization Address City/[facility]/ZIP Co de Phone Number [facility] [phone] [place] [phone] [employer]/[facility], [address] [place] [phone] * ACTH (06/19/2024 9:31 AM EST) ACTH 13 6 - 50 pg/mL [facility] Comment: Reference range applies only to specimens collected between 7am-10am. ? Blood 06/19/2024 9:31 AM EST 06/19/2024 9:33 AM EST Narrative [facility] - 06/27/2024 6:07 PM EST FASTING:YES COLLECTION KIT GIVEN TO PATIENT. PATIENT ADVISED TO RETURN. FASTING: YES Resulting Agency Comment Performing Organization Information: ?Site ID: AMD ?Name: [facility] ?Address: [address] [place] [address] Dr [place], [place] ?Director: Wilson Shetty M.D.,PhD us Wendy Cardenas MD LAB BLOOD ORDERABLES Final Resul t [facility] [employer] [address] [place] [facility]/[address] [place], [place] * Lupus anticoagulant (06/19/2024 9:31 AM EST) LUPUS ANTICOAGULANT EVAL. see note [facility] Comment: A Lupus Anticoagulant is not detected. Reference Range: ??Not Detected For additional information, please refer to http://education.IntoOutdoors/faq/FYJ48j0 (This link is being provided for informational/ educational purposes only.) ? This interpretation is based on the following test results. PTT-LA Screen 38 <=40 sec [facility] dRVVT Screen 39 <=45 sec [facility] Blood 06/19/2024 9:31 AM EST 06/19/2024 9:33 AM EST Narrative [facility] - 06/27/2024 6:07 PM EST FASTING:YES COLLECTION KIT GIVEN TO PATIENT. PATIENT ADVISED TO RETURN. FASTING: YES Resulting Agency Comment Performing Organization Information: ?Site ID: AMD ?Name: [employer]/[facility] ?Address: [address] [place] [address] Dr [place], [place] ?Director: Wilson Shetty M.D.,PhD us Wendy Cardenas MD LAB BLOOD ORDERABLES Final Resul t [employer] [address] [employer] [address] [place], [place] * CBC (06/19/2024 9:31 AM EST) Pathologist [facility] WBC 5.8 3.8 - 10.8 Thousand/u L [facility] RBC 4.83 3.80 - 5.10 Million/uL [facility] Hemoglobin 13.9 11.7 - 15.5 g/dL [facility] Hematocrit 42.5 35.0 - 45.0 % [facility] MCV 88.0 80.0 - 100.0 fL [facility] MCH 28.8 27.0 - 33.0 pg [facility] MCHC 32.7 32.0 - 36.0 g/dL [facility] Comment: For adults, a slight decrease in the calculated MCHC value (in the range of 30 to 32 g/dL) is most likely not clinically significant; however, it should be interpreted with caution in correlation with other red cell parameters and the patient's clinical condition. RDW 12.5 11.0 - 15.0 % [facility] Platelets 284 140 - 400 Thousand/u L [facility] [facility] MPV 10.8 7.5 - 12.5 fL [facility] Blood 06/19/2024 9:31 AM EST 06/19/2024 9:33 AM EST Narrative [facility] - 06/27/2024 6:07 PM EST FASTING:YES COLLECTION KIT GIVEN TO PATIENT. PATIENT ADVISED TO RETURN. FASTING: YES Resulting Agency Comment Performing Organization Information: ?Site ID: [id number] ?Name: [facility] ?Address: [address] [place] [phone] ?Director: Fernie Hitchcock M.D. Wendy Cardenas MD LAB BLOOD ORDERABLES Final Resul t Performing Organization Address [facility] Phone Number [facility] [address] [place] [phone] [facility] [address] [place] [phone] * Rheumatoid factor (06/19/2024 9:31 AM EST) [facility] Rheumatoid Factor 13 <14 IU/mL [facility] Blood 06/19/2024 9:31 AM EST 06/19/2024 9:33 AM EST Narrative [facility] - 06/27/2024 6:07 PM EST FASTING:YES COLLECTION KIT GIVEN TO PATIENT. PATIENT ADVISED TO RETURN. FASTING: YES Resulting Agency Comment Performing Organization Information: ?Site ID: [id number] ?Name: [facility] ?Address: [address] [place] [phone] ?Director: Fernie Hitchcock M.D. Wendy Cardenas MD LAB BLOOD ORDERABLES Final Resul t Performing Organization Address [facility] Phone Number [facility] [address] [place] [phone] [facility] [address] [place] [phone] * T3 (06/19/2024 9:31 AM EST) [facility] T3, Total 121 76 - 181 ng/dL [facility] Blood 06/19/2024 9:31 AM EST 06/19/2024 9:33 AM EST Narrative [facility] - 06/27/2024 6:07 PM EST FASTING:YES COLLECTION KIT GIVEN TO PATIENT. PATIENT ADVISED TO RETURN. FASTING: YES Resulting Agency Comment Performing Organization Information: ?Site ID: [id number] ?Name: [facility] ?Address: [address] [place] [phone] ?Director: Fernie Hitchcock M.D. Wendy Cardenas MD LAB BLOOD ORDERABLES Final Resul t Performing Organization Address [facility] Phone Number [employer] [address] [place] [phone] [facility] [address] [place] [phone] * Transferrin (06/19/2024 9:31 AM EST) Pathologist [facility] Transferrin 322 188 - 341 mg/dL [facility] Blood 06/19/2024 9:31 AM EST 06/19/2024 9:33 AM EST Narrative [facility] - 06/27/2024 6:07 PM EST FASTING:YES COLLECTION KIT GIVEN TO PATIENT. PATIENT ADVISED TO RETURN. FASTING: YES Resulting Agency Comment Performing Organization Information: ?Site ID: [id number] ?Name: [facility] ?Address: [address] [place] [phone] ?Director: Fernie Hitchcock M.D. Wendy Cardenas MD LAB BLOOD ORDERABLES Final Resul t Performing Organization Address [facility] Phone Number [employer] [address] [place] [phone] [facility] [address] [place] [phone] * Vitamin B6 (06/19/2024 9:31 AM EST) Pathologist [facility] Vitamin B6 3.2 2.1 - 21.7 ng/mL [facility] Comment: Vitamin supplementation within 24 hours prior to blood draw may affect the accuracy of the results. This test was developed and its analytical performance characteristics have been determined by [place] It has not been cleared or approved by the U.S. Food and Drug Administration. This assay has been validated pursuant to the CLIA regulations and is used for clinical purposes. Blood 06/19/2024 9:31 AM EST 06/19/2024 9:33 AM EST Narrative [facility] - 06/27/2024 6:07 PM EST FASTING:YES COLLECTION KIT GIVEN TO PATIENT. PATIENT ADVISED TO RETURN. FASTING: YES Resulting Agency Comment Performing Organization Information: ?Site ID: [id number] ?Name: [employer] ?Address: [address] [place] [address] [place], [place] ?Director: Wilson Shetty M.D.,PhD Wendy Cardenas MD LAB BLOOD ORDERABLES Final Resul t [facility] [address] [employer] [place], [place] * Hemoglobin A1c (06/19/2024 9:31 AM EST) Hemoglobin A1C 5.5 <5.7 % of total Hgb [facility] Comment: For the purpose of screening for the presence of diabetes: <5.7% ? Consistent with the absence of diabetes 5.7-6.4% ?Consistent with increased risk for diabetes ?(prediabetes) > or =6.5% ??Consistent with diabetes This assay result is consistent with a decreased risk of diabetes. Currently, no consensus exists regarding use of hemoglobin A1c for diagnosis of diabetes in children. According to [place] Diabetes Association (ADA) guidelines, hemoglobin A1c <7.0% represents optimal control in non- diabetic patients. Different metrics may apply to specific patient populations. Standards of Medical Care in Diabetes(ADA). ?? Blood 06/19/2024 9:31 AM EST 06/19/2024 9:33 AM EST Narrative [facility] - 06/27/2024 6:07 PM EST FASTING:YES COLLECTION KIT GIVEN TO PATIENT. PATIENT ADVISED TO RETURN. FASTING: YES Resulting Agency Comment Performing Organization Information: ?Site ID: [id number] ?Name: [facility] ?Address: [address] [place] [phone] ?Director: Fernie Hitchcock M.D. Wendy Cardenas MD LAB BLOOD ORDERABLES Final Resul t Performing Organization Address [facility] de Phone Number [employer] [employer] [address] [place] [phone] [facility] [address] [place] [phone] * (ABNORMAL) Ferritin (06/19/2024 9:31 AM EST) Ferritin 8(L) 16 - 154 ng/mL [facility] Blood 06/19/2024 9:31 AM EST 06/19/2024 9:33 AM EST Narrative [facility] - 06/27/2024 6:07 PM EST FASTING:YES COLLECTION KIT GIVEN TO PATIENT. PATIENT ADVISED TO RETURN. FASTING: YES Resulting Agency Comment Performing Organization Information: ?Site ID: [id number] ?Name: [facility] ?Address: [address] [place] [phone] ?Director: Fernie Hitchcock M.D. Wendy Cardenas MD LAB BLOOD ORDERABLES Final Resul t Performing Organization Address [facility] de Phone Number [employer] [address] [place] [phone] [facility] [address] [place] [phone] * Comprehensive metabolic panel (CMP): Na, K, CL, Co2, Gluc, Ca, BUN, Creat, B/C, T.Prot, Alb, Glb, A/G, AST, ALT, ALKP, T.Bili (06/19/2024 9:31 AM EST) Glucose 92 65 - 99 mg/dL [facility] Comment: ? Fasting reference interval BUN 10 7 - 25 mg/dL [facility] Creatinine 0.72 0.50 - 0.99 mg/dL [facility] EGFR 108 > OR = 60 mL/min/1. 73m2 [facility] BUN/Creatinine Ratio SEE NOTE: (calc) [facility] Comment: ?? Not Reported: BUN and Creatinine are within ?? reference range. ? Sodium 137 135 - 146 mmol/L [facility] Potassium 4.1 3.5 - 5.3 mmol/L [facility] Chloride 105 98 - 110 mmol/L [facility] CO2 25 20 - 32 mmol/L [facility] Calcium 9.3 8.6 - 10.2 mg/dL [facility] Total Protein 7.2 6.1 - 8.1 g/dL [facility] Albumin 3.8 3.6 - 5.1 g/dL [facility] Globulin, Total 3.4 1.9 - 3.7 g/dL (calc) [facility] A/G Ratio 1.1 1.0 - 2.5 (calc) [facility] Total Bilirubin 0.3 0.2 - 1.2 mg/dL [facility] Alkaline Phosphatase 45 31 - 125 U/L [facility] AST 12 10 - 30 U/L [facility] ALT 12 6 - 29 U/L [facility] Blood 06/19/2024 9:31 AM EST 06/19/2024 9:33 AM EST Narrative [facility] - 06/27/2024 6:07 PM EST FASTING:YES COLLECTION KIT GIVEN TO PATIENT. PATIENT ADVISED TO RETURN. FASTING: YES Resulting Agency Comment Performing Organization Information: ?Site ID: [id number] ?Name: [facility] ?Address: [address] [place] [phone] ?Director: Fernie Hitchcock M.D. Wendy Cardenas MD LAB BLOOD ORDERABLES Final Resul t Performing Organization Address [facility] de Phone Number [facility] [address] [place] [phone] [facility] [address] [place] [phone] * CARDIAC MEDIUM TERM MONITOR OFFICE 3-7 DAYS (06/15/2024 3:05 PM EST) Narrative [facility] - 07/15/2024 5:26 PM EST Prescribed [...] DIAG ORDERABLES Final Result Performing Organization Address [facility] de Phone Number [facility] [address] [place] [address] * EKG 12 lead (06/15/2024 1:47 PM EST) 06/15/2024 1:47 PM EST Narrative [facility] - 06/17/2024 1:10 PM EST ?[facility] ?[address], [place] ??[address] ? Test Date: ?2024-06-15 Pat Name: ? YUDITHKEKE HOLLAND ?Department: ?? CARD HTFD ?Room: ? Gender: ? Female ? Executive Office Manager: ?? CC : ?1985 ? Requested By: IRFAN WARSY Order Number: [id number] ? Reading MD: ?? Irfan Warsy ? Measurements Intervals ?[place] ? Rate: ? 78 ? P: ?71 MI: ? 151 ?QRS: ?51 QRSD: ? 85 ? T: ?60 QT: ? 387 ? QTc: ?441 ? Interpretive Statements Normal Sinus Rhythm Normal axes, intervals, and voltages Electronically Signed On 06-17-2024 13:10:55 EST by Wendy Cardenas Wendy Cardenas MD ECG ORDERABLES Final Result [facility] from Last 3 Months Insurance [facility] [employer] Care Teams Fee Clerk Relationship Specialty Start Date End Date Luis Loomis MD [address] [place] [address] PCP - General 02/21/24
[2024-08-24 14:40] LABS: Basophils Percent Auto 0.7 % (0-2); Eosinophils Absolute Auto 0.8 X10*3/uL (0.0-0.4); Eosinophils Percent Auto 13.5 % (0-4); Hemoglobin 12.6 g/dl (12.0-16.0); Imm Gran Abs Auto 0.02 X10*3/uL (0.00-0.03); Imm Gran Pct Auto 0.3 % (0.0-0.4); Lymphocytes Absolute Auto 1.1 X10*3/uL (1.2-4.9); Lymphocytes Percent Auto 18.7 % (20-40); Mean Corpuscular HGB Conc 32.3 g/dl (31.0-35.0); Mean Corpuscular Hemoglobin 28.9 pg (27.0-33.0); Mean Corpuscular Volume 89.4 fL (80.0-98.0); Mean Platelet Volume 9.9 fL (9.4-12.3); Monocytes Absolute Auto 0.5 X10*3/uL (0.1-1.2); Monocytes Percent Auto 8.3 % (2-11); Neutrophils Absolute Auto 3.4 x10*3/uL (2.0-8.3); Neutrophils Percent Auto 58.5 % (45-73); Platelet Count 280 X10*3/uL (160-400); Red Blood Count 4.36 X10*6/uL (4.20-5.50); Red Cell Distribution Width 13.1 % (11.0-16.0); White Blood Count 5.8 X10*3/uL (4.8-10.8)
[2024-08-24 14:49] LABS: Appearance Urine Clear; Color Urine Orange; Glucose Urine UA Negative (Negative); Leukocyte Esterase Urine Trace (Negative); Nitrite Urine Negative (Negative); Specific Gravity - Urine <= 1.005 (1.005-1.025); UMIC TRIGGER UA YES; Urine Blood Large (3+) (Negative); Urine Ketones Negative (Negative); Urine Protein 30 (1+) mg/dL (Neg-Trace)
[2024-08-24 14:51] LABS: Bacteria Urine None Seen (None Seen); Hyaline Casts Urine 0-2 /LPF (0-2); RBC Urine >20 /HPF (0-2); WBC Urine 0-5 /HPF (0-5)
[2024-08-24 15:09] LABS: C Reactive Protein 0.18 mg/dL (< or = 0.50)
[2024-08-24 15:12] LABS: Creatinine Urine 30.25 mg/dL; Protein/Creatinine Ratio, Ur 0.36 (<0.2); Total Protein Urine Random 11 mg/dL (<12)
[2024-08-24 15:20] LABS: Erythrocyte Sedimentation Rate 16 MM/HR (0-20)
[2024-08-27 09:44] LABS: Complement C3 135 mg/dL (83-193)
[2024-08-28 16:59] LABS: Anti DNA DS Antibody <1 IU/mL
== END 2024-08-24 13:57 | disposition home or self-care (01) ==
LOC: HO.LAB 13:56
PROVIDERS: PCP Internal Medicine; Visit Provider Student in an Organized Health Care Education/Training Program
DX: M32.9 Systemic lupus erythematosus, unspecified (principal)
CPT/HCPCS: 36415; 81001; 82570; 84156; 85025; 85652; 86140; 86160; 86225

== ENCOUNTER → 2024-08-27 08:46 | Outpatient (REF) | payer OTHER, SELFPAY ==
--- NOTE | 2024-08-27 08:50 | CA_ITS ---
Transthoracic Echocardiogram Patient (Last, First, Middle): Yudith Hall L Gender: Female Date of : 1985 Age: 39 Procedure Date: 08/27/2024 Procedure Type: Transthoracic Echocardiogram Location: OP Height: 149.86 cm Weight: 77.57 kg BSA: 1.73 m2 Heart Rate: bpm BP: 130 / 66 mmHg Warehouse Delivery Driver: KIKE Referring MD: Cheko Abreu MD Symptoms: R06.02 - Shortness of breath Study Quality: Adequate ECG Rhythm: Sinus Conclusions: - The left ventricular systolic function is normal. The calculated ejection fraction is 58% by biplane method. - No obvious valvular pathology seen on this study. Findings Left Ventricle Normal left ventricular cavity size. There is normal left ventricular wall thickness. The left ventricular systolic function is normal. The calculated ejection fraction is 58% by biplane method. There is no evidence of regional wall motion abnormalities. Diastolic function is normal for age. Right Ventricle Normal right ventricular cavity size and systolic function. Atria Both atria are normal in size. Aortic Valve The aortic valve was not well visualized. There is no aortic valve stenosis. There is no aortic valve regurgitation. Mitral Valve The mitral valve appears normal. There is trace mitral valve regurgitation. There is no mitral valve stenosis. Pulmonic Valve The pulmonic valve is likely normal. Tricuspid Valve There is no tricuspid valve regurgitation. Tricuspid regurgitation envelope is inadequate for calculation of right ventricular systolic pressure. Great Vessels The asc aorta is normal in size. Venous The inferior vena cava is mildly dilated and collapses greater than 50% with inspiration. Pericardium/Pleural There is no evidence of pericardial effusion. Prior Study Comparison No significant change compared to prior study dated: 12/12/2018. Recommendations, Care & Conclusions No obvious valvular pathology seen on this study. Measurements 2D Linear Measurements IVSd: 0.55 0.6-0.9/0.6-1.0 cm LVIDd: 4.70 3.9-5.3/4.2-5.9 cm LVIDd Index: 2.72 2.4-3.2/2.2-3.1 cm/m2 LVIDs: 3.06 2.0-3.6 cm LVPWd: 0.77 0.7-1.1 cm LA Diam: 2.70 2.7-3.8/3.0-4.0 cm LAIDs Index: 1.56 1.5-2.3 cm/m2 LV Mass: 118.58 67-162/88-224 g LV Mass Index: 68.54 43-95/49-115 g/m2 LVOT Diam: 2.00 3.0+(-)1.3 cm 2D Systolic Function EF 4C: 59.40 >55% EF 2C: 56.60 >55% EF BiP: 57.80 >55% Mitral Valve MV Pk E: 1.07 MV PK A: 0.66 MV Decel Time: 218.00 E/A: 1.60 E'Lateral: 11.40 E'Medial: 10.60 E/E' Med: 10.10 E/E' Lat: 9.40 PHT: 64.00 MVA PHT: 3.44 Decel [place]: 4.89 Aortic Valve AoV Pk Carloz: 1.28 AoV Mn Carloz: 0.93 AoV VTI: 0.31 AoV Pk Grad: 7.00 Aov Mn Grad: 4.00 INA Cont.VTI: 2.16 LVOT LVOT Pk Carloz: 0.93 LVOT Mn Carloz: 0.63 LVOT VTI: 0.21 LVOT Pk Grad: 3.00 LVOT Mn Grad: 2.00 LVOT Diam: 2.00 LVOT Area: 3.14 Diastolic Function MV Pk E: 1.07 MV Pk A: 0.66 E/A: 1.60 E'Medial: 10.60 E/E' Med: 10.10 E' Laterial: 11.40 E/E' Lat: 9.40 Right Ventricle TAPSE (mm): 24.80 TVS' Carloz: 12.50 Tricuspid Valve RA Press: 8.00 Great Vessels Aorta Sinus of Valsalva: 2.98 2.0-3.[address] [place]: 2.35 1.7-3.4 cm Ao Asc: 2.80 2.1-3.4 cm Updated in Other [employer] System with Status of Final Elder Greenberg MD electronically signed on 08/27/2024 10:24:20 AM with status of Final
--- NOTE | 2024-08-27 08:50 | CA_ITS ---
Acquisition Time: 2024-08-27 09:54:21 Total Exercise Time: 00:05:20 Test Indications: Dyspnea Medications: SEE H&P Protocol: WONG Max HR: 129 BPM 71% of Pred: 180 BPM Max BP: 154/92 mmHG Max Work Load: 7.0 METS Exercise Stress Test with exercise 5 mins 20 secs of Wong Protocol, achieving 70% MPHR, requesting to stop due to leg heaviness and discomfort, and chest tightness at baseline that went up to 2/10 with exercise, without any arrythmias, with normotensive response to exercise. Nondiagnostic EKG for ischemia due to suboptimal HR. In recovery, pt feeling back to baseline. Will order Pharmacological Nuclear Stress Test. Test reviewed with Dr. Greenberg. Referred By: Cheko Abreu Electronically Signed By: Dean Lopez
--- OUTSIDE RECORDS SUMMARY | 2024-08-27 09:15 | XMS_ITS | Clinical Summary ---
Author Organization [facility] 's Address [address] [place] [address] Care Team Providers Care Rpg Programmer Analyst Name Role Phone Luis Loomis MD Primary Care Provider Source Comments Please note that some or [...] so, obtain the minor's consent prior to disclosure.[facility]'s Allergies Active Allergy Reactions Criticality Noted Date [...] Type Department Care Team Description 06/26/2024 Refill 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 Refill [facility] Department of Cardiology [address] [place] [phone] Wendy Cardenas MD POTS (postural orthostatic tachycardia syndrome) 06/15/2024 2:28 PM EST - 06/15/2024 11:59 PM EST Hospital Encounter [facility] Department of Cardiology [address] [place] [phone] Wendy Cardenas MD Discharge Disposition: Home or Self Care 06/15/2024 1:30 PM EST Office Visit [facility] Department of Cardiology [address] [place] [phone] 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 Values obtained with different methods, laboratories, or kits cannot be used interchangeably with the results on this report. The results cannot be interpreted as absolute evidence of the presence or absence of malignant disease. Urine 06/20/2024 9:16 AM EST 06/20/2024 9:17 AM EST Narrative [facility] - 06/28/2024 8:57 AM EST SPLIT 06/19/2024 FROM [id number] COLLECTION KIT GIVEN TO PATIENT. PATIENT ADVISED TO RETURN. URINE VOLUME: 1000 Resulting Agency Comment Performing Organization Information: ?Site ID: INS ?Name: [facility] ?Address: [address] [place] [address] ?Director: Mario Gonsales MD,PhD Wendy Cardenas MD LAB BLOOD ORDERABLES Final Resul t Performing Organization Address [facility] de Phone Number [facility] [address] [place] [address], [facility] * Histamine, Urine, 24 Hour (06/19/2024 10:00 AM EST) Total Volume 550 mL [facility] [employer] [facility], HISTAMINE, URINE, 24 HOUR 0.007 0.006 - 0.131 mg/24 h [facility] [employer] [facility], Comment: This test was performed using a kit that has not been cleared or approved by the FDA. The analytical performance characteristics of this test have been determined by [employer] [facility]. This test should not be used for diagnosis without confirmation by other medically established means. Urine 06/19/2024 10:0 0 AM EST 06/20/2024 9:20 AM EST Narrative [facility] - 06/26/2024 4:34 PM EST SPLIT 06/20/2024 FROM [id number] URINE VOLUME: 550/24 Resulting Agency Comment Performing Organization Information: ?Site ID: EZ ?Name: [facility], ?Address: [address] [place] [phone] ?Director: Mayra Martin MD,PhD,YURI Wendy Cardenas MD LAB BLOOD ORDERABLES Final Resul t Performing Organization Address [facility] Co de Phone Number [facility] [id number] [place] [phone] [facility], [address] [place] [phone] * (ABNORMAL) JORGE A Screen, IFA, Rflx Titer/Pattern (06/19/2024 9:31 AM EST) JORGE A SCREEN, IFA POSITIVE( A) NEGATIVE [facility] Comment: JORGE A IFA is a first line screen for detecting the presence of up to approximately 150 autoantibodies in various autoimmune diseases. A positive JORGE A IFA result is suggestive of autoimmune disease and reflexes to titer and pattern. Further laboratory testing may be considered if clinically indicated. For additional information, please refer to http://education.Smart [employer]/faq/JNR227 (This link is being provided for informational/ educational purposes only.) ?? 06/19/2024 9:31 AM EST 06/19/2024 9:33 AM EST Narrative [facility] - 06/27/2024 6:07 PM EST FASTING:YES COLLECTION KIT GIVEN TO PATIENT. PATIENT ADVISED TO RETURN. FASTING: YES Resulting Agency Comment Performing Organization Information: ?Site ID: [id number] ?Name: [facility] ?Address: [address] [place] [phone] ?Director: Fernie Hitchcock M.D. Wendy Cardenas MD LAB BLOOD ORDERABLES Final Resul t [facility] [address] [place] [address] [facility] [address] [place] [address] * (ABNORMAL) Antinuclear Antibodies Titer and Pattern (06/19/2024 9:31 AM EST) JORGE A Titer 1:1280(H) titer [facility] Comment: ?Reference Range ?<1:40 ?Negative ?1:40-1:80 ?Low Antibody Level ?>1:80 ?Elevated Antibody Level JORGE A Pattern Nuclear, Speckled( A) [facility] Comment: Speckled pattern is associated with mixed connective tissue disease (MCTD), systemic lupus erythematosus (SLE), Sjogren's syndrome, dermatomyositis, and systemic sclerosis/polymyositis overlap. AC-2,4,5,29: Speckled International Consensus on JORGE A Patterns (https://doi.org/10.1515/iyge-3503-1608) JORGE A Titer 1:160(H) titer [facility] Comment: ?Reference Range ?<1:40 ?Negative ?1:40-1:80 ?Low Antibody Level ?>1:80 ?Elevated Antibody Level JORGE A Patter Nuclear, Homogeneo us(A) [facility] Comment: Homogeneous pattern is associated with systemic lupus erythematosus (SLE), drug-induced lupus and juvenile idiopathic arthritis. AC-1: Homogeneous International Consensus on JORGE A Patterns (https://doi.org/10.1515/rode-6011-3758) 06/19/2024 9:31 AM EST 06/19/2024 9:33 AM EST Narrative [employer] - 06/27/2024 6:07 PM EST FASTING:YES COLLECTION KIT GIVEN TO PATIENT. PATIENT ADVISED TO RETURN. FASTING: YES Resulting Agency Comment Performing Organization Information: ?Site ID: [id number] ?Name: [facility] ?Address: [address] [place] [phone] ?Director: Fernie Hitchcock M.D. us Wendy Cardenas MD LAB BLOOD ORDERABLES Final Resul t [facility] [address] [place] [address] [facility] [address] [place] [address] * THYROID PEROXIDASE AND THYROGLOBULIN ANTIBODIES (06/19/2024 9:31 AM EST) Thyroglobulin Ab <1 < or = 1 IU/mL [facility] Thyroid Peroxidase Ab <1 <9 IU/mL [facility] Blood 06/19/2024 9:31 AM EST 06/19/2024 9:33 AM EST Narrative [facility] - 06/27/2024 6:07 PM EST FASTING:YES COLLECTION KIT GIVEN TO PATIENT. PATIENT ADVISED TO RETURN. FASTING: YES Resulting Agency Comment Performing Organization Information: ?Site ID: [id number] ?Name: [facility] ?Address: [address] [place] [phone] ?Director: Fernie Hitchcock M.D. us Wendy Cardenas MD LAB BLOOD ORDERABLES Final Resul t [facility] [address] [place] [address] [facility] [address] [place] [phone] * TSH and Free T4 (06/19/2024 9:31 AM EST) TSH 0.96 mIU/L [facility] Comment: ?Reference Range ?> or = 20 Years ??0.40-4.50 ? Ranges ?First trimester ?0.26-2.66 ?Second trimester ?? 0.55-2.73 ?Third trimester ?0.43-2.91 Free T4 1.1 0.8 - 1.8 ng/dL [facility] Blood 06/19/2024 9:31 AM EST 06/19/2024 9:33 AM EST Narrative [facility] - 06/27/2024 6:07 PM EST FASTING:YES COLLECTION KIT GIVEN TO PATIENT. PATIENT ADVISED TO RETURN. FASTING: YES Resulting Agency Comment Performing Organization Information: ?Site ID: [id number] ?Name: [facility] ?Address: [address] [place] [phone] ?Director: Fernie Hitchcock M.D. Wendy Cardenas MD LAB BLOOD ORDERABLES Final Resul t Performing Organization Address [facility] de Phone Number [facility] [address] [place] [address] [place] [address] [facility] [address] [place] [phone] * (ABNORMAL) Iron, Total, TIBC and Saturation (06/19/2024 9:31 AM EST) Iron 57 40 - 190 mcg/dL [facility] TIBC 406 250 - 450 mcg/dL (calc) [employer] Iron Saturation 14(L) 16 - 45 % (calc) [facility] Blood 06/19/2024 9:31 AM EST 06/19/2024 9:33 AM EST Narrative [facility] - 06/27/2024 6:07 PM EST FASTING:YES COLLECTION KIT GIVEN TO PATIENT. PATIENT ADVISED TO RETURN. FASTING: YES Resulting Agency Comment Performing Organization Information: ?Site ID: [id number] ?Name: [facility] ?Address: [address] [place] [phone] ?Director: Fernie Hitchcock M.D. Wendy Cardenas MD LAB BLOOD ORDERABLES Final Resul t Performing Organization Address [facility] Co de Phone Number [facility] [address] [phone] [facility] [address] [phone] * (ABNORMAL) Sjogren's (SS-A, SS-B) Antibodies (06/19/2024 9:31 AM EST) SJOGREN'S ANTIBODY (SS-A) >8.0 POS(A) <1.0 NEG AI [facility] Sjogren's Antibody (SS-B) >8.0 POS(A) <1.0 NEG [facility] 06/19/2024 9:31 AM EST 06/19/2024 9:33 AM EST Narrative [facility] - 06/27/2024 6:07 PM EST FASTING:YES COLLECTION KIT GIVEN TO PATIENT. PATIENT ADVISED TO RETURN. FASTING: YES Resulting Agency Comment Performing Organization Information: ?Site ID: [id number] ?Name: [facility] ?Address: [address] [place] [phone] ?Director: Fernie Hitchcock M.D. Wendy Cardenas MD LAB BLOOD ORDERABLES Final Resul t [facility] [address] [place] [phone] [facility] [address] [place] [phone] * Vitamin B12 & Folate (06/19/2024 9:31 AM EST) Vitamin B-12 299 200 - 1,100 pg/mL [facility] Comment: Please Note: Although the reference range for vitamin B12 is 200-1100 pg/mL, it has been reported that between 5 and 10% of patients with values between 200 and 400 pg/mL may experience neuropsychiatric and hematologic abnormalities due to occult B12 deficiency; less than 1% of patients with values above 400 pg/mL will have symptoms. Folate >24.0 ng/mL [facility] Comment: ? Reference Range ? Low: ? <3.4 ? Borderline: ?3.4-5.4 ? Normal: ?>5.4 Blood 06/19/2024 9:31 AM EST 06/19/2024 9:33 AM EST Narrative [facility] - 06/27/2024 6:07 PM EST FASTING:YES COLLECTION KIT GIVEN TO PATIENT. PATIENT ADVISED TO RETURN. FASTING: YES Resulting Agency Comment Performing Organization Information: ?Site ID: [id number] ?Name: [employer] ?Address: [address] [place] [phone] ?Director: Fernie Hitchcock M.D. us Wendy Cardenas MD LAB BLOOD ORDERABLES Final Resul t [facility] [address] [place] [address] [facility] [employer] [address] [place] [address] * Aldosterone/Plasma Renin Activity Ratio (06/19/2024 9:31 AM EST) Aldosterone 8 see note ng/dL [employer] [facility] Comment: Unable to flag abnormal result(s), please refer ?to reference range(s) below: Adult Reference Ranges for Aldosterone, LC/MS/MS: ?Upright ??8:00 - 10:00 am ?< or = 28 ng/dL ?Upright ??4:00 - ??6:00 pm ?< or = 21 ng/dL ?Supine ?? 8:00 - 10:00 am ? 3 - 16 ng/dL Renin 1.93 0.25 - 5.82 ng/mL/h [facility] ALDOSTERONE/PLAS MA RENIN ACTIVITY RATIO 4.1 0.9 - 28.9 Ratio [facility] Comment: This test was developed and its analytical performance characteristics have been determined by [employer] [place], [place]. It has not been cleared or approved by the U.S. Food and Drug Administration. This assay has been validated pursuant to the CLIA regulations and is used for clinical purposes. 06/19/2024 9:31 AM EST 06/19/2024 9:33 AM EST Narrative [facility] [employer] [facility] - 06/27/2024 6:07 PM EST FASTING:YES COLLECTION KIT GIVEN TO PATIENT. PATIENT ADVISED TO RETURN. FASTING: YES Resulting Agency Comment Performing Organization Information: ?Site ID: AMD ?Name: [employer] ?Address: [address] [place] [address] [place] ?Director: Wilson Shetty M.D.,PhD Wendy Cardenas MD LAB BLOOD ORDERABLES Final Resul t [employer] [address] [employer]/[address] [place], [place] * Catecholamines, fractionated, plasma (06/19/2024 9:31 AM EST) Epinephrine 56 pg/mL [employer] [employer] [facility], Comment: Reference Range: SUPINE: <58 UPRIGHT: <82 Norepinephrine 382 pg/mL [facility], Comment: Reference Range: SUPINE: 149-564 UPRIGHT: 199-937 Dopamine 15 pg/mL [employer]/[facility], Comment: Reference Range: SUPINE: <16 UPRIGHT: <27 Total Catecholamines (Nor+Epi) 453 pg/mL [facility]/[employer] [facility], Comment: Reference Range: SUPINE: <632 UPRIGHT: <1046 Due to stress, plasma catecholamine levels are generally unreliable in infants and small children. Urinary catecholamine assays are more reliable. This test was developed and its analytical performance characteristics have been determined by [employer]. It has not been cleared or approved by FDA. This assay has been validated pursuant to the CLIA regulations and is used for clinical purposes. Blood 06/19/2024 9:31 AM EST 06/19/2024 9:33 AM EST Narrative [facility] - 06/27/2024 6:07 PM EST FASTING:YES COLLECTION KIT GIVEN TO PATIENT. PATIENT ADVISED TO RETURN. FASTING: YES Resulting Agency Comment Performing Organization Information: ?Site ID: EZ ?Name: [facility]erta/[facility], ?Address: [address] [place] [phone] ?Director: Mayra Martin MD,PhD,YURI Wendy Cardenas MD LAB BLOOD ORDERABLES Final Resul t [facility] [address] [place] [phone] [facility], [address] [place] [address] * Tryptase (06/19/2024 9:31 AM EST) TRYPTASE 5.4 <11.0 mcg/L [facility] Comment: The Tryptase test, fluorescent enzyme immunoassay (FEIA), measures both the Alpha and Beta forms of Tryptase. Measuring both forms of Tryptase increases sensitivity for the diagnosis of mastocytosis, and mast cell degranulation as a cause of anaphylaxis. Blood 06/19/2024 9:31 AM EST 06/19/2024 9:33 AM EST Narrative [employer] - 06/27/2024 6:07 PM EST FASTING:YES COLLECTION KIT GIVEN TO PATIENT. PATIENT ADVISED TO RETURN. FASTING: YES Resulting Agency Comment Performing Organization Information: ?Site ID: [id number] ?Name: [facility] ?Address: [address] [place] [phone] ?Director: Fernie Hitchcock M.D. Wendy Cardenas MD LAB BLOOD ORDERABLES Final Resul t Performing Organization Address [facility] de Phone Number [facility] [address] [place] [phone] [facility] [address] [place] [phone] * Tissue transglutaminase, IgA (06/19/2024 9:31 AM EST) Transglutaminase IgA 9.9 U/mL [facility] Comment: Value ?Interpretation ----- ? <15.0 ?Antibody not detected > or = 15.0 ?Antibody detected Blood 06/19/2024 9:31 AM EST 06/19/2024 9:33 AM EST Narrative [facility] - 06/27/2024 6:07 PM EST FASTING:YES COLLECTION KIT GIVEN TO PATIENT. PATIENT ADVISED TO RETURN. FASTING: YES Resulting Agency Comment Performing Organization Information: ?Site ID: [id number] ?Name: [facility] ?Address: [address] [place] [address] ?Director: Fernie Hitchcock M.D. Wendy Cardenas MD LAB BLOOD ORDERABLES Final Resul t Performing Organization Address [facility] de Phone Number [facility] [address] [place] [address] [place] [address] [facility] [employer] [address] [place] [address] * Cardiolipin antibody, IgM (06/19/2024 9:31 AM EST) Anticardiolipin IgM <2.0 MPL-U/mL [facility] [employer] Comment: Value ?Interpretation ----- ? < 20.0 [...] aging. For additional information, please refer to http://education.FantasyBook/faq/IEZ778 (This link is being provided for informational/ educational purposes only.) Blood 06/19/2024 9:31 AM EST 06/19/2024 9:33 AM EST Narrative [facility] - 06/27/2024 6:07 PM EST FASTING:YES COLLECTION KIT GIVEN TO PATIENT. PATIENT ADVISED TO RETURN. FASTING: YES Resulting Agency Comment Performing Organization Information: ?Site ID: [id number] ?Name: [facility] ?Address: [address] [place] [phone] ?Director: Fernie Hitchcock M.D. Wendy Cardenas MD LAB BLOOD ORDERABLES Final Resul t [facility] [address] [place] [address] [facility] [address] [place] [address] * Cardiolipin antibody, IgG (06/19/2024 9:31 AM EST) Anticardiolipin IgG <2.0 GPL-U/mL [facility] Comment: Value ?Interpretation ----- ? < 20.0 [...] aging. For additional information, please refer to http://education.FantasyBook/faq/FQU244 (This link is being provided for informational/ educational purposes only.) Blood 06/19/2024 9:31 AM EST 06/19/2024 9:33 AM EST Narrative [facility] - 06/27/2024 6:07 PM EST FASTING:YES COLLECTION KIT GIVEN TO PATIENT. PATIENT ADVISED TO RETURN. FASTING: YES Resulting Agency Comment Performing Organization Information: ?Site ID: [id number] ?Name: [facility] ?Address: [address] [place] [phone] ?Director: Fernie Hitchcock M.D. Wendy Cardenas MD LAB BLOOD ORDERABLES Final Resul t [facility] [address] [place] [address] [facility] [address] [place] [address] * Cardiolipin antibody, IgA (06/19/2024 9:31 AM EST) Anticardiolipin IgA <2.0 APL-U/mL [facility] Comment: Value ?Interpretation ----- ? < 20.0 [...] aging. For additional information, please refer to http://education.FantasyBook/faq/WEP087 (This link is being provided for informational/ educational purposes only.) Blood 06/19/2024 9:31 AM EST 06/19/2024 9:33 AM EST Narrative [facility] - 06/27/2024 6:07 PM EST FASTING:YES COLLECTION KIT GIVEN TO PATIENT. PATIENT ADVISED TO RETURN. FASTING: YES Resulting Agency Comment Performing Organization Information: ?Site ID: [id number] ?Name: [facility] ?Address: [address] [place] [phone] ?Director: Fernie Hitchcock M.D. Wendy Cardenas MD LAB BLOOD ORDERABLES Final Resul t Performing Organization Address City/[facility]/ZIP Co de Phone Number [facility] [address] [place] [address] [facility] [address] [place] [address] * HISTAMINE (06/19/2024 9:31 AM EST) Histamine, Plasma <1.5 < OR = 1.8 ng/mL [facility], Comment: This test was performed using a kit that has not been cleared or approved by the FDA. The analytical performance characteristics of this test have been determined by [employer] [facility]. This test should not be used for diagnosis without confirmation by other medically established means. Blood 06/19/2024 9:31 AM EST 06/19/2024 9:33 AM EST Narrative [facility] - 06/27/2024 6:07 PM EST FASTING:YES COLLECTION KIT GIVEN TO PATIENT. PATIENT ADVISED TO RETURN. FASTING: YES Resulting Agency Comment Performing Organization Information: ?Site ID: EZ ?Name: [employer]/[facility], ?Address: [address] [place] [phone] ?Director: Mayra Martin MD,PhD,YURI Wendy Cardenas MD LAB BLOOD ORDERABLES Final Resul t Performing Organization Address City/[facility]/ZIP Co de Phone Number [employer] [phone] [place] [phone] [employer]/[facility], [address] [place] [phone] * ACTH (06/19/2024 9:31 AM EST) ACTH 13 6 - 50 pg/mL [facility] Comment: Reference range applies only to specimens collected between 7am-10am. ? Blood 06/19/2024 9:31 AM EST 06/19/2024 9:33 AM EST Narrative [facility] - 06/27/2024 6:07 PM EST FASTING:YES COLLECTION KIT GIVEN TO PATIENT. PATIENT ADVISED TO RETURN. FASTING: YES Resulting Agency Comment Performing Organization Information: ?Site ID: AMD ?Name: [facility] ?Address: [address] [place] [address] [place] ?Director: Wilson Shetty M.D.,PhD us Wendy Cardenas MD LAB BLOOD ORDERABLES Final Resul t [facility] [employer] [address] [place], [place] [facility]/[address] [place], [place] * Lupus anticoagulant (06/19/2024 9:31 AM EST) LUPUS ANTICOAGULANT EVAL. see note [facility] Comment: A Lupus Anticoagulant is not detected. Reference Range: ??Not Detected For additional information, please refer to http://education.FantasyBook/faq/RNW32w3 (This link is being provided for informational/ educational purposes only.) ? This interpretation is based on the following test results. PTT-LA Screen 38 <=40 sec [facility] dRVVT Screen 39 <=45 sec [facility] Blood 06/19/2024 9:31 AM EST 06/19/2024 9:33 AM EST Narrative [facility] - 06/27/2024 6:07 PM EST FASTING:YES COLLECTION KIT GIVEN TO PATIENT. PATIENT ADVISED TO RETURN. FASTING: YES Resulting Agency Comment Performing Organization Information: ?Site ID: AMD ?Name: [employer] ?Address: [address] [place] [address] [place], [place] ?Director: Wilson Shetty M.D.,PhD us Wendy Cardenas MD LAB BLOOD ORDERABLES Final Resul t [employer] [address] [employer] [address] [place], [place] * CBC (06/19/2024 9:31 AM EST) Pathologist [facility] WBC 5.8 3.8 - 10.8 Thousand/u L [facility] RBC 4.83 3.80 - 5.10 Million/uL [facility] Hemoglobin 13.9 11.7 - 15.5 g/dL [facility] Hematocrit 42.5 35.0 - 45.0 % [facility] MCV 88.0 80.0 - 100.0 fL [facility] MCH 28.8 27.0 - 33.0 pg [facility] MCHC 32.7 32.0 - 36.0 g/dL [facility] Comment: For adults, a slight decrease in the calculated MCHC value (in the range of 30 to 32 g/dL) is most likely not clinically significant; however, it should be interpreted with caution in correlation with other red cell parameters and the patient's clinical condition. RDW 12.5 11.0 - 15.0 % [facility] Platelets 284 140 - 400 Thousand/u L [facility] MPV 10.8 7.5 - 12.5 fL [facility] Blood 06/19/2024 9:31 AM EST 06/19/2024 9:33 AM EST Narrative [facility] - 06/27/2024 6:07 PM EST FASTING:YES COLLECTION KIT GIVEN TO PATIENT. PATIENT ADVISED TO RETURN. FASTING: YES Resulting Agency Comment Performing Organization Information: ?Site ID: [id number] ?Name: [facility] ?Address: [address] [place] [phone] ?Director: Fernie Hitchcock M.D. Wendy Cardenas MD LAB BLOOD ORDERABLES Final Resul t Performing Organization Address [facility] Phone Number [facility] [address] [place] [phone] [facility] [address] [place] [phone] * Rheumatoid factor (06/19/2024 9:31 AM EST) [facility] Rheumatoid Factor 13 <14 IU/mL [facility] 06/19/2024 9:31 AM EST 06/19/2024 9:33 AM EST Narrative [facility] - 06/27/2024 6:07 PM EST FASTING:YES COLLECTION KIT GIVEN TO PATIENT. PATIENT ADVISED TO RETURN. FASTING: YES Resulting Agency Comment Performing Organization Information: ?Site ID: [id number] ?Name: [facility] ?Address: [address] [place] [phone] ?Director: Fernie Hitchcock M.D. Wendy Cardenas MD LAB BLOOD ORDERABLES Final Resul t Performing Organization Address [facility] Phone Number [facility] [address] [place] [phone] [facility] [address] [place] [phone] * T3 (06/19/2024 9:31 AM EST) [facility] T3, Total 121 76 - 181 ng/dL [facility] Blood 06/19/2024 9:31 AM EST 06/19/2024 9:33 AM EST Narrative [facility] - 06/27/2024 6:07 PM EST FASTING:YES COLLECTION KIT GIVEN TO PATIENT. PATIENT ADVISED TO RETURN. FASTING: YES Resulting Agency Comment Performing Organization Information: ?Site ID: [id number] ?Name: [facility] ?Address: [address] [place] [phone] ?Director: Fernie Hitchcock M.D. Wendy Cardenas MD LAB BLOOD ORDERABLES Final Resul t Performing Organization Address [facility] Phone Number [facility] [address] [place] [phone] [facility] [address] [place] [phone] * Transferrin (06/19/2024 9:31 AM EST) Pathologist [facility] Transferrin 322 188 - 341 mg/dL [facility] Blood 06/19/2024 9:31 AM EST 06/19/2024 9:33 AM EST Narrative [facility] - 06/27/2024 6:07 PM EST FASTING:YES COLLECTION KIT GIVEN TO PATIENT. PATIENT ADVISED TO RETURN. FASTING: YES Resulting Agency Comment Performing Organization Information: ?Site ID: [id number] ?Name: [facility] ?Address: [address] [place] [phone] ?Director: Fernie Hitchcock M.D. Wendy Cardenas MD LAB BLOOD ORDERABLES Final Resul t Performing Organization Address [facility] Phone Number [facility] [address] [place] [phone] [facility] [address] [place] [phone] * Vitamin B6 (06/19/2024 9:31 AM EST) Pathologist [facility] Vitamin B6 3.2 2.1 - 21.7 ng/mL [facility] Comment: Vitamin supplementation within 24 hours prior to blood draw may affect the accuracy of the results. This test was developed and its analytical performance characteristics have been determined [place] It has not been cleared or approved by the U.S. Food and Drug Administration. This assay has been validated pursuant to the CLIA regulations and is used for clinical purposes. Blood 06/19/2024 9:31 AM EST 06/19/2024 9:33 AM EST Narrative [facility] - 06/27/2024 6:07 PM EST FASTING:YES COLLECTION KIT GIVEN TO PATIENT. PATIENT ADVISED TO RETURN. FASTING: YES Resulting Agency Comment Performing Organization Information: ?Site ID: [facility] ?Name: [facility] ?Address: [address] [place] [address] [place], [place] ?Director: Wilson Shetty M.D.,PhD Wendy Cardenas MD LAB BLOOD ORDERABLES Final Resul t [facility] [address] [facility] [place], [place] * Hemoglobin A1c (06/19/2024 9:31 AM EST) Hemoglobin A1C 5.5 <5.7 % of total Hgb [facility] Comment: For the purpose of screening for the presence of diabetes: <5.7% ? Consistent with the absence of diabetes 5.7-6.4% ?Consistent with increased risk for diabetes ?(prediabetes) > or =6.5% ??Consistent with diabetes This assay result is consistent with a decreased risk of diabetes. Currently, no consensus exists regarding use of hemoglobin A1c for diagnosis of diabetes in children. According to [place] Diabetes Association (ADA) guidelines, hemoglobin A1c <7.0% represents optimal control in non- diabetic patients. Different metrics may apply to specific patient populations. Standards of Medical Care in Diabetes(ADA). ?? Blood 06/19/2024 9:31 AM EST 06/19/2024 9:33 AM EST Narrative [facility] - 06/27/2024 6:07 PM EST FASTING:YES COLLECTION KIT GIVEN TO PATIENT. PATIENT ADVISED TO RETURN. FASTING: YES Resulting Agency Comment Performing Organization Information: ?Site ID: [id number] ?Name: [facility] ?Address: [address] [place] [phone] ?Director: Fernie Hitchcock M.D. Wendy Cardenas MD LAB BLOOD ORDERABLES Final Resul t Performing Organization Address [facility] Phone Number [facility] [address] [place] [phone] [facility] [address] [place] [phone] * (ABNORMAL) Ferritin (06/19/2024 9:31 AM EST) Ferritin 8(L) 16 - 154 ng/mL [facility] Blood 06/19/2024 9:31 AM EST 06/19/2024 9:33 AM EST Narrative [facility] - 06/27/2024 6:07 PM EST FASTING:YES COLLECTION KIT GIVEN TO PATIENT. PATIENT ADVISED TO RETURN. FASTING: YES Resulting Agency Comment Performing Organization Information: ?Site ID: [id number] ?Name: [facility] ?Address: [address] [place] [phone] ?Director: Fernie Hitchcock M.D. Wendy Cardenas MD LAB BLOOD ORDERABLES Final Resul t Performing Organization Address [facility] de Phone Number [facility] [address] [place] [phone] [facility] [address] [place] [phone] * Comprehensive metabolic panel (CMP): Na, K, CL, Co2, Gluc, Ca, BUN, Creat, B/C, T.Prot, Alb, Glb, A/G, AST, ALT, ALKP, T.Bili (06/19/2024 9:31 AM EST) Glucose 92 65 - 99 mg/dL [facility] Comment: ? Fasting reference interval BUN 10 7 - 25 mg/dL [facility] Creatinine 0.72 0.50 - 0.99 mg/dL [facility] EGFR 108 > OR = 60 mL/min/1. 73m2 [facility] BUN/Creatinine Ratio SEE NOTE: (calc) [facility] Comment: ?? Not Reported: BUN and Creatinine are within ?? reference range. ? Sodium 137 135 - 146 mmol/L [facility] Potassium 4.1 3.5 - 5.3 mmol/L [facility] Chloride 105 98 - 110 mmol/L [facility] CO2 25 20 - 32 mmol/L [facility] Calcium 9.3 8.6 - 10.2 mg/dL [facility] Total Protein 7.2 6.1 - 8.1 g/dL [facility] Albumin 3.8 3.6 - 5.1 g/dL [facility] Globulin, Total 3.4 1.9 - 3.7 g/dL (calc) [facility] A/G Ratio 1.1 1.0 - 2.5 (calc) [facility] Total Bilirubin 0.3 0.2 - 1.2 mg/dL [facility] Alkaline Phosphatase 45 31 - 125 U/L [facility] AST 12 10 - 30 U/L [facility] ALT 12 6 - 29 U/L [facility] Blood 06/19/2024 9:31 AM EST 06/19/2024 9:33 AM EST Narrative [facility] - 06/27/2024 6:07 PM EST FASTING:YES COLLECTION KIT GIVEN TO PATIENT. PATIENT ADVISED TO RETURN. FASTING: YES Resulting Agency Comment Performing Organization Information: ?Site ID: [id number] ?Name: [facility] ?Address: [address] [place] [phone] ?Director: Fernie Hitchcock M.D. Wendy Cardenas MD LAB BLOOD ORDERABLES Final Resul t Performing Organization Address [facility] de Phone Number [facility] [address] [place] [phone] [facility] [address] [place] [phone] * CARDIAC MEDIUM TERM MONITOR OFFICE 3-7 DAYS (06/15/2024 3:05 PM EST) Narrative [facility] - 07/15/2024 [...] DIAG ORDERABLES Final Result Performing Organization Address [facility] de Phone Number [facility] [address] [place] [address] * EKG 12 lead (06/15/2024 1:47 PM EST) 06/15/2024 1:47 PM EST Narrative [facility] - 06/17/2024 1:10 PM EST ?[facility] ?[address] [place], [place] ??[address] ? Test Date: ?2024-06-15 Pat Name: ? YUDITHKEKE HOLLAND ?Department: ?? CARD HTFD ?Room: ? Gender: ? Female ? Data Virtualization Consultant: ?? CC : ?1985 ? Requested By: IRFAN WARSY Order Number: [id number] ? Reading MD: ?? Irfan Warsy ? Measurements Intervals ?[employer] ? Rate: ? 78 ? P: ?71 OK: ? 151 ?QRS: ?51 QRSD: ? 85 ? T: ?60 QT: ? 387 ? QTc: ?441 ? Interpretive Statements Normal Sinus Rhythm Normal axes, intervals, and voltages Electronically Signed On 06-17-2024 13:10:55 EST by Wendy Cardenas Wendy Cardenas MD ECG ORDERABLES Final Result [facility] from Last 3 Months Insurance [facility] [employer] PLAN Care Teams Rpg Programmer Analyst Relationship Specialty Start Date End Date Luis Loomis MD [address] [place] [address] PCP - General 02/21/24
--- OUTSIDE RECORDS SUMMARY | 2024-08-27 09:15 | XMS_ITS | Clinical Summary ---
[facility] Organization [facility] Address [address] [place] [address] Care Team Providers Care Associate Director Financial Aid Name Role Phone Luis Loomis MD Primary Care Provider [phone] Surgical History Surgery Date Site/Laterality Comments CERVICAL [...] Info) Description 10/02/2024 1:00 PM EDT Appointment [facility] Xray [address] [place] [phone] Health Maintenance Due Date Last [...] complete this topic Insurance MEDICA[place] - [place] [facility] PLAN Care Teams Associate Director Financial Aid Relationship Specialty Start Date End Date Luis Loomis MD [address] [place] [phone] PCP - General Internal Medicine 05/17/18
== END ==
LOC: HO.CARD 08:46
PROVIDERS: PCP Internal Medicine; Visit Provider Internal Medicine Cardiovascular Disease
DX: G90.1 Familial dysautonomia [Riley-Day] (principal); R06.02 Shortness of breath
CPT/HCPCS: 93017; 93270; 93306

== ENCOUNTER → 2024-08-27 08:50 | Outpatient (BNV) | payer OTHER, SELFPAY | PROVIDERS: PCP Internal Medicine; Visit Provider Internal Medicine | DX: R06.02 Shortness of breath (principal); R07.9 Chest pain, unspecified | CPT/HCPCS: 93016; 93018; 93320; 93350 ==

== ENCOUNTER 2024-08-28 14:54 | Outpatient (AMB) | payer OTHER, SELFPAY ==
--- NOTE | 2024-08-28 14:57 | MHC.OFFVIS ---
Vital Signs 08/28/24 15:03 Height 4 ft 11 in Weight 178 lb 12.718 oz BMI 36.1 BP 120/78 Blood Pressure Location Lt brachial Position Sitting Pulse 78 Pulse Source Pulse Oximeter Pulse Oximetry (%) 98 Oxygen Delivery Method Room Air Intake Visit Reasons: RA Intake Note: Patient presents for RA. Allergies Iodinated Contrast Media [IV CONTRAST] Allergy (Intermediate, Verified 08/28/24 15:03) RASH Penicillins Allergy (Intermediate, Verified 08/28/24 15:03) RASH amoxicillin Allergy (Unknown, Verified 08/28/24 15:03) unknown Medication List - Last Reconciled 08/28/24 by Sunita Grace MD albuterol sulfate 90 mcg/actuation 2 puffs inhalation Q4-6H PRN 30 days diclofenac sodium 50 mg PO BID PRN duloxetine 90 mg (3 x 30 mg) PO DAILY famotidine 40 mg PO BEDTIME ferrous sulfate 324 mg PO BID 90 days fexofenadine 180 mg PO DAILY hydroxychloroquine 200 mg PO BID montelukast 10 mg PO BEDTIME omeprazole 40 mg PO ONCE 90 days propranolol 20 mg PO TID Symbicort 160-4.5 mcg/actuation (budesonide-formoterol) 2 puffs inhalation BID 30 days NS HPI Comments Details: Patient is a 39-year-old female with labile hypertension, uncontrolled persistent asthma, severe major depressive disorder, fibromyalgia and systemic lupus erythematosus here today for follow up Interval History: Patient last seen 03/13/24. At that time she continued to complain of generalized fatigue, bodyaches and brain fog. Prescribed azathioprine. Started the azathioprine but notes that it caused dizziness and so this was stopped Started having balance issues, memory difficulties, dizziness, muscle pain/weakness in the legs especially. Also having hypermobility with recurrent dislocations and an elevated Beighton score based on the cardiology notes. Evaluated for POTS but found to have ?orthostatic hypertension. But when reevaluated it was normal Currently being evaluated for MAS and MS Rheumatologic History: SLE JORGE A positive, +++SSA, +++SSb, intermittently positive rheumatoid factor, fatigue, arthralgias, rash on face and chest, nasal ulcers Low complements intermittently Chronic lymphopenia Plaquenil Azathioprine 03/2024 - 05/2024 (dizziness) Initial history from Dr. Lauri Luevano Patient continues to report diffuse arthralgia that is worse her back and in her hands. Has swelling and stiffness in her hands when she 1st wakes up that improves throughout the morning. Her pain is generally worse with activity better with rest. She was given prednisone for pulmonary issues and states that her joint pain completely resolved while she was taking the prednisone and returned once she was off the prednisone. No rash, no photosensitivity, oral ulcers, painful, she has dry eyes and dry mouth. No seizures, no miscarriages, no serositis, no blood clots. She took plaquenil for about 6 months and it did not help and she stopped it because she could not have eye exam , as she gets anxious. She uses vape, she stopped smoking cigarettes in 2009, she used to smoke 1/2 ppd since 10 years. Aunt has lupus. Radiographs: Normal radiographs of the cervical, thoracic, and lumbosacral spine with no evidence of acute fracture or subluxation. Grossly no evidence of canal or neuroforaminal encroachment. No evidence of spondylolysis. Hands US: no synovitis. Current Rheumatology Medication(s): Plaquenil 200mg bid PFSH Medical History IBS (irritable colon syndrome) Rheumatoid factor positive Anxiety GERD (gastroesophageal reflux disease) Endocervical polyp Surgical History H/O colonoscopy H/O esophagogastroduodenoscopy H/O LEEP History of bilateral tubal ligation Family History Father Hypertension CAD (coronary artery disease) Mother No problems noted. Maternal Grandmother Stroke Cancer Paternal Grandfather Stroke Son Mast cell activation syndrome Dysautonomia Other Mental health disorder Substance use disorder Social History Household Members: Children Housing: Apartment Alcohol intake: never Patient Tobacco Use Status: Former Tobacco user Years Smoked: 10 e-Cigarette/Vaping Use: Currently Using Second Hand Smoke Exposure: No service: No Current occupational status: unemployed Sexual orientation: Straight/Heterosexual Gender identity: Female Cognitive needs: No Hearing needs: No Vision needs: No Female Reproductive History Menstrual Age of Menarche: 8 Review of Systems Const Details: Review of Systems Constitutional: Denies fever, chills, weight loss ENT: Denies vision changes, eye pain or eye redness, dental caries, dry mouth GI: Denies nausea, vomiting, diarrhea, abdominal pain, change in BM Pulm: Denies SOB, KHAN, hemoptysis, wheezing Cards: Denies chest pain, palpitations Skin: Denies Raynaud's, rash, nail changes, photosensitivity, MAILING CLERK: Denies headaches, weakness, paresthesias, recurrent falls MSK: as per HPI All other systems reviewed and are unremarkable except noted above Physical Exam Vital Signs: Last Vital Signs Pulse 78 08/28/24 15:03 BP 120/78 08/28/24 15:03 Pulse Ox 98 08/28/24 15:03 Oxygen Delivery Method Room Air 08/28/24 15:03 BMI result Body Mass Index 36.1 Vital signs reviewed Physical Examination CONSTITUITIONAL Patient alert and cooperative. Well appearing and in no apparent painful distress HEENT Conjunctiva and sclera clear. ?Pupils equal round and reactive to light. ?No lymphadenopathy. ? CHEST/RESPIRATORY SYSTEM Normal respiratory effort and able to speak in complete sentences. ?Clear to auscultation bilaterally. ?No crackles, rales, rhonchi, wheezes heard. CARDIAC SYSTEM Regular rate and rhythm. ?S1 and S2 heard no murmurs. ?Radial pulses intact bilaterally MSK Hands: ?Good kiss mixer strength bilaterally. No deformities noted. ?No synovitis noted to the MCPs, PIPs or DIPs. ?No tenderness to palpation of these joints. Fine papules noted to the skin just below the nail bed of the right 5th digit Wrists: ?Full range of motion at the wrists without pain. ?No tenderness to palpation or synovitis noted to the wrists. Elbows: Full range of motion without pain. No tenderness, weakness, swelling, increased warmth or erythema. Shoulders: Full range of motion without pain. No tenderness, weakness, swelling, increased warmth or erythema. Hips: Full range of motion without pain. Hip bursa: No tenderness to palpation Knees: ?Full range of motion. ?No tenderness, swelling, increased warmth or erythema.?No effusion or crepitations Ankles: Full range of motion. ?No tenderness, swelling, increased warmth or erythema.? Feet: ?Negative squeeze test. ?No tenderness to palpation or swelling of the MTPs. Tender points:?No tenderness to palpation of the bilateral trapezius, supraspinatus, greater trochanters, anterior costochondral junctions, bilateral gluteal areas, bilateral suboccipital muscle insertions SKIN Erythematous papules noted to her hair scattered. Results Reviewed Results Reviewed: Laboratory Tests 03/13/24 08/03/24 08/24/24 10:50 11:48 14:14 WBC 5.8 RBC 4.36 Hgb 12.6 Hct 39.0 Plt Count 280 Lymph # (Auto) 1.1 L ESR 16 Sodium 140 Potassium 4.1 Chloride 108 Carbon Dioxide 27 BUN 6 L Creatinine 0.70 AST 23 ALT 24 Alkaline Phosphatase 51 C-Reactive Protein 0.18 Total Protein 7.7 Albumin 3.9 Double Strand DNA Ab <1 Complement C3 135 Complement C4 19 Laboratory Tests 08/24/24 14:07 Urine Color S[place]ry A Urine Appearance Clear Urine Protein 30 (1+) H Urine Blood Large (3+) H Ur Leukocyte Esterase Trace H Urine RBC >20 H Protein/Creatinin Ratio 0.36 H Laboratory Tests 08/17/18 04/29/21 13:34 10:12 JORGE A Screen POSITIVE A JORGE A Titer 1:160 H JORGE A Titer 2 1:320 H JORGE A Pattern Nuclear, Homogeneous A JORGE A Pattern 2 Nuclear, Speckled A SS-A/Ro Antibody >8.0 H SS-B/La Antibody >8.0 H Assessment & Plan Assessment & Plan (1) SLE (systemic lupus erythematosus): Comment: (+++SSA+++SSb, intermittently positive rheumatoid factor, fatigue, arthralgias, rash on face and chest, nasal ulcers) Hydroxychloroquine Azathioprine started 04/2024 - 05/2024. Stopped due to side effects: patient reports shaking and chilkls when she takes it Code(s): M32.9 - Systemic lupus erythematosus, unspecified Category: Medical Qualifiers: Systemic lupus erythematosus type: unspecified Systemic lupus erythematosus organ involvement: unspecified Qualified Code(s): M32.9 - Systemic lupus erythematosus, unspecified Plan: #SLE Patient is a 39-year-old female with SLE here today for follow up. At this time I do not believe her symptoms are related to lupus. Her blood work including complement, double-stranded DNA, ESR/CRP are all normal. I think it is okay for us to monitor her off azathioprine. Discussed with patient that she should continue her follow up with her other providers and if there is any change in terms of her rash, joint pain, alopecia she should reach out to the office. Plan - Plaquenil 200mg bid - RTC 4 months - Labs before visit: CBC, CMP, ESR, CRP, C3, C4, dsDNA, UA, UPC (2) Long-term use of hydroxychloroquine: Code(s): Z79.899 - Other [facility] (current[facility] drug therapy Category: Medical Plan: #Long-term Use of Hydroxychloroquine Discussed with patient the risks and benefits of hydroxychloroquine in managing the rheumatic condition Benefits include: - Reduced pain, reduce mortality, maintenance of remission and reduction of flares Risks include: - GI upset, skin hyperpigmentation, retinal toxicity (especially after more than 5 years of use), myopathy Advised yearly ophthalmology visits Plan I spent 30 minutes reviewing the record and labs, taking a history, examining the patient, discussing the treatment plan and documenting in the medical record Coding Level of Care Code Est Pt Level 4 (21844) Complex EM visit Add On G2211 Diagnoses Systemic lupus erythematosus, unspecified SLE type, unspecified organ involvement status M32.9 Systemic lupus erythematosus type: unspecified Systemic lupus erythematosus organ involvement: unspecified Long-term use of hydroxychloroquine Z79.899
[2024-08-28 15:03] VITALS: BP 120/78; PULSE 78; O2SAT 98; BMI 36.1
--- OUTSIDE RECORDS SUMMARY | 2024-08-28 18:40 | XMS_ITS | Clinical Summary ---
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 Refill [facility] Department of Cardiology [address] [place] [phone] 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 Refill [facility] Department of Cardiology [address] [place] [phone] Wendy Cardenas MD POTS (postural orthostatic tachycardia syndrome) 06/15/2024 2:28 PM EST - 06/15/2024 11:59 PM EST Hospital Encounter [facility] Department of Cardiology [address] [place] [phone] Wendy Cardenas MD Discharge Disposition: Home or Self Care 06/15/2024 1:30 PM EST Office Visit [facility] Department of Cardiology [address] [place] [phone] 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 [...] Info) Description 11/09/2024 3:00 PM EDT Appointment [facility] Department of Cardiology [address] [place] [phone] 11/09/2024 4:00 PM EDT Office Visit [facility] Department of Cardiology [address] [place] [phone] Wendy Cardenas MD [address] [place] [address] Health Maintenance Due Date Last Done Comments [...] AM EST) Specimen Type/Container URINE/CU P [facility] Prostaglandin D2 (PG D2), Urine 314(H) <175 ng/g Creatinine [facility] Comment: This test was developed and its performance characteristics determined by [employer]. Values obtained with different methods, laboratories, or kits cannot be used interchangeably with the results on this report. The results cannot be interpreted as absolute evidence of the presence or absence of malignant disease. Urine 06/20/2024 9:16 AM EST 06/20/2024 9:17 AM EST Narrative [facility] - 06/28/2024 8:57 AM EST SPLIT 06/19/2024 FROM [id number] COLLECTION KIT GIVEN TO PATIENT. PATIENT ADVISED TO RETURN. URINE VOLUME: 1000 Resulting Agency Comment Performing Organization Information: ?Site ID: INS ?Name: [facility] ?Address: [address] [place] [address] ?Director: Mario Gonsales MD,PhD Wendy Cardenas MD LAB BLOOD ORDERABLES Final Resul t Performing Organization Address [facility] de Phone Number [facility] [address] [place] [address], [facility] * Histamine, Urine, 24 Hour (06/19/2024 10:00 AM EST) Total Volume 550 mL [facility], HISTAMINE, URINE, 24 HOUR 0.007 0.006 - 0.131 mg/24 h [facility], Comment: This test was performed using a kit that has not been cleared or approved by the FDA. The analytical performance characteristics of this test have been determined by [facility]. This test should not be used for diagnosis without confirmation by other medically established means. Urine 06/19/2024 10:0 0 AM EST 06/20/2024 9:20 AM EST Narrative [facility] - 06/26/2024 4:34 PM EST SPLIT 06/20/2024 FROM [id number] URINE VOLUME: 550/24 Resulting Agency Comment Performing Organization Information: ?Site ID: EZ ?Name: [facility], ?Address: [address] [place] [phone] ?Director: Mayra Martin MD,PhD,YURI Wendy Cardenas MD LAB BLOOD ORDERABLES Final Resul t Performing Organization Address [facility] Co de Phone Number [facility] [phone] [place] [phone] [facility], [address] [place] [phone] * (ABNORMAL) JORGE A Screen, IFA, Rflx Titer/Pattern (06/19/2024 9:31 AM EST) JORGE A SCREEN, IFA POSITIVE( A) NEGATIVE [facility] Comment: JORGE A IFA is a first line screen for detecting the presence of up to approximately 150 autoantibodies in various autoimmune diseases. A positive JORGE A IFA result is suggestive of autoimmune disease and reflexes to titer and pattern. Further laboratory testing may be considered if clinically indicated. For additional information, please refer to http://education.[employer]/faq/UMK459 (This link is being provided for informational/ educational purposes only.) ?? 06/19/2024 9:31 AM EST 06/19/2024 9:33 AM EST Narrative [facility] - 06/27/2024 6:07 PM EST FASTING:YES COLLECTION KIT GIVEN TO PATIENT. PATIENT ADVISED TO RETURN. FASTING: YES Resulting Agency Comment Performing Organization Information: ?Site ID: [id number] ?Name: [facility] ?Address: [address] [place] [phone] ?Director: Fernie Hitchcock M.D. Wendy Cardenas MD LAB BLOOD ORDERABLES Final Resul t [facility] [address] [place] [address] [facility] [address] [place] [address] * (ABNORMAL) Antinuclear Antibodies Titer and Pattern (06/19/2024 9:31 AM EST) JORGE A Titer 1:1280(H) titer [facility] Comment: ?Reference Range ?<1:40 ?Negative ?1:40-1:80 ?Low Antibody Level ?>1:80 ?Elevated Antibody Level JORGE A Pattern Nuclear, Speckled( A) [facility] Comment: Speckled pattern is associated with mixed connective tissue disease (MCTD), systemic lupus erythematosus (SLE), Sjogren's syndrome, dermatomyositis, and systemic sclerosis/polymyositis overlap. AC-2,4,5,29: Speckled International Consensus on JORGE A Patterns (https://doi.org/10.1515/jiwh-3042-9960) JORGE A Titer 1:160(H) titer [facility] Comment: ?Reference Range ?<1:40 ?Negative ?1:40-1:80 ?Low Antibody Level ?>1:80 ?Elevated Antibody Level JORGE A Patter Nuclear, Homogeneo us(A) [facility] Comment: Homogeneous pattern is associated with systemic lupus erythematosus (SLE), drug-induced lupus and juvenile idiopathic arthritis. AC-1: Homogeneous International Consensus on JORGE A Patterns (https://doi.org/10.1515/mifv-1269-2467) 06/19/2024 9:31 AM EST 06/19/2024 9:33 AM EST Narrative [facility] - 06/27/2024 6:07 PM EST FASTING:YES COLLECTION KIT GIVEN TO PATIENT. PATIENT ADVISED TO RETURN. FASTING: YES Resulting Agency Comment Performing Organization Information: ?Site ID: [id number] ?Name: [facility] ?Address: [address] [place] [phone] ?Director: Fernie Hitchcock M.D. us Wendy Cardenas MD LAB BLOOD ORDERABLES Final Resul t [facility] [address] [place] [address] [facility] [address] [place] [address] * THYROID PEROXIDASE AND THYROGLOBULIN ANTIBODIES (06/19/2024 9:31 AM EST) Thyroglobulin Ab <1 < or = 1 IU/mL [facility] Thyroid Peroxidase Ab <1 <9 IU/mL [facility] Blood 06/19/2024 9:31 AM EST 06/19/2024 9:33 AM EST Narrative [facility] - 06/27/2024 6:07 PM EST FASTING:YES COLLECTION KIT GIVEN TO PATIENT. PATIENT ADVISED TO RETURN. FASTING: YES Resulting Agency Comment Performing Organization Information: ?Site ID: [id number] ?Name: [facility] ?Address: [address] [place] [phone] ?Director: Fernie Hitchcock M.D. us Wendy Cardenas MD LAB BLOOD ORDERABLES Final Resul t [facility] [address] [place] [address] [facility] [address] [place] [phone] * TSH and Free T4 (06/19/2024 9:31 AM EST) TSH 0.96 mIU/L [facility] Comment: ?Reference Range ?> or = 20 Years ??0.40-4.50 ? Ranges ?First trimester ?0.26-2.66 ?Second trimester ?? 0.55-2.73 ?Third trimester ?0.43-2.91 Free T4 1.1 0.8 - 1.8 ng/dL [facility] Blood 06/19/2024 9:31 AM EST 06/19/2024 9:33 AM EST Narrative [facility] - 06/27/2024 6:07 PM EST FASTING:YES COLLECTION KIT GIVEN TO PATIENT. PATIENT ADVISED TO RETURN. FASTING: YES Resulting Agency Comment Performing Organization Information: ?Site ID: [id number] ?Name: [facility] ?Address: [address] [place] [phone] ?Director: Fernie Hitchcock M.D. Wendy Cardenas MD LAB BLOOD ORDERABLES Final Resul t Performing Organization Address [facility] de Phone Number [facility] [address] [place] [address] [place] [address] [facility] [address] [place] [phone] * (ABNORMAL) Iron, Total, TIBC and Saturation (06/19/2024 9:31 AM EST) Iron 57 40 - 190 mcg/dL [facility] TIBC 406 250 - 450 mcg/dL (calc) [employer] Iron Saturation 14(L) 16 - 45 % (calc) [facility] Blood 06/19/2024 9:31 AM EST 06/19/2024 9:33 AM EST Narrative [facility] - 06/27/2024 6:07 PM EST FASTING:YES COLLECTION KIT GIVEN TO PATIENT. PATIENT ADVISED TO RETURN. FASTING: YES Resulting Agency Comment Performing Organization Information: ?Site ID: [id number] ?Name: [facility] ?Address: [address] [place] [phone] ?Director: Fernie Hitchcock M.D. Wendy Cardenas MD LAB BLOOD ORDERABLES Final Resul t Performing Organization Address [facility] Co de Phone Number [facility] [address] [phone] [facility] [address] [phone] * (ABNORMAL) Sjogren's (SS-A, SS-B) Antibodies (06/19/2024 9:31 AM EST) SJOGREN'S ANTIBODY (SS-A) >8.0 POS(A) <1.0 NEG AI [facility] Sjogren's Antibody (SS-B) >8.0 POS(A) <1.0 NEG [facility] 06/19/2024 9:31 AM EST 06/19/2024 9:33 AM EST Narrative [facility] - 06/27/2024 6:07 PM EST FASTING:YES COLLECTION KIT GIVEN TO PATIENT. PATIENT ADVISED TO RETURN. FASTING: YES Resulting Agency Comment Performing Organization Information: ?Site ID: [id number] ?Name: [facility] ?Address: [address] [place] [phone] ?Director: Fernie Hitchcock M.D. Wendy Cardenas MD LAB BLOOD ORDERABLES Final Resul t [facility] [address] [place] [phone] [facility] [address] [place] [phone] * Vitamin B12 & Folate (06/19/2024 9:31 AM EST) Vitamin B-12 299 200 - 1,100 pg/mL [facility] Comment: Please Note: Although the reference range for vitamin B12 is 200-1100 pg/mL, it has been reported that between 5 and 10% of patients with values between 200 and 400 pg/mL may experience neuropsychiatric and hematologic abnormalities due to occult B12 deficiency; less than 1% of patients with values above 400 pg/mL will have symptoms. Folate >24.0 ng/mL [facility] Comment: ? Reference Range ? Low: ? <3.4 ? Borderline: ?3.4-5.4 ? Normal: ?>5.4 Blood 06/19/2024 9:31 AM EST 06/19/2024 9:33 AM EST Narrative [facility] - 06/27/2024 6:07 PM EST FASTING:YES COLLECTION KIT GIVEN TO PATIENT. PATIENT ADVISED TO RETURN. FASTING: YES Resulting Agency Comment Performing Organization Information: ?Site ID: [id number] ?Name: [employer] ?Address: [address] [place] [phone] ?Director: Fernie Hitchcock M.D. us Wendy Cardenas MD LAB BLOOD ORDERABLES Final Resul t [facility] [address] [place] [address] [employer] [address] [place] [address] * Aldosterone/Plasma Renin Activity Ratio (06/19/2024 9:31 AM EST) Aldosterone 8 see note ng/dL [facility]/Teresa FRASER Comment: Unable to flag abnormal result(s), please refer ?to reference range(s) below: Adult Reference Ranges for Aldosterone, LC/MS/MS: ?Upright ??8:00 - 10:00 am ?< or = 28 ng/dL ?Upright ??4:00 - ??6:00 pm ?< or = 21 ng/dL ?Supine ?? 8:00 - 10:00 am ? 3 - 16 ng/dL Renin 1.93 0.25 - 5.82 ng/mL/h [facility] ALDOSTERONE/PLAS MA RENIN ACTIVITY RATIO 4.1 0.9 - 28.9 Ratio [facility] Comment: This test was developed and its analytical performance characteristics have been determined by [facility] [place], [place]. It has not been cleared or approved by the U.S. Food and Drug Administration. This assay has been validated pursuant to the CLIA regulations and is used for clinical purposes. 06/19/2024 9:31 AM EST 06/19/2024 9:33 AM EST Narrative [facility] [employer] [facility] - 06/27/2024 6:07 PM EST FASTING:YES COLLECTION KIT GIVEN TO PATIENT. PATIENT ADVISED TO RETURN. FASTING: YES Resulting Agency Comment Performing Organization Information: ?Site ID: AMD ?Name: [facility] ?Address: [address] [place] [address] [address] [place] [place] ?Director: Wilson Shetty M.D.,PhD Wendy Cardenas MD LAB BLOOD ORDERABLES Final Resul t [facility] [address] [facility]/[address] [place], [place] * Catecholamines, fractionated, plasma (06/19/2024 9:31 AM EST) Epinephrine 56 pg/mL [facility]/ [facility], Comment: Reference Range: SUPINE: <58 UPRIGHT: <82 Norepinephrine 382 pg/mL [email or web address], Comment: Reference Range: SUPINE: 149-564 UPRIGHT: 199-937 Dopamine 15 pg/mL [facility], Comment: Reference Range: SUPINE: <16 UPRIGHT: <27 Total Catecholamines (Nor+Epi) 453 pg/mL [facility]/Martir [facility], Comment: Reference Range: SUPINE: <632 UPRIGHT: <1046 Due to stress, plasma catecholamine levels are generally unreliable in infants and small children. Urinary catecholamine assays are more reliable. This test was developed and its analytical performance characteristics have been determined by [facility]. It has not been cleared or approved by FDA. This assay has been validated pursuant to the CLIA regulations and is used for clinical purposes. Blood 06/19/2024 9:31 AM EST 06/19/2024 9:33 AM EST Narrative [facility] - 06/27/2024 6:07 PM EST FASTING:YES COLLECTION KIT GIVEN TO PATIENT. PATIENT ADVISED TO RETURN. FASTING: YES Resulting Agency Comment Performing Organization Information: ?Site ID: EZ ?Name: [facility], ?Address: [address] [place] [phone] ?Director: Mayra Martin MD,PhD,YURI Wendy Cardenas MD LAB BLOOD ORDERABLES Final Resul t [facility] [address] [place] [phone] [facility], [address] [place] [address] * Tryptase (06/19/2024 9:31 AM EST) TRYPTASE 5.4 <11.0 mcg/L [email or web address] Comment: The Tryptase test, fluorescent enzyme immunoassay (FEIA), measures both the Alpha and Beta forms of Tryptase. Measuring both forms of Tryptase increases sensitivity for the diagnosis of mastocytosis, and mast cell degranulation as a cause of anaphylaxis. Blood 06/19/2024 9:31 AM EST 06/19/2024 9:33 AM EST Narrative [facility] - 06/27/2024 6:07 PM EST FASTING:YES COLLECTION KIT GIVEN TO PATIENT. PATIENT ADVISED TO RETURN. FASTING: YES Resulting Agency Comment Performing Organization Information: ?Site ID: [id number] ?Name: [facility] ?Address: [address] [place] [phone] ?Director: Fernie Hitchcock M.D. Wendy Cardenas MD LAB BLOOD ORDERABLES Final Resul t Performing Organization Address [facility] de Phone Number [facility] [address] [place] [phone] [facility] [address] [place] [phone] * Tissue transglutaminase, IgA (06/19/2024 9:31 AM EST) Transglutaminase IgA 9.9 U/mL [facility] Comment: Value ?Interpretation ----- ? <15.0 ?Antibody not detected > or = 15.0 ?Antibody detected Blood 06/19/2024 9:31 AM EST 06/19/2024 9:33 AM EST Narrative [facility] - 06/27/2024 6:07 PM EST FASTING:YES COLLECTION KIT GIVEN TO PATIENT. PATIENT ADVISED TO RETURN. FASTING: YES Resulting Agency Comment Performing Organization Information: ?Site ID: [id number] ?Name: [facility] ?Address: [address] [place] [address] ?Director: Fernie Hitchcock M.D. Wendy Cardenas MD LAB BLOOD ORDERABLES Final Resul t Performing Organization Address [facility] de Phone Number [facility] [address] [place] [address] [place] [address] [employer] [address] [place] [address] * Cardiolipin antibody, IgM (06/19/2024 9:31 AM EST) Anticardiolipin IgM <2.0 MPL-U/mL [employer] [facility] Comment: Value ?Interpretation ----- ? < 20.0 [...] aging. For additional information, please refer to http://education.[employer]/faq/NTQ612 (This link is being provided for informational/ educational purposes only.) Blood 06/19/2024 9:31 AM EST 06/19/2024 9:33 AM EST Narrative [facility] - 06/27/2024 6:07 PM EST FASTING:YES COLLECTION KIT GIVEN TO PATIENT. PATIENT ADVISED TO RETURN. FASTING: YES Resulting Agency Comment Performing Organization Information: ?Site ID: [id number] ?Name: [facility] ?Address: [address] [place] [phone] ?Director: Fernie Hitchcock M.D. Wendy Cardenas MD LAB BLOOD ORDERABLES Final Resul t [facility] [address] [place] [address] [facility] [address] [place] [address] * Cardiolipin antibody, IgG (06/19/2024 9:31 AM EST) Anticardiolipin IgG <2.0 GPL-U/mL [facility] Comment: Value ?Interpretation ----- ? < 20.0 [...] aging. For additional information, please refer to http://education.[employer]/faq/QRY797 (This link is being provided for informational/ educational purposes only.) Blood 06/19/2024 9:31 AM EST 06/19/2024 9:33 AM EST Narrative [facility] - 06/27/2024 6:07 PM EST FASTING:YES COLLECTION KIT GIVEN TO PATIENT. PATIENT ADVISED TO RETURN. FASTING: YES Resulting Agency Comment Performing Organization Information: ?Site ID: [id number] ?Name: [facility] ?Address: [address] [place] [phone] ?Director: Fernie Hitchcock M.D. Wendy Cardenas MD LAB BLOOD ORDERABLES Final Resul t [facility] [address] [place] [address] [facility] [address] [place] [address] * Cardiolipin antibody, IgA (06/19/2024 9:31 AM EST) Anticardiolipin IgA <2.0 APL-U/mL [facility] Comment: Value ?Interpretation ----- ? < 20.0 [...] aging. For additional information, please refer to http://education.[employer]/faq/VHI922 (This link is being provided for informational/ educational purposes only.) Blood 06/19/2024 9:31 AM EST 06/19/2024 9:33 AM EST Narrative [facility] - 06/27/2024 6:07 PM EST FASTING:YES COLLECTION KIT GIVEN TO PATIENT. PATIENT ADVISED TO RETURN. FASTING: YES Resulting Agency Comment Performing Organization Information: ?Site ID: [id number] ?Name: [facility] ?Address: [address] [place] [phone] ?Director: Fernie Hitchcock M.D. Wendy Cardenas MD LAB BLOOD ORDERABLES Final Resul t Performing Organization Address City/[facility]/ZIP Co de Phone Number [facility] [address] [place] [address] [email or web address] [address] [place] [address] * HISTAMINE (06/19/2024 9:31 AM EST) Histamine, Plasma <1.5 < OR = 1.8 ng/mL [facility], Comment: This test was performed using a kit that has not been cleared or approved by the FDA. The analytical performance characteristics of this test have been determined by [facility]. This test should not be used for diagnosis without confirmation by other medically established means. Blood 06/19/2024 9:31 AM EST 06/19/2024 9:33 AM EST Narrative [facility] - 06/27/2024 6:07 PM EST FASTING:YES COLLECTION KIT GIVEN TO PATIENT. PATIENT ADVISED TO RETURN. FASTING: YES Resulting Agency Comment Performing Organization Information: ?Site ID: EZ ?Name: [facility], ?Address: [address] [place] [phone] ?Director: Mayra Martin MD,PhD,YURI Wendy Cardenas MD LAB BLOOD ORDERABLES Final Resul t Performing Organization Address City/[facility]/ZIP Co de Phone Number [facility] [phone] [place] [phone] [facility], [address] [place] [phone] * ACTH (06/19/2024 9:31 AM EST) ACTH 13 6 - 50 pg/mL [facility] Comment: Reference range applies only to specimens collected between 7am-10am. ? Blood 06/19/2024 9:31 AM EST 06/19/2024 9:33 AM EST Narrative [facility] - 06/27/2024 6:07 PM EST FASTING:YES COLLECTION KIT GIVEN TO PATIENT. PATIENT ADVISED TO RETURN. FASTING: YES Resulting Agency Comment Performing Organization Information: ?Site ID: AMD ?Name: [facility] ?Address: [address] [place] [address] [address] [place] [place] ?Director: Wilson Shetty M.D.,PhD us Wendy Cardenas MD LAB BLOOD ORDERABLES Final Resul t [facility] [employer] [address] [place], [place] [facility]/[address] [place], [place] * Lupus anticoagulant (06/19/2024 9:31 AM EST) LUPUS ANTICOAGULANT EVAL. see note [facility] Comment: A Lupus Anticoagulant is not detected. Reference Range: ??Not Detected For additional information, please refer to http://education.[employer]/faq/DQI24x1 (This link is being provided for informational/ educational purposes only.) ? This interpretation is based on the following test results. PTT-LA Screen 38 <=40 sec [facility] dRVVT Screen 39 <=45 sec [facility] Blood 06/19/2024 9:31 AM EST 06/19/2024 9:33 AM EST Narrative [facility] - 06/27/2024 6:07 PM EST FASTING:YES COLLECTION KIT GIVEN TO PATIENT. PATIENT ADVISED TO RETURN. FASTING: YES Resulting Agency Comment Performing Organization Information: ?Site ID: AMD ?Name: [facility] ?Address: [address] [place] [address] [place], [place] ?Director: Wilson Shetty M.D.,PhD us Wendy Cardenas MD LAB BLOOD ORDERABLES Final Resul t [employer] [address] [facility]/K[address] [place], [place] * CBC (06/19/2024 9:31 AM EST) Pathologist [facility] WBC 5.8 3.8 - 10.8 Thousand/u L [facility] RBC 4.83 3.80 - 5.10 Million/uL [email or web address] Hemoglobin 13.9 11.7 - 15.5 g/dL [email or web address] Hematocrit 42.5 35.0 - 45.0 % [email or web address] MCV 88.0 80.0 - 100.0 fL [email or web address] MCH 28.8 27.0 - 33.0 pg [email or web address] MCHC 32.7 32.0 - 36.0 g/dL [email or web address] Comment: For adults, a slight decrease in the calculated MCHC value (in the range of 30 to 32 g/dL) is most likely not clinically significant; however, it should be interpreted with caution in correlation with other red cell parameters and the patient's clinical condition. RDW 12.5 11.0 - 15.0 % [facility] Platelets 284 140 - 400 Thousand/u L [email or web address] MPV 10.8 7.5 - 12.5 fL [facility] Blood 06/19/2024 9:31 AM EST 06/19/2024 9:33 AM EST Narrative [facility] - 06/27/2024 6:07 PM EST FASTING:YES COLLECTION KIT GIVEN TO PATIENT. PATIENT ADVISED TO RETURN. FASTING: YES Resulting Agency Comment Performing Organization Information: ?Site ID: [id number] ?Name: [employer] [facility] ?Address: [address] [place] [phone] ?Director: Fernie Hitchcock M.D. Wendy Cardenas MD LAB BLOOD ORDERABLES Final Resul t Performing Organization Address [facility] Phone Number [facility] [address] [place] [phone] [email or web address] [address] [place] [phone] * Rheumatoid factor (06/19/2024 9:31 AM EST) [facility] Rheumatoid Factor 13 <14 IU/mL [email or web address] Blood 06/19/2024 9:31 AM EST 06/19/2024 9:33 AM EST Narrative [facility] - 06/27/2024 6:07 PM EST FASTING:YES COLLECTION KIT GIVEN TO PATIENT. PATIENT ADVISED TO RETURN. FASTING: YES Resulting Agency Comment Performing Organization Information: ?Site ID: [id number] ?Name: [email or web address] ?Address: [address] [place] [phone] ?Director: Fernie Hitchcock M.D. Wendy Cardenas MD LAB BLOOD ORDERABLES Final Resul t Performing Organization Address [facility] Phone Number [facility] [address] [place] [phone] [email or web address] [address] [place] [phone] * T3 (06/19/2024 9:31 AM EST) [facility] T3, Total 121 76 - 181 ng/dL [email or web address] Blood 06/19/2024 9:31 AM EST 06/19/2024 9:33 AM EST Narrative [facility] - 06/27/2024 6:07 PM EST FASTING:YES COLLECTION KIT GIVEN TO PATIENT. PATIENT ADVISED TO RETURN. FASTING: YES Resulting Agency Comment Performing Organization Information: ?Site ID: [id number] ?Name: [employer] ?Address: [address] [place] [phone] ?Director: Fernie Hitchcock M.D. Wendy Cardenas MD LAB BLOOD ORDERABLES Final Resul t Performing Organization Address [facility] Phone Number [facility] [address] [place] [phone] [employer] [address] [place] [phone] * Trans[facility] (06/19/2024 9:31 AM EST) Pathologist [facility] Transferrin 322 188 - 341 mg/dL [facility] Blood 06/19/2024 9:31 AM EST 06/19/2024 9:33 AM EST Narrative [facility] - 06/27/2024 6:07 PM EST FASTING:YES COLLECTION KIT GIVEN TO PATIENT. PATIENT ADVISED TO RETURN. FASTING: YES Resulting Agency Comment Performing Organization Information: ?Site ID: [id number] ?Name: [facility] ?Address: [address] [place] [phone] ?Director: Fernie Hitchcock M.D. Wendy Cardenas MD LAB BLOOD ORDERABLES Final Resul t Performing Organization Address [facility] Phone Number [facility] [address] [place] [phone] [employer] [address] [place] [phone] * Vitamin B6 (06/19/2024 9:31 AM EST) Pathologist [facility] Vitamin B6 3.2 2.1 - 21.7 ng/mL [facility] Comment: Vitamin supplementation within 24 hours prior to blood draw may affect the accuracy of the results. This test was developed and its analytical performance characteristics have been determined by [employer] [place]. It has not been cleared or approved by the U.S. Food and Drug Administration. This assay has been validated pursuant to the CLIA regulations and is used for clinical purposes. Blood 06/19/2024 9:31 AM EST 06/19/2024 9:33 AM EST Narrative [facility] - 06/27/2024 6:07 PM EST FASTING:YES COLLECTION KIT GIVEN TO PATIENT. PATIENT ADVISED TO RETURN. FASTING: YES Resulting Agency Comment Performing Organization Information: ?Site ID: [facility] ?Name: [facility] ?Address: [address] [place] [address] [place] ?Director: Wilson Shetty M.D.,PhD Wendy Cardenas MD LAB BLOOD ORDERABLES Final Resul t [facility] [address] [employer]/[address] [place], [place] * Hemoglobin A1c (06/19/2024 9:31 AM EST) Hemoglobin A1C 5.5 <5.7 % of total Hgb [employer] Comment: For the purpose of screening for the presence of diabetes: <5.7% ? Consistent with the absence of diabetes 5.7-6.4% ?Consistent with increased risk for diabetes ?(prediabetes) > or =6.5% ??Consistent with diabetes This assay result is consistent with a decreased risk of diabetes. Currently, no consensus exists regarding use of hemoglobin A1c for diagnosis of diabetes in children. According to [place] Diabetes Association (ADA) guidelines, hemoglobin A1c <7.0% represents optimal control in non- diabetic patients. Different metrics may apply to specific patient populations. Standards of Medical Care in Diabetes(ADA). ?? Blood 06/19/2024 9:31 AM EST 06/19/2024 9:33 AM EST Narrative [facility] - 06/27/2024 6:07 PM EST FASTING:YES COLLECTION KIT GIVEN TO PATIENT. PATIENT ADVISED TO RETURN. FASTING: YES Resulting Agency Comment Performing Organization Information: ?Site ID: [id number] ?Name: [facility] ?Address: [address] [place] [phone] ?Director: Fernie Hitchcock M.D. Wendy Cardenas MD LAB BLOOD ORDERABLES Final Resul t Performing Organization Address [facility] Phone Number [facility] [address] [place] [phone] [facility] [address] [place] [phone] * (ABNORMAL) Ferritin (06/19/2024 9:31 AM EST) Ferritin 8(L) 16 - 154 ng/mL [facility] Blood 06/19/2024 9:31 AM EST 06/19/2024 9:33 AM EST Narrative [facility] - 06/27/2024 6:07 PM EST FASTING:YES COLLECTION KIT GIVEN TO PATIENT. PATIENT ADVISED TO RETURN. FASTING: YES Resulting Agency Comment Performing Organization Information: ?Site ID: [id number] ?Name: [facility] ?Address: [address] [place] [phone] ?Director: Fernie Hitchcock M.D. Wendy Cardenas MD LAB BLOOD ORDERABLES Final Resul t Performing Organization Address [facility] de Phone Number [facility] [address] [place] [phone] [facility] [address] [place] [phone] * Comprehensive metabolic panel (CMP): Na, K, CL, Co2, Gluc, Ca, BUN, Creat, B/C, T.Prot, Alb, Glb, A/G, AST, ALT, ALKP, T.Bili (06/19/2024 9:31 AM EST) Glucose 92 65 - 99 mg/dL [facility] Comment: ? Fasting reference interval BUN 10 7 - 25 mg/dL [facility] Creatinine 0.72 0.50 - 0.99 mg/dL [facility] EGFR 108 > OR = 60 mL/min/1. 73m2 [facility] BUN/Creatinine Ratio SEE NOTE: (calc) [facility] Comment: ?? Not Reported: BUN and Creatinine are within ?? reference range. ? Sodium 137 135 - 146 mmol/L [facility] Potassium 4.1 3.5 - 5.3 mmol/L [facility] Chloride 105 98 - 110 mmol/L [facility] CO2 25 20 - 32 mmol/L [facility] Calcium 9.3 8.6 - 10.2 mg/dL [facility] Total Protein 7.2 6.1 - 8.1 g/dL [facility] Albumin 3.8 3.6 - 5.1 g/dL [facility] Globulin, Total 3.4 1.9 - 3.7 g/dL (calc) [facility] A/G Ratio 1.1 1.0 - 2.5 (calc) [facility] Total Bilirubin 0.3 0.2 - 1.2 mg/dL [facility] Alkaline Phosphatase 45 31 - 125 U/L [facility] AST 12 10 - 30 U/L [facility] ALT 12 6 - 29 U/L [facility] Blood 06/19/2024 9:31 AM EST 06/19/2024 9:33 AM EST Narrative [facility] - 06/27/2024 6:07 PM EST FASTING:YES COLLECTION KIT GIVEN TO PATIENT. PATIENT ADVISED TO RETURN. FASTING: YES Resulting Agency Comment Performing Organization Information: ?Site ID: [id number] ?Name: [employer] ?Address: [address] [place] [phone] ?Director: Fernie Hitchcock M.D. Wendy Cardenas MD LAB BLOOD ORDERABLES Final Resul t Performing Organization Address [facility] de Phone Number [facility] [address] [place] [phone] [email or web address] [address] [place] [phone] * CARDIAC MEDIUM TERM MONITOR OFFICE 3-7 DAYS (06/15/2024 3:05 PM EST) Narrative [facility] - 07/15/2024 5:26 PM EST Prescribed [...] DIAG ORDERABLES Final Result Performing Organization Address [facility] de Phone Number [facility] [address] [place] [address] * EKG 12 lead (06/15/2024 1:47 PM EST) 06/15/2024 1:47 PM EST Narrative [facility] - 06/17/2024 1:10 PM EST ?[facility] ?[address] [place], [place] ??[address] ? Test Date: ?2024-06-15 Pat Name: ? YUDITHKEKE HOLLAND ?Department: ?? CARD [facility] ?Room: ? Gender: ? Female ? Resource Coordinator: ?? CC : ?1985 ? Requested By: IRFAN WARSY Order Number: [id number] ? Reading MD: ?? Irfan Warsy ? Measurements Intervals ?Meally ? Rate: ? 78 ? P: ?71 WA: ? 151 ?QRS: ?51 QRSD: ? 85 ? T: ?60 QT: ? 387 ? QTc: ?441 ? Interpretive Statements Normal Sinus Rhythm Normal axes, intervals, and voltages Electronically Signed On 06-17-2024 13:10:55 EST by Wendy Cardenas Wendy Cardenas MD ECG ORDERABLES Final Result [facility] from Last 3 Months Insurance [facility] [employer] Care Teams Resident Athletic Trainer Relationship Specialty Start Date End Date Luis Loomis MD [address] [place] [address] PCP - General 02/21/24
--- OUTSIDE RECORDS SUMMARY | 2024-08-28 18:40 | XMS_ITS | Clinical Summary ---
[facility] Organization [facility] Address [address] [place] [address] Care Team Providers Care Service Worker Name Role Phone Luis Loomis MD Primary Care Provider [phone] Surgical History Surgery Date Site/Laterality Comments CERVICAL [...] Info) Description 10/02/2024 1:00 PM EDT Appointment [facility] Xray [address] [place] [address] Health Maintenance Due Date Last [...] complete this topic Insurance [place]ICA[place] - [place] [facility] [employer] [facility] [employer] Care Teams Service Worker Relationship Specialty Start Date End Date Luis Loomis MD [address] [place] [phone] PCP - General Internal Medicine 05/17/18
== END 2024-08-28 15:35 | disposition home or self-care (01) ==
PROVIDERS: PCP Internal Medicine; Visit Provider Student in an Organized Health Care Education/Training Program
DX: M32.9 Systemic lupus erythematosus, unspecified (principal); Z79.899 Other long term (current) drug therapy
CPT/HCPCS: 99214; G2211

== ENCOUNTER → 2024-08-28 14:54 | Outpatient (BNVA) | payer OTHER, SELFPAY | PROVIDERS: PCP Internal Medicine; Visit Provider Student in an Organized Health Care Education/Training Program | DX: M32.9 Systemic lupus erythematosus, unspecified (principal); Z79.899 Other long term (current) drug therapy | CPT/HCPCS: 99212 ==

== ENCOUNTER 2024-09-19 10:03 | Outpatient (REF) | payer OTHER, SELFPAY ==
[2024-09-19 11:07] LABS: Basophils Percent Auto 0.8 % (0-2); Eosinophils Absolute Auto 1.2 X10*3/uL (0.0-0.4); Eosinophils Percent Auto 23.7 % (0-4); Hematocrit 38.8 % (37.0-47.0); Hemoglobin 12.7 g/dl (12.0-16.0); Imm Gran Abs Auto 0.01 X10*3/uL (0.00-0.03); Imm Gran Pct Auto 0.2 % (0.0-0.4); Lymphocytes Absolute Auto 0.9 X10*3/uL (1.2-4.9); Lymphocytes Percent Auto 17.4 % (20-40); MANUAL DIFF FLAG SCAN; Mean Corpuscular HGB Conc 32.7 g/dl (31.0-35.0); Mean Corpuscular Hemoglobin 29.2 pg (27.0-33.0); Mean Corpuscular Volume 89.2 fL (80.0-98.0); Mean Platelet Volume 10.2 fL (9.4-12.3); Monocytes Absolute Auto 0.5 X10*3/uL (0.1-1.2); Monocytes Percent Auto 9.3 % (2-11); Neutrophils Absolute Auto 2.5 x10*3/uL (2.0-8.3); Neutrophils Percent Auto 48.6 % (45-73); Platelet Count 290 X10*3/uL (160-400); Red Blood Count 4.35 X10*6/uL (4.20-5.50); Red Cell Distribution Width 12.9 % (11.0-16.0); SCAN SMEAR FLAG 1; White Blood Count 5.1 X10*3/uL (4.8-10.8)
[2024-09-19 11:43] LABS: SLIDE REVIEW VERIFIED
[2024-09-19 11:49] LABS: Alanine Aminotransferase 23 U/L (0-31); Albumin Level 3.7 g/dL (3.5-5.0); Alkaline Phosphatase 45 U/L (39-117); Anion Gap 8 (12-20); Aspartate Amino Transferase 26 U/L (5-31); Bilirubin Total 0.4 mg/dL (0.0-1.0); Blood Urea Nitrogen 6 mg/dL (9-16); C Reactive Protein 0.26 mg/dL (< or = 0.50); Calcium 8.6 mg/dL (8.4-10.2); Carbon Dioxide 25 mmol/L (22-29); Chloride 109 mmol/L (96-108); Estimated Glomerular Filt Rate > 60; Glucose Random 97 mg/dL (60-115); Potassium 4.1 mmol/L (3.3-5.1); Sodium 138 mmol/L (135-145); Total Protein 7.3 g/dL (6.5-8.0)
[2024-09-19 11:51] LABS: Appearance Urine Cloudy; Glucose Urine UA Negative (Negative); Leukocyte Esterase Urine Small (1+) (Negative); Nitrite Urine Negative (Negative); UMIC TRIGGER UA YES; Urine Blood Large (3+) (Negative); Urine Ketones Negative (Negative); Urine Protein 30 (1+) mg/dL (Neg-Trace)
[2024-09-19 11:52] LABS: Color Urine PINK
[2024-09-19 11:54] LABS: Erythrocyte Sedimentation Rate 14 MM/HR (0-20)
[2024-09-19 11:55] LABS: Bacteria Urine None Seen (None Seen); Hyaline Casts Urine 0-2 /LPF (0-2); RBC Urine >20 /HPF (0-2)
[2024-09-19 12:08] LABS: Creatinine Urine 142.85 mg/dL; Protein/Creatinine Ratio, Ur 0.19 (<0.2); Total Protein Urine Random 27 mg/dL (<12)
[2024-09-20 21:18] LABS: Anti DNA DS Antibody <1 IU/mL
[2024-09-21 04:24] LABS: Complement C3 137 mg/dL (83-193)
== END 2024-09-19 10:04 | disposition home or self-care (01) ==
LOC: HO.LAB 10:03
PROVIDERS: PCP Internal Medicine; Visit Provider Student in an Organized Health Care Education/Training Program
DX: M32.9 Systemic lupus erythematosus, unspecified (principal)
CPT/HCPCS: 36415; 80053; 81001; 82570; 84156; 85025; 85652; 86140; 86160; 86225

== ENCOUNTER 2024-09-20 07:50 | Outpatient (AMB) | payer OTHER, SELFPAY ==
--- NOTE | 2024-09-20 07:52 | A.OFFVIS_ITS ---
Vital Signs 09/20/24 07:54 Height 4 ft 11 in Weight 178 lb 12.718 oz BMI 36.1 BP 122/80 Blood Pressure Location Lt brachial Position Sitting Pulse 73 Pulse Source Pulse Oximeter Pulse Oximetry (%) 98 Oxygen Delivery Method Room Air Intake Visit Reasons: flare up Intake Note: Patient presents for flare up. Allergies Iodinated Contrast Media [IV CONTRAST] Allergy (Intermediate, Verified 09/20/24 07:54) RASH Penicillins Allergy (Intermediate, Verified 09/20/24 07:54) RASH amoxicillin Allergy (Unknown, Verified 09/20/24 07:54) unknown Medication List - Last Reconciled 09/20/24 by Sunita Grace MD albuterol sulfate 90 mcg/actuation 2 puffs inhalation Q4-6H PRN 30 days duloxetine 90 mg (3 x 30 mg) PO DAILY famotidine 40 mg PO BEDTIME ferrous sulfate 324 mg PO BID 90 days fexofenadine 180 mg PO DAILY hydroxychloroquine 200 mg PO BID montelukast 10 mg PO BEDTIME omeprazole 40 mg PO ONCE 90 days propranolol 20 mg PO TID Symbicort 160-4.5 mcg/actuation (budesonide-formoterol) 2 puffs inhalation BID 30 days NS HPI Comments Details: Patient is a 39-year-old female with labile hypertension, uncontrolled persistent asthma, severe major depressive disorder, fibromyalgia and systemic lupus erythematosus here today for follow up Interval History: Patient last seen 08/28/24 with me. At that time she was taking Plaquenil 200 mg twice a day. She reported she started having balance issues, memory difficulties, dizziness, muscle pain/weakness in the legs especially. Also having hypermobility with recurrent dislocations and an elevated Beighton score based on the cardiology notes. Evaluated for POTS but found to have ?orthostatic hypertension. But when reevaluated it was normal Currently being evaluated for MAS and MS Her examination and her blood work was not consistent with active lupus with normal inflammatory markers, normal complement and double-stranded DNA. Her UA at that time showed blood but she was menstruating. No changes were made to her medication and she was continued on Plaquenil She is here today for an urgent visit Since her last visit she has been having a flare/worsening of symptoms: - Feeling pressure around her neck - Palpitations - Hot sweats - Dizziness - Swelling to her hands and legs - Palmar itching - Itching to the abdomen with - Pressure behind the eyes - Blurry vision - Nauseous Medication changes: stopped diclofenac and baclofen Has noted that when she stopped the baclofen she gets tremors Recent illness: No known recent illnesses No inflammatory type arthritis, no photosensitivity, no oral or nasal ulcers Rheumatologic History: SLE JORGE A positive, +++SSA, +++SSb, intermittently positive rheumatoid factor, fatigue, arthralgias, rash on face and chest, nasal ulcers Low complements intermittently Chronic lymphopenia Plaquenil Azathioprine 03/2024 - 05/2024 (dizziness) Initial history from Dr. Lauri Luevano Patient continues to report diffuse arthralgia that is worse her back and in her hands. Has swelling and stiffness in her hands when she 1st wakes up that improves throughout the morning. Her pain is generally worse with activity better with rest. She was given prednisone for pulmonary issues and states that her joint pain completely resolved while she was taking the prednisone and returned once she was off the prednisone. No rash, no photosensitivity, oral ulcers, painful, she has dry eyes and dry mouth. No seizures, no miscarriages, no serositis, no blood clots. She took plaquenil for about 6 months and it did not help and she stopped it b ecause she could not have eye exam , as she gets anxious. She uses vape, she stopped smoking cigarettes in 2009, she used to smoke 1/2 ppd since 10 years. Aunt has lupus. Radiographs: Normal radiographs of the cervical, thoracic, and lumbosacral spine with no evidence of acute fracture or subluxation. Grossly no evidence of canal or neuroforaminal encroachment. No evidence of spondylolysis. Hands US: no synovitis. Current Rheumatology Medication(s): Plaquenil 200mg bid [facility] Medical History IBS (irritable colon syndrome) Rheumatoid factor positive Anxiety GERD (gastroesophageal reflux disease) Endocervical polyp Surgical History H/O colonoscopy H/O esophagogastroduodenoscopy H/O LEEP History of bilateral tubal ligation Family History Father Hypertension CAD (coronary artery disease) Mother No problems noted. Maternal Grandmother Stroke Cancer Paternal Grandfather Stroke Son Mast cell activation syndrome Dysautonomia Other Mental health disorder Substance use disorder Social History Household Members: Children Housing: Apartment Alcohol intake: never Patient Tobacco Use Status: Former Tobacco user Years Smoked: 10 e-Cigarette/Vaping Use: Currently Using Second Hand Smoke Exposure: No service: No Current occupational status: unemployed Sexual orientation: Straight/Heterosexual Gender identity: Female Cognitive needs: No Hearing needs: No Vision needs: No Female Reproductive History Menstrual Age of Menarche: 8 Review of Systems Const Details: Review of Systems Constitutional: Denies fever, chills, weight loss ENT: Denies vision changes, eye pain or eye redness, dental caries, dry mouth GI: Denies nausea, vomiting, diarrhea, abdominal pain, change in BM Pulm: Denies SOB, KHAN, hemoptysis, wheezing Cards: Denies chest pain, palpitations Skin: Denies Raynaud's, rash, nail changes, photosensitivity, MANAGER [employer]: Denies headaches, weakness, paresthesias, recurrent falls MSK: as per HPI All other systems reviewed and are unremarkable except noted above Physical Exam Vital Signs: Last Vital Signs Pulse 73 09/20/24 07:54 BP 122/80 09/20/24 07:54 Pulse Ox 98 09/20/24 07:54 Oxygen Delivery Method Room Air 09/20/24 07:54 BMI result Body Mass Index 36.1 Vital signs reviewed Physical Examination CONSTITUITIONAL Patient alert and cooperative. Well appearing and in no apparent painful distress HEENT Conjunctiva and sclera clear. ?Pupils equal round and reactive to light. ?No lymphadenopathy. ? CHEST/RESPIRATORY SYSTEM Normal respiratory effort and able to speak in complete sentences. ?Clear to auscultation bilaterally. ?No crackles, rales, rhonchi, wheezes heard. CARDIAC SYSTEM Regular rate and rhythm. ?S1 and S2 heard no murmurs. ?Radial pulses intact bi laterally MSK Hands: ?Good area director of home health sales strength bilaterally. No deformities noted. ?No synovitis noted to the MCPs, PIPs or DIPs. ?No tenderness to palpation of these joints. Fine papules noted to the skin just below the nail bed of the right 5th digit Wrists: ?Full range of motion at the wrists without pain. ?No tenderness to palpation or synovitis noted to the wrists. Elbows: Full range of motion without pain. No tenderness, weakness, swelling, increased warmth or erythema. Shoulders: Full range of motion without pain. No tenderness, weakness, swelling, increased warmth or erythema. Hips: Full range of motion without pain. Hip bursa: No tenderness to palpation Knees: ?Full range of motion. ?No tenderness, swelling, increased warmth or erythema.?No effusion or crepitations Ankles: Full range of motion. ?No tenderness, swelling, increased warmth or erythema.? Feet: ?Negative squeeze test. ?No tenderness to palpation or swelling of the MTPs. Tender points:?No tenderness to palpation of the bilateral trapezius, supraspinatus, greater trochanters, anterior costochondral junctions, bilateral gluteal areas, bilateral suboccipital muscle insertions SKIN No obvious rash noted but few scaterred erythematous small papules noted on abdomen Razor burn noted on the undersurface of the chin Results Reviewed Results Reviewed: Laboratory Tests 08/24/24 09/19/24 14:14 10:22 WBC 5.1 RBC 4.35 Hgb 12.7 Hct 38.8 Plt Count 290 Lymph # (Auto) 1.1 L 0.9 L ESR 14 Sodium 138 Potassium 4.1 Chloride 109 H Carbon Dioxide 25 BUN 6 L Creatinine 0.71 AST 26 ALT 23 Alkaline Phosphatase 45 C-Reactive Protein 0.18 0.26 Immunology Labs 02/27/21 04/29/21 11:47 10:12 JORGE A Screen POSITIVE A JORGE A Titer 1:160 H JORGE A Titer 2 1:320 H JORGE A Pattern Nuclear, Homogeneous A JORGE A Pattern 2 Nuclear, Speckled A Sm (Xiong) Antibody <1.0 NEG SM/PRODUCT TESTER IgG Antibody <1.0 NEG Lupus monitoring labs 08/24/24 09/19/24 14:14 10:22 Double Strand DNA Ab <1 Pending Complement C3 135 Pending Complement C4 19 Pending Urine 08/24/24 09/19/24 14:07 10:17 Urine Blood Large (3+) H Large (3+) H Ur Leukocyte Esterase Trace H Small (1+) H Urine RBC >20 H >20 H Urine WBC 0-5 6-10 H U Random Total Protein 11 27 H Protein/Creatinin Ratio 0.36 H 0.19 Assessment & Plan Assessment & Plan (1) SLE (systemic lupus erythematosus): Comment: (+++SSA+++SSb, intermittently positive rheumatoid factor, fatigue, arthralgias, rash on face and chest, nasal ulcers) Hydroxychloroquine Azathioprine started 04/2024 - 05/2024. Stopped due to side effects: patient reports shaking and chilkls when she takes it Code(s): M32.9 - Systemic lupus erythematosus, unspecified Category: Medical Qualifiers: Systemic lupus erythematosus organ involvement: unspecified Systemic lupus erythematosus type: unspecified Qualified Code(s): M32.9 - Systemic lupus erythematosus, unspecified Plan: #SLE Patient is a 39-year-old female with lupus here today for an urgent visit for worsening of symptoms. At this time symptoms do not appear to be consistent with lupus. She does not have any worsening of her ESR/CRP. Her complements and double-stranded DNA are pending but otherwise her symptoms of increased sweating, dizziness, headaches, neck fullness are not consistent with a diagnosis of lupus. She does not have any rashes or worsening nasal ulcers at this time. I will prescribe baclofen for muscle tension but I do not think that she requ ires prednisone at this time. I encouraged her to follow up with her other providers. Plan - Baclofen 10mg bid - No indication for prednisone at this time - RTC 3 months (2) Long-term use of hydroxychloroquine: Code(s): Z79.899 - Other terminal make up operator (current) drug therapy Category: Medical Plan: #Long-term Use of Hydroxychloroquine Discussed with patient the risks and benefits of hydroxychloroquine in managing the rheumatic condition Benefits include: - Reduced pain, reduce mortality, maintenance of remission and reduction of flares Risks include: - GI upset, skin hyperpigmentation, retinal toxicity (especially after more than 5 years of use), myopathy Advised yearly ophthalmology visits Plan I spent 42 minutes reviewing the record and labs, taking a history, examining the patient, discussing the treatment plan, ordering diagnostic work up and documenting in the medical record Medications: New baclofen 5 mg PO BID 30 days 60 tabs 4RF M32.9 - Systemic lupus erythematosus, unspecified Coding Level of Care Code Est Pt Level 5 (72174) Complex EM visit Add On G2211 Diagnoses Systemic lupus erythematosus, unspecified SLE type, unspecified organ involvement status M32.9 Systemic lupus erythematosus organ involvement: unspecified Systemic lupus erythematosus type: unspecified Long-term use of hydroxychloroquine Z79.899
--- OUTSIDE RECORDS SUMMARY | 2024-09-20 07:53 | XMS_ITS | Clinical Summary ---
Author Organization [facility] Address [address] [place] [address] Care Team Providers Care Fire Alarm Dispatcher Name Role Phone Luis Loomis MD Primary Care Provider Surgical History Surgery Date Site/Laterality Comments CERVICAL [...] Appointment [facility] Xray [address] [place] [address] Health Maintenance Due Date Last [...] complete this topic Insurance [place] - [place] [facility] Care Teams Fire Alarm Dispatcher Relationship Specialty Start Date End Date Luis Loomis MD [address] [place] [phone] PCP - General Internal Medicine 05/17/18
[2024-09-20 07:54] VITALS: BP 122/80; PULSE 73; O2SAT 98; BMI 36.1
== END 2024-09-20 08:31 | disposition home or self-care (01) ==
LOC: HO.RHE 07:51
PROVIDERS: PCP Internal Medicine; Visit Provider Student in an Organized Health Care Education/Training Program
DX: M32.9 Systemic lupus erythematosus, unspecified (principal); Z79.899 Other long term (current) drug therapy
CPT/HCPCS: 99215; G2211

== ENCOUNTER → 2024-09-20 07:50 | Outpatient (BNVA) | payer OTHER, SELFPAY | PROVIDERS: PCP Internal Medicine; Visit Provider Student in an Organized Health Care Education/Training Program | DX: M32.9 Systemic lupus erythematosus, unspecified (principal); M79.7 Fibromyalgia; Z79.899 Other long term (current) drug therapy | CPT/HCPCS: 99212 ==

== ENCOUNTER 2024-10-10 10:27 | Outpatient (REF) | payer OTHER, SELFPAY ==
[2024-10-10 11:53] LABS: Iron 91 mcg/dL (30-160); Percent Iron Saturation 26 % (15-50); Total Iron Binding Capacity 345 mcg/dL (228-428); Unsaturated Iron Binding 254 ug/dL
--- OUTSIDE RECORDS SUMMARY | 2024-10-10 11:56 | XMS_ITS | Clinical Summary ---
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 Take 1 tablet (180 mg) by mouth daily 30 tablet 11 06/17/2024 06/17/20 Active famotidine (PEPCID) 20 MG tabletIndication s:Mast [...] Team (Late st Contact Info) Description 11/09/2024 4:00 PM EDT Telemedicine [facility] Department of Cardiology [address] [place] [phone] Wendy Cardenas MD [address] [place], [place] [phone] Health Maintenance Due Date Last Done Comments DTaP/TDAP/TD VACCINES (1 - Tdap) 02/22/1991 ADOLESCENT HIV SCREENING 02/22/1997 COVID-19 Vaccine (2023-2 5 season) 2024 INFLUENZA (#1) 2024 NIRSEVIMAB VACCINES UNDER 8 MONTHS Aged Out No longer eligible based on patient's age to complete this topic Insurance [facility] [address] Care Teams Fishing Game Warden Relationship Specialty Start Date End Date Luis Loomis MD [address] [place] [address] [place] [address] [facility] - General 02/21/24
--- OUTSIDE RECORDS SUMMARY | 2024-10-10 11:56 | XMS_ITS | Clinical Summary ---
Author Organization [facility] Address [address] [place] [address] Phone Care Team Providers Care Table Maker Name Role Phone Luis Loomis MD Primary Care Provider [phone] Surgical History Surgery Date Site/Laterality Comments CERVICAL [...] Last Done Comments Breast Cancer Screening 1984 Hepatitis A Vaccines (1 of 2 - Risk 2-dose series) 02/22/2003 Cervical Cancer Screening: P ap Smear 02/22/2005 Hepatitis B Vaccines (2 of 3 - 19+ 3-dose series) 09/29/2009 09/01/2009 DTaP,Tdap,and Td Vaccines (2 - Td or Tdap) 02/12/2018 02/13/2008 COVID-19 Vaccine (1 - 2023-2 5 season) 2024 Depression Screening 08/09/2024 HIV Screening 08/09/2024 Hepatitis C Screening 08/09/2024 Social Influencers of Health Screening 08/09/2024 Influenza Vaccine (Season Ended) 2025 HIB Vaccines Aged Out No longer eligi [...] age to complete this topic Meningococcal B Vaccine Aged Out No l onger eligible based on patient's age to complete [...] complete this topic Insurance [place]ID - [place] [employer] [employer] Care Teams Table Maker Relationship Specialty Start Date End Date Luis Loomis MD [address] [place] [address] PCP - General Internal Medicine 05/17/18
[2024-10-10 12:11] LABS: Ferritin 23 ng/mL (10-250); T4 Thyroxine 8.4 ug/dL (4.5-12.0); Thyroid Stimulating Hormone 0.64 uIU/mL (0.32-4.0)
[2024-10-11 19:12] LABS: Thyroid Peroxidase Antibodies <1 IU/mL (<9)
[2024-10-14 05:38] LABS: Aldolase 3.7 U/L (<=8.1)
== END 2024-10-10 10:28 | disposition home or self-care (01) ==
LOC: HO.LAB 10:27
PROVIDERS: PCP Internal Medicine; Visit Provider Psychiatry & Neurology Neurology
DX: M35.03 Sjogren syndrome with myopathy (principal)
CPT/HCPCS: 36415; 82085; 82550; 82728; 83540; 84436; 84443; 86376

== ENCOUNTER → 2024-10-11 09:52 | Outpatient (REF) | payer OTHER, SELFPAY ==
--- NOTE | ~2024-10-11 | NM_ITS ---
Lexiscan Myocardial perfusion study Indication: Shortness of breath to evaluate for myocardial ischemia Technique: The patient was brought in for a Lexiscan perfusion study on 10/11/2024 and was injected 0.4 mg of Lexiscan intravenously. Within a minute of this injection 30 mCi of sestamibi was given intravenously. Images were obtained using the SPECT gamma camera interlaced with the gating device. Images were obtained in supine position. Resting perfusion study was performed on 10/12/2024. Patient was administered 30 mCi of sestamibi intravenously at rest. Images were then obtained in supine position. Images obtained with and without CT attenuation. Total DLP 109 mGy-cm. Images were processed with the software and compared side to side in short axis, horizontal long axis and vertical long axis views. Findings: The stress perfusion study showed nonattenuated images show some thinning of the basal and mid anterior wall of the LV myocardium. There is also minimally reduced uptake in the basal septum of the LV myocardium. Attenuated corrected images show moderately reduced uptake in the apex of the LV myocardium.. The gated study shows normal LV systolic function with calculated LVEF of 50%. LV cavity is normal in size. The gated study shows normal systolic wall thickening and contraction of segments. Resting study shows attenuated corrected images show no significant change in perfusion pattern.. Gating at rest reveals normal systolic wall motion with ejection fraction at 53%. The findings are consistent with likely normal myocardial perfusion. NM/NM cardiolite stress test Impression: 1. Myocardial perfusion imaging study shows [likely normal myocardial perfusion 2. Gated LVEF is 50% 3. Transient ischemic dilatation not present Nondiagnostic changes on EKG. Electronically signed by: Cheko Abreu MD 10/12/2024 03:30 PM EDT
--- NOTE | 2024-10-11 09:54 | CA_ITS ---
Acquisition Time: 2024-10-11 10:10:26 Total Exercise Time: 00:02:00 Test Indications: sob Medications: see h&p Protocol: LEXISCAN Max HR: 111 BPM 61% of Pred: 180 BPM Max BP: 126/78 mmHG Max Work Load: 1.0 METS Pharmacological stress test with Lexiscan while pt kicks her legs in the chair, with reports of SOB, dizziness, and neck dissomfort, without any arrythmias, with normotensive response to injection. Nondiagnostic EKG for ischemia. In recovery, pt treated with IVP Aminophylline 75 mg to reverse Lexiscan, after which pt feeling back to baseline. Nuclear images pending. Test reviewed with Dr. Mallory. Referred By: Dean Lopez Electronically Signed By: Dean Lopez
--- OUTSIDE RECORDS SUMMARY | 2024-10-11 11:16 | XMS_ITS | Clinical Summary ---
Author Organization [facility] 's Address [address] [place] [address] Care Team Providers Care Creative Writing Teacher Name Role Phone Luis Loomis MD Primary Care Provider [phone] Source Comments Please note that some or [...] so, obtain the minor's consent prior to disclosure.[facility]'s Allergies Active Allergy Reactions Criticality Noted [...] Info) Description 11/09/2024 4:00 PM EDT Telemedicine [facility] Department of Cardiology [address] [place] [phone] Wendy Cardenas MD [address], [place] [phone] Health Maintenance Due Date Last Done Comments DTaP/TDAP/TD VACCINES (1 - Tdap) 02/22/1991 ADOLESCENT HIV SCREENING 02/22/1997 COVID-19 Vaccine (2023-2 5 season) 2024 INFLUENZA (#1) 2024 NIRSEVIMAB VACCINES UNDER 8 MONTHS Aged Out No longer eligible based on patient's age to complete this topic Insurance [facility] Care Teams Creative Writing Teacher Relationship Specialty Start Date End Date Luis Loomis MD [address] [place] [address] [place] [address] [facility] - General 02/21/24
--- OUTSIDE RECORDS SUMMARY | 2024-10-11 11:16 | XMS_ITS | Clinical Summary ---
Author Organization [facility] Address [address] [place] [address] Phone Care Team Providers Care Button Sewing Machine Operator Name Role Phone Luis Loomis MD Primary Care Provider [phone] Surgical History Surgery Date Site/Laterality Comments CERVICAL [...] complete this topic Insurance MED[place]ID - [place] [facility] Care Teams Button Sewing Machine Operator Relationship Specialty Start Date End Date Luis Loomis MD [address] [place] [address] PCP - General Internal Medicine 05/17/18
== END ==
LOC: HO.CARD 09:52
PROVIDERS: PCP Internal Medicine
DX: R06.02 Shortness of breath (principal); R94.39 Abnormal result of other cardiovascular function study
CPT/HCPCS: 78452; 93017; A9500; J0280; J2785

== ENCOUNTER → 2024-10-11 09:54 | Outpatient (BNV) | payer OTHER, SELFPAY | PROVIDERS: PCP Internal Medicine | DX: R06.02 Shortness of breath (principal) | CPT/HCPCS: 78452; 93016; 93018 ==

== ENCOUNTER 2024-11-25 19:15 | Outpatient (REF) | payer OTHER, SELFPAY ==
--- NOTE | ~2024-11-25 | MR_ITS ---
CLINICAL HISTORY: sjoquen syndrome MR Brain without gadolinium Comparison: None Findings: No restricted diffusion. No intra-axial mass or hemorrhage. No midline shift. No hydrocephalus. Vascular flow voids are intact. The orbits are normal. Mucous retention cyst in the right maxillary sinus. Paranasal sinuses are otherwise clear. No mastoid effusion. No focal bone lesion. IMPRESSION: No acute findings. This document has been electronically signed by: Lori Sharp MD on 11/27/2024 09:10:11
== END 2024-11-25 19:16 | disposition home or self-care (01) ==
LOC: HO.MRI 19:15
PROVIDERS: Visit Provider Psychiatry & Neurology Neurology
DX: M35.03 Sjogren syndrome with myopathy (principal)
CPT/HCPCS: 70551

== ENCOUNTER → 2024-11-25 19:28 | Outpatient (BNV) | payer OTHER, SELFPAY | PROVIDERS: Visit Provider Radiology Diagnostic Radiology | DX: J34.1 Cyst and mucocele of nose and nasal sinus (principal) | CPT/HCPCS: 70551 ==

== ENCOUNTER 2025-02-27 15:23 | Outpatient (AMB) | payer OTHER, SELFPAY ==
--- NOTE | 2025-02-27 15:26 | A.OFFVIS_ITS ---
Vital Signs 02/27/25 15:27 Height 4 ft 11 in Weight 178 lb 9.191 oz BMI 36.1 BP 118/78 Blood Pressure Location Lt brachial Position Sitting Pulse 76 Pulse Source Pulse Oximeter Pulse Oximetry (%) 98 Oxygen Delivery Method Room Air Intake Visit Reasons: SLE Intake Note: Patient presents for follow up on Lupus today. Patient states that she received notification that Baclofen was denied. Allergies Iodinated Contrast Media (IV CONTRAST) Allergy (Intermediate, Verified 09/20/24 07:54) RASH Penicillins Allergy (Intermediate, Verified 09/20/24 07:54) RASH amoxicillin Allergy (Unknown, Verified 09/20/24 07:54) unknown HPI Comments Details: Patient is a 40-year-old female with labile hypertension, uncontrolled persistent asthma, severe major depressive disorder, fibromyalgia and systemic lupus erythematosus here today for follow up Interval History: Patient last seen 09/20/24 with me. - On Hydroxychloroquine 200mg bid - Urgent visit: flare/worsening of symptoms - Feeling pressure around her neck - Palpitations - Hot sweats - Dizziness - Swelling to her hands and legs - Palmar itching - Itching to the abdomen with - Pressure behind the eyes - Blurry vision - Nauseous Medication changes: stopped diclofenac and baclofen Has noted that when she stopped the baclofen she gets tremors Recent illness: No known recent illnesses No inflammatory type arthritis, no photosensitivity, no oral or nasal ulcers No evidence of lupus activity No changes to medications Today - On Hydroxychloroquine 200mg bid - Still not feeling herself and very frustrated with her condition - No inflammatory arthritis - Has been concerned about EDS/hypermobility as well as concern for Achenbach syndrome - Also complaining of painful lumps under the skin in various places Rheumatologic History: SLE JORGE A positive, +++SSA, +++SSb, intermittently positive rheumatoid factor, fatigue, arthralgias, rash on face and chest, nasal ulcers Low complements intermittently Chronic lymphopenia Plaquenil Azathioprine 03/2024 - 05/2024 (dizziness) Initial history from Dr. Lauri Luevano Patient continues to report diffuse arthralgia that is worse her back and in her hands. Has swelling and stiffness in her hands when she 1st wakes up that improves throughout the morning. Her pain is generally worse with activity better with rest. She was given prednisone for pulmonary issues and states that her joint pain completely resolved while she was taking the prednisone and returned once she was off the prednisone. No rash, no photosensitivity, oral ulcers, painful, she has dry eyes and dry mouth. No seizures, no miscarriages, no serositis, no blood clots. She took plaquenil for about 6 months and it did not help and she stopped it because she could not have eye exam , as she gets anxious. She uses vape, she stopped smoking cigarettes in 2009, she used to smoke 1/2 ppd since 10 years. Aunt has lupus. Radiographs: Normal radiographs of the cervical, thoracic, and lumbosacral spine with no evidence of acute fracture or subluxation. Grossly no evidence of canal or neuroforaminal encroachment. No evidence of spondylolysis. Hands US: no synovitis. Current Rheumatology Medication(s): Plaquenil 200mg bid [facility] Medical History (Updated 02/28/25 @ 14:57 by Sunita Grace MD) Memory change Sjogren syndrome with myopathy Optic neuritis PTSD (post-traumatic stress disorder) Depression IBS (irritable colon syndrome) Rheumatoid factor positive Anxiety GERD (gastroesophageal reflux disease) Endocervical polyp Surgical History H/O colonoscopy H/O esophagogastroduodenoscopy H/O LEEP History of bilateral tubal ligation Family History Father Hypertension CAD (coronary artery disease) Mother No problems noted. Maternal Grandmother Stroke Cancer Paternal Grandfather Stroke Son Mast cell activation syndrome Dysautonomia Other Mental health disorder Substance use disorder Social History Household Members: Children Housing: Apartment Alcohol intake: never Patient Tobacco Use Status: Former Tobacco user Years Smoked: 10 e-Cigarette/Vaping Use: Currently Using Second Hand Smoke Exposure: No service: No Current occupational status: unemployed Sexual orientation: Straight/Heterosexual Gender identity: Female Cognitive needs: No Hearing needs: No Vision needs: No Female Reproductive History Menstrual Age of Menarche: 8 Review of Systems Const Details: Review of Systems Constitutional: Denies fever, chills, weight loss ENT: Denies vision changes, eye pain or eye redness, dental caries, dry mouth GI: Denies nausea, vomiting, diarrhea, abdominal pain, change in BM Pulm: Denies SOB, KHAN, hemoptysis, wheezing Cards: Denies chest pain, palpitations Skin: Denies Raynaud's, rash, nail changes, photosensitivity, NIGHT WAREHOUSE SELECTOR: Denies headaches, weakness, paresthesias, recurrent falls MSK: as per HPI All other systems reviewed and are unremarkable except noted above Physical Exam Exam Exam: Vital signs reviewed Physical Examination CONSTITUITIONAL Patient alert and cooperative. Well appearing and in no apparent painful distress MSK Hands * Right Hand: Able to make a fist. No swelling or tenderness to palpation of the MCPs, PIPs or DIPs. * Left Hand: Able to make a fist. No swelling or tenderness to palpation of the MCPs, PIPs or DIPs. * Herbedens nodes noted bilaterally Wrists * Right Wrist: Full ROM to flexion and extension. No swelling or TTP * Left Wrist: Full ROM to flexion and extension. No swelling or TTP Elbows * Right Elbow: Full ROM. No swelling or TTP. No TTP of the medial epicondyle. No TTP of the lateral epicondyle * Left Elbow: Full ROM. No swelling or TTP. No TTP of the medial epicondyle. No TTP of the lateral epicondyle Shoulders * Right shoulder: Full ROM. No swelling noted. No TTP of the AC joint. No TTP of the subacromial bursa. No TTP of the posterior shoulder * Left shoulder: Full ROM. No swelling noted. No TTP of the AC joint. No TTP of the subacromial bursa. No TTP of the posterior shoulder Hip bursa: Tenderness to palpation bilaterally Knees * Right knee: Full ROM. No swelling noted. No TTP of the knee joint line. No TTP of pes anserine bursa * Left knee: Full ROM. No swelling noted. No TTP of the knee joint line. No TTP of pes anserine bursa. * Crepitations felt bilaterally Ankles * Right ankle: Good ankle dorsiflexion and plantar flexion. No swelling. No TTP of the ankle joint * Left ankle: Good ankle dorsiflexion and plantar flexion. No swelling. No TTP of the ankle joint Feet * Right foot: Negative squeeze test * Left foot: Negative squeeze test Tender points? * Tenderness to palpation of the bilateral trapezius, supraspinatus, anterior costochondral junctions, bilateral suboccipital muscle insertions SKIN No rashes No nodules palpated today Vital Signs: Last Vital Signs Pulse 76 02/27/25 15:27 BP 118/78 02/27/25 15:27 Pulse Ox 98 02/27/25 15:27 Oxygen Delivery Method Room Air 02/27/25 15:27 BMI result Body Mass Index 36.1 Results Reviewed Results Reviewed: Laboratory Tests 08/24/24 09/19/24 14:14 10:22 WBC 5.1 RBC 4.35 Hgb 12.7 Hct 38.8 Plt Count 290 Lymph # (Auto) 1.1 L 0.9 L ESR 14 Sodium 138 Potassium 4.1 Chloride 109 H Carbon Dioxide 25 BUN 6 L Creatinine 0.71 AST 26 ALT 23 Alkaline Phosphatase 45 C-Reactive Protein 0.18 0.26 Immunology Labs 02/27/21 04/29/21 11:47 10:12 JORGE A Screen POSITIVE A JORGE A Titer 1:160 H JORGE A Titer 2 1:320 H JORGE A Pattern Nuclear, Homogeneous A JORGE A Pattern 2 Nuclear, Speckled A Sm (Xiong) Antibody <1.0 NEG SM/WILDLIFE BIOSTATION RESEARCH ECOLOGIST IgG Antibody <1.0 NEG Lupus monitoring labs 08/24/24 09/19/24 14:14 10:22 Double Strand DNA Ab <1 Pending Complement C3 135 Pending Complement C4 19 Pending Urine 08/24/24 09/19/24 14:07 10:17 Urine Blood Large (3+) H Large (3+) H Ur Leukocyte Esterase Trace H Small (1+) H Urine RBC >20 H >20 H Urine WBC 0-5 6-10 H U Random Total Protein 11 27 H Protein/Creatinin Ratio 0.36 H 0.19 Assessment & Plan Assessment & Plan (1) SLE (systemic lupus erythematosus): Comment: (+++SSA+++SSb, intermittently positive rheumatoid factor, fatigue, arthralgias, rash on face and chest, nasal ulcers) Hydroxychloroquine Azathioprine started 04/2024 - 05/2024. Stopped due to side effects: patient reports shaking and chilkls when she takes it Code(s): M32.9 - Systemic lupus erythematosus, unspecified Category: Medical Qualifiers: Systemic lupus erythematosus type: unspecified Systemic lupus erythematosus organ involvement: unspecified Qualified Code(s): M32.9 - Systemic lupus erythematosus, unspecified Plan: #SLE Patient is a 39-year-old female with lupus here today for an urgent visit for worsening of symptoms. At this time symptoms do not appear to be consistent with lupus. Explained that hypermobility is a genetic condition not related to an underlying auntoimmune condition and there is no treatment for this apart from PT to strengthen the muscles around the joints to stabilize the joint and prevent hypermobility Her painful nodules may be related to muscle tension or could be related to lupus, will have her see derm if they return and are consistent Plan - Hydroxychloroquine 200mg bid - RTC 4 months - Labs before visit: CBC, CMP, ESR, CRP, C3, C4, dsDNA, UA, UPC (2) Fibromyalgia, primary: Code(s): M79.7 - Fibromyalgia Category: Medical Plan: #Fibromyalgia Has a compenent of fibromyalgia On baclofen which helps Will add low dose naltrexone Plan - Naltrexone 4.5mg nightly - Continue baclofen 10mg bid (3) Long-term use of hydroxychloroquine: Code(s): Z79.899 - Other mcc (current) drug therapy Category: Medical Plan: #Long-term Use of Hydroxychloroquine Discussed with patient the risks and benefits of hydroxychloroquine in managing the rheumatic condition Benefits include: - Reduced pain, reduce mortality, maintenance of remission and reduction of flares Risks include: - GI upset, skin hyperpigmentation, retinal toxicity (especially after more than 5 years of use), myopathy Advised yearly ophthalmology visits Plan I spent 30 minutes reviewing the record and labs, taking a history, examining the patient, discussing the treatment plan, ordering diagnostic work up and documenting in the medical record Medications: New naltrexone 4.5 mg PO .nightly 90 caps 1RF M79.7 - Fibromyalgia Refilled hydroxychloroquine 200 mg PO BID 180 tabs 1RF baclofen 10 mg PO BID 60 tabs 4RF 30 days M32.9 - Systemic lupus erythematosus, unspecified duloxetine 90 mg (3 x 30 mg) PO DAILY 270 caps 1RF Discontinued prednisone Take 3 tablets for 10 days then 2 tablets for 10 days then 1 tablet for 10 days then stop Discontinued Reason: Doctor's Order 5 mg PO DIRECTED 60 tabs 0RF M32.9 - Systemic lupus erythematosus, unspecified Coding Level of Care Code Est Pt Level 4 (97503) Complex EM visit Add On G2211 Diagnoses Systemic lupus erythematosus, unspecified SLE type, unspecified organ involvement status M32.9 Systemic lupus erythematosus type: unspecified Systemic lupus erythematosus organ involvement: unspecified Fibromyalgia, primary M79.7 Long-term use of hydroxychloroquine Z79.899
[2025-02-27 15:27] VITALS: BP 118/78; PULSE 76; O2SAT 98; BMI 36.1
--- OUTSIDE RECORDS SUMMARY | 2025-02-27 16:36 | XMS_ITS | Clinical Summary ---
Author Organization [facility] Address [address] [place] [address] Phone Care Team Providers Care Thread Spinner Name Role Phone Luis Loomis MD Primary Care Provider [phone] Surgical History Surgery Date Site/Laterality Comments CERVICAL [...] - 2023-2 5 season) 2024 Depression Screening 07/04/2024 HIV Screening 08/09/2024 Hepatitis C Screening 08/09/2024 Social Influencers of Health Screening 08/09/2024 Influenza Vaccine (#1) 2025 HIB Vaccines Aged Out No longer [...] 5 Years) and At-Risk Patients (6 to 49 Years) Aged Out No longer eligi ble based on patient's age to complete this topic RSV Immunization Patients Un tarun 20 months Aged Out No longer eligible b ased on patient's age to complete this topic Varicella Vaccines Aged Out No longer eligible based on patient's age to complete this topic Procedures Procedure Name Priority Date/Time Associated Diagnosis Comments EXTERNAL COLONOSCOPY REPORT Routine 12/04/2024 8:28 AM EDT EXTERNAL ENDOSCOPY REPORT Routine 12/04/2024 8:26 AM EDT from Last 3 Months Results * External Colonoscopy Report (12/04/2024 8:28 AM EDT) Anatomical Region Laterality Modality Endoscopy us Historical Provider GI~PROCEDURE ORDERABLES F inal Result * External Endoscopy (12/04/2024 8:26 AM EDT) Anatomical Region Laterality Modality Endoscopy us Historical Provider MD WRIGHT~PROCEDURE ORDERABLES F inal Result from Last 3 Months Insurance MEDICAID - [place] [facility] [employer] PLAN Care Teams Thread Spinner Relationship Specialty Start Date End Date Luis Loomis MD [address] [place] [phone] PCP - General Internal Medicine 05/17/18
== END 2025-02-27 16:22 | disposition home or self-care (01) ==
LOC: HO.RHES 15:24
PROVIDERS: PCP Internal Medicine; Visit Provider Student in an Organized Health Care Education/Training Program
DX: M32.9 Systemic lupus erythematosus, unspecified (principal); M79.7 Fibromyalgia; Z79.899 Other long term (current) drug therapy
CPT/HCPCS: 99214

== ENCOUNTER → 2025-02-27 15:23 | Outpatient (BNVA) | payer OTHER, SELFPAY | PROVIDERS: PCP Internal Medicine; Visit Provider Student in an Organized Health Care Education/Training Program | DX: M32.9 Systemic lupus erythematosus, unspecified (principal); M79.7 Fibromyalgia; Z79.899 Other long term (current) drug therapy | CPT/HCPCS: 99212 ==

== ENCOUNTER 2025-06-30 07:30 | Observation (INO) | payer OTHER, SELFPAY ==
[2025-06-30] VITALS (12 sets, daily range): BP systolic 119–175; BP diastolic 77–111; PULSE 71–88; RESP 18–24; TEMP 35.9–36.8; O2SAT 92–99; BMI 34.3; BMI 34.7
--- NOTE | ~2025-06-30 | XR_ITS ---
CLINICAL HISTORY: sob 1 view chest x-ray Comparison: 08/03/2024 Findings: There is bilateral consolidation, possible pneumonia or pulmonary edema Heart size is normal. No acute fracture. IMPRESSION: 1. Bilateral consolidation, differential considerations noted. This document has been electronically signed by: Jean Brown MD on 06/30/2025 08:02:50
--- NOTE | ~2025-06-30 | CT_ITS ---
CLINICAL HISTORY: sob ? pna --- Additional Notes or Special Instructions: WAITING FOR PREG CT Chest without IV contrast: Comparison: Chest x-ray 06/30/2025 Findings: Heart size is normal, with no pericardial effusion Aorta diameter is normal Pulmonary artery diameter is unremarkable Lymph nodes: No adenopathy Trachea and Esophagus: Unremarkable Lungs: There are multifocal ground-glass opacities involving both lungs. Pleura: No pleural effusion Skeletal: No fractures Below the diaphragm: The visualized portions of liver and spleen are normal. Impression: Multifocal bilateral pulmonary ground-glass opacities involving mostly the upper lobes, consistent with airborne bilateral alveolar infection, pneumonia. This document has been electronically signed by: Mitch Garcia MD on 06/30/2025 18:19:21
--- OUTSIDE RECORDS SUMMARY | 2025-06-30 07:50 | XMS_ITS | Clinical Summary ---
Author Organization [facility] Address [address] [place] [address] Phone Care Team Providers Care Casework Manager Name Role Phone Luis Loomis MD Primary Care Provider [phone] Surgical History Surgery Date Site/Laterality Comments CERVICAL [...] Years Used Date Smoking Tobacco: Former Cigarettes 0.3 Q uit: 02/28/2009 Smokeless Tobacco: Never Alcohol Use Standard Drinks/Week Comments No 0 (1 standard drink = 0.6 oz pur e alcohol) Comments Unknown Sex and Gender Information Value Date Recorded Sex Assigned at Not on file Legal Sex Female 10:17 AM EST Gender Identity Not on file Sexual Orientation Not on file Plan of Treatment Health Maintenance Due Date Last Done Comments Breast Cancer Screening 1984 Hepatitis A Vaccines (1 of 2 - Risk 2-dose series) 02/22/2003 Cervical Cancer Screening: P ap Smear 02/22/2005 Hepatitis B Vaccines (2 of 3 - 19+ 3-dose series) 09/29/2009 09/01/2009 HPV Vaccines (1 - 3-dose SCD M series) 02/22/2011 DTaP,Tdap,and Td Vaccines (2 - Td or Tdap) 02/12/2018 02/13/2008 Depression Screening 07/04/2024 HIV Screening 08/09/2024 Hepatitis C Screening 08/09/2024 Social Influencers of Health Screening 08/09/2024 COVID-19 Vaccine (1 - 2024-2 6 season) 2025 Influenza Vaccine (#1) 2025 RSV Immunization Adult Patie nts (1 - 1-dose 75+ series) 02/22/2059 HIB Vaccines Aged Out No longer eligi [...] to complete this topic Insurance MEDICAID - [place] [facility] Care Teams Casework Manager Relationship Specialty Start Date End Date Luis Loomis MD [address] [place] [address] PCP - General Internal Medicine 05/17/18
--- OUTSIDE RECORDS SUMMARY | 2025-06-30 07:50 | XMS_ITS | Clinical Summary ---
Author Organization [facility] '[facility] Address [address] [place] [address] Care Team Providers Care Well Blower Name Role Phone Luis Loomis MD Primary Care Provider [phone] Source Comments Please note that some or [...] so, obtain the minor's consent prior to disclosure.[facility] Allergies Active Allergy Reactions Criticality Noted [...] MG delayed release capsule 90mg 06/07/2024 Active fexofenadine (GINGER) 180 MG tabletIndication s:Mast cell activation syndrome Take 1 tablet (180 mg) by mouth daily 30 tablet 11 06/17/2024 Active famotidine (PEPCID) 20 MG tabletIndication s:Mast cell activation syndrome Take 1 tablet (20 mg) by mouth 2 (two) times daily 60 tablet 11 06/17/2024 Active ergocalciferol (VITAMIN D2) 1,250 mcg (50,000 [...] 30mins before meals. 600 mL 11 06/20/2024 Active fludrocortisone (FLORINEF) 0.1 mg tabletIndication s:POTS (postural orthostatic tachycardia syndrome) Take 1 tablet (0.1 mg) by mouth 2 (two) times daily 60 tablet 11 11/09/2024 11/10/19 26 Active propranoloL (INDERAL) 20 MG tabletIndication s:POTS (postural orthostatic tachycardia syndrome) Take 1 tablet (20 mg) by mouth 3 (three) times daily 270 tablet 3 12/01/2024 12/02/19 26 Active montelukast (SINGULAIR) 10 mg tabletIndication s:Mast cell activation syndrome TAKE 1 TABLET BY MOUTH EVERY DAY NIGHTLY 90 tablet 3 12/18/2024 Active Active Problems No known active problems [...] Care Team (Late st Contact Info) Description 08/09/2025 3:30 PM EST Telemedicine [facility] Department of Cardiology, [address] [phone] Wendy Cardenas MD [address] [place] [phone] Health Maintenance Due Date Last Done Comments DTaP/TDAP/TD VACCINES (1 - Tdap) 02/22/1991 ADOLESCENT HIV SCREENING 02/22/1997 COVID-19 Vaccine (2023-2 5 season) 2025 INFLUENZA (#1) 2025 NIRSEVIMAB VACCINES UNDER 8 MONTHS Aged Out No longer eligible based on patient's age to complete this topic Insurance [facility] Care Teams Well Blower Relationship Specialty Start Date End Date Luis Loomis MD [address] [place] [address] PCP - General 02/21/24
[2025-06-30 07:53] LABS: MANUAL DIFF FLAG NO
[2025-06-30 07:57] LABS: Hematocrit 44.3 % (37.0-47.0); Hemoglobin 14.4 g/dl (12.0-16.0); Imm Gran Abs Auto 0.05 X10*3/uL (0.00-0.03); Imm Gran Pct Auto 0.5 % (0.0-0.4); Lymphocytes Absolute Auto 0.6 X10*3/uL (1.2-4.9); Mean Corpuscular HGB Conc 32.5 g/dl (31.0-35.0); Mean Corpuscular Hemoglobin 29.1 pg (27.0-33.0); Mean Corpuscular Volume 89.7 fL (80.0-98.0); NRBC Abs Auto 0.000 X10*3/uL (0.0-0.012); NRBC Pct Auto 0.0 /100WBC (0.0-0.2); Platelet Count 278 X10*3/uL (160-400); Red Blood Count 4.94 X10*6/uL (4.20-5.50); White Blood Count 11.1 X10*3/uL (4.8-10.8)
[2025-06-30 08:11] LABS: Alanine Aminotransferase 26 U/L (0-31); Albumin Level 4.2 g/dL (3.5-5.0); Alkaline Phosphatase 66 U/L (39-117); Anion Gap 12 (12-20); Aspartate Amino Transferase 35 U/L (5-31); Blood Urea Nitrogen 7 mg/dL (9-16); Calcium 9.5 mg/dL (8.4-10.2); Carbon Dioxide 25 mmol/L (22-29); Chloride 106 mmol/L (96-108); Creatinine Clr Calc Pharmacy 100.5; Estimated Glomerular Filt Rate > 60; Lipase 18 U/L (8-78); Potassium 3.8 mmol/L (3.3-5.1); Sodium 139 mmol/L (135-145); Total Protein 7.8 g/dL (6.5-8.0)
--- NOTE | 2025-06-30 08:28 | ED_ITS ---
HPI - General Adult General Chief complaint: Dyspnea Stated complaint: Asthma Difficulty breathing Time Seen by Provider: 06/30/25 08:18 Source: patient and EMS Mode of arrival: ambulatory Limitations: no limitations History of Present Illness ED Provider: OSEAS Babin HPI narrative: Chief Complaint: ?I can?t breathe.? Severe shortness of breath since yesterday. History of Present Illness: The patient is a female with a history of asthma, nuclear Sj?gren?s syndrome, mast cell activation syndrome, and POTS, presenting with acute onset severe shortness of breath that began yesterday. She reports that symptoms started suddenly after feeling ?sick? earlier in the week, with generalized body aches and nausea. She denies vomiting or diarrhea. The dyspnea has rapidly progressed, resulting in severe functional limitation?she is unable to walk or get to the bathroom due to breathlessness. She describes the severity as ?unable to take a deep breath? and notes rib and back pain from the effort of breathing. She has taken two doses of prednisone 40 mg (one yesterday, one this morning) without relief. No prior intubations for asthma, but she has had previous episodes of shortness of breath, though not to this degree. She has not performed any home testing for influenza or COVID-19 prior to arrival. She denies chest pain, palpitations, syncope, or hemoptysis. No recent travel or sick contacts. No known exposures to environmental triggers. No history of smoking. No recent changes in home medications except for the prednisone. She denies fever, chills, headache, visual changes, or new rashes. No history of prior hospitalizations for asthma exacerbation. No recent surgeries. No family history of asthma or autoimmune disease reported. She works indoors and denies occupational exposures. Related Data Home Medications ?Medication ?Instructions ?Recorded ?Confirmed fexofenadine 180 mg tablet 180 mg PO DAILY 07/18/24 montelukast 10 mg tablet 10 mg PO BEDTIME 07/18/24 propranolol 20 mg tablet 20 mg PO TID 07/18/24 albuterol sulfate 2.5 mg/3 mL 1.25 mg inhalation Q4-6H PRN 01/14/25 (0.083 %) solution for nebulization wheezing pantoprazole 20 mg tablet,delayed 20 mg PO DAILY 01/14 release Previous Rx's ?Medication ?Instructions ?Recorded famotidine 40 mg tablet 40 mg PO BEDTIME #30 tabs ferrous sulfate 324 mg (65 mg 324 mg PO BID 90 days #1 80 tabs 12/18/24 iron) tablet,delayed release Symbicort 160 mcg-4.5 2 puff inhalation BID 30 day s 01/22/25 mcg/actuation HFA aerosol inhaler #10.2 grams (budesonide-formoterol) duloxetine 30 mg capsule,delayed 90 mg (3 x 30 mg) PO DAILY #270 02/27/25 release caps hydroxychloroquine 200 mg tablet 200 mg PO BID #180 ta bs 02/27/25 naltrexone 4.5 mg capsule 4.5 mg PO .nightly #90 caps 02/27/25 prednisone 20 mg tablet 20 mg PO DAILY 5 days #5 tab s 04/03/25 Ventolin HFA 90 mcg/actuation 1 inh inhalation QID PRN shortness 06/03/25 aerosol inhaler (albuterol sulfate) of breath or wheez ing 30 days #8 grams baclofen 10 mg tablet 10 mg PO BID 30 days #60 tab s 06/03/25 omeprazole 40 mg capsule,delayed 40 mg PO .qd 90 days #90 caps 06/05/25 release albuterol sulfate 90 mcg/actuation 2 inh inhalation Q4 -6H PRN 06/30/25 breath activated powder inhaler shortness of breath or wheezing #1 ea prednisone 20 mg tablet 40 mg (2 x 20 mg) PO DAILY 5 days 06/30/25 #10 tabs Allergies Allergy/AdvReac Type Severity Reaction Status Date / Time Iodinated Contrast Media (IV Allergy Intermediate RASH Verified 06/30/25 07:37 CONTRAST) Penicillins Allergy Intermediate RASH Verified 06/30/25 07:37 amoxicillin Allergy Unknown unknown Verified 06/30/25 07:37 Review of Systems 2 Review of Systems: Review of Systems: ? General: Positive for severe fatigue, malaise, and functional limitation. ? Respiratory: Positive for shortness of breath, labored breathing, unable to take deep breath. ? Cardiovascular: Denies chest pain, palpitations, syncope. ? Gastrointestinal: Positive for nausea; denies vomiting, diarrhea, abdominal pain. ? Musculoskeletal: Positive for generalized body aches, back pain from breathing effort. ? Neurological: Denies headache, dizziness, weakness, numbness, or confusion. ? Skin: Denies rash, lesions, or swelling. ? HEENT: Denies sore throat, congestion, visual changes, hearing loss. ? Genitourinary: Denies dysuria, hematuria, or urinary retention. ? Psychiatric: Denies anxiety, depression, or suicidal ideation. ? Endocrine: Denies polyuria, polydipsia, or heat/cold intolerance. ? Hematologic/Lymphatic: Denies easy bruising, bleeding, or lymphadenopathy. ? Allergy/Immunology: Denies new allergies, anaphylaxis, or urticaria. Yes all other systems are reviewed and are negative [facility] Past Medical History Attestation statement: The following information was validated with the patient. [facility] Narrative: Past Medical History ? Asthma (no prior intubations, no prior ICU admissions) ? Nuclear Sj?gren?s syndrome ? Mast cell activation syndrome ? Postural orthostatic tachycardia syndrome (POTS) Source: old records reviewed and nursing notes reviewed Medical History Memory change Sjogren syndrome with myopathy Optic neuritis PTSD (post-traumatic stress disorder) Depression IBS (irritable colon syndrome) Rheumatoid factor positive Anxiety GERD (gastroesophageal reflux disease) Endocervical polyp Surgical History H/O colonoscopy H/O esophagogastroduodenoscopy H/O LEEP History of bilateral tubal ligation Family History Family History Father Hypertension CAD (coronary artery disease) Mother No problems noted. Maternal Grandmother Stroke Cancer Paternal Grandfather Stroke Son Mast cell activation syndrome Dysautonomia Other Mental health disorder Substance use disorder Social History Social History Household Members: Children Housing: Apartment Alcohol intake: never Patient Tobacco Use Status: Former Tobacco user Years Smoked: 10 Smoked in Last 30 Days: Yes e-Cigarette/Vaping Use: Currently Using Second Hand Smoke Exposure: No Use of substances other than those prescribed or required for medical reasons: No Advance Directives: No Advance Directives Information Provided: Yes Do you have a plan to hurt others: No Plan Patient : No service: No Current occupational status: unemployed Sexual orientation: Straight/Heterosexual Gender identity: Female Cognitive needs: No Hearing needs: No Vision needs: No Physical Exam ED Exam Exam: Physical Exam: General: Appears ill, in moderate to severe respiratory distress. Unable to ambulate due to dyspnea. HEENT: No nasal flaring, no oropharyngeal erythema, no stridor, no cervical lymphadenopathy. Cardiovascular: Regular rate and rhythm, no murmurs, rubs, or gallops. No peripheral edema. Respiratory: Mild wheezing; breath sounds diminished at bilateral bases. Labored breathing, use of accessory muscles. No cyanosis. Gastrointestinal: Abdomen soft, non-tender, no distension. Musculoskeletal: Generalized body aches, back pain from breathing effort. No joint swelling or deformity. Neurological: Alert and oriented x3, no focal deficits. Skin: No rashes, lesions, or swelling. Psychiatric: Appropriate mood and affect, no acute distress or agitation. Vital Signs: Vital Signs - 24 hr 06/30/25 07:32 06/30/25 08:46 06/30/25 08:46 Temperature 96.7 F L Pulse Rate 88 Respiratory Rate 24 H 20 Blood Pressure 166/77 H Pulse Oximetry 95 94 Oxygen Delivery Method Room Air Room Air Oxygen Flow Rate 06/30/25 08:47 06/30/25 12:00 06/30/25 12:20 Temperature 97.7 F Pulse Rate 85 71 84 Respiratory Rate 22 H 22 H Blood Pressure 146/87 H Pulse Oximetry 93 Oxygen Delivery Method Nasal Cannula Oxygen Flow Rate 2 06/30/25 13:15 06/30/25 14:00 Temperature 98.2 F Pulse Rate 73 Respiratory Rate 20 Blood Pressure 142/86 H Pulse Oximetry 96 Oxygen Delivery Method Nasal Cannula Oxygen Flow Rate 2 BMI result Body Mass Index 34.3 vss Course Reevaluation(s) Reevaluation #1: CBC with leukocytosis and mild shift this is nonspecific and it could be in the setting of increased/labored breathing. Chemistry unremarkable Time: 08:30 Reevaluation #2: Influenza positive. Precautions in place Time: 08:35 Reevaluation #3: Dimer 206 no indication for CTA Time: 11:51 Additional Reevaluation(s): 1329- Patient remains hypoxic she is 89% with minimal ambulation and exertion. Will call Respiratory again to the bedside to do further breathing treatments. x-ray is reading bilateral consolidations. I will further clarify this with dry CT. Will also order blood cultures lactic acid at this time infection suspected. Initially I thought this was viral illness however infection must be ruled out and at this time suspected 1616- Still SOB CT pending. 1626 I did review the CT scan and it appears as though patient has bilateral multifocal pneumonia she was covered with ceftriaxone and azithromycin adequate coverage. Plan hospital admission. Medications Administered Discontinued Medications Generic Name Dose Route Start Last Admin Trade Name Abhilash PRN Reason Stop Dose Admin Albuterol Sulfate 5 mg/ 0 mg 06/30/25 08:39 06/30/25 08:45 Albuterol/Ipratropium 3 ml INHALE 06/30/25 08:40 1 each ONCE ONE Administration Albuterol Sulfate 2.5 mg/ 0 mg 06/30/25 12:16 06/30/25 12:19 Albuterol/Ipratropium 3 ml INHALE 06/30/25 12:17 1 dose ONCE ONE Administration Fentanyl 50 mcg 06/30/25 13:03 06/30/25 13:15 Fentanyl Citrate/Pf 100 Mcg/2 Ml Vial IVPUSH 06/30/25 13:04 50 mcg ONCE ONE Administration Protocol Magnesium Sulfate 2 gm in 50 mls @ 25 mls/hr 06/30/25 08:27 06/30/25 09:03 Magnesium Sulfate/H2o IV 06/30/25 10:26 Infused ONCE ONE Infusion Sodium Chloride 2,313.33 mls @ 2,313.33 mls/hr 06/30/25 13:29 06/30/25 14:21 Ns 30 ml/kg infuse over 1 hr (2313.33 ml) 06/30/25 14:28 2,313.33 mls/hr IV Administration .Q1H STA Ceftriaxone Sodium 1 gm/ 50 mls @ 100 mls/hr 06/30/25 13:29 06/30/25 14:59 Sodium Chloride IV 06/30/25 13:58 Infused ONCE ONE Infusion Azithromycin 500 mg/ Sodium 250 mls @ 125 mls/hr 06/30/25 13:29 06/30/25 14:59 Chloride IV 06/30/25 15:28 125 mls/hr ONCE ONE Administration Methylprednisolone Sodium Succinate 125 mg 06/30/25 09:54 06/30/25 10:06 Methylprednisolone Sod Succ 125 Mg/2 Ml Vial IVPUSH 06/30/25 09:55 125 mg ONCE ONE Administration Medical Decision Making Medical Decision Making MDM Narrative: Assessment & Plan The patient presents with an acute asthma exacerbation with possible concomitant viral respiratory infection. She is at high risk for respiratory failure given severe functional limitation, lack of response to home steroids, and comorbid autoimmune and mast cell activation syndromes. Complexity of care is high due to multiple comorbidities, need for advanced interventions, and risk for rapid deterioration. Problem #1: Acute asthma exacerbation Assessment: Acute worsening of baseline asthma with labored respirations, mild wheeze, diminished breath sounds, and limited response to home prednisone. Severe functional limitation: unable to walk or get to the bathroom due to dyspnea. No prior intubations, but prior episodes of shortness of breath. Comorbidities (Sjogren?s, mast cell activation syndrome, POTS) increase risk for poor outcome. No history of smoking or environmental exposures. Medical Decision-Making: High complexity. Patient is at increased risk for respiratory failure due to severity of symptoms, lack of response to outpatient therapy, and underlying autoimmune disease. Differential includes asthma exacerbation, viral respiratory infection, and less likely cardiac or pulmonary embolic process. Diagnostic testing (chest X-ray, viral panel) is indicated to rule out alternative or concomitant pathology. Close monitoring is required due to risk of rapid deterioration. Plan: * Initiate respiratory therapy for nebulized bronchodilator treatments (albuterol/ipratropium) and monitor for response. * Administer supplemental oxygen as needed for hypoxemia. * Continue systemic corticosteroids (prednisone) per asthma exacerbation protocol. * Obtain IV access for potential escalation of care and laboratory studies. * Monitor respiratory status closely in ED with frequent reassessment (vital signs, pulse oximetry, work of breathing). * Chest X-ray to evaluate for alternative pathology (e.g., pneumonia, pneumothorax, pulmonary edema); pending. * Coordinate care with respiratory therapy and nursing for ongoing monitoring and interventions. * High risk for respiratory failure; criteria for escalation include worsening hypoxemia, increased work of breathing, altered mental status, or failure to improve with initial therapy. * Time spent: >30 minutes in direct patient care, counseling, and coordination of care. * Disposition to be determined based on treatment response; admission indicated if persistent respiratory distress, hypoxemia, or need for advanced interventions. Problem #2: Possible viral respiratory infection (Influenza / COVID-19 / RSV) Assessment: Acute respiratory illness during current viral season; no prior testing performed. Immunosuppressed due to underlying autoimmune disease and mycophenolate use, increasing risk for severe viral infection. Medical Decision-Making: High complexity. Viral panel (Influenza / COVID-19 / RSV NAAT) obtained to guide management and infection control. Supportive care indicated; antiviral therapy to be considered if positive for influenza. Monitor for complications including secondary bacterial infection or worsening respiratory status. Plan: * Influenza / COVID-19 / RSV PCR swab obtained; await results. * Supportive care (hydration, antipyretics, oxygen as needed). * Modify management if testing positive (> 48 hours of symptoms not a candidate for tamiflu , isolation precautions). Procedures/Interventions * Nebulized bronchodilator therapy initiated for acute asthma exacerbation. * Supplemental oxygen to be administered if needed * IV access obtained for labs and potential medication administration. * Chest X-ray ordered to evaluate for alternative pathology. * Viral panel (Influenza / COVID-19 / RSV NAAT) obtained. * Continuous monitoring by respiratory therapy and nursing staff. Risk/Complexity Patient is at high risk for respiratory failure due to severe asthma exacerbation, lack of response to outpatient therapy, and underlying immunosuppression. Close monitoring and rapid escalation of care are warranted. Criteria for admission include persistent respiratory distress, hypoxemia, or need for advanced interventions. Disposition will be determined based on response to therapy and risk assessment. Disposition & Follow-up Anticipated disposition: Admission if persistent respiratory distress, hypoxemia, or failure to improve with ED interventions. Discharge may be considered if complete resolution of symptoms and stable respiratory status. Follow-up with primary care / pulmonology recommended within 48 hours if discharged. Return precautions provided for worsening dyspnea, chest pain, or altered mental status. All documentation supports high-complexity medical decision-making and ED E/M coding. Differential Diagnosis Differential Diagnoses: The differential diagnosis associated with the presentation includes Differential Diagnosis * Asthma exacerbation (most likely): Patient has a known history of asthma, with acute worsening of dyspnea, labored breathing, mild wheezing, and diminished breath sounds. Lack of response to home prednisone and severe functional limitation support this diagnosis. * Viral respiratory infection (influenza, COVID-19, RSV): Sudden onset of symptoms during viral season, with body aches and malaise, and immunosuppression due to mycophenolate and autoimmune disease increase risk. No prior testing performed; viral panel pending. * Bacterial pneumonia: Considered due to acute respiratory symptoms and immunosuppression. No fever, chills, or productive cough reported; chest X-ray pending to evaluate for infiltrate. * Heart failure/cardiac etiology: Dyspnea could be cardiac in origin, but absence of chest pain, palpitations, peripheral edema, and normal cardiovascular exam make this less likely. * Pulmonary embolism: Sudden severe dyspnea and functional limitation raise concern, but no risk factors (recent surgery, immobility, travel), chest pain, or hemoptysis reported. Will consider if initial workup unrevealing. * Pneumothorax: Acute onset dyspnea could be due to pneumothorax, but no history of trauma, no unilateral breath sounds, and no chest pain. Chest X-ray pending to rule out. * Medication-induced respiratory symptoms: Recent increase in prednisone and ongoing mycophenolate use could contribute, but no known respiratory side effects reported for current regimen. * Exacerbation of underlying autoimmune disease: Sj?gren?s or mast cell activation syndrome could contribute to respiratory symptoms, but no evidence of new rash, joint swelling, or other systemic features at present. Admission/Observation Consideration of admission/observation: Escalation of care including admission/observation considered Lab Data MDM Lab Attestation statement: I reviewed the patient's lab results. 06/30/25 07:47 06/30/25 07:47 Labs: Lab Results 06/30/25 06/30/25 06/30/25 Range/Units 07:47 11:51 13:57 WBC 11.1 H (4.8-10.8) X10*3/uL RBC 4.94 (4.20-5.50) X10*6/uL Hgb 14.4 (12.0-16.0) g/dl Hct 44.3 (37.0-47.0) % MCV 89.7 (80.0-98.0) fL MCH 29.1 (27.0-33.0) pg MCHC 32.5 (31.0-35.0) g/dl RDW 12.8 (11.0-16.0) % Plt Count 278 (160-400) X10*3/uL MPV 10.4 (9.4-12.3) fL Immature Gran % (Auto) 0.5 H (0.0-0.4) % Neut % (Auto) 85.2 H (45-73) % Lymph % (Auto) 5.3 L (20-40) % [place] % (Auto) 8.6 (2-11) % Eos % (Auto) 0.2 (0-4) % Baso % (Auto) 0.2 (0-2) % Lymph # (Auto) 0.6 L (1.2-4.9) X10*3/uL [place] # (Auto) 1.0 (0.1-1.2) X10*3/uL Eos # (Auto) 0.0 (0.0-0.4) X10*3/uL Baso # (Auto) 0.0 (0.0-0.2) X10*3/uL Abs Immat Gran (auto) 0.05 H (0.00-0.03) X10*3/uL Absolute Neuts (auto) 9.4 H (2.0-8.3) x10*3/uL Absolute Nucleated RBC 0.000 (0.0-0.012) X10*3/uL Nucleated RBC % (auto) 0.0 (0.0-0.2) /100WBC D-Dimer High Sensitivty 206 NG/ML Sodium 139 (135-145) mmol/L Potassium 3.8 (3.3-5.1) mmol/L Chloride 106 (96-108) mmol/L Carbon Dioxide 25 (22-29) mmol/L Anion Gap 12 (12-20) BUN 7 L (9-16) mg/dL Creatinine 0.66 (0.5-1.4) mg/dL Estim Creat Clear Calc 100.5 Estimated GFR > 60 Random Glucose 117 H (60-115) mg/dL Lactic Acid 0.9 (0.5-2.0) mmol/L Calcium 9.5 D (8.4-10.2) mg/dL Total Bilirubin 0.3 (0.0-1.0) mg/dL Direct Bilirubin 0.1 (0.0-0.5) mg/dL AST 35 H (5-31) U/L ALT 26 (0-31) U/L Alkaline Phosphatase 66 (39-117) U/L Total Protein 7.8 (6.5-8.0) g/dL Albumin 4.2 (3.5-5.0) g/dL Lipase 18 (8-78) U/L Beta HCG, Quant < 2 mIU/mL Influenza Type A (PCR) POSITIVE A (Negative) Influenza Type B (PCR) NEGATIVE (Negative) RSV RNA Qual (PCR) NEGATIVE (Negative) SARS-CoV-2 RNA (RT-PCR) NEGATIVE (Negative) External Record Review External record reviewed: Inpatient record, Office record, Outpatient record, Prior outpatient labs, Prior outpatient radiology, Primary care record and Outside ED record Chronic Conditions Patient?s care impacted by: Other (see pmfsh section ) Critical Care Time Critical Care Time Critical Care Time: Yes Total Critical Care Time: 35 Attestation: I attest to this time spent taking care of the patient, obtaining history, physical, reviewing labs, imaging, speaking to my attending and or speaking to specialist. Or preforming a procedure Discharge Plan Discharge Clinical Impression: Asthma, Influenza A, Hypoxia, Pneumonia Patient Disposition: Admitted As Inpatient Additional Instructions: Take your medications as prescribed. If you were prescribed antibiotics today, it is important that you take your medication to their entirety, do not skip any doses, do not finish them early. Follow-up with your primary care provider this week. Return to the emergency department with new or worsening symptoms. Such as fevers, chills, chest pain, shortness of breath, nausea, vomiting, dizziness, headache, vision changes, lethargy In case of emergency call 911 Print Language: Hebrew
[2025-06-30 08:33] LABS: Resp Syncy Virus RNA Qual PCR NEGATIVE (Negative); SARS COV2 PCR INHOUSE NEGATIVE (Negative)
[2025-06-30] MEDS: Magnesium Sulfate/H2O 2 GM/50 ML PIGGYBACK IV (08:43)
[2025-06-30] MEDS: Albuterol Sulfate 5 MG, Albuterol/Iprat 2.5/0.5MG 3 ML 3 ML INHALE (08:45)
[2025-06-30 12:03] LABS: D Dimer High Sensitivity 206 NG/ML
[2025-06-30] MEDS: Albuterol Sulfate 2.5 MG, Albuterol/Iprat 2.5/0.5MG 3 ML 3 ML INHALE (12:19)
--- NOTE | 2025-06-30 16:42 | HO.NURTONUR ---
Addendum entered by Amaris Resendiz RN 06/30/25 18:57: Pt requests breathing Tx for feeling SOB. RT called and will report to ED to evaluate Pt. Original Note: 40 yr old female comes to ED for c/o SOB causing back and chest pain since yesterday. Reports non-productive cough and feeling very fatigued on exertion. A&Ox3 [place]ian speaking and independent with all care. VSS, afebrile. Pt respirations are labored and she works to take full breaths. She requires full upright position for breathing. Pt seen by RT for eval and neb treatments. IV magnesium and steroids administered per SEP. Noted (+) Flu A from nasal swab. Pt fails ambulation O2 trial with desating to 89% 20g to LAC IVF and Abx given per SEP. Hospitalist at bedside at this time for admission.
--- NOTE | 2025-06-30 16:42 | PM.IMHP ---
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 She said her child was sick before that? Viral sickness The dyspnea has rapidly progressed, resulting in severe functional limitation?she is unable to walk or get to the bathroom due to breathlessness. She did not tele appointment yesterday? She has taken two doses of prednisone 40 mg (one yesterday, one this morning) without relief. She said that she gets short of breath with minimal exertion, minimal whitish sputum, subjective fever, as per ED her sats goes in low 80s with walking. In addition patient has smoked marijuana, no recreational use of drugs or alcohol. No recent changes in home medications except for the prednisone. She denies fever, chills, headache, visual changes, or new rashes. Lab imaging reviewed: WBC count 11.1 BMP seems fine, lactic acid normal, Chest x-ray shows bilateral pneumonia CT chest: Official reading pending-grossly look like lot of patchy consolidations? Question multifocal pneumonia, blood culture pending Review of Systems Review of Systems: As above. Yes all other systems are reviewed and are negative FOR[facility]LY [facility], [facility] Medical History Memory change Sjogren syndrome with myopathy Optic neuritis PTSD (post-traumatic stress disorder) Depression IBS (irritable colon syndrome) Rheumatoid factor positive Anxiety GERD (gastroesophageal reflux disease) Endocervical polyp Family History Father Hypertension CAD (coronary artery disease) Mother No problems noted. Maternal Grandmother Stroke Cancer Paternal Grandfather Stroke Son Mast cell activation syndrome Dysautonomia Other Mental health disorder Substance use disorder Surgical History H/O colonoscopy H/O esophagogastroduodenoscopy H/O LEEP History of bilateral tubal ligation Social History Household Members: Children Housing: House Do you presently have visiting nurse or other home services: No Alcohol intake: never Patient Tobacco Use Status: Former Tobacco user Tobacco use type: Smokeless Tobacco Years Smoked: 10 Smoked in Last 30 Days: Yes e-Cigarette/Vaping Use: Currently Using Frequency of e-Cigarette/Vaping Use: not for a few days Patient Interested in Nicotine Replacement: No Patient Given Instructions on How to Stop Smoking: No Second Hand Smoke Exposure: No Use of substances other than those prescribed or required for medical reasons: No Currently Displaying Signs/Symptoms of Drug Intoxication Withdrawal: No Have you been hit, kicked, punched, or otherwise hurt by someone within the past year? If so, by whom?: No Do you feel safe in your current relationship?: No Current Relationship Is there a partner from a previous relationship who is making you feel unsafe now?: No Are you made to feel afraid or neglected: No Advance Directives: No Advance Directives Information Provided: Yes Do you have a plan to hurt others: No Plan Recently lost weight without trying: No Nutrition Risks: No Nutritional Risk Patient : No : No Poor oral hygiene: No service: No Current occupational status: unemployed Sexual orientation: Straight/Heterosexual Gender identity: Female Cognitive needs: No Hearing needs: No Vision needs: No Meds Allergies Allergy/AdvReac Type Severity Reaction Status Date / Time Iodinated Contrast Media (IV Allergy Intermediate RASH Verified 06/30/25 07:37 CONTRAST) Penicillins Allergy Intermediate RASH Verified 06/30/25 07:37 amoxicillin Allergy Unknown unknown Verified 06/30/25 07:37 Active Medications: Current Medications Acetaminophen (Acetaminophen 325 Mg Tablet) 650 mg PO Q6H PRN PRN Reason: Pain, Mild 1-3,fever,headache Albuterol/Ipratropium (Albuterol/Iprat 2.5/0.5mg 3 Ml Ampul.Neb) 3 ml INHALE Q4H [facility] Albuterol/Ipratropium (Albuterol/Iprat 2.5/0.5mg 3 Ml Ampul.Neb) 3 ml INHALE Q3H PRN PRN Reason: sob Calcium Carbonate (Calcium Carbonate 750 Mg Tab.Chew) 750 mg PO Q4H PRN PRN Reason: Heartburn Guaifenesin (Guaifenesin 200 Mg/10 Ml 10 Ml Liquid) 10 ml PO Q4H [facility] Loratadine (Loratadine 10 Mg Tablet) 10 mg PO DAILY [facility] Magnesium Hydroxide (Milk Of Magnesia 30 Ml Oral.Susp) 30 ml PO DAILY PRN PRN Reason: Constipation Melatonin (Melatonin 3 Mg Tablet) 6 mg PO BEDTIME PRN PRN Reason: Insomnia Methylprednisolone Sodium Succinate (Methylprednisolone Sod Succ 40 Mg/Ml Vial) 40 mg IVPUSH BID [facility] Oseltamivir Phosphate (Oseltamivir Phosphate 75 Mg Capsule) 75 mg PO BID [facility] Sodium Chloride (0.9 % Sodium Chloride Flush 3 Ml Syringe) 3 ml IVFLUSH QSHIFT [facility] Home Medications ?Medication ?Instructions ?Recorded ?Confirmed ?Last Taken ?Type fexofenadine 180 mg tablet 180 mg PO DAILY 07/18/24 06/30/25 Unknown History montelukast 10 mg tablet 10 mg PO BEDTIME 07/18/24 06/30/25 Unknown History propranolol 20 mg tablet 20 mg PO TID 07/18/24 06/30/25 Unknown History albuterol sulfate 2.5 mg/3 mL 1.25 mg inhalation Q4-6H PRN 01/14/25 06/30/25 Unknown History (0.083 %) solution for nebulization wheezing cromolyn 100 mg/5 mL oral 5 mg PO QID 06/30/25 06/30/25 Unknown History concentrate famotidine 40 mg tablet 20 mg PO BEDTIME 06/30/25 06/30/25 Unknown History naltrexone 4.5 mg capsule 4.5 mg PO BEDTIME 06/30/25 06/30/25 Unknown History omeprazole 40 mg capsule,delayed 20 mg PO DAILY 06/30/25 06/30/25 Unknown History release Physical Exam Vital Signs and Narrative: Vital Signs: Last Vital Signs Temp 98.2 F 06/30/25 14:00 Pulse 73 06/30/25 14:00 Resp 18 06/30/25 16:29 BP 142/86 H 06/30/25 14:00 Pulse Ox 96 06/30/25 14:00 O2 Del Method Nasal Cannula 06/30/25 14:00 O2 Flow Rate 2 06/30/25 14:00 BMI result Body Mass Index 34.3 Appearance: Alert.? Oriented X3.?sob excersion. cvs: rrr, [id number] . res: air entry diminshed , b/l exp wheezing abd: no rebound or guarding ,nt, bs present. ext pulses present , no cyanosis . neuro: axo3 , nonfocal. Results Labs 06/30/25 07:47 06/30/25 07:47 Labs: Laboratory Results - last 24 hr 06/30/25 06/30/25 06/30/25 07:47 11:51 13:57 MCV 89.7 MCH 29.1 MCHC 32.5 RDW 12.8 Plt Count 278 MPV 10.4 Immature Gran % (Auto) 0.5 H Neut % (Auto) 85.2 H Lymph % (Auto) 5.3 L Grant % (Auto) 8.6 Eos % (Auto) 0.2 Baso % (Auto) 0.2 Lymph # (Auto) 0.6 L Grant # (Auto) 1.0 Eos # (Auto) 0.0 Baso # (Auto) 0.0 Abs Immat Gran (auto) 0.05 H Absolute Neuts (auto) 9.4 H Absolute Nucleated RBC 0.000 Nucleated RBC % (auto) 0.0 D-Dimer High Sensitivty 206 Anion Gap 12 Estim Creat Clear Calc 100.5 Estimated GFR > 60 Random Glucose 117 H Lactic Acid 0.9 Calcium 9.5 D Total Bilirubin 0.3 Direct Bilirubin 0.1 AST 35 H ALT 26 Alkaline Phosphatase 66 Total Protein 7.8 Albumin 4.2 Lipase 18 Beta HCG, Quant < 2 Influenza Type A (PCR) POSITIVE A Influenza Type B (PCR) NEGATIVE RSV RNA Qual (PCR) NEGATIVE SARS-CoV-2 RNA (RT-PCR) NEGATIVE Imaging Radiologist's Impressions: cxr: 1. Bilateral consolidation, differential considerations noted. Ct chest -pending Assessment and Plan (1) Asthma: Qualifiers: Asthma severity: mild Asthma persistence: intermittent Asthma complication type: uncomplicated Qualified Code(s): J45.20 - Mild intermittent asthma, uncomplicated Status: Acute Plan 40 y/o F with possible acute hypoxemic respiratory failure secondary to mild intermittent asthma exacerbation with pneumonia. 1. acute hypoxemic respiratory failure secondary to mild intermittent asthma exacerbation with pneumonia. Send strep, Legionella antigen, blood culture pending, nasal MRSA screen, sputum culture, blood culture pending Started on nebs, steroids, antibiotics, monitor sats Pulmonary evaluation Rest of the comorbidities medications we will start once medical reconciliation is done. DVT prophylaxis: SubQ Lovenox Ongoing need of stay: Patient may benefit from at least 2 midnight stay considering acute hypoxemic respiratory failure/mild intermittent asthma exacerbation and pneumonia-need close monitoring of respiratory status, pulse ox monitoring as well as expert Consultation Above management discussed with the patient in detail length he she understand and in agreement with the above plan, time spent 70 minutes, patient is full code. Quality Stroke Does the patient have a stroke diagnosis?: No VTE Prior VTE?: No VTE Risk Level:: Medical - moderate - high VTE Device Contraindication: N/A - Device Ordered VTE Drug Contraindication: N/A - Med Ordered
[2025-06-30] MEDS: guaiFENesin 200 MG/10 ML 10 ML LIQUID PO ×2 (18:13→22:08)
--- NOTE | 2025-06-30 18:53 | PHA.MEDREC ---
Pharmacy Consult ? Medication Reconciliation Pharmacy has completed the medication reconciliation. Patient had list on their phone. Patient took Day 2 of their 5 day prednisone taper this morning
[2025-06-30] MEDS: Albuterol/Iprat 2.5/0.5MG 3 ML AMPUL.NEB INHALE ×2 (19:36→23:44)
[2025-06-30] MEDS: 0.9 % Sodium Chloride Flush 3 ML SYRINGE IVFLUSH (22:13)
[2025-07-01] VITALS (7 sets, daily range): BP systolic 140–160; BP diastolic 82–94; PULSE 77–98; RESP 16–19; TEMP 36.2–36.7; O2SAT 93–100
[2025-07-01] MEDS: guaiFENesin 200 MG/10 ML 10 ML LIQUID PO ×2 (00:59→05:13)
[2025-07-01 03:41] LABS: HBS Num1 0.00 mIU/mL (0-7.99); HBc Num1 0.09 S/CO (0.00-0.79); HBsAGNum1 0.47 S/CO (0.00-0.99); HIV Num 1 0.07 S/CO (0.00-0.99); Hepatitis A Antibody IgM 0.16 Index (0-0.79); Hepatitis B Surface Antigen Negative (Negative); ~HepC Num1 0.21 S/CO (0.00-0.79); ~Hepatitis A Antibody IgM Nonreactive (Nonreactive); ~Hepatitis B Surface Antibody NONREACTIVE (Nonreactive); ~Hepatitis C Antibody Nonreactive (Nonreactive)
--- NOTE | 2025-07-01 05:04 | PC.RT ---
Pt stated she did not want to woken up to receive her 4am [place] tx. Pt woke up at 505am and req her tx.
[2025-07-01] MEDS: Albuterol/Iprat 2.5/0.5MG 3 ML AMPUL.NEB INHALE ×4 (05:24→14:59)
[2025-07-01] MEDS: Ferrous Sulfate 324 MG TABLET.DR PO (08:31)
[2025-07-01] MEDS: 0.9 % Sodium Chloride Flush 3 ML SYRINGE IVFLUSH (08:31)
[2025-07-01] MEDS: guaiFEN/Codeine SF 200/20/10ML 10 ML LIQUID PO (08:43)
--- NOTE | 2025-07-01 09:39 | MHC.CM.PN ---
PT LIVES WITH HER CHILDREN HER MOM LIVES NEXT DOOR SHE HAS A RIDE HOME DC PLAN HOME N/S
[2025-07-01 11:20] LABS: MRSA Nasal PCR NEGATIVE (Negative); SA Nasal PCR POSITIVE (Negative)
--- NOTE | 2025-07-01 13:22 | P.CONPL_ITS ---
History of Present Illness History of Present Illness Consult date: 07/01/25 Chief complaint: Asthma exacerbation, flu, acute hypoxic respirator Narrative: 40-year-old lady with multiple medical issues including among others obesity, lupus, asthma hospitalized on 06/30/2025 with dyspnea and hypoxia secondary to asthma exacerbation and influenza A. Patient initially required supplemental oxygen to maintain normal oximetry, now she has been titrated off of it. She continues to have significant expiratory wheezing and some dyspnea. Review of Systems 2 Constitutional: Constitutional: Denies daytime sleepiness, Denies excessive sweating, Denies fatigue, Denies fever(s), Denies lethargy, Denies malaise, Denies night sweats, Denies snoring and Denies weight loss Eyes: Eyes: Denies blurry vision and Denies itchy eyes ENT: Denies nasal congestion, Denies post nasal drip, Denies sinus pain, Denies sinus pressure and Denies other ( Thrush) Cardiovascular: Cardiovascular: Denies chest pain, Denies pedal edema, Denies dyspnea, Reports dyspnea on exertion, Denies orthopnea and Denies paroxysmal nocturnal dyspnea Respiratory: Respiratory: Denies cough, Denies hemoptysis, Denies excessive phlegm production, Denies dyspnea, Reports dyspnea on exertion, Denies snoring and Reports wheezing Gastrointestinal: Gastrointestinal: Denies abdominal pain and Denies heartburn Musculoskeletal: Musculoskeletal: Denies myalgias, Denies arthralgias and Denies joint swelling Integumentary/Breasts: Skin/Breast: Denies rash Neurologic: Denies memory loss and Denies seizure-like activity Psychiatric: Psychiatric: Denies abnormal sleep pattern, Denies anxiety and Denies memory loss Endocrine: Endocrine: Denies excessive sweating, Denies fatigue and Denies heat intolerance Hematologic/Lymphatic: Hematologic/Lymphatic: Denies easy bruising Allergic/Immunologic: Allergic/Immunologic: Denies itchy eyes, Denies seasonal rhinorrhea and Reports wheezing PMFSH Past Medical History Medical History Memory change Sjogren syndrome with myopathy Optic neuritis PTSD (post-traumatic stress disorder) Depression IBS (irritable colon syndrome) Rheumatoid factor positive Anxiety GERD (gastroesophageal reflux disease) Endocervical polyp Family History Family History Father Hypertension CAD (coronary artery disease) Mother No problems noted. Maternal Grandmother Stroke Cancer Paternal Grandfather Stroke Son Mast cell activation syndrome Dysautonomia Other Mental health disorder Substance use disorder Surgical History Surgical History H/O colonoscopy H/O esophagogastroduodenoscopy H/O LEEP History of bilateral tubal ligation Social History Social History Household Members: Children Housing: House Do you presently have visiting nurse or other home services: No Alcohol intake: never Patient Tobacco Use Status: Former Tobacco user Tobacco use type: Smokeless Tobacco Years Smoked: 10 Smoked in Last 30 Days: Yes e-Cigarette/Vaping Use: Currently Using Frequency of e-Cigarette/Vaping Use: not for a few days Patient Interested in Nicotine Replacement: No Patient Given Instructions on How to Stop Smoking: No Second Hand Smoke Exposure: No Use of substances other than those prescribed or required for medical reasons: No Currently Displaying Signs/Symptoms of Drug Intoxication Withdrawal: No Have you been hit, kicked, punched, or otherwise hurt by someone within the past year? If so, by whom?: No Do you feel safe in your current relationship?: No Current Relationship Is there a partner from a previous relationship who is making you feel unsafe now?: No Are you made to feel afraid or neglected: No Advance Directives: No Advance Directives Information Provided: Yes Do you have a plan to hurt others: No Plan Recently lost weight without trying: No Nutrition Risks: No Nutritional Risk Patient : No : No Poor oral hygiene: No service: No Current occupational status: unemployed Sexual orientation: Straight/Heterosexual Gender identity: Female Cognitive needs: No Hearing needs: No Vision needs: No Meds Allergies Allergy/AdvReac Type Severity Reaction Status Date / Time Iodinated Contrast Media (IV Allergy Intermediate RASH Verified 06/30/25 07:37 CONTRAST) Penicillins Allergy Intermediate RASH Verified 06/30/25 07:37 amoxicillin Allergy Unknown unknown Verified 06/30/25 07:37 Active Medications: Current Medications Acetaminophen (Acetaminophen 325 Mg Tablet) 650 mg PO Q6H PRN PRN Reason: Pain, Mild 1-3,fever,headache Last Admin: 07/01/25 05:14 Dose: 650 mg Albuterol/Ipratropium (Albuterol/Iprat 2.5/0.5mg 3 Ml Ampul.Neb) 3 ml INHALE RQ4H [facility] Last Admin: 07/01/25 11:43 Dose: 3 ml Albuterol/Ipratropium (Albuterol/Iprat 2.5/0.5mg 3 Ml Ampul.Neb) 3 ml INHALE Q3H PRN PRN Reason: sob Baclofen (Baclofen 10 Mg Tablet) 10 mg PO BID [facility] Last Admin: 07/01/25 08:31 Dose: 10 mg Calcium Carbonate (Calcium Carbonate 750 Mg Tab.Chew) 750 mg PO Q4H PRN PRN Reason: Heartburn Duloxetine HCl (Duloxetine Hcl 30 Mg Capsule.) 90 mg PO DAILY [facility] Last Admin: 07/01/25 08:32 Dose: 90 mg Enoxaparin Sodium (Enoxaparin Sodium 40 Mg/0.4 Ml Syringe) 40 mg SUBCUT Q24H [facility] Last Admin: 07/01/25 08:29 Dose: 40 mg Famotidine (Famotidine 20 Mg Tablet) 20 mg PO BEDTIME [facility] Last Admin: 06/30/25 22:09 Dose: 20 mg Ferrous Sulfate (Ferrous Sulfate 324 Mg Tablet.) 324 mg PO BID [facility] Last Admin: 07/01/25 08:31 Dose: 324 mg Guaifenesin/Codeine Phosphate (Guaifen/Codeine Sf 200/20/10ml 10 Ml Liquid) 10 ml PO Q4H PRN PRN Reason: Cough Last Admin: 07/01/25 08:43 Dose: 10 ml Hydroxychloroquine Sulfate (Hydroxychloroquine Sulfate 200 Mg Tablet) 200 mg PO BID [facility] Last Admin: 07/01/25 08:31 Dose: 200 mg Ceftriaxone Sodium 1 gm/ (Sodium Chloride) 50 mls @ 100 mls/hr IV Q24H [facility] Last Admin: 07/01/25 13:17 Dose: 100 mls/hr Azithromycin 500 mg/ Sodium (Chloride) 250 mls @ 125 mls/hr IV Q24H [facility] Loratadine (Loratadine 10 Mg Tablet) 10 mg PO DAILY [facility] Last Admin: 07/01/25 08:31 Dose: 10 mg Magnesium Hydroxide (Milk Of Magnesia 30 Ml Oral.Susp) 30 ml PO DAILY PRN PRN Reason: Constipation Melatonin (Melatonin 3 Mg Tablet) 6 mg PO BEDTIME PRN PRN Reason: Insomnia Last Admin: 06/30/25 22:08 Dose: 6 mg Methylprednisolone Sodium Succinate (Methylprednisolone Sod Succ 40 Mg/Ml Vial) 40 mg IVPUSH BID [facility] Last Admin: 07/01/25 08:32 Dose: 40 mg Montelukast Sodium (Montelukast Sodium 10 Mg Tablet) 10 mg PO BEDTIME [facility] Last Admin: 06/30/25 22:09 Dose: 10 mg Non-Formulary Medication (Naltrexone) 4.5 mg PO BEDTIME [facility] Non-Formulary Medication (Cromolyn) 5 mg PO QID [facility] Omeprazole (Omeprazole 20 Mg Capsule.Dr) 20 mg PO DAILY@0630 [facility] Last Admin: 07/01/25 05:14 Dose: 20 mg Oseltamivir Phosphate (Oseltamivir Phosphate 75 Mg Capsule) 75 mg PO BID [facility] Stop: 07/05/25 09:01 Last Admin: 07/01/25 08:31 Dose: 75 mg Sodium Chloride (0.9 % Sodium Chloride Flush 3 Ml Syringe) 3 ml IVFLUSH [facility] Last Admin: 07/01/25 08:31 Dose: 3 ml Home Medications ?Medication ?Instructions ?Recorded ?Confirmed ?Last Taken ?Type fexofenadine 180 mg tablet 180 mg PO DAILY 07/18/24 Unknown History montelukast 10 mg tablet 10 mg PO BEDTIME 07/18/24 Unknown History propranolol 20 mg tablet 20 mg PO TID 07/18/24 Unknown History albuterol sulfate 2.5 mg/3 mL 1.25 mg inhalation Q4-6H PRN 01/14/25 06/30/25 Unknown History (0.083 %) solution for nebulization wheezing cromolyn 100 mg/5 mL oral 5 mg PO QID 06/30/25 5 Unknown History concentrate famotidine 40 mg tablet 20 mg PO BEDTIME 06/30/25 Unknown History naltrexone 4.5 mg capsule 4.5 mg PO BEDTIME 06/30/25 1 08/31/24 Unknown History omeprazole 40 mg capsule,delayed 20 mg PO DAILY 06/30/25 Unknown History release Physical Exam 2 Vital Signs: Vital Signs: Last Vital Signs Temp 97.1 F 07/01/25 07:30 Pulse 94 07/01/25 11:43 Resp 16 07/01/25 11:43 BP 146/94 H 07/01/25 07:30 Pulse Ox 100 07/01/25 07:30 O2 Del Method Nasal Cannula 07/01/25 07:30 O2 Flow Rate 4 07/01/25 07:30 BMI result Body Mass Index 34.7 Const: General: no acute distress and alert Nutritional Appearance: obese Orientation/consciousness: Other orientation findings ( oriented) HEENT: Head: Yes atraumatic Eyes: General: appearance normal, both eyes and all related structures S clerae: sclerae normal EOM: EOMs intact bilaterally Neck: Neck: Yes supple Lymphatic: no lymphadenopathy noted Resp: Effort & Inspection: normal respiratory effort and no use of accessory muscles Auscultation: wheezes (Expiratory bilateral) Cardio: Rate: regular rate Rhythm: regular rhythm Heart sounds: no gallops, no murmurs and no rubs Skin: General skin exam: other ( warm) Extrem: General: No clubbing, No cyanosis and No edema Results Laboratory Findings 06/30/25 07:47 06/30/25 07:47 Abnormal lab findings: Abnormal Labs 06/30/25 07/01/25 07:47 00:56 WBC 11.1 H Immature Gran % (Auto) 0.5 H Neut % (Auto) 85.2 H Lymph % (Auto) 5.3 L Lymph # (Auto) 0.6 L Abs Immat Gran (auto) 0.05 H Absolute Neuts (auto) 9.4 H BUN 7 L Random Glucose 117 H AST 35 H Nasal S. aureus Screen POSITIVE A Influenza Type A (PCR) POSITIVE A Assessment and Plan (1) Asthma: Qualifiers: Asthma severity: mild Asthma persistence: intermittent Asthma complication type: uncomplicated Qualified Code(s): J45.20 - Mild intermittent asthma, uncomplicated Status: Acute (2) Hypoxia: Status: Acute (3) Influenza A H1N1 infection: Status: Acute Plan Impression: 40-year-old lady with multiple medical issues including lupus, asthma, obesity now hospitalized with acute hypoxic respiratory failure secondary to influenza a and asthma exacerbation, improving slowly. Now titrated off supplemental oxygen, but still with significant expiratory wheezing, and some dyspnea. Recommendations: Agree with current treatment regimen including nebulized bronchodilators and tapering off systemic glucocorticoids. Patient would benefit from outpatient pulmonary follow-up. Procedures Date of Service Date of Service: 07/01/25
--- NOTE | 2025-07-01 14:51 | PM.DS ---
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 She said her child was sick before that? Viral sickness The dyspnea has rapidly progressed, resulting in severe functional limitation?she is unable to walk or get to the bathroom due to breathlessness. She did not tele appointment yesterday? She has taken two doses of prednisone 40 mg (one yesterday, one this morning) without relief. She said that she gets short of breath with minimal exertion, minimal whitish sputum, subjective fever, as per ED her sats goes in low 80s with walking. In addition patient has smoked marijuana, no recreational use of drugs or alcohol. No recent changes in home medications except for the prednisone. She denies fever, chills, headache, visual changes, or new rashes. Lab imaging reviewed: WBC count 11.1 BMP seems fine, lactic acid normal, Chest x-ray shows bilateral pneumonia CT chest: Official reading pending-grossly look like lot of patchy consolidations? Question multifocal pneumonia, blood culture pending Hospital course: Patient admitted for acute acute hypoxemic respiratory failure secondary to asthma exacerbation(mild intermittent asthma) in the setting of influenza a: Chest imaging reviewed possible pneumonia, blood cultures sent(blood culture preliminary negative at 24 hours), strep and Legionella antigen pending: Patient was started on nebs, steroids, IV antibiotics, oxygen: With the above management patient seems to be improved . Sats are in 90s even with walking, shortness of breath improved significantly, patient feeling more comfortable and eager to go home. Switched to p.o. steroids and antibiotics, repeat chest imaging in 3-4 weeks to see resolution pneumonia. needs to follow up with PCP outpatient. plan: Prednisone 40 mg p.o. qd for 5 days. Ceftin 500 mg p.o. b.i.d. and doxycycline 100 mg p.o. b.i.d. for 1 week. repeat chest imaging in 3-4 weeks to see resolution pneumonia. Also added cough medication, lidocaine patch and Tylenol for pain/and cough. Above management discussed with the patient detail length she understand and in agreement with the above plan, time spent 50 minute. Time Attestation Total time managing care of this patient today: 50 mintues. Discharge Coordination Time (in mins): 50 min Quality: Safe Use of Opioids Does Pt have an Active Cancer Diagnosis on the Problem List?: No Quality: Stroke Does the patient have a stroke diagnosis?: No Physical Exam Exam: Exam: Appearance: Alert.? Oriented X3.? cvs: rrr, [id number]. res:air entry fair , no rales or wheezing abd: no rebound or guarding ,nt, bs present. ext pulses present , no cyanosis . neuro: axo3 , nonfocal. Vital Signs: Vital Signs: Last Vital Signs Temp 97.1 F 07/01/25 07:30 Pulse 94 07/01/25 11:43 Resp 16 07/01/25 11:43 BP 146/94 H 07/01/25 07:30 Pulse Ox 100 07/01/25 07:30 O2 Del Method Nasal Cannula 07/01/25 07:30 O2 Flow Rate 4 07/01/25 07:30 BMI result Body Mass Index 34.7 DS: Data Data Completed and Pending Labs on day of discharge: Laboratory Results - last 24 hr 06/30/25 07/01/25 16:56 00:56 Nasal Screen MRSA (PCR) NEGATIVE Nasal S. aureus Screen POSITIVE A Nasal MRSA/S.aureus Interp SEE NOTE Hepatitis A IgM Ab Nonreactive Hep Bs Antigen Negative Hep Bs Antibody NONREACTIVE Hep B Core Total Ab Nonreactive Hepatitis C Ab (EIA) Nonreactive HIV 1&2 Ab/P24 Ag 4thGn Nonreactive Imaging CT scan - chest: Radiologist's impression: chest ct:Multifocal bilateral pulmonary ground-glass opacities involving mostly the upper lobes, consistent with airborne bilateral alveolar infection, pneumonia. Discharge Plan Discharge Anticipated Discharge Date/Time: 07/01/25 14:40 Patient Disposition: Home, Self-Care Discharge Diagnosis: Acute hypoxemic respiratory failure secondary to asthma exacerbation/pneumonia Referrals: Luis Loomis MD [Primary Care Provider, Internal Medicine] - 1 Week Discharge Medications: New albuterol sulfate 90 mcg/actuation aerosol powdr breath activated 2 inh inhalation Q4-6H PRN (Reason: shortness of breath or wheezing) Qty: 1 0RF cefuroxime axetil 500 mg Tablet 500 mg PO Q12H Qty: 14 0RF doxycycline hyclate 100 mg tablet 100 mg PO BID Qty: 14 0RF acetaminophen 325 mg Tablet 975 mg PO Q6H PRN (Reason: Pain, Mild 1-3,Fever,Headache) Qty: 15 0RF codeine-guaifenesin 10-100 mg/5 mL Liquid 10 ml PO Q4H PRN (Reason: Cough) Qty: 120 0RF lidocaine [Lidocaine Pain Relief] 4 % Adhesive Patch,Medicated 1 patch transdermal DAILY Qty: 7 0RF Protocol: Apply to: Apply to: affected area Continued budesonide-formoterol [Symbicort] 160-4.5 mcg/actuation HFA aerosol inhaler 2 puff inhalation BID 30 Days Qty: 10.2 3RF baclofen 10 mg tablet 10 mg PO BID 30 Days Qty: 60 5RF ferrous sulfate 324 mg (65 mg iron) tablet,delayed release (DR/EC) 324 mg PO BID 90 Days Qty: 180 1RF famotidine 40 mg tablet 20 mg PO BEDTIME omeprazole 40 mg capsule,delayed release(DR/EC) 20 mg PO DAILY naltrexone 4.5 mg capsule 4.5 mg PO BEDTIME cromolyn 100 mg/5 mL concentrate 5 mg PO QID fexofenadine 180 mg tablet 180 mg PO DAILY montelukast 10 mg tablet 10 mg PO BEDTIME propranolol 20 mg tablet 20 mg PO TID albuterol sulfate 2.5 mg /3 mL (0.083 %) solution for nebulization 1.25 mg inhalation Q4-6H PRN (Reason: wheezing) duloxetine 30 mg capsule,delayed release(DR/EC) 90 mg PO DAILY Qty: 270 1RF hydroxychloroquine 200 mg tablet 200 mg PO BID Qty: 180 1RF Changed prednisone 20 mg tablet 40 mg PO DAILY 5 Days Qty: 8 0RF Discharge Orders: Discharge Order (Routine); Ordered 07/01/25 Ordered By: Kim Fowler Diet: Advance to usual diet Activity on Discharge: As tolerated Stand Alone Forms: Patient Portal Discharge page Print Language: Citizen Of [place] Activity Restrictions/Additional Instructions: Take your medications as prescribed. If you were prescribed antibiotics today, it is important that you take your medication to their entirety, do not skip any doses, do not finish them early. Follow-up with your primary care provider this week. Return to the emergency department with new or worsening symptoms. Such as fevers, chills, chest pain, shortness of breath, nausea, vomiting, dizziness, headache, vision changes, lethargy In case of emergency call 911 Care Plan Goals: Patient admitted for acute acute hypoxemic respiratory failure secondary to sthma exacerbation(mild intermittent asthma) in the setting of influenza a: Chest imaging reviewed possible pneumonia, blood cultures sent, strep and Legionella antigen pending: Patient was started on nebs, steroids, IV antibiotics, oxygen: With the above management patient seems to be improved , needs to follow up with PCP outpatient. Switched to p.o. steroids and antibiotics, repeat chest imaging in 3-4 weeks to see resolution pneumonia. Health Concerns: As above. Plan of Treatment: As above. Assessment: As above. Patient Instructions: Asthma (ED), Influenza (ED), Wheezing (ED), Pneumonia (DC)
--- NOTE | 2025-07-01 15:07 | MHC.CM.PN ---
pt dcd home self care
--- NOTE | 2025-07-01 16:37 | PC.NURSE ---
Oral Doxy: Pt to be D/C, requested pt receive first dose of oral Doxy now rather than 2200 as scheduled, before pt d/c to determine tolerance.
[2025-07-04 17:23] LABS: Strep Pneumo Ag urine Not Detected (Not Detected)
== END 2025-07-01 17:51 | disposition home or self-care (01) ==
LOC: HO.ED 16:28 → HO.EDOVER 16:47 → HO.S3 19:51
PROVIDERS: Physician Assistant; Admitting Provider Internal Medicine; Emergency Provider Emergency Medicine; PCP Internal Medicine; Visit Provider Internal Medicine
DX: J45.901 Unspecified asthma with (acute) exacerbation (principal); J96.01 Acute respiratory failure with hypoxia; J10.1 Influenza due to other identified influenza virus with other respiratory manifestations; J45.20 Mild intermittent asthma, uncomplicated; D89.40 Mast cell activation, unspecified; G90.A Postural orthostatic tachycardia syndrome [POTS]; K21.9 Gastro-esophageal reflux disease without esophagitis; F41.9 Anxiety disorder, unspecified; Z79.899 Other long term (current) drug therapy; Z87.891 Personal history of nicotine dependence
CPT/HCPCS: 36415; 71045; 71250; 80048; 80076; 83605; 83690; 84702; 85025; 85379; 86704; 86706; 86709; 86803; 87040; 87340; 87389; 87449; 87637; 87640; 87641; 87899; 94640; 96361; 96365; 96366; 96372; 96375; 96376; 99221; 99285; J0456; J0696; J1650; J2919; J3010; J3475

== ENCOUNTER → 2025-06-30 07:40 | Outpatient (BNV) | payer OTHER, SELFPAY | PROVIDERS: Emergency Provider Emergency Medicine; PCP Internal Medicine; Visit Provider Specialist | DX: R91.8 Other nonspecific abnormal finding of lung field (principal) | CPT/HCPCS: 71045; 71250 ==

== ENCOUNTER → 2025-06-30 16:36 | Outpatient (BNV) | payer OTHER, SELFPAY | PROVIDERS: Admitting Provider Internal Medicine; Emergency Provider Emergency Medicine; PCP Internal Medicine; Visit Provider Internal Medicine Pulmonary Disease | DX: J45.20 Mild intermittent asthma, uncomplicated (principal); R09.02 Hypoxemia; J10.1 Influenza due to other identified influenza virus with other respiratory manifestations | CPT/HCPCS: 99222 ==

== ENCOUNTER → 2025-06-30 16:36 | Outpatient (BNV) | payer OTHER, SELFPAY | PROVIDERS: Admitting Provider Internal Medicine; Emergency Provider Emergency Medicine; PCP Internal Medicine; Visit Provider Internal Medicine | DX: J96.01 Acute respiratory failure with hypoxia (principal); J18.9 Pneumonia, unspecified organism; J45.901 Unspecified asthma with (acute) exacerbation | CPT/HCPCS: 99222; 99239 ==

== ENCOUNTER 2025-07-02 15:53 | Emergency (ER) | payer OTHER, SELFPAY ==
--- NOTE | ~2025-07-02 | US_ITS ---
CLINICAL HISTORY: LLE pain swelling Venous duplex ultrasound left lower extremity Comparison: None provided Findings: The visualized deep veins are fully compressible with normal Doppler color flow and spectral tracings. No popliteal cyst. IMPRESSION: 1. Negative for left lower extremity deep vein thrombosis. This document has been electronically signed by: Jignesh Cleaning MD on 07/02/2025 19:46:22
[2025-07-02 16:12] VITALS: BP 166/85; PULSE 89; RESP 20; TEMP 36.6; O2SAT 93; BMI 35.1
--- NOTE | 2025-07-02 16:12 | ED.LOWEXIN ---
HPI - Extremity Injury (Lower) General Chief Complaint: General Medical Stated Complaint: pain in the left leg/was just here Time Seen by Provider: 07/02/25 18:34 History of Present Illness ED Provider: izabela HPI Narrative: 40 F with dysautonomia, recent DC from inpatient here for PNA/asthma/Flu on prednisone, abx. Edwards discomfort L hamstring area. No peripheral edema. No redness. Fever. Mild dry cough. Was concerned for BP at discharge 180s systolic. No [place]Z/chest pain. MD complaint: hip injury Related Data Home Medications ?Medication ?Instructions ?Recorded ?Confirmed fexofenadine 180 mg tablet 180 mg PO DAILY 07/18/24 06/30/25 montelukast 10 mg tablet 10 mg PO BEDTIME 07/18/24 06/30/25 propranolol 20 mg tablet 20 mg PO TID 07/18/24 06/30/25 albuterol sulfate 2.5 mg/3 mL 1.25 mg inhalation Q4-6H PRN 01/14/25 06/30/25 (0.083 %) solution for nebulization wheezing cromolyn 100 mg/5 mL oral 5 mg PO QID 06/30/25 06/30/25 concentrate famotidine 40 mg tablet 20 mg PO BEDTIME 06/30/25 06/30/25 naltrexone 4.5 mg capsule 4.5 mg PO BEDTIME 06/30/25 06/30/25 omeprazole 40 mg capsule,delayed 20 mg PO DAILY 06/30/25 06/30/25 release Previous Rx's ?Medication ?Instructions ?Recorded Symbicort 160 mcg-4.5 2 puff inhalation BID 30 days 01/22/25 mcg/actuation HFA aerosol inhaler #10.2 grams (budesonide-formoterol) duloxetine 30 mg capsule,delayed 90 mg (3 x 30 mg) PO DAILY #270 02/27/25 release caps hydroxychloroquine 200 mg tablet 200 mg PO BID #180 tabs 02/27/25 baclofen 10 mg tablet 10 mg PO BID 30 days #60 tabs 06/03/25 albuterol sulfate 90 mcg/actuation 2 inh inhalation Q4-6H PRN 06/30/25 breath activated powder inhaler shortness of breath or wheezing #1 ea acetaminophen 325 mg tablet 975 mg (3 x 325 mg) PO Q6H PRN 07/01/25 Pain, Mild 1-3,Fever,Headache #15 tabs acetaminophen 325 mg-DM 10 mg/10 20 ml PO Q4H PRN cough #118 mL 07/01/25 mL oral liquid (Robitussin Cough-Sore Throat) cefuroxime axetil 500 mg tablet 500 mg PO Q12H #14 tabs 07/01/25 doxycycline hyclate 100 mg tablet 100 mg PO BID #14 tabs 07/01/25 ferrous sulfate 324 mg (65 mg 324 mg PO BID 90 days #180 tabs 07/01/25 iron) tablet,delayed release lidocaine 4 % topical patch 1 patch transdermal DAILY #7 ea 07/01/25 (Lidocaine Pain Relief) oseltamivir 75 mg capsule (Tamiflu) 75 mg PO BID #8 caps 07/01/25 prednisone 20 mg tablet 40 mg (2 x 20 mg) PO DAILY 5 days 07/01/25 #8 tabs Allergies Allergy/AdvReac Type Severity Reaction Status Date / Time Iodinated Contrast Media (IV Allergy Intermediate RASH Verified 07/02/25 16:15 CONTRAST) Penicillins Allergy Intermediate RASH Verified 07/02/25 16:15 amoxicillin Allergy Unknown unknown Verified 07/02/25 16:15 [facility] Past Medical History Medical History Memory change Sjogren syndrome with myopathy Optic neuritis PTSD (post-traumatic stress disorder) Depression IBS (irritable colon syndrome) Rheumatoid factor positive Anxiety GERD (gastroesophageal reflux disease) Endocervical polyp Surgical History H/O colonoscopy H/O esophagogastroduodenoscopy H/O LEEP History of bilateral tubal ligation Family History Family History Father Hypertension CAD (coronary artery disease) Mother No problems noted. Maternal Grandmother Stroke Cancer Paternal Grandfather Stroke Son Mast cell activation syndrome Dysautonomia Other Mental health disorder Substance use disorder Social History Social History Household Members: Children Housing: House Do you presently have visiting nurse or other home services: No Alcohol intake: never Patient Tobacco Use Status: Former Tobacco user Tobacco use type: Smokeless Tobacco Years Smoked: 10 e-Cigarette/Vaping Use: Currently Using Second Hand Smoke Exposure: No Advance Directives: No Advance Directives Information Provided: No Do you have a plan to hurt others: No Plan service: No Current occupational status: unemployed Sexual orientation: Straight/Heterosexual Gender identity: Female Cognitive needs: No Hearing needs: No Vision needs: No Physical Exam Exam: Exam: EXAM: Gen: Alert, awake, well appearing, well hydrated. Head: Atraumatic Eyes: Anicteric, Normal conjunctiva. ENT: Moist mucosa, no pallor. Neck: Supple. Respiratory: Breathing comfortably, No distress.Clear to auscultation bilaterally, symmetric chest expansion, No wheeze, rales, ronchi. Cardiovascular: Regular rate and rhythm. No murmurs or rub. Well perfused periphery, warm extremities. No edema. Abdominal: Soft, no objective distension. No palpable masses or obvious organomegaly. No focal tenderness, no guarding, no rebound tenderness or other peritoneal findings. : No flank tenderness. Neuro: Alert. Gross movement of all extremities intact. Vital signs: See flowsheet Vital Signs: Vital Signs: Last Vital Signs Temp 98.1 F 07/02/25 19:29 Pulse 85 07/02/25 19:29 Resp 16 07/02/25 19:29 BP 159/86 H 07/02/25 19:29 Pulse Ox 97 07/02/25 19:29 O2 Del Method Room Air 07/02/25 19:29 BMI result Body Mass Index 35.1 Course Course Course Narrative: This is a Rapid Medical Exam performed in triage by Alaina Pedraza PA-C. Full HPI, ROS and PE to be performed by primary ED provider. 40 y/o F with pmhx asthma, nuclear Sj?gren?s syndrome, mast cell activation syndrome, and POTS presenting to the ED c/o continued cough/SOB & b/l LE swelling w/ LLE pain x this AM. Patient was recently discharged from our facility last night s/p admission for acute hypoxemic respiratory failure secondary to asthma and influenza a. PE: Talking in short sentences. Diffuse expiratory wheeze/rhonchi noted. + left calf tenderness. No pitting edema. Plan: Labs, ED bronch protocol, ultrasound Medical Decision Making Medical Decision Making MDM Narrative: Medical Decision Makin-year-old just discharged earlier today chronic neuropathic pain and left hamstring discomfort she was concerned perhaps this was a blood clot or problem after her recent hospitalization no worsening of her respiratory symptoms since discharge DVT excluded. No tenderness. The compartments of the leg are soft well-perfused distally. Preliminary Favored Differential Diagnosis: Chronic leg pain, neuropathy, among additional considered etiologies Testing Interpreted Independently: ?See below for details Radiology or Lab testing Results Reviewed: ?See below for details Consults: ?See below for details Independent Historians/External Chart Reviews: ?See below for details Social Determinants of Health Impacting MDM/Planning: ?See below for details Discharge Plan Discharge Clinical Impression: Left leg pain Patient Disposition: Home, Self-Care Instructions: Leg Cramps (ED) Additional Instructions: Leg ultrasound had no clot. Your exam was reassuring. Your blood pressure was mildly elevated with no signs of severe issues related to this. Prescriptions: No Action budesonide-formoterol [Symbicort] 160-4.5 mcg/actuation HFA aerosol inhaler 2 puff inhalation BID 30 Days Qty: 10.2 3RF baclofen 10 mg tablet 10 mg PO BID 30 Days Qty: 60 5RF ferrous sulfate 324 mg (65 mg iron) tablet,delayed release (DR/EC) 324 mg PO BID 90 Days Qty: 180 1RF albuterol sulfate 90 mcg/actuation aerosol powdr breath activated 2 inh inhalation Q4-6H PRN (Reason: shortness of breath or wheezing) Qty: 1 0RF famotidine 40 mg tablet 20 mg PO BEDTIME omeprazole 40 mg capsule,delayed release(DR/EC) 20 mg PO DAILY naltrexone 4.5 mg capsule 4.5 mg PO BEDTIME cromolyn 100 mg/5 mL concentrate 5 mg PO QID cefuroxime axetil 500 mg Tablet 500 mg PO Q12H Qty: 14 0RF doxycycline hyclate 100 mg tablet 100 mg PO BID Qty: 14 0RF acetaminophen 325 mg Tablet 975 mg PO Q6H PRN (Reason: Pain, Mild 1-3,Fever,Headache) Qty: 15 0RF lidocaine [Lidocaine Pain Relief] 4 % Adhesive Patch,Medicated 1 patch transdermal DAILY Qty: 7 0RF Protocol: Apply to: Apply to: affected area prednisone 20 mg tablet 40 mg PO DAILY 5 Days Qty: 8 0RF oseltamivir [Tamiflu] 75 mg Capsule 75 mg PO BID Qty: 8 0RF Robitussin Cough-Sore Throat 325-10 mg/10 mL liquid 20 ml PO Q4H PRN (Reason: cough) Qty: 118 0RF fexofenadine 180 mg tablet 180 mg PO DAILY montelukast 10 mg tablet 10 mg PO BEDTIME propranolol 20 mg tablet 20 mg PO TID albuterol sulfate 2.5 mg /3 mL (0.083 %) solution for nebulization 1.25 mg inhalation Q4-6H PRN (Reason: wheezing) duloxetine 30 mg capsule,delayed release(DR/EC) 90 mg PO DAILY Qty: 270 1RF hydroxychloroquine 200 mg tablet 200 mg PO BID Qty: 180 1RF Interventions: ED Discharge Assessment Last Done: 07/02/25 19:29 Discharge Date/Time: 07/02/25 19:30 Print Language: Vietnamese
[2025-07-02 18:46] VITALS: BP 159/86; PULSE 85; RESP 16; TEMP 36.7; O2SAT 97
--- OUTSIDE RECORDS SUMMARY | 2025-07-02 19:18 | XMS_ITS | Clinical Summary ---
Author Organization [facility] Address [address] [place] [address] Phone Care Team Providers Care Functional Support Analyst Name Role Phone Luis Loomis MD Primary Care Provider [phone] Surgical History Surgery Date Site/Laterality Comments CERVICAL [...] to complete this topic Insurance [place]ICA[place] - [place] [facility] Care Teams Functional Support Analyst Relationship Specialty Start Date End Date Luis Loomis MD [address] [place] [address] PCP - General Internal Medicine 05/17/18
--- OUTSIDE RECORDS SUMMARY | 2025-07-02 19:18 | XMS_ITS ---
Author Name [facility] Organization Unknown History of Medication Use Medication Directions Dispensed Refills Start Date End Date Stat cromolyn (GASTROCROM) 100 mg/5 mL oral solution TAKE 5ML BY MOUTH TWICE DAILY FOR A WEEK, THEN 5ML THREE TIMES DAILY FOR A WEEK, AND FINALLY 5ML FOUR TIMES DAILY THEREAFTER. TAKE THE FIRST THREE DOSES 30MINS BEFORE MEALS. 06/20/2024 active cromolyn (GASTROCROM) 100 mg/5 mL oral solution Take 5 mLs (100 mg) by mouth 4 (four) times daily Take 5ml by mouth twice daily for a week, then 5ml three times daily for a week, and finally 5ml four times daily thereafter. Take the first three doses 30mins before meals. 06/17/2024 active ergocalciferol (VITAMIN D2) 1,250 mcg (50,000 unit) capsule TAKE 1 CAPSULE BY MOUTH ONCE A WEEK 06/17/2024 active famotidine (PEPCID) 20 MG tablet Take 1 tablet (20 mg) by mouth 2 (two) times daily 06/17/2024 active fexofenadine (GINGER) 180 MG tablet Take 1 tablet (180 mg) by mouth daily 06/17/2024 active montelukast (SINGULAIR) 10 mg tablet Take 1 tablet (10 mg) by mouth nightly 06/17/2024 active propranoloL (INDERAL) 20 MG tablet Take 1 tablet (20 mg) by mouth 3 (three) times daily 06/17/2024 active hydroxychloroquine sulfate (PLAQUENIL) 200 mg tablet Take 200 mg by mouth 2 (two) times daily 06/08/2024 active DULoxetine (CYMBALTA) 30 MG delayed release capsule 90mg 06/07/2024 active SYMBICORT 160-4.5 mcg/actuation inhaler 2 PUFF INHALED 2 TIMES A DAY FOR 30 DAYS 06/06/2024 active VENTOLIN HFA 90 mcg/actuation inhaler INHALE 1 PUFF INTO THE LUNGS 3 TIMES PER DAY 03/27/2024 active ibuprofen (MOTRIN) 400 MG tablet TAKE 1 TO 2 TABLETS BY MOUTH EVERY 6 TO 8 HOURS NEEDED FOR PAIN 03/14/2024 active ferrous sulfate 324 mg (65 mg iron) Tablet, Delayed Release (E.C.) Take 1 tablet by mouth 2 (two) times daily 02/24/2024 active Allergies Allergen Reaction Severity Comment Documented Date Source Statu s PENICILLIN HIVES 06/15/2024 CT_[facility] active AMOXICILLIN HIVES [facility] Problems Problem Status Onset Date Problem Type Date of Resoluti on Source Mast cell activation syndrome active EncounterDiagnosisAct [facility] Encounters Encounter Type Encounter Reason Primary Diagnosis Location Date Ambulatory ([facility]) 02/15/2025 Ambulatory Postural orthostatic tachycardia syndrome (POTS) Postural orthostatic tachycardia syndrome (POTS) ([facility]) 11/09/2024 Ambulatory ([facility]) 06/15/2024 Ambulatory Postural orthostatic tachycardia syndrome (POTS) Postural orthostatic tachycardia syndrome (POTS) ([facility]) 06/15/2024 Care Team Organization Name Specialty Phone Email Start Date End Da te HUSSAIN Check Inspector 06/18/2024 03/16/20 ([facility]) TYRESE NIXON Primary Care 06/16/2024
--- OUTSIDE RECORDS SUMMARY | 2025-07-02 19:18 | XMS_ITS | Clinical Summary ---
Author Organization [facility] Address [address] [place] [address] Care Team Providers Care Crane Hoist Or Lift Operator Name Role Phone Luis Loomis MD Primary Care Provider [phone] Source Comments Please note that some or [...] so, obtain the minor's consent prior to disclosure.[facility] Allergies Active Allergy Reactions Criticality Noted [...] Info) Description 08/09/2025 3:30 PM EST Telemedicine [facility] Department of Cardiology, [address] [phone] Wendy Cardenas MD [address] [place] [id number] Health Maintenance Due Date Last Done Comments DTaP/TDAP/TD VACCINES (1 - Tdap) 02/22/1991 ADOLESCENT HIV SCREENING 02/22/1997 COVID-19 Vaccine (2023-2 5 season) 2025 INFLUENZA (#1) 2025 NIRSEVIMAB VACCINES UNDER 8 MONTHS Aged Out No longer eligible based on patient's age to complete this topic Insurance [facility] Care Teams Crane Hoist Or Lift Operator Relationship Specialty Start Date End Date Luis Loomis MD [address] [place] [address] PCP - General 02/21/24
[2025-07-02 19:29] VITALS: BP 159/86; PULSE 85; RESP 16; TEMP 36.7; O2SAT 97
== END 2025-07-02 19:30 | disposition home or self-care (01) ==
PROVIDERS: Emergency Provider Emergency Medicine; PCP Internal Medicine
DX: M79.605 Pain in left leg (principal); Z79.899 Other long term (current) drug therapy; Z87.891 Personal history of nicotine dependence
CPT/HCPCS: 93971; 99283; 99284

== ENCOUNTER → 2025-07-02 16:16 | Outpatient (BNV) | payer OTHER, SELFPAY | PROVIDERS: Emergency Provider Emergency Medicine; PCP Internal Medicine; Visit Provider Student in an Organized Health Care Education/Training Program | DX: R22.42 Localized swelling, mass and lump, left lower limb (principal) | CPT/HCPCS: 93971 ==